=== PATIENT | male | born 1960 | race Two or more races ===

== ENCOUNTER 2020-02-06 15:24 | Inpatient (IN) | payer MEDICARE, OTHER ==
[~2020-02-06] VITALS: Ht 165.1 cm; Wt 64.9 kg
[2020-02-06] VITALS (7 sets, daily range): BP systolic 93–133; BP diastolic 40–94
--- NOTE | 2020-02-06 15:30 | NUR ---
Patient ANTON from dialysis center came in due to low BP. On trach, connected to the monitor and pulse ox. kept comfortable, will continue to monitor accordingly.
[2020-02-06 15:58] LABS: BASOPHILS # (AUTO) 0.2 /CMM (0.0-0.2); BASOPHILS % (AUTO) 1.3 % (0.0-2.0); EOSINOPHILS % (AUTO) 1.9 % (0.0-6.0); HEMATOCRIT 28 % (39-51); LYMPHOCYTES # (AUTO) 1.5 /CMM (0.8-4.8); LYMPHOCYTES % (AUTO) 12.6 % (20.0-44.0); MEAN CORPUSCULAR HGB CONC 32 g/dl (31.0-36.0); MEAN CORPUSCULAR VOLUME 94 fL (80-96); MONOCYTES # (AUTO) 0.9 /CMM (0.1-1.30); MONOCYTES % (AUTO) 7.5 % (2.0-12.0); NEUTROPHILS # (AUTO) 9.2 /CMM (1.8-8.9); NEUTROPHILS % (AUTO) 76.7 % (43.0-81.0); PLATELET COUNT (AUTO) 313 /CMM (150-450); RED BLOOD CELL COUNT(AUTO) 2.96 MIL/uL (4.5-6.0)
[2020-02-06] MEDS ORDERED: IV NS 0.9% 500 ML BAG IV ONE (16:00)
[2020-02-06] MEDS ORDERED: ACID1TAB12 GT (16:04)
[2020-02-06] MEDS ORDERED: HYDR100T27 GT (16:04)
[2020-02-06] MEDS ORDERED: SEVE0.8P3 PO (16:04)
[2020-02-06] MEDS ORDERED: FOLI0.8T2 GT (16:04)
[2020-02-06] MEDS ORDERED: ACET325T53 GT (16:04)
[2020-02-06] MEDS ORDERED: AMLO10TA4 GT (16:04)
[2020-02-06] MEDS ORDERED: ZINC220T4 GT (16:04)
[2020-02-06] MEDS ORDERED: SUCR1TAB GT (16:04)
[2020-02-06] MEDS ORDERED: MINO2.5T GT (16:04)
[2020-02-06] MEDS ORDERED: AMIN887L GT (16:04)
[2020-02-06] MEDS ORDERED: EPOE1VIA12 IJ (16:04)
[2020-02-06] MEDS ORDERED: ONDA4TAB5 PO (16:04)
[2020-02-06] MEDS ORDERED: LOSA50TA39 GT (16:04)
[2020-02-06] MEDS ORDERED: LEVO50TA8 GT (16:04)
[2020-02-06] MEDS ORDERED: SIME80TA15 GT (16:04)
[2020-02-06] MEDS ORDERED: ALPR0.5T GT (16:04)
[2020-02-06] MEDS ORDERED: CHOL100045 GT (16:04)
--- NOTE | 2020-02-06 16:09 | NUR ---
janey at bedside to x-ray
[2020-02-06 16:18] LABS: ALBUMIN 1.7 g/dL (3.4-5.0); BILIRUBIN,DIRECT 0.1 mg/dL (0.0-0.2); BILIRUBIN,TOTAL 0.3 mg/dL (0.2-1.0); CALCIUM, SERUM 9.6 mg/dL (8.5-10.1); CREATININE 4.8 mg/dL (0.6-1.3); TOTAL PROTEIN, SERUM 6.2 g/dL (6.4-8.2)
[2020-02-06 16:41] LABS: POTASSIUM 2.8 mmol/L (3.5-5.1)
[2020-02-06 17:14] LABS: BAND % (MANUAL) 2 % (0.0-5.0); EOSINOPHILS % (MANUAL) 2 % (0-4); LYMPHOCYTES % (MANUAL) 13 % (16-48); MONOCYTES % (MANUAL) 6 % (0-11.0); NEUTROPHILS % (MANUAL) 77 (42-76)
--- NOTE | 2020-02-06 17:54 | NUR ---
CALL LAB FOR PCR COVID SWAB
--- NOTE | 2020-02-06 18:47 | NUR ---
wheeled patient via gurney accompanied by RN and emt in no distress. RN at bedside to assume care.
--- NOTE | 2020-02-06 18:54 | NUR ---
RN NOTE PATIENT ARRIVED FROM ER BY KHURRAM TRANSFERRED TO BED. REPORT TAKEN FROM DELMY TIERNEY. PATIENT IN NO ACUTE DISTRESS. NO SOB NOTED. PATIENT BREATHING IS EVEN AND UNLABORED. PATIENT WITH TRACHEOSTOMY WITH 2L OXYGEN SATURATING >95% SPO2. VITAL SIGNS WNL. PATIENT ON CARDIAC MONITORING READING SINUS RHYTHM HR 69. PATIENT GTUBE PATENT AND INTACT. PATIENT BED ALARM IS ON. PATIENT HOB IS ELEVATED. PATIENT BED IS LOCKED AND IN LOWEST POSITION. CALL LIGHT WITHIN REACH. WILL ENDORSE CARE AND ADMISSION TO PM SHIFT FOR IMANI. Addendum: 02/06/20 at 1934 by SHAKILA RUSSELL RN RN NOTE PATIENT ARRIVED FROM ER BY KHURRAM TRANSFERRED TO BED. REPORT TAKEN FROM DELMY TIERNEY. PATIENT IN NO ACUTE DISTRESS. NO SOB NOTED. PATIENT BREATHING IS EVEN AND UNLABORED. PATIENT WITH TRACHEOSTOMY WITH 2L OXYGEN SATURATING >95% SPO2. VITAL SIGNS WNL. ISOLATION PRECAUTIONS MAINTAINED. PATIENT ON CARDIAC MONITORING READING SINUS RHYTHM HR 69. PATIENT GTUBE PATENT AND INTACT. PATIENT BED ALARM IS ON. PATIENT HOB IS ELEVATED. PATIENT BED IS LOCKED AND IN LOWEST POSITION. CALL LIGHT WITHIN REACH. WILL ENDORSE CARE AND ADMISSION TO PM SHIFT FOR IMANI.
--- NOTE | 2020-02-06 19:05 | NUR ---
FORENSIC BALLISTICS EXPERT NOTE RECEIVED PATIENT IN BED RESTING WITH HOB ELEVATED. AWAKE, ALERT, ORIENTED X3. ABLE TO MAKE NEEDS KNOWN IN [place], ABLE TO UNDERSTAND [place]ITTLE [place]. SPEECH IS CLEAR. ON ISOLATION FOR R/O COVID. BREATHING IS EVEN AND NON-LABORED, NO SOB NOTED AT THIS TIME. ON 2 LITERS O2 VIA TRACH COLLAR. PERRLA. SKIN IS DRY AND WARM TO TOUCH. NOTED DRY SCAB WOUNDS ON LEFT HAND, RED BLISTER ON LEFT HEEL, AND OPEN SKIN ON SACRAL AREA. IV SITE ON LIAM PICC LINE IS CLEAN DRY, AND PATENT, SALINE LOCKED. HD SITE ON LEFT UPPER ARM, BRUIT AND THRILL PRESENT. PEG TUBE IS CLAMPED. PATIENT IS NPO STATUS PER MD ORDER. ABDOMEN IS SOFT AND NON-TENDER, BOWEL SOUNDS ARE PRESENT ON ALL FOUR QUADRANTS. PATIENT IS ANURIC, INCONTINENT OF BOWELS. PATIENT IS NON-AMBULATORY. LOWER EXTREMITIES ARE FLACCID, UPPER EXTREMITIES ARE WNL. IN NO APPARENT DISTRESS NOTED AT THIS TIME. BED IS LOWERED AND LOCKED FOR SAFETY. CALL LIGHT IS WITHIN EASY REACH. WILL CONTINUE TO MONITOR.
--- NOTE | 2020-02-06 19:27 | NUR ---
RN NOTE WENT TO LAB TO COSTUME MAKER PCR COVID TEST. THERE WAS NO LAB ASSISTANCE THE BLOOD BANK TECH STATED TO COME BACK WHEN LAB ASSISTANCE AVAILABLE. VANI FROM LAB WAS IN ICU. INFORMED HIM THAT THERE WAS NOBODY IN LAB TO ASSIST IN GIVING PCR COVID KIT TO OBTAIN COVID SAMPLE. PER VANI HE WILL LET DEPUTY SHERIFF CIVIL DIVISION NURSE KNOW WHEN HE RETURNS TO LAB TO COSTUME MAKER KIT. ENDORSED TO DEPUTY SHERIFF CIVIL DIVISION RN CLARICE PATIENT CARE AND TO OBTAIN COVID KIT FOR LAB SAMPLE.
[2020-02-06] MEDS ORDERED: MAG HYDROX/AL HYDROX/SIMETH 30 ML UDC PO PRN (19:30)
[2020-02-06] MEDS ORDERED: SIMETHICONE 80 MG TAB.CHEW GT PRN (19:30)
[2020-02-06] MEDS ORDERED: HYDROCODONE/APAP 5/325MG TABLET PO PRN (19:30)
[2020-02-06] MEDS ORDERED: Z GUARD REMEDY 2 OZ OINT TP PRN (19:30)
[2020-02-06] MEDS ORDERED: ACETAMINOPHEN 325 MG TABLET PO PRN (19:30)
[2020-02-06] MEDS ORDERED: MAGNESIUM HYDROXIDE 30 ML UDC PO PRN (19:30)
[2020-02-06] MEDS ORDERED: ONDANSETRON HCL/PF 4 MG/2 ML VIAL IVP PRN (19:30)
[2020-02-06] MEDS ORDERED: MAG HYDROX/AL HYDROX/SIMETH 30 ML UDC GT PRN (20:27)
[2020-02-06] MEDS ORDERED: MAGNESIUM HYDROXIDE 30 ML UDC GT PRN (20:27)
--- NOTE | 2020-02-06 21:15 | NUR ---
RISK MANAGEMENT MANAGER NOTE COVID PCR TEST SPECIMEN COLLECTED AND SENT TO LAB.
[2020-02-06] MEDS: SULFAMETHOXAZOLE/TRIMETHOPRIM 20 ML in IV D5W 500 ML IV SCH (21:27)
[2020-02-07] VITALS (31 sets, daily range): BP systolic 89–154; BP diastolic 34–61
[2020-02-07] MEDS ORDERED: IV NS 0.9% 250 ML IV PRN
[2020-02-07 04:04] LABS: BASOPHILS # (AUTO) 0.1 /CMM (0.0-0.2); BASOPHILS % (AUTO) 1.3 % (0.0-2.0); EOSINOPHILS % (AUTO) 2.6 % (0.0-6.0); HEMATOCRIT 27 % (39-51); HEMOGLOBIN 9.1 g/dL (13.5-17.5); LYMPHOCYTES # (AUTO) 1.6 /CMM (0.8-4.8); LYMPHOCYTES % (AUTO) 15.2 % (20.0-44.0); MEAN CORPUSCULAR HGB CONC 33 g/dl (31.0-36.0); MEAN CORPUSCULAR VOLUME 93 fL (80-96); MONOCYTES # (AUTO) 0.9 /CMM (0.1-1.30); MONOCYTES % (AUTO) 8.4 % (2.0-12.0); NEUTROPHILS # (AUTO) 7.5 /CMM (1.8-8.9); NEUTROPHILS % (AUTO) 72.5 % (43.0-81.0); PLATELET COUNT (AUTO) 323 /CMM (150-450); RED BLOOD CELL COUNT(AUTO) 2.93 MIL/uL (4.5-6.0); WHITE BLOOD COUNT (AUTO) 10.3 K/uL (4.3-11.0)
[2020-02-07 04:32] LABS: CALCIUM, SERUM 8.9 mg/dL (8.5-10.1); MAGNESIUM 2.3 mg/dL (1.8-2.4); PHOSPHORUS 4.5 mg/dL (2.5-4.9)
[2020-02-07 04:34] LABS: POTASSIUM 2.7 mmol/L (3.5-5.1)
[2020-02-07 05:14] LABS: THYROID STIMULATING HORMONE 16.574 uIU/mL (0.358-3.74)
[2020-02-07] MEDS: ALPRAZOLAM 0.5 MG TABLET GT PRN (05:56)
--- NOTE | 2020-02-07 06:00 | NUR ---
VIGOUREUX PRINTER NOTE RECEIVED CRITICAL LAB POTASSIUM 2.7. PATIENT IS ON DIALYSIS. RELIGIOUS STUDIES PROFESSOR EDU BOWERS MADE AWARE. NO NEW ORDERS.
--- NOTE | 2020-02-07 06:58 | NUR ---
BOILER OR ENGINE OPERATOR NOTE PATIENT REMAINED STABLE THROUGHOUT THE NIGHT. NO SIGNIFICANT CHANGED NOTED. A&O X3. VITALS WNL. PATIENT IS KEPT CLEAN, DRY, AND COMFORTABLE. REPOSITIONED Q2H. WOUND CARE RENDERED. DUE MED BACTRIM GIVEN AND TOLERATED WELL WITHOUT ADVERSE EFFECTS NOTED. PATIENT REQUESTED XANAX MED FOR ANXIETY, MED GIVEN ORDERED. PATIENT KEPT NPO. ALL NEEDS ATTENDED AND MET. WILL ENDORSE TO AM SHIFT RN FOR CONTINUATION OF CARE.
--- NOTE | 2020-02-07 07:59 | NUR ---
WOUND CARE CONSULT: REVIEWED CHART, NURSING DOCUMENTATION AND PHOTOS WHICH INDICATE WOUNDS AND SCARS,SCABS TO HANDS, SACRUM AND BUTTOCKS, INNER THIGH SKIN ISSUE WELL WOUND TO LEFT HEEL, ALL PRESENT ON ADMISSION. RECOMMEND SURGICAL AND DPM CONSULTS. DR LAFLEUR AND DR NATHAN NOTIFIED OF CONSULT REQUESTS. DISCUSSED SKIN PROTECTION WITH NURSING STAFF. MD IN AGREEMENT WITH PLAN OF CARE. FIRST STEP LOW AIRLOSS MATTRESS IS ON ORDER.
[2020-02-07] MEDS: ZINC SULFATE 220 MG CAPSULE GT SCH (09:30)
[2020-02-07] MEDS: SUCRALFATE 1 G TABLET GT SCH ×2 (09:30→18:57)
[2020-02-07] MEDS: CHOLECALCIFEROL 1,000 UNIT TABLET (VIT D3) GT SCH (09:30)
[2020-02-07] MEDS: LEVOTHYROXINE SODIUM 50 MCG TABLET GT SCH (09:30)
[2020-02-07] MEDS: ACIDOPHILUS/BULGARICUS 1 EACH TAB.CHEW GT SCH (09:30)
[2020-02-07] MEDS: SEVELAMER CARBONATE 800 MG POWD.PACK GT SCH ×3 (09:30→18:57)
[2020-02-07] MEDS: VIT B CMPLX 3/FA/VIT C/BIOTIN 1 TAB TABLET GT SCH (09:30)
[2020-02-07] MEDS: POTASSIUM CHLORIDE 20 MEQ POWDER PACKET NG SCH ×2 (09:31→13:49)
[2020-02-07 09:45] LABS: THYROID STIMULATING HORMONE 17.268 uIU/mL (0.358-3.74)
[2020-02-07] MEDS: PROSOURCE / PROSTAT (PYXIS) 30 ML UDC GT SCH ×2 (10:29→13:49)
[2020-02-07] MEDS: HYDROCODONE/APAP 5/325MG TABLET GT PRN (13:49)
[2020-02-07] MEDS: CLOTRIMAZOLE 1% 15 GM TUBE TP SCH ×2 (13:51→18:58)
[2020-02-07] MEDS: HEPARIN SODIUM, PORCINE 5000 UNITS/1 ML VIAL SQ SCH ×2 (13:51→20:03)
[2020-02-07] MEDS: NEPRO 1,000 ML BOTTLE GT PRN (13:51)
[2020-02-07] MEDS: ACETAMINOPHEN 650 MG/20.3 ML UDC GT PRN (14:34)
--- NOTE | 2020-02-07 19:00 | NUR ---
SALES REPRESENTATIVE UNIFORMS Closing Patient remains A/Ox4, moldovan speaking. No s/s stroke- speech clear, theatrical dresser strength equal, smile even. 2L O2 via trach collar, SPO2 >95%, no SOB. Deep suction via trach required, done x3 by RT. White/luque/thick. Tele monitor attached, sinus rhythm HR 60-70s. BP stable- see vitasigns. GT in place, patent, verified via auscultation. Nepro @20mL/ goal of 40mL/hr. x1 BM, mucus like. Patient does not produce urine. Wound care completed. Turned per protocol. LIAM PICC, KRISTEL AV Shunt. Patient's called from [facility] x2.
[2020-02-07] MEDS ORDERED: ALBUMIN 25% 25 GM in PREMIX 1 EA IV PRN (20:00)
--- NOTE | 2020-02-07 20:45 | NUR ---
RN NOTES HEMODIALYSIS WAS STARTED BY HD NURSE WITH VITALS SIGNS 137/59 HR 65 RR 16 SPO2 100% TEMP 97.8, PT IS AWAKE AND A/O X4 WILL CONT TO MONITOR
[2020-02-07] MEDS: SULFAMETHOXAZOLE/TRIMETHOPRIM 20 ML in IV D5W 500 ML IV SCH (21:44)
[2020-02-08] VITALS (37 sets, daily range): BP systolic 110–172; BP diastolic 21–91
--- NOTE | 2020-02-08 00:19 | NUR ---
RN NOTES HEMODIALYSIS COMPLETED @ 0000 WITH V/S BP 144/59 HR OF 67 RR 16 SPO2 100 TEMP 97.9 OUTPUT VOLUME 1.8L PT IS AWAKE AND A/O X4 NO SIGNIFICANT CHANGES ON CONDITION NOTED WILL CONT TO MONITOR
[2020-02-08] MEDS: HYDROCODONE/APAP 5/325MG TABLET GT PRN ×3 (01:39→21:38)
[2020-02-08 04:37] LABS: BASOPHILS # (AUTO) 0.1 /CMM (0.0-0.2); BASOPHILS % (AUTO) 0.9 % (0.0-2.0); EOSINOPHILS % (AUTO) 1.9 % (0.0-6.0); HEMATOCRIT 28 % (39-51); HEMOGLOBIN 9.3 g/dL (13.5-17.5); LYMPHOCYTES # (AUTO) 1.5 /CMM (0.8-4.8); LYMPHOCYTES % (AUTO) 14.3 % (20.0-44.0); MEAN CORPUSCULAR HGB CONC 33 g/dl (31.0-36.0); MEAN CORPUSCULAR VOLUME 93 fL (80-96); MONOCYTES # (AUTO) 0.8 /CMM (0.1-1.30); MONOCYTES % (AUTO) 7.4 % (2.0-12.0); NEUTROPHILS % (AUTO) 75.5 % (43.0-81.0); PLATELET COUNT (AUTO) 339 /CMM (150-450); RED BLOOD CELL COUNT(AUTO) 3.01 MIL/uL (4.5-6.0); WHITE BLOOD COUNT (AUTO) 10.6 K/uL (4.3-11.0)
[2020-02-08 05:01] LABS: ALBUMIN 1.7 g/dL (3.4-5.0); BILIRUBIN,TOTAL 0.2 mg/dL (0.2-1.0); CALCIUM, SERUM 8.4 mg/dL (8.5-10.1); CREATININE 3.4 mg/dL (0.6-1.3); MAGNESIUM 2.1 mg/dL (1.8-2.4); POTASSIUM 3.3 mmol/L (3.5-5.1); TOTAL PROTEIN, SERUM 6.5 g/dL (6.4-8.2)
--- NOTE | 2020-02-08 06:52 | NUR ---
RN CLOSING NOTES PT ON BED ASLEEP NO SIGN AND SYMPTOMS OF RESPIRATORY DISTRESS, SPO2 98% VIA 2L TRACH MASK HR NO SIGNIFICANT CHANGES ON CONDITION NOTED TELE MONITOR STILL READS SINUS RHYTHM 70'S, ALL NEEDS ATTENDED, SAFETY MEASURE MAINTAINED BED ON LOWEST POSITION AND LOCKED SIDE RAILS UP CALL LIGHT WITHIN REACH WILL ENDORSED TO AM SHIFT NURSE
[2020-02-08] MEDS: CHOLECALCIFEROL 1,000 UNIT TABLET (VIT D3) GT SCH (08:31)
[2020-02-08] MEDS: ZINC SULFATE 220 MG CAPSULE GT SCH (08:31)
[2020-02-08] MEDS: ALPRAZOLAM 0.5 MG TABLET GT PRN (08:31)
[2020-02-08] MEDS: SUCRALFATE 1 G TABLET GT SCH ×2 (08:31→17:40)
[2020-02-08] MEDS: LEVOTHYROXINE SODIUM 50 MCG TABLET GT SCH (08:31)
[2020-02-08] MEDS: HEPARIN SODIUM, PORCINE 5000 UNITS/1 ML VIAL SQ SCH ×2 (08:31→21:22)
[2020-02-08] MEDS: ACIDOPHILUS/BULGARICUS 1 EACH TAB.CHEW GT SCH (08:31)
[2020-02-08] MEDS: SEVELAMER CARBONATE 800 MG POWD.PACK GT SCH ×3 (08:31→17:40)
[2020-02-08] MEDS: VIT B CMPLX 3/FA/VIT C/BIOTIN 1 TAB TABLET GT SCH (08:31)
[2020-02-08] MEDS: CLOTRIMAZOLE 1% 15 GM TUBE TP SCH ×2 (08:33→17:40)
--- NOTE | 2020-02-08 10:15 | NUR ---
This SW spoke with Deborah Rowley ([facility]) . Deborah wanted information regarding this patient and his whereabouts. Per Deborah, she did not know if the patient was at a new hospital or if [facility] partnered with [facility]. This SW informed Deborah that [facility] and [facility] work together. Deborah wanted verification on where the patient was and this SW provided the information of SO and ICU.
--- NOTE | 2020-02-08 16:08 | NUR ---
Dr. Marquez notified of newly appearing L foot 4+ edema. "Diuretics won't work, have to get it out with HD" . no new orders received, SCD pump off L leg, continue to monitor
[2020-02-08] MEDS: NEPRO 1,000 ML BOTTLE GT PRN (17:50)
--- NOTE | 2020-02-08 18:50 | NUR ---
tele status patient (icu room pending covid swab) Patient remains A/Ox4, albanian speaking. No s/s stroke- speech clear, mine boss strength equal, smile even. Facetimed with this evening. 2L O2 via trach collar, SPO2 >95%, no SOB. Deep suction via trach required, completed PRN by RT. Tele monitor attached, sinus rhythm HR 60-70s. BP stable- see vitasigns. GT in place, patent, verified via auscultation. Nepro @40mL/hr. 5mL residual noted @1200. 0 @1600. x1 BM, mucus like. Patient does not produce urine. Wound care completed. Turned per protocol. LIAM PICC, KRISTEL AV Shunt. Xanax given x1 at beginning of shift per patient request. Sylvester given x1 toward end of shift per patient request for 12/31 pain, KRISTEL, chronic, due to invasive line. Call light within reach, HOB >30degrees. L foot 4+ edema (see prior nursing note).
--- NOTE | 2020-02-08 19:05 | NUR ---
RN NOTE RECEIVED PATIENT IN BED RESTING WITH HOB ELEVATED. AWAKE, ALERT, ORIENTED X3. ABLE TO MAKE NEEDS KNOWN IN [place], ABLE TO UNDERSTAND LITTLE [place]. SPEECH IS CLEAR. ON ISOLATION FOR R/O COVID. BREATHING IS EVEN AND NON-LABORED, NO SOB NOTED AT THIS TIME. ON 2 LITERS O2 VIA TRACH COLLAR. SKIN IS DRY AND WARM TO TOUCH. IV SITE ON LIAM PICC LINE IS CLEAN DRY, AND PATENT. HD SITE ON LEFT UPPER ARM, BRUIT AND THRILL PRESENT. ON GT NEPHRO FEEDING RUNNING AT 40 ML/HR. BOWEL SOUNDS ARE PRESENT ON ALL FOUR QUADRANTS. PATIENT IS ANURIC, INCONTINENT OF BOWELS. PATIENT IS NON-AMBULATORY. LOWER EXTREMITIES ARE FLACCID, UPPER EXTREMITIES ARE WNL. IN NO APPARENT DISTRESS NOTED AT THIS TIME. BED IS LOWERED AND LOCKED FOR SAFETY. CALL LIGHT IS WITHIN EASY REACH. WILL CONTINUE TO MONITOR.
[2020-02-08] MEDS: SULFAMETHOXAZOLE/TRIMETHOPRIM 20 ML in IV D5W 500 ML IV SCH (21:23)
[2020-02-09] VITALS: BP 140/36
[2020-02-09 04:00] VITALS: BP 160/53
[2020-02-09 04:51] LABS: BASOPHILS # (AUTO) 0.1 /CMM (0.0-0.2); BASOPHILS % (AUTO) 0.9 % (0.0-2.0); EOSINOPHILS % (AUTO) 2.1 % (0.0-6.0); HEMATOCRIT 26 % (39-51); HEMOGLOBIN 8.4 g/dL (13.5-17.5); LYMPHOCYTES # (AUTO) 1.4 /CMM (0.8-4.8); LYMPHOCYTES % (AUTO) 16.7 % (20.0-44.0); MEAN CORPUSCULAR HGB CONC 33 g/dl (31.0-36.0); MEAN CORPUSCULAR VOLUME 93 fL (80-96); MONOCYTES # (AUTO) 0.6 /CMM (0.1-1.30); MONOCYTES % (AUTO) 7.7 % (2.0-12.0); NEUTROPHILS % (AUTO) 72.6 % (43.0-81.0); PLATELET COUNT (AUTO) 314 /CMM (150-450); RED BLOOD CELL COUNT(AUTO) 2.75 MIL/uL (4.5-6.0); WHITE BLOOD COUNT (AUTO) 8.3 K/uL (4.3-11.0)
[2020-02-09 04:54] LABS: CALCIUM, SERUM 8.7 mg/dL (8.5-10.1); CREATININE 4.2 mg/dL (0.6-1.3); MAGNESIUM 2.3 mg/dL (1.8-2.4); PHOSPHORUS 3.5 mg/dL (2.5-4.9)
[2020-02-09] MEDS: ALPRAZOLAM 0.5 MG TABLET GT PRN (06:20)
[2020-02-09] MEDS: HYDROCODONE/APAP 5/325MG TABLET GT PRN (06:20)
--- NOTE | 2020-02-09 07:24 | NUR ---
RN NOTE PATIENT REMAINED STABLE THROUGHOUT THE NIGHT. NO SIGNIFICANT CHANGES NOTED. ALL NEEDS ATTENDED AND MET. DUE MEDS GIVEN AND TOLERATED WELL. PATIENT REFUSED INTERMITTENT CD STOCKINGS. NOTED PATIENT WITH X2 BM. WOUND CARE RENDERED. ENDORSED TO AM SHIFT RN FOR CONTINUATION OF CARE.
[2020-02-09 08:00] VITALS: BP 140/53
--- NOTE | 2020-02-09 08:00 | NUR ---
ICU/RN/TELE PT IS ON THE BED CHRONIC TRACH ON 2L O2,SAT O2-10%.V/S STABLE,AFEBRILE.NO PAIN REPORTED AT THIS TIME.WAITING FOR THE PCR COVID RESULT.TELE STATUS.ESRD ,ON HD.LEFT UPPER ARM AV SHUNT.PT IS BEDBOUND.SACRAL WOUND COVERED WITH DRESSING.G-TUBE INFUSING WITH NEPRO AT 40 ML/HR.LABS REVIEW.K-3.0. NOTIFIED.NEW ORDERS RECEIVED.CONTINUE MONITORING
[2020-02-09] MEDS: POTASSIUM CHLORIDE 20 MEQ POWDER PACKET NG SCH ×2 (09:20→12:14)
[2020-02-09] MEDS: SUCRALFATE 1 G TABLET GT SCH ×2 (09:20→17:03)
[2020-02-09] MEDS: VIT B CMPLX 3/FA/VIT C/BIOTIN 1 TAB TABLET GT SCH (09:20)
[2020-02-09] MEDS: ZINC SULFATE 220 MG CAPSULE GT SCH (09:20)
[2020-02-09] MEDS: CHOLECALCIFEROL 1,000 UNIT TABLET (VIT D3) GT SCH (09:20)
[2020-02-09] MEDS: ACIDOPHILUS/BULGARICUS 1 EACH TAB.CHEW GT SCH (09:20)
[2020-02-09] MEDS: HEPARIN SODIUM, PORCINE 5000 UNITS/1 ML VIAL SQ SCH ×2 (09:22→20:53)
[2020-02-09] MEDS: CLOTRIMAZOLE 1% 15 GM TUBE TP SCH ×2 (09:23→17:19)
[2020-02-09] MEDS: PROSOURCE / PROSTAT (PYXIS) 30 ML UDC GT SCH (09:23)
--- NOTE | 2020-02-09 09:30 | NUR ---
ICU/RN /TELE DUE MEDS ARE GIVEN ORDERED.REPOSITION FOR COMFORT.
[2020-02-09] MEDS: LEVOTHYROXINE SODIUM 50 MCG TABLET GT SCH (09:34)
[2020-02-09 12:00] VITALS: BP 130/53
[2020-02-09] MEDS: SEVELAMER CARBONATE 800 MG POWD.PACK GT SCH ×3 (12:14→17:03)
--- NOTE | 2020-02-09 14:00 | NUR ---
ICU/RN/TELE. PT IS HAVING HD.HD NURSE AT BEDSIDE.
--- NOTE | 2020-02-09 14:30 | NUR ---
LAWN MOWER NOTES RECEIVED REPORT FROM NIALL VACA FOR CONTINUATION OF CARE. PATIENT RESTING COMFORTABLY IN BED CURRENTLY RECEIVING HD.
[2020-02-09] MEDS ORDERED: EPOETIN ALFA (10,000 UNIT) 10,000 UNIT/ML VIAL SQ SCH (15:00)
[2020-02-09 16:00] VITALS: BP 129/42
[2020-02-09] MEDS: NEPRO 1,000 ML BOTTLE GT PRN (16:47)
--- NOTE | 2020-02-09 17:00 | NUR ---
ICU/CONSTRUCTION EXECUTIVE NOTES PATIENT COMPLETED HD TX, OUTPUT 2800ML. EDDIE TX WELL.
--- NOTE | 2020-02-09 19:15 | NUR ---
RN NOTE RECEIVED PATIENT IN BED RESTING WITH HOB ELEVATED. AWAKE, ALERT, ORIENTED X3. ABLE TO MAKE NEEDS KNOWN IN [place]. SPEECH IS CLEAR. PCR COVID TEST IS STILL PENDING. BREATHING IS EVEN AND NON-LABORED, NO SOB NOTED AT THIS TIME. ON 2 LITERS O2 VIA TRACH COLLAR. IV SITE ON LIAM PICC LINE IS CLEAN DRY, AND PATENT. HD SITE ON LEFT UPPER ARM, BRUIT AND THRILL PRESENT. ON GT NEPHRO FEEDING RUNNING AT 40 ML/HR. INCONTINENT OF BOWELS, BOWEL SOUNDS ARE PRESENT ON ALL FOUR QUADRANTS. PATIENT IS ANURIC. LOWER EXTREMITIES ARE FLACCID, UPPER EXTREMITIES ARE WNL. IN NO APPARENT DISTRESS NOTED AT THIS TIME. +4 EDEMA NOTED ON BLE. PATIENT REFUSED TO APPLY INTERMITTENT CD. BED IS LOWERED AND LOCKED FOR SAFETY. CALL LIGHT IS WITHIN EASY REACH. WILL CONTINUE TO MONITOR.
--- NOTE | 2020-02-09 19:31 | NUR ---
ICU/SUPERVISOR TESTING NOTES PATIENT RESTING COMFORTABLY IN BED. HOB ELEVATED. NO S/S OF RESPIRATORY DISTRESS. ON O2 AT 2L/MIN VIA TRACH MASK EDDIE WELL. SHILEY #8 INTACT. ON TELE MONITORING SR. LIAM PICC LINE INTACT AND PATENT. KRISTEL AV SHUNT WITH DRESSING IN PLACE WITHOUT S/S OF COMPLICATIONS POST HD TX. GT INTACT AND PATENT EDDIE NEPRO AT 40 ML/HR, NO RESIDUAL OBSERVED. PLACEMENT CHECKED. ABLE TO VERBALIZE NEEDS. CALL LIGHT WITHIN REACH. BED IN LOWEST POSITION, LOCKED. BED ALARM ON.
[2020-02-09 20:00] VITALS: BP 146/51
[2020-02-09] MEDS: SULFAMETHOXAZOLE/TRIMETHOPRIM 20 ML in IV D5W 500 ML IV SCH (20:49)
[2020-02-10] VITALS: BP 147/75
[2020-02-10] MEDS: ALPRAZOLAM 0.5 MG TABLET GT PRN ×2 (00:24→15:10)
--- NOTE | 2020-02-10 00:35 | NUR ---
RN NOTE REPORT GIVEN TO MERCEDEZ TIERNEY FROM MED SURG 2 FOR CONTINUATION OF CARE.
--- NOTE | 2020-02-10 00:40 | NUR ---
DOWEL POINTER OPENING NOTES RECEIVED PATIENT FROM ICU NURSE, IN BED, AWAKE, A/O X3, O2 @ 2LPM VIA TRACH COLLAR, UNLABORED BREATHING, NO SIGNS OF RESPIRATORY DISTRESS, G TUBE FEEDING NREPHRO @ 40ML/HR, NO RESIDUE OBSERVED, LIAM PICC LINE TKO, KRISTEL AV SHUNT, LAST HD 02/08 2000ML OUTPUT ENDORSED, SACRAL DTI, LEFT HEEL BLISTER, EDEMA ON BOTH FOOT +4, NO COMPLAINTS OF PAIN, BED IN LOWEST POSITION, SIDE RAILS UP X2, WILL CONTINUE TO MONITOR PATIENT.
[2020-02-10 04:00] VITALS: BP 144/79
[2020-02-10] MEDS: HYDROCODONE/APAP 5/325MG TABLET GT PRN (05:19)
[2020-02-10 05:31] LABS: BASOPHILS # (AUTO) 0.1 /CMM (0.0-0.2); BASOPHILS % (AUTO) 0.6 % (0.0-2.0); EOSINOPHILS % (AUTO) 0.9 % (0.0-6.0); HEMATOCRIT 25 % (39-51); HEMOGLOBIN 8.5 g/dL (13.5-17.5); LYMPHOCYTES # (AUTO) 1.2 /CMM (0.8-4.8); MEAN CORPUSCULAR HGB CONC 34 g/dl (31.0-36.0); MEAN CORPUSCULAR VOLUME 93 fL (80-96); MONOCYTES # (AUTO) 0.6 /CMM (0.1-1.30); MONOCYTES % (AUTO) 6.5 % (2.0-12.0); NEUTROPHILS # (AUTO) 7.5 /CMM (1.8-8.9); PLATELET COUNT (AUTO) 289 /CMM (150-450); RED BLOOD CELL COUNT(AUTO) 2.73 MIL/uL (4.5-6.0); WHITE BLOOD COUNT (AUTO) 9.5 K/uL (4.3-11.0)
[2020-02-10 05:55] LABS: CALCIUM, SERUM 8.9 mg/dL (8.5-10.1); CREATININE 2.9 mg/dL (0.6-1.3); MAGNESIUM 2.2 mg/dL (1.8-2.4); PHOSPHORUS 2.4 mg/dL (2.5-4.9)
--- NOTE | 2020-02-10 06:54 | NUR ---
BEAMER HAND CLOSING NOTES [id number] PATIENT FROM ICU NURSE, IN BED, AWAKE, A/O X3, O2 @ 2LPM VIA TRACH COLLAR, UNLABORED BREATHING, NO SIGNS OF RESPIRATORY DISTRESS, G TUBE FEEDING NREPHRO @ 40ML/HR, NO RESIDUE OBSERVED, LIAM PICC LINE TKO, KRISTEL AV SHUNT, LAST HD 02/08 2000ML OUTPUT ENDORSED, SACRAL DTI, LEFT HEEL BLISTER, EDEMA ON BOTH FOOT +4, NO COMPLAINTS OF PAIN, BED IN LOWEST POSITION, SIDE RAILS UP X2, WILL CONTINUE TO MONITOR PATIENT. Addendum: 02/10/20 at 0659 by MERCEDEZ RODRIGUES RN WRONG ENTRY.
--- NOTE | 2020-02-10 06:55 | NUR ---
STRANNER CLOSING NOTES ENDORSED PATIENT IN BED, AWAKE, A/O X3, O2 @ 2LPM VIA TRACH COLLAR, UNLABORED BREATHING, NO SIGNS OF RESPIRATORY DISTRESS, G TUBE FEEDING NREPHRO @ 40ML/HR, NO RESIDUE OBSERVED, LIAM PICC LINE TKO, NO REDNESS OR INFILTRATION NOTED, KRISTEL AV SHUNT, LAST HD 02/08 2000ML OUTPUT ENDORSED, TURN AND REPOSITION EVERY [address] ON SACRAL AREA, PAIN MED GIVEN, BED IN LOWEST POSITION, SIDE RAILS UP X2 FOR SAFETY. SUCTIONED PATIENT'S TRACH NEEDED OR PER PATIENT'S REQUEST.
[2020-02-10 08:00] VITALS: BP 149/42
--- NOTE | 2020-02-10 08:00 | NUR ---
UNDERCOVER COP OPENING NOTES Received Patient resting in bed. A/O x 3, Cypriot speaking. VS stable with no acute distress. Breathing even and unlabored on 2LPM via Trachea collar. Telemonitor in place and patent reading SR with HR-72. LIAM PICC Line clean, intact, patent and flushing well. KRISTEL AV shunt clean with bruit and thrill noted. Gtube in place and patent with Nephro infusing at 40ml/hr. Safety precautions in place. Bed locked and set to lowest position with side rails x 2 up. All needs rendered at this time. Call light within reach. Will continue to monitor.
[2020-02-10] MEDS ORDERED: POTASSIUM CHLORIDE 20 MEQ TAB.PRT.SR PO SCH (09:00)
[2020-02-10] MEDS: VIT B CMPLX 3/FA/VIT C/BIOTIN 1 TAB TABLET GT SCH (09:15)
[2020-02-10] MEDS: CHOLECALCIFEROL 1,000 UNIT TABLET (VIT D3) GT SCH (09:15)
[2020-02-10] MEDS: LEVOTHYROXINE SODIUM 50 MCG TABLET GT SCH (09:15)
[2020-02-10] MEDS: SUCRALFATE 1 G TABLET GT SCH ×2 (09:15→16:57)
[2020-02-10] MEDS: ACIDOPHILUS/BULGARICUS 1 EACH TAB.CHEW GT SCH (09:15)
[2020-02-10] MEDS: ZINC SULFATE 220 MG CAPSULE GT SCH (09:15)
[2020-02-10] MEDS: HEPARIN SODIUM, PORCINE 5000 UNITS/1 ML VIAL SQ SCH ×2 (09:17→20:02)
[2020-02-10] MEDS: PROSOURCE / PROSTAT (PYXIS) 30 ML UDC GT SCH (09:23)
[2020-02-10] MEDS: CLOTRIMAZOLE 1% 15 GM TUBE TP SCH ×2 (09:23→17:10)
[2020-02-10] MEDS: POTASSIUM CHLORIDE 20 MEQ POWDER PACKET GT SCH ×3 (09:31→11:32)
[2020-02-10] MEDS ORDERED: SULF10VI2 IV (10:49)
[2020-02-10 12:00] VITALS: BP 186/74
[2020-02-10 16:00] VITALS: BP 159/54
--- NOTE | 2020-02-10 16:51 | NUR ---
CHECK TOTALER NOTES Notified Garcia SPECIAL WARFARE OPERATOR, Rapid Covid Test positive. NNO. Awaiting PCR results. Per CM, discharge pended.
--- NOTE | 2020-02-10 19:00 | NUR ---
TECHNICAL RECRUITER OPENING NOTES RECEIVED PATIENT IN BED HEAD OF BED ELEVATED FOR ASPIRATIONS PRECAUTIONS, ON TRACH COLLAR TOLERATING 02 WELL ORDERED, RESPIRATIONS EVEN AND UNLABORED WITH EQUAL RISE AND FALL OF CHEST, DENIES ANY PAIN OR DISCOMFORT, GTUBE INTACT AND PATENT TOLERATING FEEDING WELL , 5CC RESIDUALS, PICC LINE TO LIAM INTACT AND PATENT, NO REDNESS, NO INFILTRATION PRESENT, DRESSING IS C/D/I. KRISTEL SHUNT BRUIT PRESENT, CURRENTLY RECEIVING DIALYSIS. ORIENTED TO STAFF AND CALL LIGHT AND KEPT WITHIN REACH, ALL NEEDS ATTENDED AT THIS TIME, WILL CONTINUE TO MONITOR AND ATTEND TO NEEDS.
--- NOTE | 2020-02-10 19:12 | NUR ---
INSTRUCTOR OF SOCIOLOGY CLOSING NOTES Patient resting in bed. A/O x 3, Georgian speaking. VS stable with no acute distress. Breathing even and unlabored on 2LPM via Trachea collar. Telemonitor in place and patent reading SR with HR-72. LIAM PICC Line clean, intact, patent and flushing well. KRISTEL AV shunt clean with bruit and thrill noted. Gtube in place and patent with Nephro infusing at 40ml/hr. Safety precautions in place. Bed locked and set to lowest position with side rails x 2 up. All needs rendered at this time. Call light within reach. Will endorse plan of care to oncoming shift.
[2020-02-10] MEDS: NEPRO 1,000 ML BOTTLE GT PRN (19:56)
[2020-02-10 20:00] VITALS: BP 184/74
[2020-02-10] MEDS: SULFAMETHOXAZOLE/TRIMETHOPRIM 20 ML in IV D5W 500 ML IV SCH (20:01)
--- NOTE | 2020-02-10 21:30 | NUR ---
e learning designer notes noted patient with elevated bp 184/74,71 made MD erickson aware with new order for x1 clonidine 0.1mg now and losartan 20mg to start in am. patient made aware will give as ordered and continue to monitor.
[2020-02-10] MEDS ORDERED: CLONIDINE HCL 0.1 MG TABLET GT ONE (22:00)
[2020-02-11] VITALS (7 sets, daily range): BP systolic 132–188; BP diastolic 47–67
--- NOTE | 2020-02-11 00:38 | NUR ---
internal investigator notes bp rechecked noted 188/66, 72. pt asymptomatic states he feels fine, hospitalist made aware no new order continue to monitor. pt aware.
[2020-02-11] MEDS: hydrALAZINE HCL 25 MG TABLET PO SCH ×2 (01:22→06:33)
--- NOTE | 2020-02-11 01:30 | NUR ---
AUTOMOTIVE TECHNOLOGY INSTRUCTOR NOTES CALLED TO CLARIFY HYDRALAZINE Q8HRS WITH [facility] PER PHARMACY OKAY TO GIVE SCHEDULED.
[2020-02-11] MEDS: HYDROCODONE/APAP 5/325MG TABLET GT PRN ×2 (03:54→16:08)
--- NOTE | 2020-02-11 03:55 | NUR ---
last turner notes patient complained of pain to left arm 7/10 requested for pain medication norco vs wnl norco prn given,will continue to monitor.
--- NOTE | 2020-02-11 06:29 | NUR ---
COLD ROLLER CLOSING NOTES PATIENT IN BED HEAD OF BED ELEVATED FOR ASPIRATIONS PRECAUTIONS, ON TRACH COLLAR TOLERATING 02 WELL ORDERED, RESPIRATIONS EVEN AND UNLABORED WITH EQUAL RISE AND FALL OF CHEST, DENIES ANY PAIN OR DISCOMFORT, GTUBE INTACT AND PATENT TOLERATING FEEDING WELL , 5CC RESIDUALS, PICC LINE TO LIAM INTACT AND PATENT, NO REDNESS, NO INFILTRATION PRESENT, DRESSING IS C/D/I. KRISTEL SHUNT BRUIT PRESENT, BP MEDICATION WAS EFFECTIVE, CALL LIGHT KEPT WITHIN REACH, ALL NEEDS ATTENDED AT THIS TIME, WILL CONTINUE TO MONITOR AND ATTEND TO NEEDS AND ENDORSE TO NEXT SHIFT.
--- NOTE | 2020-02-11 06:30 | NUR ---
ELECTRIC FREIGHT CAR OPERATOR NOTES ON DELIVERER PHARMACY SR 74
--- NOTE | 2020-02-11 07:40 | NUR ---
RN OPENING NOTE Patient is resting in bed, A/O x3, showing no signs of acute distress or SOB, trach shiley #[address] 2[address] o2 saturating >95%. Patient has no complaints of pain at this time. GTF nepro running 40mls/hour with 5mls residual. Bed is in lowest position, side rails x3 in upright position, call light is within reach, fall safety and aspiration precautions enforced will continue with plan of care.
[2020-02-11] MEDS: ACIDOPHILUS/BULGARICUS 1 EACH TAB.CHEW GT SCH (08:33)
[2020-02-11] MEDS: VIT B CMPLX 3/FA/VIT C/BIOTIN 1 TAB TABLET GT SCH (08:33)
[2020-02-11] MEDS: LEVOTHYROXINE SODIUM 50 MCG TABLET GT SCH (08:33)
[2020-02-11] MEDS: PROSOURCE / PROSTAT (PYXIS) 30 ML UDC GT SCH (08:33)
[2020-02-11] MEDS: ZINC SULFATE 220 MG CAPSULE GT SCH (08:33)
[2020-02-11] MEDS: CHOLECALCIFEROL 1,000 UNIT TABLET (VIT D3) GT SCH (08:33)
[2020-02-11] MEDS: SUCRALFATE 1 G TABLET GT SCH ×2 (08:33→16:08)
[2020-02-11] MEDS: HEPARIN SODIUM, PORCINE 5000 UNITS/1 ML VIAL SQ SCH ×2 (08:38→21:02)
[2020-02-11] MEDS: CLOTRIMAZOLE 1% 15 GM TUBE TP SCH ×2 (08:40→16:12)
[2020-02-11] MEDS ORDERED: LOSARTAN POTASSIUM 25 MG TABLET GT SCH (09:00)
[2020-02-11] MEDS: VALSARTAN 80 MG TABLET PO SCH (09:00)
[2020-02-11] MEDS: ALPRAZOLAM 0.5 MG TABLET GT PRN (09:00)
[2020-02-11] MEDS ORDERED: hydrALAZINE HCL 25 MG TABLET PO SCH (13:00)
[2020-02-11] MEDS ORDERED: hydrALAZINE HCL 50 MG TABLET PO SCH (13:00)
[2020-02-11] MEDS: hydrALAZINE HCL 50 MG TABLET PO SCH ×2 (13:08→21:01)
--- NOTE | 2020-02-11 15:41 | NUR ---
RN NOTE F/U WITH LAB, NO PCR RESULTS YET. THEY WILL CALL ONCE RESULTED.
[2020-02-11] MEDS: NEPRO 1,000 ML BOTTLE GT PRN (16:58)
--- NOTE | 2020-02-11 18:49 | NUR ---
RN CLOSING NOTE Patient is resting in bed, A/O x3, showing no signs of acute distress or SOB, trach shiley #[address] 2L o2 saturating >95%. Inner cannula changed and dressing changed by RT. Patient suctioned PRN. GTF nepro running 40mls/hour with 5mls residual. All patient needs met, all due medications given, patient kept clean and dry throughout shift, wound care completed as ordered. Bed is in lowest position, side rails x3 in upright position, call light is within reach, fall safety and aspiration precautions enforced will endorse to manager shift.
--- NOTE | 2020-02-11 19:30 | NUR ---
TELE/RN OPENING NOTES RECEIVED PATIENT IN BED RESTING. PATIENT IS ALERT AND ORIENTED X 3, LIBYAN SPEAKING. PATIENT STATES NO PAIN AT THIS TIME. NO SIGNS OF SOB OR RESPIRATORY DISTRESS NOTED. PATIENT HAS TRACH SHILEY #[address], 2L OXYGEN TOLERATING WELL. PATIENT HAS RIGHT PICC LINE INTACT AND KRISTEL AV SHUNT IN PLACE. G TUBE IS RUNNING NEPHRO AT 40 ML/HR. NO SIGNS OF DISTRESS NOTED. SAFETY MEASURES ARE IN PLACE, BED IS LOCKED AND PLACED IN THE LOWEST POSITION. CALL LIGHT IS WITHIN REACH. WILL CONTINUE TO MONITOR THROUGH OUT SHIFT.
[2020-02-11] MEDS: SULFAMETHOXAZOLE/TRIMETHOPRIM 20 ML in IV D5W 500 ML IV SCH (21:01)
[2020-02-11] MEDS: ACETAMINOPHEN 650 MG/20.3 ML UDC GT PRN (21:01)
--- NOTE | 2020-02-11 21:01 | NUR ---
TELE/RN NOTES PATIENT WAS COMPLAINING OF HEADACHE. TYLENOL 650 MG VIA G TUBE GIVEN. V/S WITHIN NORMAL LIMITS. WILL CONTINUE TO MONITOR.
--- NOTE | 2020-02-11 23:15 | NUR ---
TELE/RN PATIENT REQUESTING TO BE SUCTIONED. PATIENT SUCTIONED, TOLERATED WELL. WILL CONTINUE TO MONITOR.
[2020-02-12] VITALS: BP 144/49
[2020-02-12 04:00] VITALS: BP 155/66
[2020-02-12] MEDS: hydrALAZINE HCL 50 MG TABLET PO SCH ×3 (06:10→20:31)
--- NOTE | 2020-02-12 06:55 | NUR ---
TELE/RN CLOSING NOTES PATIENT IS IN BED RESTING. PATIENT IS ALERT AND ORIENTED X 3 GHANAIAN SPEAKING. NO SOB OR RESPIRATORY DISTRESS NOTED. TELE READING SR 75. NO DISTRESS NOTED. PATIENT HAS IV ACCESS ON RIGHT UPPER ARM PICC LINE AND KRISTEL AV SHUNT INTACT. G TUBE NO RESIDUAL RUNNING NEPRO 40 ML/HR, FLUSHED DURING SHIFT. ALL PATIENT NEEDS HAVE BEEN MET DURING SHIFT. SAFETY MEASURES ARE IN PLACE BED IS LOCKED AND IN LOW POSITION, CALL LIGHT WITHIN REACH. WILL ENDORSE CARE TO DAY SHIFT.
--- NOTE | 2020-02-12 07:40 | NUR ---
RN OPENING NOTES RECEIVED PATIENT IN BED RESTING. PATIENT IS ALERT AND ORIENTED X 3, TRISTANIAN SPEAKING. PATIENT STATES NO PAIN AT THIS TIME. NO SIGNS OF SOB OR RESPIRATORY DISTRESS NOTED. PATIENT HAS TRACH SHILEY #[address], 2L OXYGEN TOLERATING WELL. PATIENT HAS RIGHT PICC LINE INTACT AND KRISTEL AV SHUNT IN PLACE. G TUBE IS RUNNING NEPHRO AT 40 ML/HR. NO SIGNS OF DISTRESS NOTED. SAFETY MEASURES ARE IN PLACE, BED IS LOCKED AND PLACED IN THE LOWEST POSITION. CALL LIGHT IS WITHIN REACH. WILL CONTINUE TO MONITOR THROUGH OUT SHIFT.
[2020-02-12 08:00] VITALS: BP 149/56
[2020-02-12] MEDS: VIT B CMPLX 3/FA/VIT C/BIOTIN 1 TAB TABLET GT SCH (08:17)
[2020-02-12] MEDS: ZINC SULFATE 220 MG CAPSULE GT SCH (08:17)
[2020-02-12] MEDS: SUCRALFATE 1 G TABLET GT SCH ×2 (08:18→16:25)
[2020-02-12] MEDS: VALSARTAN 80 MG TABLET PO SCH (08:18)
[2020-02-12] MEDS: CHOLECALCIFEROL 1,000 UNIT TABLET (VIT D3) GT SCH (08:18)
[2020-02-12] MEDS: ACIDOPHILUS/BULGARICUS 1 EACH TAB.CHEW GT SCH (08:18)
[2020-02-12] MEDS: LEVOTHYROXINE SODIUM 50 MCG TABLET GT SCH (08:18)
[2020-02-12] MEDS: HEPARIN SODIUM, PORCINE 5000 UNITS/1 ML VIAL SQ SCH ×2 (08:21→20:30)
[2020-02-12 08:36] LABS: BASOPHILS # (AUTO) 0.1 /CMM (0.0-0.2); BASOPHILS % (AUTO) 1.1 % (0.0-2.0); EOSINOPHILS % (AUTO) 0.7 % (0.0-6.0); HEMATOCRIT 26 % (39-51); HEMOGLOBIN 8.7 g/dL (13.5-17.5); LYMPHOCYTES # (AUTO) 1.2 /CMM (0.8-4.8); LYMPHOCYTES % (AUTO) 17.9 % (20.0-44.0); MEAN CORPUSCULAR HGB CONC 34 g/dl (31.0-36.0); MEAN CORPUSCULAR VOLUME 94 fL (80-96); MONOCYTES # (AUTO) 0.5 /CMM (0.1-1.30); MONOCYTES % (AUTO) 7.5 % (2.0-12.0); NEUTROPHILS % (AUTO) 72.8 % (43.0-81.0); PLATELET COUNT (AUTO) 249 /CMM (150-450); RED BLOOD CELL COUNT(AUTO) 2.75 MIL/uL (4.5-6.0); WHITE BLOOD COUNT (AUTO) 6.9 K/uL (4.3-11.0)
[2020-02-12] MEDS: PROSOURCE / PROSTAT (PYXIS) 30 ML UDC GT SCH (08:40)
[2020-02-12] MEDS: CLOTRIMAZOLE 1% 15 GM TUBE TP SCH ×2 (08:41→16:26)
[2020-02-12 09:23] LABS: CALCIUM, SERUM 9.6 mg/dL (8.5-10.1); CREATININE 3.6 mg/dL (0.6-1.3); POTASSIUM 3.2 mmol/L (3.5-5.1)
[2020-02-12] MEDS ORDERED: NIFEdipine XL (30MG) 30 MG TAB PO SCH (11:30)
[2020-02-12 12:00] VITALS: BP 146/51
[2020-02-12] MEDS: SEVELAMER CARBONATE 800 MG POWD.PACK GT SCH ×2 (13:06→17:22)
[2020-02-12] MEDS: DEXAMETHASONE SOD PHOSPHATE 10 MG/ML VIAL IV SCH (15:17)
[2020-02-12 16:00] VITALS: BP 164/65
--- NOTE | 2020-02-12 18:11 | NUR ---
RN CLOSING NOTES PATIENT IS IN BED RESTING. PATIENT IS ALERT AND ORIENTED X 3 COMORAN SPEAKING. NO SOB OR RESPIRATORY DISTRESS NOTED. TELE READING SR 75. NO DISTRESS NOTED. PATIENT HAS IV ACCESS ON RIGHT UPPER ARM PICC LINE AND KRISTEL AV SHUNT INTACT. G TUBE NO RESIDUAL RUNNING NEPRO 40 ML/HR, FLUSHED DURING SHIFT. ALL PATIENT NEEDS HAVE BEEN MET DURING SHIFT. SAFETY MEASURES ARE IN PLACE BED IS LOCKED AND IN LOW POSITION, CALL LIGHT WITHIN REACH. WILL ENDORSE CARE TO PM SHIFT.
--- NOTE | 2020-02-12 19:44 | NUR ---
DAY SPA MANAGER OPENING NOTES PATIENT RESTING IN BED COMFORTABLY; A/OX3, ARMENIAN SPEAKING, BREATHING EVEN AND UNLABORED; TOLERATING 2L VIA SHILEY #8; NO SOB NOTED; TELE MONITOR READS SINUS RHYTHM 78 BPM; R UA PICC LINE INTACT AND PATENT; KRISTEL AV SHUNT PRESENT; S/P HS 02/11, WITH 2L OUT; G TUBE IN PLACE, G TUBE FEEDING RUNNING AT 40ML/HR, WITH LOW RESIDUALS; WILL MONITOR; ISOLATION PRECAUTIONS MAINTAINED; SAFETY PRECAUTIONS IMPLEMENTED; BED LOCKED IN LOW POSITION; SIDE RAILSX2; CALL LIGHT WITHIN REACH; WILL CONT TO MONITOR
[2020-02-12 20:00] VITALS: BP 148/62
--- NOTE | 2020-02-12 20:11 | NUR ---
PROGRAM DIR NOTES SCHEDULED BACTRIM NOT AVAILABLE AT THIS TIME, SPOKE WITH PHARMACY, ED CASE MANAGER WILL DELIVER MED SOON POSSIBLE; WILL CONT TO MONITOR
[2020-02-12] MEDS: HYDROCODONE/APAP 5/325MG TABLET GT PRN (20:31)
--- NOTE | 2020-02-12 20:49 | NUR ---
DELIVERY REP NOTES BACTRIM STILL UNAVAILABLE AT THIS TIME, AWAITING SAMPLE COLLECTOR TO DELIVER MEDICATION
[2020-02-12] MEDS: SULFAMETHOXAZOLE/TRIMETHOPRIM 20 ML in IV D5W 500 ML IV SCH (20:58)
--- NOTE | 2020-02-12 21:37 | NUR ---
PT RECEIVED ON T-MASK @ 2LPM. PT AWAKE/ALERT. SX DONE, SMALL THICK WHITE SECRETIONS NOTED. NO DISTRESS NOTED AT THIS TIME. WILL CONTINUE TO MONITOR. Addendum: 02/12/20 at 2138 by CATHIE SHIRLEY RT Amended: Links added.
[2020-02-13] VITALS: BP 149/72
[2020-02-13] MEDS: NEPRO 1,000 ML BOTTLE GT PRN (01:05)
[2020-02-13 04:00] VITALS: BP 163/78
[2020-02-13] MEDS: hydrALAZINE HCL 50 MG TABLET PO SCH ×3 (05:05→21:21)
[2020-02-13 06:53] LABS: BASOPHILS % (AUTO) 0.5 % (0.0-2.0); HEMATOCRIT 26 % (39-51); HEMOGLOBIN 8.7 g/dL (13.5-17.5); LYMPHOCYTES # (AUTO) 1.2 /CMM (0.8-4.8); LYMPHOCYTES % (AUTO) 16.5 % (20.0-44.0); MEAN CORPUSCULAR HGB CONC 34 g/dl (31.0-36.0); MEAN CORPUSCULAR VOLUME 94 fL (80-96); MONOCYTES # (AUTO) 0.5 /CMM (0.1-1.30); MONOCYTES % (AUTO) 6.7 % (2.0-12.0); NEUTROPHILS # (AUTO) 5.4 /CMM (1.8-8.9); NEUTROPHILS % (AUTO) 76.3 % (43.0-81.0); PLATELET COUNT (AUTO) 241 /CMM (150-450); RED BLOOD CELL COUNT(AUTO) 2.76 MIL/uL (4.5-6.0); WHITE BLOOD COUNT (AUTO) 7.1 K/uL (4.3-11.0)
[2020-02-13 07:13] LABS: CALCIUM, SERUM 9.6 mg/dL (8.5-10.1); CREATININE 3.3 mg/dL (0.6-1.3); POTASSIUM 3.3 mmol/L (3.5-5.1)
--- NOTE | 2020-02-13 07:20 | NUR ---
MS RN RECEIVED ON BED, AWAKE,ALERT,ORIENTED X3,G TUBE FEEDING ON AT 40ML / HOUR TOLERATED WELL.HD PATIENT W/ LEFT UPPER ARM FISTULA,DENIES PAIN AT THIS TIME,ALL NEEDS ATTENDED.
[2020-02-13 08:00] VITALS: BP 128/72
--- NOTE | 2020-02-13 08:00 | NUR ---
MS NIALL DUE MEDS GIVEN VIA G TUBE, TOLERATED WELL.
[2020-02-13] MEDS: CLOTRIMAZOLE 1% 15 GM TUBE TP SCH ×2 (09:00→17:52)
--- NOTE | 2020-02-13 09:30 | NUR ---
MS NIALL WAS SEEN BY DR. DARCY Lance/ ORDERS MADE AND CARRIED OUT.
[2020-02-13] MEDS: POTASSIUM CHLORIDE 20 MEQ TAB.PRT.SR PO SCH ×2 (10:00→11:00)
[2020-02-13] MEDS: CHOLECALCIFEROL 1,000 UNIT TABLET (VIT D3) GT SCH (10:21)
[2020-02-13] MEDS: SEVELAMER CARBONATE 800 MG POWD.PACK GT SCH ×3 (10:21→17:12)
[2020-02-13] MEDS: ZINC SULFATE 220 MG CAPSULE GT SCH (10:22)
[2020-02-13] MEDS: LEVOTHYROXINE SODIUM 50 MCG TABLET GT SCH (10:22)
[2020-02-13] MEDS: DEXAMETHASONE SOD PHOSPHATE 10 MG/ML VIAL IV SCH (10:22)
[2020-02-13] MEDS: VIT B CMPLX 3/FA/VIT C/BIOTIN 1 TAB TABLET GT SCH (10:22)
[2020-02-13] MEDS: ACIDOPHILUS/BULGARICUS 1 EACH TAB.CHEW GT SCH (10:22)
[2020-02-13] MEDS: VALSARTAN 80 MG TABLET PO SCH (10:24)
[2020-02-13] MEDS: HEPARIN SODIUM, PORCINE 5000 UNITS/1 ML VIAL SQ SCH ×2 (10:27→21:22)
--- NOTE | 2020-02-13 11:00 | NUR ---
MS RN WAS SEEN BY MILE Lance/ ORDERS MADE AND CARRIED OUT.
[2020-02-13] MEDS: SUCRALFATE 1 G TABLET GT SCH ×2 (12:09→17:11)
[2020-02-13] MEDS: NIFEdipine XL (30MG) 30 MG TAB PO SCH ×2 (12:10→17:11)
[2020-02-13] MEDS: ISOSORBIDE DINITRATE (20MG) 20 MG TABLET PO SCH ×2 (12:10→17:11)
[2020-02-13] MEDS: ALPRAZOLAM 0.5 MG TABLET GT PRN (14:39)
[2020-02-13 16:00] VITALS: BP 130/78
[2020-02-13] MEDS ORDERED: POTASSIUM CHLORIDE 20 MEQ TAB.PRT.SR PO SCH ×2 (16:00→16:30)
--- NOTE | 2020-02-13 16:00 | NUR ---
MS RN ON BED, NO DISTRESS NOTED.
[2020-02-13] MEDS ORDERED: POTASSIUM CHLORIDE 20 MEQ TAB.PRT.SR PO ONE (16:30)
[2020-02-13] MEDS: PROSOURCE / PROSTAT (PYXIS) 30 ML UDC GT SCH (17:53)
--- NOTE | 2020-02-13 19:15 | NUR ---
RN OPENING NOTES Received patient A/O x4, awake on bed. On T-mask at 2LPM, no respiratory distress noted at this time. Pt denies any discomfort. On tele monitor with NSR noted. Kept on bed clean, dry and comfortable. Call light within easy reach. Will continue to monitor accordingly.
[2020-02-13 20:00] VITALS: BP 118/58
[2020-02-13 20:25] VITALS: BP 118/50
[2020-02-13] MEDS: SULFAMETHOXAZOLE/TRIMETHOPRIM 20 ML in IV D5W 500 ML IV SCH (21:19)
[2020-02-14] VITALS: BP 120/58
[2020-02-14] MEDS: HYDROCODONE/APAP 5/325MG TABLET GT PRN (01:04)
[2020-02-14 01:06] VITALS: BP 120/58
[2020-02-14 04:00] VITALS: BP 151/69
[2020-02-14 04:27] VITALS: BP 151/69
[2020-02-14] MEDS: hydrALAZINE HCL 50 MG TABLET PO SCH ×3 (04:28→20:41)
--- NOTE | 2020-02-14 06:53 | NUR ---
RN CLOSING NOTES Pt on bed. No new complaints made. All nursing needs attended. Due meds given as ordered. NSR on tele monitor. Kept on bed clean, dry and comfortable. Call light within easy reach. Endorsed.
--- NOTE | 2020-02-14 07:20 | NUR ---
MS RN NOTES PATIENT IN BED ALERT ORIENTED X 3. NO ACUTE DISTRESS NOTED. BREATHING UNLABORED. NO SOB NOTED. IV ACCESS PATENT AND INTACT, NO REDNESS, NO BLEEDING, NO SWELLING NOTED. HEAD OF BED ELEVATED. SAFETY MEASURES IN PLACE, CALL LIGHT WITHIN REACH. WILL CONTINUE TO MONITOR ACCORDINGLY.
[2020-02-14 08:00] VITALS: BP 135/53
[2020-02-14] MEDS: SEVELAMER CARBONATE 800 MG POWD.PACK GT SCH ×3 (08:57→18:04)
[2020-02-14 09:37] LABS: BASOPHILS % (AUTO) 0.8 % (0.0-2.0); EOSINOPHILS % (AUTO) 0.1 % (0.0-6.0); HEMATOCRIT 24 % (39-51); LYMPHOCYTES # (AUTO) 1.2 /CMM (0.8-4.8); LYMPHOCYTES % (AUTO) 19.8 % (20.0-44.0); MEAN CORPUSCULAR HGB CONC 33 g/dl (31.0-36.0); MEAN CORPUSCULAR VOLUME 95 fL (80-96); MONOCYTES # (AUTO) 0.5 /CMM (0.1-1.30); NEUTROPHILS # (AUTO) 4.3 /CMM (1.8-8.9); NEUTROPHILS % (AUTO) 70.3 % (43.0-81.0); PLATELET COUNT (AUTO) 240 /CMM (150-450); RED BLOOD CELL COUNT(AUTO) 2.54 MIL/uL (4.5-6.0); WHITE BLOOD COUNT (AUTO) 6.1 K/uL (4.3-11.0)
[2020-02-14] MEDS: VIT B CMPLX 3/FA/VIT C/BIOTIN 1 TAB TABLET GT SCH (09:40)
[2020-02-14] MEDS: ACIDOPHILUS/BULGARICUS 1 EACH TAB.CHEW GT SCH (09:41)
[2020-02-14] MEDS: NIFEdipine XL (30MG) 30 MG TAB PO SCH ×2 (09:41→16:20)
[2020-02-14] MEDS: VALSARTAN 80 MG TABLET PO SCH (09:41)
[2020-02-14] MEDS: ISOSORBIDE DINITRATE (20MG) 20 MG TABLET PO SCH ×2 (09:41→16:21)
[2020-02-14] MEDS: CLOTRIMAZOLE 1% 15 GM TUBE TP SCH ×2 (09:42→16:21)
[2020-02-14] MEDS: SUCRALFATE 1 G TABLET GT SCH ×2 (09:42→16:19)
[2020-02-14] MEDS: ZINC SULFATE 220 MG CAPSULE GT SCH (09:42)
[2020-02-14] MEDS: DEXAMETHASONE SOD PHOSPHATE 10 MG/ML VIAL IV SCH (09:42)
[2020-02-14] MEDS: CHOLECALCIFEROL 1,000 UNIT TABLET (VIT D3) GT SCH (09:42)
[2020-02-14] MEDS: LEVOTHYROXINE SODIUM 50 MCG TABLET GT SCH (09:42)
[2020-02-14] MEDS: PROSOURCE / PROSTAT (PYXIS) 30 ML UDC GT SCH (09:44)
[2020-02-14] MEDS: HEPARIN SODIUM, PORCINE 5000 UNITS/1 ML VIAL SQ SCH (09:52)
[2020-02-14] MEDS: NEPRO 1,000 ML BOTTLE GT PRN (09:55)
[2020-02-14 10:32] LABS: CALCIUM, SERUM 9.5 mg/dL (8.5-10.1); CREATININE 4.1 mg/dL (0.6-1.3); POTASSIUM 3.5 mmol/L (3.5-5.1)
[2020-02-14 10:38] LABS: ALBUMIN 1.8 g/dL (3.4-5.0); BILIRUBIN,TOTAL 0.3 mg/dL (0.2-1.0); MAGNESIUM 2.7 mg/dL (1.8-2.4); PHOSPHORUS 2.8 mg/dL (2.5-4.9); TOTAL PROTEIN, SERUM 6.5 g/dL (6.4-8.2)
--- NOTE | 2020-02-14 12:03 | NUR ---
LINEN ROOM WORKER NOTES PATIENT SEEN AND EVALUATED BY INSIDE BARREL POLISHER MILE BECKHAM MADE AWARE OF PROCALCITONIN 2.10, NO NEW ORDERS MADE AT THIS TIME
--- NOTE | 2020-02-14 12:29 | NUR ---
MS RN NOTES HELD HYDRALAZINE PATIENT TO START DIALYSIS WITH DIALYSIS NURSE WILL.
[2020-02-14] MEDS: THERAHONEY GEL 1.5 OZ TUBE TP SCH (14:15)
--- NOTE | 2020-02-14 15:00 | NUR ---
RESPONDER NOTES PATIENT DIALYSIS DONE DIALYSIS NURSE WILL 2 LITERS OUT, VITAL SIGNS STABLE, NO ACUTE DISTRESS NOTED.
--- NOTE | 2020-02-14 19:00 | NUR ---
MS RN NOTES PATIENT IN BED ALERT ORIENTED X 3 . NO ACUTE DISTRESS NOTED. BREATHING UNLABORED. NO SOB NOTED. IV ACCESS PATENT AND INTACT, NO REDNESS, NO BLEEDING, NO SWELLING NOTED. NEEDS ATTENDED AND ANTICIPATED. HAD OF F[place] SAFETY MEASURES IN PLACE. CALL LIGHT WITHIN REACH. WILL ENDORSE TO NIGHT NURSE FOR CONTINUITY OF CARE.
--- NOTE | 2020-02-14 19:05 | NUR ---
TELE/RN OPENING NOTES: RECEIVED PATIENT IN BED A/O X 3. POLISH SPEAKING. VERBALLY RESPONSIVE AND ABLE TO MAKE NEEDS KNOWN. TRACH NOTED SHILEY #8. PT SUCTIONS HIMSELF ORALLY. TELE READING OF NSR AT THIS TIME WITH HR ON THE 70S. NO ACUTE DISTRESS NOTED. BREATHING UNLABORED. NO SOB NOTED. IV ACCESS ON THE LIAM PICC LINE PATENT AND INTACT, NO REDNESS, NO BLEEDING, NO SWELLING NOTED. SAFETY MEASURES IN PLACE. BED IN LOW, LOCKED POSITION WITH SR UP X2. CALL LIGHT WITHIN REACH. WILL CONTINUE MONITORING ACCORDINGLY.
[2020-02-14 20:00] VITALS: BP 188/87
[2020-02-14] MEDS: SULFAMETHOXAZOLE/TRIMETHOPRIM 20 ML in IV D5W 500 ML IV SCH (20:43)
[2020-02-14] MEDS: ACETAMINOPHEN 650 MG/20.3 ML UDC GT PRN (20:47)
--- NOTE | 2020-02-14 20:47 | NUR ---
TELE/RN NOTES: PT COMPLAINS OF MILD HEADACHE. REQUESTING FOR TYLENOL. VS STABLE. ADMINISTERED TYLENOL 650MG VIA GT. WILL CONTINUE TO MONITOR.
[2020-02-15] VITALS: BP 193/71
[2020-02-15] MEDS ORDERED: CLONIDINE HCL 0.1 MG TABLET PO PRN (00:30)
--- NOTE | 2020-02-15 00:32 | NUR ---
TELE/RN NOTES: PT BP IS ELEVATED 193/71 HR: 76. DR. JON AWARE AND ORDERED CLONIDINE 0.2MG TID PRN. ADMINISTERED CLONIDINE 0.2MG. PT STABLE. NO C/O PAINA T THIS TIME. WILL RECHECK BP FOR CHANGES.
--- NOTE | 2020-02-15 01:32 | NUR ---
TELE/RN NOTES: BP TRENDING DOWN AND IMPROVING. BP NOW 153/79. HR:75. PT IS ON THE BED AND SLEEPING COMFORTABLY. NO C/O PAIN AT THIS TIME. WILL CONTINUE TO MONITOR ACCORDINGLY.
[2020-02-15 04:01] VITALS: BP 150/79
[2020-02-15] MEDS: hydrALAZINE HCL 50 MG TABLET PO SCH ×3 (05:09→22:46)
--- NOTE | 2020-02-15 07:10 | NUR ---
TELE/RN CLOSING NOTES: PATIENT REMAINS IN BED A/O X 3. OCCITAN SPEAKING. NO SIGNIFICANT CHANGES IN CONDITION. TELE READING OF NSR AT THIS TIME WITH ST DEPRESSION PER SALES AND LEASING CONSULTANT, WITH HR ON THE 70S. NO ACUTE DISTRESS NOTED. BREATHING UNLABORED. NO SOB NOTED. IV ACCESS ON THE LIAM PICC LINE PATENT AND INTACT, NO REDNESS, NO BLEEDING, NO SWELLING NOTED. GTUBE FEEDING NEPRO RUNNING AT 40MLS/HR TOLERATED, NO RESIDUALS. SAFETY MEASURES IN PLACE. BED IN LOW, LOCKED POSITION WITH SR UP X2. ALL DUE MEDS GIVEN ORDERED. ALL NURSING NEEDS MET AND RENDERED. CALL LIGHT WITHIN REACH. ENDORSED TO DAY SHIFT FOR IMANI.
--- NOTE | 2020-02-15 07:20 | NUR ---
RN OPENING NOTES PATIENT IN BED RESTING. A/OX3, ABLE TO MAKE NEEDS KNOWN. NOT IN ANY FORM OF DISTRESS. NO SOB, NOTED WITH TRACH, 2LPM O2, SATTING WELL. GTUBE IN PLACE, FEEDING TOLERATING WELL. KEPT PATIENT SAFE AND COMFORTABLE. BED IN LOW/LOCKED POSITION. SIDERAILS UP X 2. CALL LIGHT IN REACH. WILL CONT TO MONITOR ACCORDINGLY.
[2020-02-15 08:00] VITALS: BP 113/60
[2020-02-15 08:10] VITALS: BP 164/64
[2020-02-15] MEDS: CHOLECALCIFEROL 1,000 UNIT TABLET (VIT D3) GT SCH (09:22)
[2020-02-15] MEDS: SUCRALFATE 1 G TABLET GT SCH ×2 (09:22→16:17)
[2020-02-15] MEDS: ACIDOPHILUS/BULGARICUS 1 EACH TAB.CHEW GT SCH (09:23)
[2020-02-15] MEDS: NIFEdipine XL (30MG) 30 MG TAB PO SCH ×2 (09:23→18:47)
[2020-02-15] MEDS: LEVOTHYROXINE SODIUM 50 MCG TABLET GT SCH (09:23)
[2020-02-15] MEDS: ISOSORBIDE DINITRATE (20MG) 20 MG TABLET PO SCH ×2 (09:23→16:23)
[2020-02-15] MEDS: VIT B CMPLX 3/FA/VIT C/BIOTIN 1 TAB TABLET GT SCH (09:24)
[2020-02-15] MEDS: VALSARTAN 80 MG TABLET PO SCH (09:24)
[2020-02-15] MEDS: SEVELAMER CARBONATE 800 MG POWD.PACK GT SCH ×3 (09:30→18:47)
[2020-02-15] MEDS: DEXAMETHASONE SOD PHOSPHATE 10 MG/ML VIAL IV SCH (09:31)
[2020-02-15] MEDS: THERAHONEY GEL 1.5 OZ TUBE TP SCH (09:33)
[2020-02-15] MEDS: PROSOURCE / PROSTAT (PYXIS) 30 ML UDC GT SCH (09:49)
[2020-02-15] MEDS: ZINC SULFATE 220 MG CAPSULE GT SCH (10:10)
[2020-02-15] MEDS: CLOTRIMAZOLE 1% 15 GM TUBE TP SCH ×2 (11:54→18:48)
--- NOTE | 2020-02-15 16:33 | NUR ---
Per Nuzhat Sales NP , patient ok to transfer to [facility].
--- NOTE | 2020-02-15 16:35 | NUR ---
Transferred patient in 320-1. patient in stable condition. Endorsed and bedside report given to NIALL Conde.
--- NOTE | 2020-02-15 17:00 | NUR ---
ms rn receive da transfer patient from second floor,awake,alert,oriented x3,not in any form of distress, respirations even and unlabored, g tube feeding at 40ml/ hour,no sob noted, denies pain at this time, will continue to monitor.
--- NOTE | 2020-02-15 19:00 | NUR ---
ms rn on bed,no distress noted.
[2020-02-15 20:00] VITALS: BP 175/72
--- NOTE | 2020-02-15 21:24 | NUR ---
MS/TELE/RN DURING INITIAL SHIFT ROUNDING AT 1930, PATIENT WAS, AWAKE, ALERT, ORIENTED, COMFORTABLE, NO C/O PAIN NO DISTRESS NOTED, GTUBE FEEDING INFUSING, NO RESIDUAL NOTED, HOB ELEVATED, TRACH TO WALL OXYGEN, REFUSED DVT PUMP. WILL MONITOR.
[2020-02-16] VITALS (7 sets, daily range): BP systolic 134–179; BP diastolic 46–88
--- NOTE | 2020-02-16 00:26 | NUR ---
MS/TELE/RN PATIENT IS SLEEPING AT THIS TIME, APPEAR COMFORTABLE, NO SIGNS OF DISTRESS NOTED, HOB ELEVATED, CALL LIGHT WITHIN REACH.
[2020-02-16] MEDS: ACETAMINOPHEN 650 MG/20.3 ML UDC GT PRN (04:41)
[2020-02-16] MEDS: hydrALAZINE HCL 50 MG TABLET PO SCH ×3 (05:07→21:22)
--- NOTE | 2020-02-16 06:41 | NUR ---
MS/TELE/RN PATIENT IS SLEEPING, APPEAR COMFORTABLE, NO SIGNS OF DISTRESS NOTED, ALL NEEDS ATTENDED AT THIS TIME, WILL CONTINUE TO MONITOR.
[2020-02-16 07:21] LABS: BASOPHILS # (AUTO) 0.1 /CMM (0.0-0.2); BASOPHILS % (AUTO) 1.3 % (0.0-2.0); EOSINOPHILS % (AUTO) 0.3 % (0.0-6.0); HEMATOCRIT 23 % (39-51); HEMOGLOBIN 7.9 g/dL (13.5-17.5); LYMPHOCYTES # (AUTO) 0.9 /CMM (0.8-4.8); LYMPHOCYTES % (AUTO) 15.4 % (20.0-44.0); MEAN CORPUSCULAR HGB CONC 34 g/dl (31.0-36.0); MEAN CORPUSCULAR VOLUME 96 fL (80-96); MONOCYTES # (AUTO) 0.6 /CMM (0.1-1.30); MONOCYTES % (AUTO) 9.5 % (2.0-12.0); NEUTROPHILS # (AUTO) 4.3 /CMM (1.8-8.9); NEUTROPHILS % (AUTO) 73.5 % (43.0-81.0); PLATELET COUNT (AUTO) 240 /CMM (150-450); RED BLOOD CELL COUNT(AUTO) 2.43 MIL/uL (4.5-6.0); WHITE BLOOD COUNT (AUTO) 5.8 K/uL (4.3-11.0)
--- NOTE | 2020-02-16 07:30 | NUR ---
RN OPENING NOTES Patient in bed, A/Ox4, denies pain or discomfort at this time , on 2L of O2 on trach collar, tolerating well, no SOB, resp distress noted, SPO2 98%, Patient is on Telemonitor with SR on 65s readings, L UA fistula noted and PICC line on LIAM, G-tube noted in place no residual noted, auscultated in place, running Nephro feeding at 40cc/hr, tolerating well, all four quadrants sounds are active, no issues with BM reported, Safety measures in place, bed in lowest position, HOB elevated, side rails up, call light in reach, will cont to monitor
[2020-02-16 07:54] LABS: ALBUMIN 1.9 g/dL (3.4-5.0); BILIRUBIN,TOTAL 0.6 mg/dL (0.2-1.0); CALCIUM, SERUM 9.7 mg/dL (8.5-10.1); CREATININE 3.9 mg/dL (0.6-1.3); MAGNESIUM 2.7 mg/dL (1.8-2.4); PHOSPHORUS 3.1 mg/dL (2.5-4.9); TOTAL PROTEIN, SERUM 6.6 g/dL (6.4-8.2)
[2020-02-16] MEDS: SEVELAMER CARBONATE 800 MG POWD.PACK GT SCH ×3 (08:55→18:00)
[2020-02-16] MEDS: VALSARTAN 80 MG TABLET PO SCH (08:56)
[2020-02-16] MEDS: LEVOTHYROXINE SODIUM 50 MCG TABLET GT SCH (08:56)
[2020-02-16] MEDS: SUCRALFATE 1 G TABLET GT SCH ×2 (08:56→16:15)
[2020-02-16] MEDS: CLOTRIMAZOLE 1% 15 GM TUBE TP SCH ×2 (08:57→16:15)
[2020-02-16] MEDS: ACIDOPHILUS/BULGARICUS 1 EACH TAB.CHEW GT SCH (08:57)
[2020-02-16] MEDS: NIFEdipine XL (30MG) 30 MG TAB PO SCH ×2 (08:57→16:17)
[2020-02-16] MEDS: CHOLECALCIFEROL 1,000 UNIT TABLET (VIT D3) GT SCH (08:57)
[2020-02-16] MEDS: ZINC SULFATE 220 MG CAPSULE GT SCH (08:57)
[2020-02-16] MEDS: ISOSORBIDE DINITRATE (20MG) 20 MG TABLET PO SCH ×2 (08:57→16:17)
[2020-02-16] MEDS: VIT B CMPLX 3/FA/VIT C/BIOTIN 1 TAB TABLET GT SCH (08:57)
[2020-02-16] MEDS: THERAHONEY GEL 1.5 OZ TUBE TP SCH (08:58)
[2020-02-16] MEDS: PROSOURCE / PROSTAT (PYXIS) 30 ML UDC GT SCH (09:03)
[2020-02-16] MEDS: POTASSIUM CHLORIDE 20 MEQ TAB.PRT.SR PO SCH ×3 (10:46→11:57)
[2020-02-16] MEDS ORDERED: EPOETIN ALFA (10,000 UNIT) 10,000 UNIT/ML VIAL IV ONE (12:00)
--- NOTE | 2020-02-16 15:28 | NUR ---
Patient Fay Robbins contacted this SW about obtaining a Letter of Admission for immigration on behalf of this patient. Patient's is currently in [place] and could not physically chart picker this letter. This SW emailed the letter to this patient as a PDF to the following email address [email or web address] Patient could not provide a call back number as it is only an international line. This SW provided direct number to reach out to this SW for any additional needs.
--- NOTE | 2020-02-16 16:02 | NUR ---
PATIENT REPORTS ANXIETY WILL ADMINISTER PRN ANTIANXIETY MEDICATION
[2020-02-16] MEDS: ALPRAZOLAM 0.5 MG TABLET GT PRN (16:15)
--- NOTE | 2020-02-16 16:17 | NUR ---
HOLDING BP MEDS DUE COMING DIALYSIS
--- NOTE | 2020-02-16 17:10 | NUR ---
LAURA HARO AT BED SITE
--- NOTE | 2020-02-16 17:10 | NUR ---
DIALYSES NURSE AT BED SITE SITE Addendum: 02/16/20 at 1740 by Татьяна Sanchez RN DISREGARD
--- NOTE | 2020-02-16 18:26 | NUR ---
HOLDING MED PT ON DIALYSES
--- NOTE | 2020-02-16 19:11 | NUR ---
RN CLOSING NOTES Patient remains in bed, undergoing dialyses at this moment, resting comfortably, tolerating well,trach care provided and suctioned, no SOB or distress noted, denies pain or discomfort; comfort need attended, safety measures in place,bed in lowest position, call light in reach, will endorse to PM shift RN for IMANI
--- NOTE | 2020-02-16 19:57 | NUR ---
application support intern: received report from day rn. pt in bed, resting, ongoing hd, a/o x3 irish speaking, trache cool aerosol, shiley #8, fio2 28%. has melissa picc line, on hl. gtube in placed, receiving nepro at 40cc/hr. sinus carolyne 50. safety precautions for fall initiated, call light in reach, will continue monitoring pt.
--- NOTE | 2020-02-16 20:00 | NUR ---
rn notes: informed hd rn elle, about prn albumin order for bp support, per hd rn no need for albumin as bp been stable.
--- NOTE | 2020-02-16 20:30 | NUR ---
RN NOTES: COMPLETED HD, 2L OUT
[2020-02-16] MEDS: NEPRO 1,000 ML BOTTLE GT PRN (21:31)
[2020-02-16] MEDS: HYDROCODONE/APAP 5/325MG TABLET GT PRN (23:40)
--- NOTE | 2020-02-16 23:40 | NUR ---
PRN NORCO: PT C/O 11/30 HEAD ACHE , PRN NORCO ADMINISTERED VIA GTUBE. WILL CONTINUE TO MONITOR AND REASSESS.
[2020-02-17] VITALS (10 sets, daily range): BP systolic 114–181; BP diastolic 45–84
[2020-02-17] MEDS: hydrALAZINE HCL 50 MG TABLET PO SCH ×3 (04:21→21:32)
[2020-02-17] MEDS: HYDROCODONE/APAP 5/325MG TABLET GT PRN ×2 (06:53→21:31)
--- NOTE | 2020-02-17 06:53 | NUR ---
prn norco: pt c/o head ache 11/30 ,prn norco administered to pt at this time.
--- NOTE | 2020-02-17 06:55 | NUR ---
END OF SHIFT REPORT: PT TOLERATED COOL AEROSOL FIO2 28%. SUCTION SET UP SECURED. PT ABLE TO SUCTION HIMSELF (MOUTH/ORALLY). A/O X3 CAPE VERDEAN. PRN NORCO ADMINISTERED FOR HEAD ACHE. GTUBE REMAINS IN PLACED, NEPRO AT 40ML/HR. WOUND CARE PERFORMED, AM CARE PROVIDED. DC PLANNING BACK TO [facility] PER HOSPITALIST. VS REMAINS STABLE, NEEDS ATTENDED, SAFETY PRECAUTIONS FOR FALL REMAINS ENGAGED, CALL LIGHT IN REACH, WILL ENDORSE TO DAY RN FOR CONTINUITY OF CARE.
[2020-02-17 07:09] LABS: BASOPHILS # (AUTO) 0.1 /CMM (0.0-0.2); BASOPHILS % (AUTO) 1.4 % (0.0-2.0); EOSINOPHILS % (AUTO) 0.7 % (0.0-6.0); HEMATOCRIT 22 % (39-51); HEMOGLOBIN 7.4 g/dL (13.5-17.5); LYMPHOCYTES % (AUTO) 17.4 % (20.0-44.0); MEAN CORPUSCULAR HGB CONC 34 g/dl (31.0-36.0); MEAN CORPUSCULAR VOLUME 98 fL (80-96); MONOCYTES # (AUTO) 0.5 /CMM (0.1-1.30); MONOCYTES % (AUTO) 9.8 % (2.0-12.0); NEUTROPHILS # (AUTO) 3.9 /CMM (1.8-8.9); NEUTROPHILS % (AUTO) 70.7 % (43.0-81.0); PLATELET COUNT (AUTO) 222 /CMM (150-450); RED BLOOD CELL COUNT(AUTO) 2.19 MIL/uL (4.5-6.0); WHITE BLOOD COUNT (AUTO) 5.6 K/uL (4.3-11.0)
[2020-02-17 07:58] LABS: CREATININE 2.6 mg/dL (0.6-1.3); POTASSIUM 3.5 mmol/L (3.5-5.1)
[2020-02-17] MEDS: NIFEdipine XL (30MG) 30 MG TAB PO SCH ×2 (08:24→17:11)
[2020-02-17] MEDS: SEVELAMER CARBONATE 800 MG POWD.PACK GT SCH ×3 (08:24→18:04)
[2020-02-17] MEDS: ACIDOPHILUS/BULGARICUS 1 EACH TAB.CHEW GT SCH (08:25)
[2020-02-17] MEDS: CHOLECALCIFEROL 1,000 UNIT TABLET (VIT D3) GT SCH (08:25)
[2020-02-17] MEDS: LEVOTHYROXINE SODIUM 50 MCG TABLET GT SCH (08:25)
[2020-02-17] MEDS: ZINC SULFATE 220 MG CAPSULE GT SCH (08:25)
[2020-02-17] MEDS: VIT B CMPLX 3/FA/VIT C/BIOTIN 1 TAB TABLET GT SCH (08:25)
[2020-02-17] MEDS: VALSARTAN 80 MG TABLET PO SCH (08:25)
[2020-02-17] MEDS: SUCRALFATE 1 G TABLET GT SCH ×2 (08:25→17:11)
[2020-02-17] MEDS: ISOSORBIDE DINITRATE (20MG) 20 MG TABLET PO SCH ×2 (08:25→17:11)
[2020-02-17] MEDS: PROSOURCE / PROSTAT (PYXIS) 30 ML UDC GT SCH (08:27)
[2020-02-17] MEDS: ALPRAZOLAM 0.5 MG TABLET GT PRN (08:58)
[2020-02-17] MEDS: THERAHONEY GEL 1.5 OZ TUBE TP SCH (09:00)
[2020-02-17] MEDS: CLOTRIMAZOLE 1% 15 GM TUBE TP SCH ×2 (11:23→17:12)
--- NOTE | 2020-02-17 11:47 | NUR ---
Received an order for 1 unit of RBC to transfused. Call made to lab for confirmation
--- NOTE | 2020-02-17 15:36 | NUR ---
Still awaiting for RBC's ready
--- NOTE | 2020-02-17 17:04 | NUR ---
Started blood transfusion, patient in stable condition, afebrile and VS within baseline.
--- NOTE | 2020-02-17 17:22 | NUR ---
Patient remains in stable condition with no s/s adv reaction. VS are stable and pt is afebrile.
[2020-02-17] MEDS: ACETAMINOPHEN 650 MG/20.3 ML UDC GT PRN (18:41)
--- NOTE | 2020-02-17 18:48 | NUR ---
Patient cleared for d/c to [facility] . Patient receiving 1 unit of RBC's at this moment. Per Nuzhat LOPEZ repeat H/H after blood transfused, if close Hgb close to 8 , d/c patient back to facility.
--- NOTE | 2020-02-17 18:53 | NUR ---
DIPESH notes : 1709 Called [facility] ambulance rescheduled picket labor union at 10pm. Called [facility] [phone] spoke to Kristen TIERNEY sup agreed to accept patient back today.
--- NOTE | 2020-02-17 18:55 | NUR ---
D/c paperwork is ready. Patient in stable condition. All needs attended. Continue blood transfusion. Will endorse to next shift for IMANI
--- NOTE | 2020-02-17 20:10 | NUR ---
NAV/TELE/RN PATIENT IS AWAKE, ALERT, ORIENTED, COMFORTABLE, C/O PAIN, NO DISTRESS NOTED, TRACH MASK TO 2L O2, GT FEEDING INFUSING, HOB ELEVATED, BLOOD INFUSING. PATIENT WILL BE DISCHARGED TONIGHT POST BLOOD TRANSFUSION. WILL MONITOR.
--- NOTE | 2020-02-17 20:16 | NUR ---
MS/TELE/RN BLOOD TRANSFUSION WAS FINISHED AT 1999, VITAL SIGNS STABLE, AFEBRILE, NO S/S OF BLOOD TRANSFUSION REACTION WAS NOTED, WILL CONTINUE TO MONITOR.
--- NOTE | 2020-02-17 21:30 | NUR ---
MS/TELE/RN PAULO, NURSE BLOOD BANK WORKER OF [facility] CALLED, PER PAULO, THEY DON'T HAVE STAFF TO ADMIT THE PATIENT TO THEIR COVID FLOOR AND HE IS ASKING FOR THE DOCTOR TO HOLD THE DISCHARGE TONIGHT.
[2020-02-17 22:02] LABS: BASOPHILS # (AUTO) 0.1 /CMM (0.0-0.2); BASOPHILS % (AUTO) 1.3 % (0.0-2.0); EOSINOPHILS % (AUTO) 0.3 % (0.0-6.0); HEMATOCRIT 22 % (39-51); HEMOGLOBIN 7.4 g/dL (13.5-17.5); LYMPHOCYTES # (AUTO) 1.1 /CMM (0.8-4.8); LYMPHOCYTES % (AUTO) 14.3 % (20.0-44.0); MEAN CORPUSCULAR HGB CONC 34 g/dl (31.0-36.0); MEAN CORPUSCULAR VOLUME 96 fL (80-96); MONOCYTES # (AUTO) 0.7 /CMM (0.1-1.30); MONOCYTES % (AUTO) 9.1 % (2.0-12.0); NEUTROPHILS # (AUTO) 5.8 /CMM (1.8-8.9); PLATELET COUNT (AUTO) 211 /CMM (150-450); WHITE BLOOD COUNT (AUTO) 7.7 K/uL (4.3-11.0)
--- NOTE | 2020-02-17 22:28 | NUR ---
MS/CHEMO/RN H&H 7.09/12, SAME PREVIOUSLY. [facility] DOES NOT WANT TO ACCEPT THE PATIENT WITH HG <8. CALLED AND SPOKE WITH DR. PHAM WITH AN ORDER TO HOLD THE DISCHARGE TONIGHT. Addendum: 02/17/20 at 2235 by WOJCIECH ANDERSON RN NO FURTHER BLOOD TRANSFUSION ORDER WAS RECEIVED.
--- NOTE | 2020-02-17 23:42 | NUR ---
MS/CHEMO/RN SPOKE TO NIALL BATES TURPENTINE DISTILLER AT [facility], INFORMED HIM THAT THE MD HELD D/C THE HEMOGLOBIN STILL LOW.
--- NOTE | 2020-02-18 00:50 | NUR ---
RN NOTES Assume care of this patient, asleep on bed. No s/sx of discomfort/respiratory distress noted. Will continue to monitor accordingly.
[2020-02-18 04:44] VITALS: BP 189/75
[2020-02-18] MEDS: hydrALAZINE HCL 50 MG TABLET PO SCH ×2 (04:47→12:24)
[2020-02-18] MEDS: HYDROCODONE/APAP 5/325MG TABLET GT PRN (06:06)
--- NOTE | 2020-02-18 06:36 | NUR ---
RN CLOSING NOTES Pt asleep on bed. No new complaints made. All nursing needs attended, due meds given as ordered. Kept on bed clean, dry and comfortable. Endorsed.
[2020-02-18 06:58] LABS: BASOPHILS # (AUTO) 0.1 /CMM (0.0-0.2); BASOPHILS % (AUTO) 1.3 % (0.0-2.0); EOSINOPHILS % (AUTO) 0.7 % (0.0-6.0); HEMATOCRIT 22 % (39-51); HEMOGLOBIN 7.6 g/dL (13.5-17.5); LYMPHOCYTES # (AUTO) 1.1 /CMM (0.8-4.8); MEAN CORPUSCULAR HGB CONC 34 g/dl (31.0-36.0); MEAN CORPUSCULAR VOLUME 95 fL (80-96); MONOCYTES # (AUTO) 0.6 /CMM (0.1-1.30); MONOCYTES % (AUTO) 9.3 % (2.0-12.0); NEUTROPHILS # (AUTO) 4.8 /CMM (1.8-8.9); NEUTROPHILS % (AUTO) 72.7 % (43.0-81.0); PLATELET COUNT (AUTO) 219 /CMM (150-450); RED BLOOD CELL COUNT(AUTO) 2.31 MIL/uL (4.5-6.0); WHITE BLOOD COUNT (AUTO) 6.6 K/uL (4.3-11.0)
[2020-02-18 08:00] VITALS: BP 182/69
--- NOTE | 2020-02-18 08:14 | NUR ---
MS/RN OPENING NOTES RECEIVED PATIENT ON BED. ALERT AND ORIENTED X 4. PATIENT IN NO APPARENT RESPIRATORY DISTRESS NOTED. PATIENT NO COMPLAINED OF PAIN AT THIS TIME. WILL CONTINUE TO MONITOR.
[2020-02-18] MEDS: SEVELAMER CARBONATE 800 MG POWD.PACK GT SCH ×3 (08:29→17:34)
[2020-02-18] MEDS: ZINC SULFATE 220 MG CAPSULE GT SCH (08:29)
[2020-02-18] MEDS: ISOSORBIDE DINITRATE (20MG) 20 MG TABLET PO SCH ×2 (08:51→17:35)
[2020-02-18] MEDS: ACIDOPHILUS/BULGARICUS 1 EACH TAB.CHEW GT SCH (08:51)
[2020-02-18] MEDS: NIFEdipine XL (30MG) 30 MG TAB PO SCH ×2 (08:52→17:34)
[2020-02-18] MEDS: VALSARTAN 80 MG TABLET PO SCH (08:52)
[2020-02-18] MEDS: CHOLECALCIFEROL 1,000 UNIT TABLET (VIT D3) GT SCH (08:52)
[2020-02-18] MEDS: PROSOURCE / PROSTAT (PYXIS) 30 ML UDC GT SCH (08:53)
[2020-02-18] MEDS: VIT B CMPLX 3/FA/VIT C/BIOTIN 1 TAB TABLET GT SCH (08:53)
[2020-02-18] MEDS: CLOTRIMAZOLE 1% 15 GM TUBE TP SCH ×2 (08:53→17:35)
[2020-02-18] MEDS: LEVOTHYROXINE SODIUM 50 MCG TABLET GT SCH (08:53)
[2020-02-18] MEDS: THERAHONEY GEL 1.5 OZ TUBE TP SCH (08:53)
[2020-02-18] MEDS: SUCRALFATE 1 G TABLET GT SCH ×2 (08:54→17:35)
[2020-02-18 09:53] LABS: CALCIUM, SERUM 9.3 mg/dL (8.5-10.1); CREATININE 3.4 mg/dL (0.6-1.3); POTASSIUM 3.8 mmol/L (3.5-5.1)
[2020-02-18] MEDS ORDERED: EPOE1VIA7 IJ (12:00)
[2020-02-18] MEDS ORDERED: PANTOPRAZOLE 40 MG VIAL IV SCH (12:00)
[2020-02-18] MEDS ORDERED: PANT40TA2 PO (12:00)
[2020-02-18 16:15] VITALS: BP 166/72
[2020-02-18 17:35] VITALS: BP 166/72
[2020-02-18] MEDS: ALPRAZOLAM 0.5 MG TABLET GT PRN (17:35)
--- NOTE | 2020-02-18 19:17 | NUR ---
MS/RN NOTES PATIENT IS ALERT AND ORIENTED X4. PATIENT DENIES PAIN AT THIS TIME. PATIENT IN NO RESPIRATORY DISTRESS NOTED. SEEN AND EXAMINED BY MD WITH ORDERS MADE AND CARRIED OUT. ALL DUE MEDICATION WAS GIVEN. PATIENT WAS GIVEN DISCHARGE INSTRUCTIONS AND VERBALIZED UNDERSTANDING. PEG TUBE AND TRACH WAS IN PLACED , DRESSING CLEAN AND DRY. THE PATIENT LEFT THE HOSPITAL IN MEDICALLY STABLE CONDITION AT 1640. PACKAGING OPERATOR BY 2 EMT VIA AMBULANCE.
[2020-02-21] MEDS ORDERED: DEXTROSE 50%-WATER 50 ML DISP.SYRIN IV PRN (18:30)
[2020-02-21] MEDS ORDERED: INSULIN REGULAR, HUMAN 100 UNIT/ML 3 ML VIAL SQ PRN (18:30)
[2020-02-22] MEDS ORDERED: BLOOD SUGAR DIAGNOSTIC 1 EACH STRIP IN SCH
--- NOTE | 2020-02-22 14:26 | NUR ---
This SW received a call from Katherine from patient's previous dialysis center. Per Katherine she wanted information on the patient's new dialysis center. This SW informed Katherine that Case Management team could provide a better update regarding this patient. Katherine informed this SW that the patient wanted a letter regarding his low-income housing, this SW asked for contact information regarding this patient and Katherine was under the impression patient was still admitted at [facility]. This SW informed Katherine that the patient had been discharged and that Case Management could provide those details.
== END 2020-02-18 18:20 | DRG 193 ==
LOC: ER 15:30 → ICU 17:17 → TELE2 02-09 23:33 → ICU 02-09 23:54 → TELE2 02-10 01:45 → TELE 02-15 16:33 → MED 02-17 08:26
PROVIDERS: ADMIT Nurse Practitioner Acute Care; ATTEND Nurse Practitioner Acute Care
PROC: 5A1D70Z Performance of Urinary Filtration, Intermittent, Less than 6 Hours Per Day (ICD-10-PCS; 2020-02-08)
PROC: 30233N1 Transfusion of Nonautologous Red Blood Cells into Peripheral Vein, Percutaneous Approach (ICD-10-PCS; principal; 2020-02-17)
DX: J15.9 Unspecified bacterial pneumonia (principal); N18.6 End stage renal disease; E43 Unspecified severe protein-calorie malnutrition; J96.20 Acute and chronic respiratory failure, unspecified whether with hypoxia or hypercapnia; R65.20 Severe sepsis without septic shock; I13.2 Hypertensive heart and chronic kidney disease with heart failure and with stage 5 chronic kidney disease, or end stage renal disease; I50.32 Chronic diastolic (congestive) heart failure; I16.1 Hypertensive emergency; G61.0 Guillain-Barre syndrome; J98.11 Atelectasis; J90 Pleural effusion, not elsewhere classified; E87.1 Hypo-osmolality and hyponatremia; G62.81 Critical illness polyneuropathy; N17.9 Acute kidney failure, unspecified; J12.89 Other viral pneumonia; R13.10 Dysphagia, unspecified; E11.22 Type 2 diabetes mellitus with diabetic chronic kidney disease; Z79.899 Other long term (current) drug therapy; Z99.2 Dependence on renal dialysis; Z93.1 Gastrostomy status; Z93.0 Tracheostomy status; Y95 Nosocomial condition; Z86.74 Personal history of sudden cardiac arrest; Z87.820 Personal history of traumatic brain injury; Z87.01 Personal history of pneumonia (recurrent); Z83.3 Family history of diabetes mellitus; G40.909 Epilepsy, unspecified, not intractable, without status epilepticus; I25.2 Old myocardial infarction; L30.4 Erythema intertrigo; E11.621 Type 2 diabetes mellitus with foot ulcer; E11.42 Type 2 diabetes mellitus with diabetic polyneuropathy; E03.9 Hypothyroidism, unspecified; E78.5 Hyperlipidemia, unspecified; D63.8 Anemia in other chronic diseases classified elsewhere; E87.6 Hypokalemia; B94.8 Sequelae of other specified infectious and parasitic diseases; L90.5 Scar conditions and fibrosis of skin; L89.156 Pressure-induced deep tissue damage of sacral region; D69.6 Thrombocytopenia, unspecified; L97.529 Non-pressure chronic ulcer of other part of left foot with unspecified severity; N40.0 Benign prostatic hyperplasia without lower urinary tract symptoms; I35.0 Nonrheumatic aortic (valve) stenosis; Z79.82 Long term (current) use of aspirin
CPT/HCPCS: 31720; 36415; 71045-TC; 80048-TC; 80053-TC; 80061-TC; 80076-TC; 82533; 82728-TC; 82962-TC; 83540-TC; 83605-TC; 83735-TC; 84100-TC; 84439-TC; 84443-TC; 84484-TC; 85025-TC; 85730-TC; 86706; 86850-TC; 87040-TC; 87081-TC; 87340; 90935-TC; 93307-TC; 94640-TC; 94762-TC; 94799-TC; 97110-TC; 97530-TC; A4216; A4217; A4623; A6253; A6403; A7526; C9113; G0378; J0885; J1100; J1644; J3490; J7040; J7050; J7060; P9016-BL; P9047; U0003-CS

== ENCOUNTER 2020-08-16 15:30 | Inpatient (IN) | payer MEDICARE, MEDICAID ==
[~2020-08-16] VITALS: Ht 165.1 cm; Wt 63.0 kg
[~2020-08-16 15:30] MED LIST: ACET325T53 GT; ACID1TAB12 GT; ALPR0.5T GT; AMIN887L GT; AMLO10TA4 GT; CHOL100045 GT; EPOE1VIA12 SQ; EPOE1VIA7 IJ; FOLI0.8T2 GT; HYDR100T27 GT; LEVO50TA8 GT; LOSA50TA39 GT; MINO2.5T GT; ONDA4TAB5 PO; PANT40TA2 PO; SEVE0.8P3 PO; SIME80TA15 GT; SUCR1TAB GT; ZINC220T4 GT
[2020-08-16] MEDS: NEPRO 1,000 ML BOTTLE GT PRN (20:00)
--- NOTE | 2020-08-16 20:00 | NUR ---
Male patient 59y/o admitted from [facility] awake,unable to verbalize,patient with tracheostomy on ventilator.GT feeding,Left AV fistula for HD use.Patient with diagnosis of the following chronic respiratory failure, ESRD on HD,GBS,Anemia Encephalopathy AF, Hyperlipidemia.Patient had history of COVID 19 disease last year. BP 146/64,HR 117,Temp 99.0,O2 sats 98%. Patient is full code as ordered.Head to toe assessment completed.Sacral wound and Left heel wound noted ,wound consult and treatment initiated.Dr Ruano notified of the admission with orders and carried out. [place] and notified with the admission and update with patient condition. Patient will have dialysis @ [facility] Wednesday, and Wednesday @ 12:15 pm will be pick up attendant by [facility] ambulance.Kept patient clean and dry and comfortable. Call light within reach. Will continue to monitor.
[2020-08-16 20:04] VITALS: BP 146/64
--- NOTE | 2020-08-16 20:30 | NUR ---
Patient responsible libertarian is Angela Robbins lives in [place],Tel # [phone] if we need to contact notify Nursing supervisor liquid yeast because per Marito we need to use [employer] telephone.
[2020-08-16] MEDS ORDERED: ACETAMINOPHEN 650 MG/20 ML UDC- SA PATIENTS-FEVER ONLY GT PRN (21:00)
[2020-08-16] MEDS: hydrALAZINE HCL 50 MG TABLET GT SCH (21:00)
[2020-08-16] MEDS ORDERED: ALPRAZOLAM 0.5 MG TABLET GT PRN (21:00)
[2020-08-16] MEDS ORDERED: ONDANSETRON 4 MG TAB.RAPDIS GT PRN (21:00)
[2020-08-16] MEDS: PANTOPRAZOLE 40 MG/PACK PACK GT SCH (21:00)
[2020-08-16] MEDS: HYDROGEN PEROXIDE 480 ML BOTTLE TP SCH (21:22)
[2020-08-16] MEDS ORDERED: BISACODYL SUPP (10 MG) 10 MG/SUPP.RECT SUPP.RECT RC PRN (21:30)
[2020-08-16] MEDS ORDERED: ALBUTEROL FS 2.5 MG/0.5 ML VIAL.NEB NEB PRN (21:30)
[2020-08-16] MEDS ORDERED: IPRATROPIUM NEB FS 0.5 MG/2.5 ML AMPUL.NEB NEB PRN (21:30)
[2020-08-17 01:10] VITALS: BP 123/65
[2020-08-17] MEDS: ALBUTEROL FS 2.5 MG/0.5 ML VIAL.NEB NEB SCH ×4 (01:45→19:39)
[2020-08-17] MEDS: IPRATROPIUM NEB FS 0.5 MG/2.5 ML AMPUL.NEB NEB SCH ×4 (01:45→19:39)
[2020-08-17] MEDS: hydrALAZINE HCL 50 MG TABLET GT SCH ×3 (05:00→20:30)
[2020-08-17 05:21] VITALS: BP 146/62
[2020-08-17] MEDS: LEVOTHYROXINE SODIUM 25 MCG TABLET GT SCH (05:39)
--- NOTE | 2020-08-17 06:04 | NUR ---
Spoke to Emily from [facility] to follow up patients medications,she said they working on it and will send and if there's any issues from the insurance they will let us know.
--- NOTE | 2020-08-17 06:06 | NUR ---
Scheduled meds last night and this morning not administer d/t medications is not available awaiting for delivery. Patient stable.
--- NOTE | 2020-08-17 06:11 | NUR ---
Called [facility] ambulance spoke to Kvng and confirmed pick up driver of patient going to [facility] @ 11;15 am with RT.
--- NOTE | 2020-08-17 06:35 | NUR ---
RT PT RECVD NEW ADMIN AT START OF SHIFT. SETTINGS GIVEN AC 18 550 30% +5. PT PLACED ON LTV, VENT PLUGGED INTO RED OUTLET WITH ALARMS ON AND AUDIBLE. JUAN C 8 TRACH PATENT AND SECURED. SPARE TRACH AND AMBU BAG AT BEDSIDE. TRACH CARE DONE AT ADMISSION. GAVIN DONE PRN, SPO2 ABOVE 92% MAINTAINED AND NO RESPIRATORY DISTRESS OBSERVED THROUGHOUT SHIFT.
[2020-08-17 07:50] VITALS: BP 146/65
[2020-08-17] MEDS ORDERED: HYDR-3972 GT (08:14)
[2020-08-17] MEDS ORDERED: ACET325T53 GT (08:14)
[2020-08-17] MEDS ORDERED: TEMA15CA5 GT (08:14)
[2020-08-17] MEDS ORDERED: TUBERCULIN,PURIF.PROT.DERIV. 5 TU/0.1 ML VIAL ID SCH (09:00)
[2020-08-17] MEDS ORDERED: ALPRAZOLAM 0.5 MG TABLET GT PRN (09:00)
[2020-08-17] MEDS: HYDROGEN PEROXIDE 480 ML BOTTLE TP SCH ×2 (09:01→20:36)
[2020-08-17] MEDS: LOSARTAN POTASSIUM 50 MG TABLET GT SCH ×2 (09:42→17:49)
[2020-08-17] MEDS: AMLODIPINE BESYLATE 10 MG TABLET GT SCH (09:43)
[2020-08-17] MEDS: PROSOURCE / PROSTAT (PYXIS) 30 ML UDC GT SCH (09:51)
[2020-08-17] MEDS: ZINC SULFATE 220 MG CAPSULE GT SCH (09:51)
[2020-08-17] MEDS: VIT B CMPLX 3/FA/VIT C/BIOTIN 1 TAB TABLET GT SCH (09:53)
[2020-08-17] MEDS: ACIDOPHILUS/BULGARICUS 1 EACH TAB.CHEW GT SCH ×2 (09:53→17:49)
[2020-08-17] MEDS: PANTOPRAZOLE 40 MG/PACK PACK GT SCH ×2 (09:54→20:30)
--- NOTE | 2020-08-17 10:10 | NUR ---
Received a call from Kvng from [facility] requesting H and P from . Informed Kvng that at this time we do not have an H and P, he said that they will mushroom picker patient today but would like to have H and P before the next mushroom picker schedule. Endorsed to [facility] to fax H&P as soon as it is available.
--- NOTE | 2020-08-17 10:29 | NUR ---
Obtained an order from Dr. Espinoza for routine stool softener, artificial tear and order to dc Epogen. Verified with Laney from [facility] that patient is receiving Mircera 225mcg q 11 days. Order carried out.
[2020-08-17] MEDS: THERAHONEY GEL 1.5 OZ TUBE TP SCH ×2 (10:30→20:30)
[2020-08-17] MEDS: Z GUARD REMEDY 2 OZ OINT TP SCH ×4 (10:30→20:30)
[2020-08-17] MEDS: HYDROGEL DRESSING 90 GM TUBE TP SCH ×2 (10:30→20:30)
[2020-08-17] MEDS: NEOMY SULF/BACITRAC ZN/POLY 15 GM TUBE TP SCH ×2 (10:30→20:29)
[2020-08-17] MEDS: MINERAL OIL/PETROL OINT 396 GM JAR TP SCH (10:30)
--- NOTE | 2020-08-17 10:35 | NUR ---
Resident's called to inquire about the patient's condition. Updated her of patient general condition. Asked if she will give consent for administration of Xanax for his anxiety. She said as long as it is given on PRN basis. According to patient's , everyt anibal she calls, he is sleeping. Through an interpreter for the deaf, explained to that it will only be given when it is necessary to manage his anxiety. agreed, witnessed by two licensed nurses. She also requested to see him virtually. Resident's called and seen patient via Facetime and talk to patient. Resident observed to be moving his R arm attempting to reach to the phone while talking to his . Patient in stable condition. appreciated the time that was able to see her .
[2020-08-17 11:15] VITALS: BP 138/67
--- NOTE | 2020-08-17 11:34 | NUR ---
Pt left for dialysis at [facility] via [facility]. Pt alert, responsive, no distress noted. BP 138/67, HR 87, RR 18, Temp 98.3.
[2020-08-17] MEDS: SUCRALFATE 1 G/10 ML UDC GT SCH ×3 (12:00→21:12)
[2020-08-17] MEDS: POLYVINYL ALCOHOL 15 ML BOTTLE EACHEYE SCH ×3 (12:00→23:10)
--- NOTE | 2020-08-17 12:07 | NUR ---
RT NOTE PT NOT IN ROOM, VENT CHECK NOT DONE DUE TO PT AT DIALYSIS. Addendum: 08/17/20 at 1209 by SHAKILA GREY RT Amended: Links added.
[2020-08-17] MEDS: DOCUSATE SODIUM LIQ 100 MG/10 ML UDC GT SCH ×2 (13:00→17:40)
[2020-08-17 16:50] VITALS: BP 146/72
[2020-08-17] MEDS: HYDROCODONE/APAP 5/325MG TABLET GT PRN (18:13)
[2020-08-17] MEDS: NEPRO 1,000 ML BOTTLE GT PRN (18:38)
[2020-08-17 20:18] VITALS: BP 142/69
--- NOTE | 2020-08-17 21:40 | NUR ---
Rcvd call from pt's - utilized Nauruan speaking staff - Nickolas- updated that pt had dialysis today- and v/s are vicente,no significant changes @ this time, and that pt is currently awake and calm.
[2020-08-18 00:32] VITALS: BP 153/54
[2020-08-18] MEDS: ALBUTEROL FS 2.5 MG/0.5 ML VIAL.NEB NEB SCH ×4 (01:32→18:52)
[2020-08-18] MEDS: IPRATROPIUM NEB FS 0.5 MG/2.5 ML AMPUL.NEB NEB SCH ×4 (01:32→18:52)
[2020-08-18] MEDS: LEVOTHYROXINE SODIUM 25 MCG TABLET GT SCH (05:06)
[2020-08-18] MEDS: POLYVINYL ALCOHOL 15 ML BOTTLE EACHEYE SCH ×3 (05:06→17:29)
[2020-08-18] MEDS: hydrALAZINE HCL 50 MG TABLET GT SCH ×3 (05:06→20:37)
[2020-08-18] MEDS: SUCRALFATE 1 G/10 ML UDC GT SCH ×4 (07:30→21:30)
[2020-08-18] MEDS: HYDROGEN PEROXIDE 480 ML BOTTLE TP SCH ×2 (08:17→21:00)
[2020-08-18 08:58] VITALS: BP 135/69
[2020-08-18] MEDS: LOSARTAN POTASSIUM 50 MG TABLET GT SCH ×2 (09:33→17:29)
[2020-08-18] MEDS: DOCUSATE SODIUM LIQ 100 MG/10 ML UDC GT SCH ×3 (09:33→17:29)
[2020-08-18] MEDS: ACIDOPHILUS/BULGARICUS 1 EACH TAB.CHEW GT SCH ×2 (09:33→17:29)
[2020-08-18] MEDS: ZINC SULFATE 220 MG CAPSULE GT SCH (09:34)
[2020-08-18] MEDS: MINERAL OIL/PETROL OINT 396 GM JAR TP SCH (09:34)
[2020-08-18] MEDS: HYDROGEL DRESSING 90 GM TUBE TP SCH ×2 (09:34→20:39)
[2020-08-18] MEDS: PANTOPRAZOLE 40 MG/PACK PACK GT SCH ×2 (09:34→20:38)
[2020-08-18] MEDS: AMLODIPINE BESYLATE 10 MG TABLET GT SCH (09:34)
[2020-08-18] MEDS: VIT B CMPLX 3/FA/VIT C/BIOTIN 1 TAB TABLET GT SCH (09:34)
[2020-08-18] MEDS: PROSOURCE / PROSTAT (PYXIS) 30 ML UDC GT SCH (09:34)
[2020-08-18] MEDS: NEOMY SULF/BACITRAC ZN/POLY 15 GM TUBE TP SCH ×2 (09:34→20:39)
[2020-08-18] MEDS: THERAHONEY GEL 1.5 OZ TUBE TP SCH ×2 (09:35→20:39)
[2020-08-18] MEDS: Z GUARD REMEDY 2 OZ OINT TP SCH ×4 (09:35→20:39)
[2020-08-18 14:58] VITALS: BP 132/65
--- NOTE | 2020-08-18 15:11 | NUR ---
Daja from [facility] reported MRSA nares for pt, notified Dr. Espinoza of the result.
--- NOTE | 2020-08-18 16:35 | NUR ---
Pt put on contact isolation for MRSA nares, isolation cart in front of room, safety precautions in placed. Per Dr. Espinoza order of Bactroban topical BID x5 days to both nares, order carried out.
[2020-08-18] MEDS: NEPRO 1,000 ML BOTTLE GT PRN (17:28)
[2020-08-18 20:16] VITALS: BP 125/67
[2020-08-19] VITALS: BP 131/71
[2020-08-19] MEDS: POLYVINYL ALCOHOL 15 ML BOTTLE EACHEYE SCH ×5 (00:22→23:30)
[2020-08-19] MEDS: IPRATROPIUM NEB FS 0.5 MG/2.5 ML AMPUL.NEB NEB SCH ×4 (00:31→19:28)
[2020-08-19] MEDS: ALBUTEROL FS 2.5 MG/0.5 ML VIAL.NEB NEB SCH ×4 (00:31→19:28)
[2020-08-19] MEDS: hydrALAZINE HCL 50 MG TABLET GT SCH ×3 (05:30→21:23)
[2020-08-19] MEDS: LEVOTHYROXINE SODIUM 25 MCG TABLET GT SCH (05:31)
[2020-08-19] MEDS: SUCRALFATE 1 G/10 ML UDC GT SCH ×4 (07:30→21:26)
[2020-08-19 07:45] VITALS: BP 149/59
[2020-08-19] MEDS: VIT B CMPLX 3/FA/VIT C/BIOTIN 1 TAB TABLET GT SCH (09:00)
[2020-08-19] MEDS: Z GUARD REMEDY 2 OZ OINT TP SCH ×4 (09:00→21:25)
[2020-08-19] MEDS: NEOMY SULF/BACITRAC ZN/POLY 15 GM TUBE TP SCH ×2 (09:00→21:25)
[2020-08-19] MEDS: HYDROGEL DRESSING 90 GM TUBE TP SCH (09:00)
[2020-08-19] MEDS: THERAHONEY GEL 1.5 OZ TUBE TP SCH ×2 (09:00→21:25)
[2020-08-19] MEDS: LOSARTAN POTASSIUM 50 MG TABLET GT SCH ×2 (09:00→17:00)
[2020-08-19] MEDS: AMLODIPINE BESYLATE 10 MG TABLET GT SCH (09:00)
[2020-08-19] MEDS: PANTOPRAZOLE 40 MG/PACK PACK GT SCH ×2 (09:00→21:24)
[2020-08-19] MEDS: MINERAL OIL/PETROL OINT 396 GM JAR TP SCH (09:00)
[2020-08-19] MEDS: DOCUSATE SODIUM LIQ 100 MG/10 ML UDC GT SCH ×3 (09:00→17:00)
[2020-08-19] MEDS: MUPIROCIN OINT 2% 22 GM TUBE NS SCH ×2 (09:00→17:00)
[2020-08-19] MEDS: PROSOURCE / PROSTAT (PYXIS) 30 ML UDC GT SCH (09:00)
[2020-08-19] MEDS: ACIDOPHILUS/BULGARICUS 1 EACH TAB.CHEW GT SCH ×2 (09:00→17:00)
[2020-08-19] MEDS: ZINC SULFATE 220 MG CAPSULE GT SCH (09:00)
[2020-08-19] MEDS: HYDROGEN PEROXIDE 480 ML BOTTLE TP SCH ×2 (09:05→20:31)
--- NOTE | 2020-08-19 11:31 | NUR ---
WOUND CARE CONSULT: PT PRESENTS WITH LEFT HEEL WOUND, RT HEEL DARK DISCOLORATION/SCAR AND SACRAL UNSTAGEABLE ULCER, PRESENT ON ADMISSION. RECOMMEND SURGICAL AND DPM CONSULTS. DR LAFLEUR AND DR GOMEZ NOTIFIED OF CONSULT REQUESTS. SACRAL ULCER MEASURES 4CM X 3CM X UTD AND IS PINK AND YELLOW IN COLOR WITH SCANT SEROUS DRAINAGE. PT IS INCONTINENT OF STOOL. RECOMMENDATIONS MADE FOR SKIN PROTECTION. CONCUR WITH CURRENT WOUND CARE ORDERS. DEFER TO SURGICAL AND PODIATRY TEAMS FOR WOUND TREATMENT PLAN. PT IS ON FIRST STEP THEODORE ORTIZ MD IN AGREEMENT WITH PLAN OF CARE.
[2020-08-19 12:48] LABS: BASOPHILS # (AUTO) 0.1 /CMM (0.0-0.2); BASOPHILS % (AUTO) 0.8 % (0.0-2.0); EOSINOPHILS % (AUTO) 0.7 % (0.0-6.0); HEMATOCRIT 25 % (39-51); HEMOGLOBIN 8.1 g/dL (13.5-17.5); LYMPHOCYTES # (AUTO) 0.7 /CMM (0.8-4.8); LYMPHOCYTES % (AUTO) 7.4 % (20.0-44.0); MEAN CORPUSCULAR HGB CONC 33 g/dl (31.0-36.0); MEAN CORPUSCULAR VOLUME 83 fL (80-96); MONOCYTES # (AUTO) 0.6 /CMM (0.1-1.30); MONOCYTES % (AUTO) 6.6 % (2.0-12.0); NEUTROPHILS # (AUTO) 7.6 /CMM (1.8-8.9); NEUTROPHILS % (AUTO) 84.5 % (43.0-81.0); PLATELET COUNT (AUTO) 343 /CMM (150-450); RED BLOOD CELL COUNT(AUTO) 2.97 MIL/uL (4.5-6.0)
[2020-08-19 12:54] LABS: CALCIUM, SERUM 9.6 mg/dL (8.5-10.1); CREATININE 2.6 mg/dL (0.6-1.3); POTASSIUM 3.5 mmol/L (3.5-5.1)
[2020-08-19 13:01] LABS: ALBUMIN 1.9 g/dL (3.4-5.0); BILIRUBIN,TOTAL 0.5 mg/dL (0.2-1.0); TOTAL PROTEIN, SERUM 8.6 g/dL (6.4-8.2)
--- NOTE | 2020-08-19 13:05 | NUR ---
Initial Patient Assessment.: SW met with pt. bedside. The pt. is awake, alert but disoriented. Patient did not make eye contact. Pt. is lying in bed fidgeting with tubing. Patient with flat affect. Pt. is non-verbal. Pt. unable to have a meaningful conversation. Pt. unable to make his needs known. Per EMR, the pt. is trach to vent with g-tube feeding and pt. on anti-anxiety medication. The pt.s , Fay Robbins to provide collateral information. SW will monitor the psychosocial needs of the patient and his family and apply appropriate interventions as needed.
[2020-08-19 14:01] VITALS: BP 166/60
--- NOTE | 2020-08-19 14:08 | NUR ---
DIPESH made 3 separate attempts to call the pt.'s , Angela Robbins who resides in [place] using the nursing distribution center supervisor's phone (international call) to complete admission paperwork and gather collateral information. However, no answer. DIPESH left voicemail in Uzbek with call back number. DIPESH informed charge nurseVenus that if Angela calls the nursing station to transfer call to . DIPESH will be available as needed and will follow up accordingly.
--- NOTE | 2020-08-19 16:00 | NUR ---
Code Status: DIPESH received a call back from the pt.'s , Fay Robbins [phone] who is French speaking only. SW translated preferred intensity of care options for Fay. Patient's gave [facility] verbal consent for pt. to remain Full Code: Maximum Treatment & CPR witnessed by Charge Nurse, NIALL Donovan, Olga & RN, Dereje. SW gathered collateral information. Fay refused to provide her address. Per Fay, staff may call the pt.'s cousin, Angela [phone] resides in [place], [place] who can notify Fay to call [facility]. Per Fay, she has charity: [employer] and she may be able to communicate with [facility] easier that way. DIPESH will follow up. Addendum: 08/21/20 at 1118 by ELBERT LANDON During this phone call, Fay also gave verbal consent for pt. to receive Pneumococcal vaccine, Flu Vaccine, and COVID Vaccine.
--- NOTE | 2020-08-19 16:00 | NUR ---
Pt's Fay said pt will remain full code, translations provided by DIPESH Rios, witnessed by charge nurse and RN Olga.
--- NOTE | 2020-08-19 16:05 | NUR ---
Intake Paperwork: SW discussed intake paperwork:(Patient Right's Acknowledgement, Documentation of Preferred Intensity of Care, Conditions of Admission, and Voluntary Prior Express Consent form, and An Important Message from Medicare) with patient's , Fay Robbins over the phone. SW inquired about mailing intake paperwork translated in Maori to Fay for her to complete & sign. Fay stated "to be honest I don't want to give out my address. Other facilities my has been residing at, only asked me to give verbal consent for his stay there." SW provided other option of emailing paperwork with no names of demographic information for HIPAA compliance to Fay and have her sign. However, Fay was not agreeable and declined to sign paperwork in this manner as well. Fay is agreeable that patient reside at [facility]. DIPESH discussed with community relations coordinator and clinical marking room supervisor, Thor. Per Thor, if family is involved and supportive with pt.'s care, there is no need for Ombudsman report as there is no neglect. Family cannot be forced to sign. Noted.
[2020-08-19] MEDS: NEPRO 1,000 ML BOTTLE GT PRN (18:06)
--- NOTE | 2020-08-19 18:10 | NUR ---
Educated staff to observe isolation precautions, wear PPEs and perform proper hand hygiene.
--- NOTE | 2020-08-19 18:22 | NUR ---
Dr Espinoza ordered to check TSH. According to [facility] pharmacist, pt's TSH has been consistently high when he was in the acute hospital. TSH 6.[address] Espinoza. He ordered to increase Levothyroxine from 25 to 50 mcg GT daily and recheck TSH in 3 weeks.
[2020-08-19 19:53] VITALS: BP 130/63
[2020-08-20] VITALS: BP 138/74
[2020-08-20] MEDS: IPRATROPIUM NEB FS 0.5 MG/2.5 ML AMPUL.NEB NEB SCH ×4 (01:44→20:19)
[2020-08-20] MEDS: ALBUTEROL FS 2.5 MG/0.5 ML VIAL.NEB NEB SCH ×4 (01:44→20:19)
[2020-08-20] MEDS: hydrALAZINE HCL 50 MG TABLET GT SCH ×3 (04:37→20:36)
[2020-08-20] MEDS: LEVOTHYROXINE SODIUM 50 MCG TABLET GT SCH (05:02)
[2020-08-20] MEDS: POLYVINYL ALCOHOL 15 ML BOTTLE EACHEYE SCH ×3 (05:02→17:02)
[2020-08-20] MEDS: SUCRALFATE 1 G/10 ML UDC GT SCH ×4 (07:30→21:13)
[2020-08-20 07:51] VITALS: BP 159/52
[2020-08-20] MEDS: VIT B CMPLX 3/FA/VIT C/BIOTIN 1 TAB TABLET GT SCH (08:46)
[2020-08-20] MEDS: LOSARTAN POTASSIUM 50 MG TABLET GT SCH ×2 (08:46→17:01)
[2020-08-20] MEDS: ACIDOPHILUS/BULGARICUS 1 EACH TAB.CHEW GT SCH ×2 (08:46→17:01)
[2020-08-20] MEDS: DOCUSATE SODIUM LIQ 100 MG/10 ML UDC GT SCH ×3 (08:46→17:01)
[2020-08-20] MEDS: MINERAL OIL/PETROL OINT 396 GM JAR TP SCH (08:47)
[2020-08-20] MEDS: ZINC SULFATE 220 MG CAPSULE GT SCH (08:47)
[2020-08-20] MEDS: MUPIROCIN OINT 2% 22 GM TUBE NS SCH ×2 (08:47→17:01)
[2020-08-20] MEDS: AMLODIPINE BESYLATE 10 MG TABLET GT SCH (08:47)
[2020-08-20] MEDS: PANTOPRAZOLE 40 MG/PACK PACK GT SCH ×2 (08:47→20:36)
[2020-08-20] MEDS: PROSOURCE / PROSTAT (PYXIS) 30 ML UDC GT SCH (08:47)
[2020-08-20] MEDS: HYDROGEN PEROXIDE 480 ML BOTTLE TP SCH ×2 (09:10→21:00)
[2020-08-20] MEDS: THERAHONEY GEL 1.5 OZ TUBE TP SCH ×2 (09:54→20:37)
[2020-08-20] MEDS: Z GUARD REMEDY 2 OZ OINT TP SCH ×4 (09:54→20:37)
[2020-08-20] MEDS: NEOMY SULF/BACITRAC ZN/POLY 15 GM TUBE TP SCH ×2 (09:54→20:37)
--- NOTE | 2020-08-20 11:27 | NUR ---
Zoom: DIPESH received call from pt.'s , Fay requesting information about making video calls with the pt. DIPESH instructed Fay how to download Zoom application and provided her with Personal Meeting ID & Passcode. Fay expressed understanding. Fay stated she will have her daughter download and sign in to application. Fay stated she will call another day for Video Call with pt. Noted. corporate coordinator to facilitate video calls as needed.
--- NOTE | 2020-08-20 11:30 | NUR ---
Pt left for dialysis at [facility] today via [facility]. Pt was suctioned trach, and oral, with minimal secretions, no distress noted, ambu bag was taken, no respiratory distress.
--- NOTE | 2020-08-20 12:48 | NUR ---
RT NOTE BREATHING TX NOT ADMINISTERED AT MOMENT DUE TO PT NOT BEING IN FACILITY. PT OUT FOR DIALYSIS. Addendum: 08/20/20 at 1249 by LEONEL JOHANSEN RT Amended: Links added.
[2020-08-20] MEDS ORDERED: EPOETIN ALFA (10,000 UNIT) 10,000 UNIT/ML VIAL SQ SCH (14:00)
--- NOTE | 2020-08-20 16:50 | NUR ---
PATIENT ARRIVED FROM DIALYSIS CENTER, PRE-DIALYSIS WT 63.2 KG, POST-DIALYSIS WT 61.8KG, AVF ON LEFT SIDE, DRESSING INTACT, NO BLEEDING, + BRUIT/TRILL, WAS SUCTIONED UPON ARRIVAL, MINIMAL SECRETIONS, HOB ELEVATED, FEEDING TURNED ON, VITAL SIGNS 141/67, PULSE 73, TEMP 98.8, NO RESPIRATORY DISTRESS, REMAINS ON CONTACT ISOLATION FOR MRSA NARES, ALL PRECAUTIONS TAKEN.
--- NOTE | 2020-08-20 16:54 | NUR ---
Late entry for 08/19/20 Pt's gave consent to Covid-19 and Pneumococcal vaccines. Education about benefits and potential side effects discussed. Consent given. Addendum: 08/22/20 at 1437 by KARLA DENTON RN According to vaccination records from [facility] (pt's previous facility), informed them that pt received the Pneumococcal vaccine on 03/24/18. 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
[2020-08-20] MEDS: ACETAMINOPHEN 650 MG/20 ML UDC- SA PATIENTS-PAIN ONLY GT PRN (17:21)
[2020-08-20 20:27] VITALS: BP 165/62
[2020-08-20] MEDS: NEPRO 1,000 ML BOTTLE GT PRN (23:31)
[2020-08-21] MEDS: POLYVINYL ALCOHOL 15 ML BOTTLE EACHEYE SCH ×5 (00:35→23:29)
[2020-08-21] MEDS: IPRATROPIUM NEB FS 0.5 MG/2.5 ML AMPUL.NEB NEB SCH ×4 (01:18→19:30)
[2020-08-21] MEDS: ALBUTEROL FS 2.5 MG/0.5 ML VIAL.NEB NEB SCH ×4 (01:18→19:30)
[2020-08-21 01:20] VITALS: BP 160/60
[2020-08-21] MEDS: LEVOTHYROXINE SODIUM 50 MCG TABLET GT SCH (05:25)
[2020-08-21] MEDS: hydrALAZINE HCL 50 MG TABLET GT SCH ×3 (05:25→21:27)
[2020-08-21] MEDS: SUCRALFATE 1 G/10 ML UDC GT SCH ×4 (07:30→21:28)
[2020-08-21 07:47] VITALS: BP 157/65
[2020-08-21] MEDS: DOCUSATE SODIUM LIQ 100 MG/10 ML UDC GT SCH ×3 (08:43→17:18)
[2020-08-21] MEDS: AMLODIPINE BESYLATE 10 MG TABLET GT SCH (08:43)
[2020-08-21] MEDS: PANTOPRAZOLE 40 MG/PACK PACK GT SCH ×2 (08:43→21:27)
[2020-08-21] MEDS: ZINC SULFATE 220 MG CAPSULE GT SCH (08:43)
[2020-08-21] MEDS: PROSOURCE / PROSTAT (PYXIS) 30 ML UDC GT SCH (08:43)
[2020-08-21] MEDS: LOSARTAN POTASSIUM 50 MG TABLET GT SCH ×2 (08:43→17:18)
[2020-08-21] MEDS: ACIDOPHILUS/BULGARICUS 1 EACH TAB.CHEW GT SCH ×2 (08:43→17:18)
[2020-08-21] MEDS: VIT B CMPLX 3/FA/VIT C/BIOTIN 1 TAB TABLET GT SCH (08:43)
[2020-08-21] MEDS: MINERAL OIL/PETROL OINT 396 GM JAR TP SCH (08:44)
[2020-08-21] MEDS: Z GUARD REMEDY 2 OZ OINT TP SCH ×4 (08:44→21:28)
[2020-08-21] MEDS: NEOMY SULF/BACITRAC ZN/POLY 15 GM TUBE TP SCH ×2 (08:44→21:27)
[2020-08-21] MEDS: THERAHONEY GEL 1.5 OZ TUBE TP SCH ×2 (08:44→21:28)
[2020-08-21] MEDS: MUPIROCIN OINT 2% 22 GM TUBE NS SCH ×2 (08:44→17:18)
[2020-08-21] MEDS: HYDROGEN PEROXIDE 480 ML BOTTLE TP SCH ×2 (08:50→20:33)
--- NOTE | 2020-08-21 11:18 | NUR ---
DIPESH faxed patient's facesheet, H&P to [facility] FAX: [phone] as they requested, to verify pt. is now a resident at [facility].
[2020-08-21 13:30] VITALS: BP 142/68
--- NOTE | 2020-08-21 18:01 | NUR ---
Obtained an order from Dr. Espinoza to phyllis/marya Christine, patient has not been observed to manifest any anxiety. Order carried out.
[2020-08-21] MEDS: NEPRO 1,000 ML BOTTLE GT PRN (19:24)
[2020-08-21 20:16] VITALS: BP 118/67
[2020-08-22] MEDS: ALBUTEROL FS 2.5 MG/0.5 ML VIAL.NEB NEB SCH ×4 (01:16→20:23)
[2020-08-22] MEDS: IPRATROPIUM NEB FS 0.5 MG/2.5 ML AMPUL.NEB NEB SCH ×4 (01:16→20:23)
[2020-08-22] MEDS: hydrALAZINE HCL 50 MG TABLET GT SCH ×3 (05:44→21:18)
[2020-08-22] MEDS: POLYVINYL ALCOHOL 15 ML BOTTLE EACHEYE SCH ×3 (05:44→17:54)
[2020-08-22] MEDS: LEVOTHYROXINE SODIUM 50 MCG TABLET GT SCH (05:44)
[2020-08-22] MEDS: SUCRALFATE 1 G/10 ML UDC GT SCH ×4 (07:32→21:19)
[2020-08-22] MEDS: HYDROGEN PEROXIDE 480 ML BOTTLE TP SCH ×2 (08:30→21:05)
[2020-08-22] MEDS: DOCUSATE SODIUM LIQ 100 MG/10 ML UDC GT SCH ×3 (09:39→17:53)
[2020-08-22] MEDS: Z GUARD REMEDY 2 OZ OINT TP SCH ×4 (09:40→21:19)
[2020-08-22] MEDS: PANTOPRAZOLE 40 MG/PACK PACK GT SCH ×2 (09:40→21:19)
[2020-08-22] MEDS: MINERAL OIL/PETROL OINT 396 GM JAR TP SCH (09:40)
[2020-08-22] MEDS: ACIDOPHILUS/BULGARICUS 1 EACH TAB.CHEW GT SCH ×2 (09:40→17:54)
[2020-08-22] MEDS: VIT B CMPLX 3/FA/VIT C/BIOTIN 1 TAB TABLET GT SCH (09:40)
[2020-08-22] MEDS: MUPIROCIN OINT 2% 22 GM TUBE NS SCH ×2 (09:40→17:54)
[2020-08-22] MEDS: PROSOURCE / PROSTAT (PYXIS) 30 ML UDC GT SCH (09:40)
[2020-08-22] MEDS: LOSARTAN POTASSIUM 50 MG TABLET GT SCH ×2 (09:40→17:54)
[2020-08-22] MEDS: NEOMY SULF/BACITRAC ZN/POLY 15 GM TUBE TP SCH ×2 (09:40→21:19)
[2020-08-22] MEDS: AMLODIPINE BESYLATE 10 MG TABLET GT SCH (09:40)
[2020-08-22] MEDS: THERAHONEY GEL 1.5 OZ TUBE TP SCH ×2 (09:40→21:19)
[2020-08-22] MEDS: ZINC SULFATE 220 MG CAPSULE GT SCH (09:40)
--- NOTE | 2020-08-22 13:39 | NUR ---
RT NOTE PATIENT NOT IN [facility] DEPT WENT FOR DIALYSIS TREATMENT
[2020-08-22 14:22] VITALS: BP 152/78
[2020-08-22 19:42] VITALS: BP 174/77
[2020-08-22] MEDS: BACI/NEOM/POLY B OINT PKT 1 UDPKT PACKET TP SCH (21:19)
[2020-08-22 23:28] VITALS: BP 153/73
[2020-08-23] MEDS: POLYVINYL ALCOHOL 15 ML BOTTLE EACHEYE SCH ×6 (00:11→23:23)
[2020-08-23] MEDS: IPRATROPIUM NEB FS 0.5 MG/2.5 ML AMPUL.NEB NEB SCH ×4 (01:57→20:02)
[2020-08-23] MEDS: ALBUTEROL FS 2.5 MG/0.5 ML VIAL.NEB NEB SCH ×4 (01:57→20:02)
[2020-08-23] MEDS: NEPRO 1,000 ML BOTTLE GT PRN ×2 (01:57→23:29)
[2020-08-23] MEDS: hydrALAZINE HCL 50 MG TABLET GT SCH ×3 (05:04→21:20)
[2020-08-23] MEDS: LEVOTHYROXINE SODIUM 50 MCG TABLET GT SCH (05:05)
--- NOTE | 2020-08-23 06:51 | NUR ---
Patient did not sleep well last night.Will continue to monitor.Will endorse.
[2020-08-23] MEDS: SUCRALFATE 1 G/10 ML UDC GT SCH ×4 (07:30→21:21)
[2020-08-23 08:13] VITALS: BP 155/42
[2020-08-23] MEDS: HYDROGEN PEROXIDE 480 ML BOTTLE TP SCH ×2 (08:20→21:10)
[2020-08-23] MEDS: MINERAL OIL/PETROL OINT 396 GM JAR TP SCH (09:00)
[2020-08-23] MEDS: NEOMY SULF/BACITRAC ZN/POLY 15 GM TUBE TP SCH ×2 (09:00→21:20)
[2020-08-23] MEDS: BACI/NEOM/POLY B OINT PKT 1 UDPKT PACKET TP SCH ×2 (09:00→21:20)
[2020-08-23] MEDS: Z GUARD REMEDY 2 OZ OINT TP SCH ×4 (09:00→21:20)
[2020-08-23] MEDS: THERAHONEY GEL 1.5 OZ TUBE TP SCH ×2 (09:00→21:20)
[2020-08-23] MEDS: DOCUSATE SODIUM LIQ 100 MG/10 ML UDC GT SCH ×3 (09:15→17:00)
[2020-08-23] MEDS: LOSARTAN POTASSIUM 50 MG TABLET GT SCH ×2 (09:15→17:00)
[2020-08-23] MEDS: PANTOPRAZOLE 40 MG/PACK PACK GT SCH ×2 (09:16→21:20)
[2020-08-23] MEDS: VIT B CMPLX 3/FA/VIT C/BIOTIN 1 TAB TABLET GT SCH (09:16)
[2020-08-23] MEDS: ACIDOPHILUS/BULGARICUS 1 EACH TAB.CHEW GT SCH ×2 (09:16→17:00)
[2020-08-23] MEDS: ZINC SULFATE 220 MG CAPSULE GT SCH (09:16)
[2020-08-23] MEDS: PROSOURCE / PROSTAT (PYXIS) 30 ML UDC GT SCH (09:16)
[2020-08-23] MEDS: MUPIROCIN OINT 2% 22 GM TUBE NS SCH ×2 (09:16→17:00)
[2020-08-23] MEDS: AMLODIPINE BESYLATE 10 MG TABLET GT SCH (09:16)
--- NOTE | 2020-08-23 10:00 | NUR ---
STAFF PSYCHIATRIST for Dr. Nile Clement came with order to obtain consent for serial debridement of the sacral wound. Obtained consent from patient's witnessed by another licensed nurse with court interpreter.
--- NOTE | 2020-08-23 13:49 | NUR ---
Reported to Dr. Gonzalez during IDT that patient is not sleeping well, with order for Melatonin for insomnia. It was also mentioned by family that patient is diabetic, Dr. Gonzalez ordered HbgAIC for Wednesday08/26/20. Ordered carried out.
[2020-08-23 15:25] VITALS: BP 142/73
--- NOTE | 2020-08-23 16:10 | NUR ---
Resident's had virtual visit with resident via FT. Informed Mrs. Enriquez that new order was given by Dr. Gonzalez for his insomnia which is Melatonin and Hgb Aic to check if patient is diabetic. Appreciated the information.
--- NOTE | 2020-08-23 16:26 | NUR ---
INTERDISCIPLINARY PLAN OF CARE CONFERENCE took place today. The patients , Fay Robbins did not participate via phone conference. Dr. Gonzalez and Interdisciplinary team discussed the plan of care in detail. Current orders as well as treatments and medications were reviewed. See other disciplines IDT notes for further details.
[2020-08-23 21:14] VITALS: BP 162/63
[2020-08-23] MEDS: MELATONIN 3 MG TABLET GT SCH (21:21)
[2020-08-23] MEDS: SIMETHICONE SUSP 40 MG/0.6 ML BOTTLE GT PRN (23:29)
[2020-08-24 00:54] VITALS: BP 158/75
[2020-08-24] MEDS: ALBUTEROL FS 2.5 MG/0.5 ML VIAL.NEB NEB SCH ×4 (01:37→20:09)
[2020-08-24] MEDS: IPRATROPIUM NEB FS 0.5 MG/2.5 ML AMPUL.NEB NEB SCH ×4 (01:37→20:09)
[2020-08-24] MEDS: hydrALAZINE HCL 50 MG TABLET GT SCH ×3 (05:15→20:39)
[2020-08-24] MEDS: POLYVINYL ALCOHOL 15 ML BOTTLE EACHEYE SCH ×3 (05:15→18:00)
[2020-08-24] MEDS: LEVOTHYROXINE SODIUM 50 MCG TABLET GT SCH (05:15)
[2020-08-24] MEDS: SUCRALFATE 1 G/10 ML UDC GT SCH ×4 (07:30→20:44)
[2020-08-24 07:49] VITALS: BP 166/60
[2020-08-24] MEDS: HYDROGEN PEROXIDE 480 ML BOTTLE TP SCH ×2 (08:34→20:18)
[2020-08-24] MEDS: DOCUSATE SODIUM LIQ 100 MG/10 ML UDC GT SCH ×3 (08:41→16:56)
[2020-08-24] MEDS: ACIDOPHILUS/BULGARICUS 1 EACH TAB.CHEW GT SCH ×2 (08:42→16:56)
[2020-08-24] MEDS: LOSARTAN POTASSIUM 50 MG TABLET GT SCH ×2 (08:42→16:56)
[2020-08-24] MEDS: AMLODIPINE BESYLATE 10 MG TABLET GT SCH (08:45)
[2020-08-24] MEDS: VIT B CMPLX 3/FA/VIT C/BIOTIN 1 TAB TABLET GT SCH (08:45)
[2020-08-24] MEDS: ZINC SULFATE 220 MG CAPSULE GT SCH (08:47)
[2020-08-24] MEDS: PANTOPRAZOLE 40 MG/PACK PACK GT SCH ×2 (08:47→20:39)
[2020-08-24] MEDS: PROSOURCE / PROSTAT (PYXIS) 30 ML UDC GT SCH (08:47)
[2020-08-24] MEDS: MINERAL OIL/PETROL OINT 396 GM JAR TP SCH (09:47)
[2020-08-24] MEDS: NEOMY SULF/BACITRAC ZN/POLY 15 GM TUBE TP SCH ×2 (09:48→21:00)
[2020-08-24] MEDS: BACI/NEOM/POLY B OINT PKT 1 UDPKT PACKET TP SCH ×2 (09:49→21:00)
[2020-08-24] MEDS: Z GUARD REMEDY 2 OZ OINT TP SCH ×4 (09:49→21:00)
[2020-08-24] MEDS: Z GUARD REMEDY 4 OZ OINT TP SCH (09:50)
[2020-08-24] MEDS: THERAHONEY GEL 1.5 OZ TUBE TP SCH ×2 (09:50→21:00)
--- NOTE | 2020-08-24 11:20 | NUR ---
Seen and examined by Dr. Espinoza, referred patient's blood pressure in which SBP reading are mostly above 160. Dr. Esipnoza reviewed current hypertensive medications with new order to start Labetalol 200 mg. q 12 hours. Spoke with patient's Fay informing her of new order to manage his blood pressure. Information presented through an insurance account assistant.
--- NOTE | 2020-08-24 11:30 | NUR ---
rn notes patient went to dialysis center via ambulance,due meds held at this time.
--- NOTE | 2020-08-24 14:05 | NUR ---
RT NOTE: MED NOT GIVEN PATIENT WENT FOR DIALYSIS TREATMENT.
--- NOTE | 2020-08-24 16:10 | NUR ---
rn notes patient came back from dialysis,due meds given at this time via g tube.
[2020-08-24 16:38] VITALS: BP 162/60
[2020-08-24 19:40] VITALS: BP 151/68
[2020-08-24] MEDS: MELATONIN 3 MG TABLET GT SCH (20:44)
[2020-08-24] MEDS: LABETALOL HCL (100MG) 100 MG TABLET GT SCH (21:00)
[2020-08-25] MEDS: POLYVINYL ALCOHOL 15 ML BOTTLE EACHEYE SCH ×4 (00:59→17:18)
[2020-08-25 01:14] VITALS: BP 152/65
[2020-08-25] MEDS: IPRATROPIUM NEB FS 0.5 MG/2.5 ML AMPUL.NEB NEB SCH ×4 (01:30→19:47)
[2020-08-25] MEDS: ALBUTEROL FS 2.5 MG/0.5 ML VIAL.NEB NEB SCH ×4 (01:30→19:47)
[2020-08-25] MEDS: NEPRO 1,000 ML BOTTLE GT PRN ×2 (01:44→17:49)
[2020-08-25] MEDS: hydrALAZINE HCL 50 MG TABLET GT SCH ×3 (05:21→20:49)
[2020-08-25] MEDS: LEVOTHYROXINE SODIUM 50 MCG TABLET GT SCH (05:22)
[2020-08-25] MEDS: SUCRALFATE 1 G/10 ML UDC GT SCH ×4 (05:22→21:12)
[2020-08-25 07:18] VITALS: BP 187/56
[2020-08-25] MEDS: BACI/NEOM/POLY B OINT PKT 1 UDPKT PACKET TP SCH ×2 (09:00→20:52)
[2020-08-25] MEDS: ACIDOPHILUS/BULGARICUS 1 EACH TAB.CHEW GT SCH ×2 (09:00→17:18)
[2020-08-25] MEDS: LOSARTAN POTASSIUM 50 MG TABLET GT SCH ×2 (09:00→17:18)
[2020-08-25] MEDS: VIT B CMPLX 3/FA/VIT C/BIOTIN 1 TAB TABLET GT SCH (09:00)
[2020-08-25] MEDS: Z GUARD REMEDY 2 OZ OINT TP SCH ×4 (09:00→20:52)
[2020-08-25] MEDS: Z GUARD REMEDY 4 OZ OINT TP SCH (09:00)
[2020-08-25] MEDS: NEOMY SULF/BACITRAC ZN/POLY 15 GM TUBE TP SCH ×2 (09:00→20:52)
[2020-08-25] MEDS: PROSOURCE / PROSTAT (PYXIS) 30 ML UDC GT SCH (09:00)
[2020-08-25] MEDS: MINERAL OIL/PETROL OINT 396 GM JAR TP SCH (09:00)
[2020-08-25] MEDS: DOCUSATE SODIUM LIQ 100 MG/10 ML UDC GT SCH ×3 (09:00→17:18)
[2020-08-25] MEDS: ZINC SULFATE 220 MG CAPSULE GT SCH (09:00)
[2020-08-25] MEDS: LABETALOL HCL (100MG) 100 MG TABLET GT SCH ×2 (09:00→20:52)
[2020-08-25] MEDS: THERAHONEY GEL 1.5 OZ TUBE TP SCH ×2 (09:00→20:52)
[2020-08-25] MEDS: AMLODIPINE BESYLATE 10 MG TABLET GT SCH (09:00)
[2020-08-25] MEDS: HYDROGEN PEROXIDE 480 ML BOTTLE TP SCH ×2 (09:00→20:42)
[2020-08-25] MEDS: PANTOPRAZOLE 40 MG/PACK PACK GT SCH ×2 (09:00→20:51)
--- NOTE | 2020-08-25 13:15 | NUR ---
Video Call: Assisted residents with video call on August 25, 2020 at 11:00 am. Contact info is [phone].
[2020-08-25 13:50] VITALS: BP 132/52
[2020-08-25] MEDS: MELATONIN 3 MG TABLET GT SCH (21:12)
[2020-08-26] MEDS: POLYVINYL ALCOHOL 15 ML BOTTLE EACHEYE SCH ×4 (00:29→17:37)
[2020-08-26] MEDS: ALBUTEROL FS 2.5 MG/0.5 ML VIAL.NEB NEB SCH ×4 (01:41→19:50)
[2020-08-26] MEDS: IPRATROPIUM NEB FS 0.5 MG/2.5 ML AMPUL.NEB NEB SCH ×4 (01:42→19:50)
[2020-08-26] MEDS: hydrALAZINE HCL 50 MG TABLET GT SCH ×3 (05:38→20:36)
[2020-08-26] MEDS: LEVOTHYROXINE SODIUM 50 MCG TABLET GT SCH (05:38)
[2020-08-26] MEDS: SUCRALFATE 1 G/10 ML UDC GT SCH ×4 (07:30→21:11)
[2020-08-26] MEDS: BACI/NEOM/POLY B OINT PKT 1 UDPKT PACKET TP SCH ×2 (09:00→20:38)
[2020-08-26] MEDS: Z GUARD REMEDY 4 OZ OINT TP SCH (09:00)
[2020-08-26] MEDS: Z GUARD REMEDY 2 OZ OINT TP SCH ×4 (09:00→20:38)
[2020-08-26] MEDS: NEOMY SULF/BACITRAC ZN/POLY 15 GM TUBE TP SCH ×2 (09:00→20:38)
[2020-08-26] MEDS: MINERAL OIL/PETROL OINT 396 GM JAR TP SCH (09:00)
[2020-08-26] MEDS: THERAHONEY GEL 1.5 OZ TUBE TP SCH ×2 (09:00→20:38)
[2020-08-26] MEDS: HYDROGEN PEROXIDE 480 ML BOTTLE TP SCH ×2 (09:26→20:23)
[2020-08-26] MEDS: DOCUSATE SODIUM LIQ 100 MG/10 ML UDC GT SCH ×3 (09:35→16:59)
[2020-08-26] MEDS: PANTOPRAZOLE 40 MG/PACK PACK GT SCH ×2 (09:36→20:37)
[2020-08-26] MEDS: AMLODIPINE BESYLATE 10 MG TABLET GT SCH (09:36)
[2020-08-26] MEDS: ACIDOPHILUS/BULGARICUS 1 EACH TAB.CHEW GT SCH ×2 (09:36→16:59)
[2020-08-26] MEDS: LOSARTAN POTASSIUM 50 MG TABLET GT SCH ×2 (09:36→17:37)
[2020-08-26] MEDS: LABETALOL HCL (100MG) 100 MG TABLET GT SCH ×2 (09:36→20:38)
[2020-08-26] MEDS: ZINC SULFATE 220 MG CAPSULE GT SCH (09:36)
[2020-08-26] MEDS: VIT B CMPLX 3/FA/VIT C/BIOTIN 1 TAB TABLET GT SCH (09:36)
[2020-08-26] MEDS: PROSOURCE / PROSTAT (PYXIS) 30 ML UDC GT SCH (09:36)
[2020-08-26 12:25] VITALS: BP 144/67
[2020-08-26] MEDS ORDERED: COVID-19 VACC,MRNA(MODERNA) 100 MCG/0.5 ML IM ONE (13:30)
--- NOTE | 2020-08-26 13:48 | NUR ---
Toma Covid-19 vaccine administered on pt's right deltoid. Provided education to pt. Addendum: 08/27/20 at 1009 by KARLA DENTON RN Franka Covid vaccine Lot # [id number] Expiration date 08/26/20 505 administered to pt.
[2020-08-26 16:38] VITALS: BP 119/62
[2020-08-26] MEDS: NEPRO 1,000 ML BOTTLE GT PRN (16:59)
--- NOTE | 2020-08-26 18:40 | NUR ---
No adverse reaction to Covid-19 vaccine noted. T 99.3 F.
[2020-08-26 20:21] VITALS: BP 145/71
--- NOTE | 2020-08-26 20:30 | NUR ---
RN NOTES S/P Covid-19 vaccine with no A/R noted.
--- NOTE | 2020-08-26 21:00 | NUR ---
Nurses notes: No A/R to Covid vaccine noted, Pt remains afebrile, no s/s of pain and discomfort, no SOB noted, continue to monitor Pt for any s/s of adverse reaction of covid vaccine.
[2020-08-26] MEDS: MELATONIN 3 MG TABLET GT SCH (21:11)
[2020-08-27] VITALS: BP 132/74
[2020-08-27] MEDS: POLYVINYL ALCOHOL 15 ML BOTTLE EACHEYE SCH ×4 (00:34→17:39)
[2020-08-27] MEDS: ALBUTEROL FS 2.5 MG/0.5 ML VIAL.NEB NEB SCH ×4 (02:12→19:24)
[2020-08-27] MEDS: IPRATROPIUM NEB FS 0.5 MG/2.5 ML AMPUL.NEB NEB SCH ×4 (02:12→19:24)
[2020-08-27] MEDS: LEVOTHYROXINE SODIUM 50 MCG TABLET GT SCH (05:40)
[2020-08-27] MEDS: hydrALAZINE HCL 50 MG TABLET GT SCH ×3 (05:40→20:39)
[2020-08-27] MEDS: SUCRALFATE 1 G/10 ML UDC GT SCH ×4 (07:30→21:12)
[2020-08-27 07:58] VITALS: BP 139/59
[2020-08-27] MEDS: NEOMY SULF/BACITRAC ZN/POLY 15 GM TUBE TP SCH ×2 (09:00→20:40)
[2020-08-27] MEDS: MINERAL OIL/PETROL OINT 396 GM JAR TP SCH (09:00)
[2020-08-27] MEDS: Z GUARD REMEDY 4 OZ OINT TP SCH (09:00)
[2020-08-27] MEDS: Z GUARD REMEDY 2 OZ OINT TP SCH ×4 (09:00→20:41)
[2020-08-27] MEDS: HYDROGEN PEROXIDE 480 ML BOTTLE TP SCH ×2 (09:00→20:49)
[2020-08-27] MEDS: THERAHONEY GEL 1.5 OZ TUBE TP SCH ×2 (09:00→20:41)
[2020-08-27] MEDS: DOCUSATE SODIUM LIQ 100 MG/10 ML UDC GT SCH ×3 (09:00→16:59)
[2020-08-27] MEDS: BACI/NEOM/POLY B OINT PKT 1 UDPKT PACKET TP SCH ×2 (09:00→20:41)
[2020-08-27] MEDS: ACIDOPHILUS/BULGARICUS 1 EACH TAB.CHEW GT SCH ×2 (09:01→16:59)
[2020-08-27] MEDS: VIT B CMPLX 3/FA/VIT C/BIOTIN 1 TAB TABLET GT SCH (09:01)
[2020-08-27] MEDS: AMLODIPINE BESYLATE 10 MG TABLET GT SCH (09:01)
[2020-08-27] MEDS: LOSARTAN POTASSIUM 50 MG TABLET GT SCH ×2 (09:01→16:59)
[2020-08-27] MEDS: PANTOPRAZOLE 40 MG/PACK PACK GT SCH ×2 (09:01→20:40)
[2020-08-27] MEDS: PROSOURCE / PROSTAT (PYXIS) 30 ML UDC GT SCH (09:01)
[2020-08-27] MEDS: ZINC SULFATE 220 MG CAPSULE GT SCH (09:02)
[2020-08-27] MEDS: LABETALOL HCL (100MG) 100 MG TABLET GT SCH ×2 (09:02→20:40)
--- NOTE | 2020-08-27 10:10 | NUR ---
Moderna Covid vaccine label comments in e-MAR says Lot # [id number] Mfg Date 03/17/20 BUD 06/14/20, but Moderna Covid vaccine Lot # [id number] with Exp date 08/26/201705 was the one administered to pt yesterday.
--- NOTE | 2020-08-27 10:54 | NUR ---
RT NOTE RECEIVED PT MECHANICALLY VENTILATED VIA CUFFED TRACHEOSTOMY TUBE. CUFF INFLATED. TRACH TUBE MIDLINE AND SECURE. VENTILATOR SETTINGS PRESCRIBED. ALARMS SET PER PROTOCOL AND AUDIBLE. AMBU BAG AND BACK UP TRACH AT BED SIDE. VENT PLUGGED IN TO RED OUTLET. NO DISTRESS NOTED. Addendum: 08/27/20 at 1054 by LEONEL JOHANSEN RT Amended: Links added.
--- NOTE | 2020-08-27 18:55 | NUR ---
No adverse reactions to Covid vaccine noted.
[2020-08-27 20:50] VITALS: BP 121/70
[2020-08-27] MEDS: MELATONIN 3 MG TABLET GT SCH (21:12)
--- NOTE | 2020-08-27 22:21 | NUR ---
RN NOTES S/P Covid-19 vaccine with no A/R noted.
[2020-08-28] VITALS: BP 137/62
[2020-08-28] MEDS: POLYVINYL ALCOHOL 15 ML BOTTLE EACHEYE SCH ×4 (00:24→18:34)
[2020-08-28] MEDS: NEPRO 1,000 ML BOTTLE GT PRN (00:44)
[2020-08-28] MEDS: IPRATROPIUM NEB FS 0.5 MG/2.5 ML AMPUL.NEB NEB SCH ×4 (01:31→19:43)
[2020-08-28] MEDS: ALBUTEROL FS 2.5 MG/0.5 ML VIAL.NEB NEB SCH ×4 (01:31→19:43)
[2020-08-28] MEDS: hydrALAZINE HCL 50 MG TABLET GT SCH ×3 (05:26→21:06)
[2020-08-28] MEDS: LEVOTHYROXINE SODIUM 50 MCG TABLET GT SCH (05:26)
--- NOTE | 2020-08-28 06:16 | NUR ---
No adverse reaction to covid vaccine noted.
[2020-08-28] MEDS: SUCRALFATE 1 G/10 ML UDC GT SCH ×4 (07:30→22:33)
[2020-08-28 08:05] VITALS: BP 176/69
[2020-08-28] MEDS: THERAHONEY GEL 1.5 OZ TUBE TP SCH ×2 (09:00→21:07)
[2020-08-28] MEDS: HYDROGEN PEROXIDE 480 ML BOTTLE TP SCH ×2 (09:05→19:43)
[2020-08-28] MEDS: DOCUSATE SODIUM LIQ 100 MG/10 ML UDC GT SCH ×3 (09:33→17:00)
[2020-08-28] MEDS: ACIDOPHILUS/BULGARICUS 1 EACH TAB.CHEW GT SCH ×2 (09:38→17:00)
[2020-08-28] MEDS: VIT B CMPLX 3/FA/VIT C/BIOTIN 1 TAB TABLET GT SCH (09:38)
[2020-08-28] MEDS: LOSARTAN POTASSIUM 50 MG TABLET GT SCH ×2 (09:38→17:00)
[2020-08-28] MEDS: LABETALOL HCL (100MG) 100 MG TABLET GT SCH ×2 (09:39→21:06)
[2020-08-28] MEDS: BACI/NEOM/POLY B OINT PKT 1 UDPKT PACKET TP SCH ×2 (09:39→21:06)
[2020-08-28] MEDS: ZINC SULFATE 220 MG CAPSULE GT SCH (09:39)
[2020-08-28] MEDS: AMLODIPINE BESYLATE 10 MG TABLET GT SCH (09:39)
[2020-08-28] MEDS: MINERAL OIL/PETROL OINT 396 GM JAR TP SCH (09:39)
[2020-08-28] MEDS: PANTOPRAZOLE 40 MG/PACK PACK GT SCH ×2 (09:39→21:06)
[2020-08-28] MEDS: PROSOURCE / PROSTAT (PYXIS) 30 ML UDC GT SCH (09:39)
[2020-08-28] MEDS: NEOMY SULF/BACITRAC ZN/POLY 15 GM TUBE TP SCH ×2 (09:39→21:06)
[2020-08-28] MEDS: Z GUARD REMEDY 2 OZ OINT TP SCH ×4 (09:40→21:07)
[2020-08-28] MEDS: Z GUARD REMEDY 4 OZ OINT TP SCH (09:40)
[2020-08-28] MEDS: ACETAMINOPHEN 650 MG/20 ML UDC- SA PATIENTS-PAIN ONLY GT PRN (09:57)
--- NOTE | 2020-08-28 13:50 | NUR ---
SW spoke to the pt.'s , Fay Robbins again regarding intake paperwork. Fay stated she does not plan to sign paperwork. SW has offered different options in the past and Fay has not been agreeable. Noted. SW to file paperwork without family's signature as they are refusing to sign.
--- NOTE | 2020-08-28 13:54 | NUR ---
During phone conversation with pt.'s , Fay Robbins, she stated that she would like to know pt.'s prognosis regarding likelihood of pt. speaking, ambulating. SW notified rn intensive care unit of family's request. Dr. Espinoza to be notified.
[2020-08-28 14:59] VITALS: BP 159/54
--- NOTE | 2020-08-28 19:40 | NUR ---
Patient was given covid a9 vaccine 08/26 to his right deltoid, no adverse reactions noted, no redness, no soreness to right deltoid. Patient afebrile. Not in distress. Covid 19 test done tonight per facility protocol once a week. Patient closely monitored.
[2020-08-28 19:43] VITALS: BP 147/71
[2020-08-28] MEDS: MELATONIN 3 MG TABLET GT SCH (22:33)
[2020-08-29] VITALS: BP 129/68
[2020-08-29] MEDS: POLYVINYL ALCOHOL 15 ML BOTTLE EACHEYE SCH ×4 (00:11→17:22)
[2020-08-29] MEDS: NEPRO 1,000 ML BOTTLE GT PRN (00:30)
[2020-08-29] MEDS: IPRATROPIUM NEB FS 0.5 MG/2.5 ML AMPUL.NEB NEB SCH ×4 (01:44→19:51)
[2020-08-29] MEDS: ALBUTEROL FS 2.5 MG/0.5 ML VIAL.NEB NEB SCH ×4 (01:44→19:51)
[2020-08-29] MEDS: LEVOTHYROXINE SODIUM 50 MCG TABLET GT SCH (05:20)
[2020-08-29] MEDS: hydrALAZINE HCL 50 MG TABLET GT SCH ×3 (05:21→21:33)
[2020-08-29] MEDS: ACETAMINOPHEN 650 MG/20 ML UDC- SA PATIENTS-PAIN ONLY GT PRN (05:22)
--- NOTE | 2020-08-29 05:30 | NUR ---
Patient noted with temp of 100.0 Moderna vaccine given on 08/27/20. Will continue to monitor.
[2020-08-29] MEDS: SUCRALFATE 1 G/10 ML UDC GT SCH ×4 (08:00→21:34)
[2020-08-29] MEDS: LABETALOL HCL (100MG) 100 MG TABLET GT SCH ×2 (08:36→21:34)
[2020-08-29] MEDS: AMLODIPINE BESYLATE 10 MG TABLET GT SCH (08:36)
[2020-08-29] MEDS: DOCUSATE SODIUM LIQ 100 MG/10 ML UDC GT SCH ×3 (08:36→17:22)
[2020-08-29] MEDS: ZINC SULFATE 220 MG CAPSULE GT SCH (08:36)
[2020-08-29] MEDS: ACIDOPHILUS/BULGARICUS 1 EACH TAB.CHEW GT SCH ×2 (08:36→17:22)
[2020-08-29] MEDS: PANTOPRAZOLE 40 MG/PACK PACK GT SCH ×2 (08:36→21:33)
[2020-08-29] MEDS: PROSOURCE / PROSTAT (PYXIS) 30 ML UDC GT SCH (08:36)
[2020-08-29] MEDS: VIT B CMPLX 3/FA/VIT C/BIOTIN 1 TAB TABLET GT SCH (08:36)
[2020-08-29] MEDS: LOSARTAN POTASSIUM 50 MG TABLET GT SCH ×2 (08:36→17:22)
[2020-08-29] MEDS: HYDROGEN PEROXIDE 480 ML BOTTLE TP SCH ×2 (08:51→19:51)
[2020-08-29] MEDS: Z GUARD REMEDY 2 OZ OINT TP SCH ×4 (10:00→21:34)
[2020-08-29] MEDS: MINERAL OIL/PETROL OINT 396 GM JAR TP SCH (10:00)
[2020-08-29] MEDS: NEOMY SULF/BACITRAC ZN/POLY 15 GM TUBE TP SCH ×2 (10:00→21:34)
[2020-08-29] MEDS: BACI/NEOM/POLY B OINT PKT 1 UDPKT PACKET TP SCH (10:00)
[2020-08-29 11:41] VITALS: BP 155/81
--- NOTE | 2020-08-29 12:00 | NUR ---
Seen by Dr Anusha Jain. She said left heel diabetic ulcer is already resolved.
--- NOTE | 2020-08-29 12:15 | NUR ---
MDS: SW completed SS portion of Admission MDS assessment. The Pt. is awake, confused, non-communicative. Pt. is trach to vent with G-tube feeding per EMR. The pt.s , Fay Robbins who resides in [place] and is involved in the pt.s care. The pt. to be scheduled for optometry and dental appointments when possible. The pt.s last podiatry visit by Dr. Scott was on 08/22/2020.
--- NOTE | 2020-08-29 14:00 | NUR ---
Seen by CORE INSPECTOR Wendy Gan. Notified her pt had a temp of 100 F, no increased coughing or secretions. Pt received the Covid vaccine on 08/26/20. No new order.
--- NOTE | 2020-08-29 14:05 | NUR ---
Left message for Dr Espinoza that pt's is asking about the prognosis of pt.
--- NOTE | 2020-08-29 16:00 | NUR ---
Seen by GAVINO Nagel this morning. Received order to change sacral wound treatment from oil emollient dressing to Therahoney.
[2020-08-29 20:25] VITALS: BP 123/71
[2020-08-29] MEDS: MELATONIN 3 MG TABLET GT SCH (21:34)
[2020-08-30] VITALS (9 sets, daily range): BP systolic 132–176; BP diastolic 51–72
[2020-08-30] MEDS: POLYVINYL ALCOHOL 15 ML BOTTLE EACHEYE SCH ×4 (00:09→17:49)
[2020-08-30] MEDS: IPRATROPIUM NEB FS 0.5 MG/2.5 ML AMPUL.NEB NEB SCH ×4 (01:41→19:05)
[2020-08-30] MEDS: ALBUTEROL FS 2.5 MG/0.5 ML VIAL.NEB NEB SCH ×4 (01:41→19:05)
[2020-08-30] MEDS: hydrALAZINE HCL 50 MG TABLET GT SCH ×3 (05:33→21:33)
[2020-08-30] MEDS: LEVOTHYROXINE SODIUM 50 MCG TABLET GT SCH (05:33)
[2020-08-30] MEDS: NEPRO 1,000 ML BOTTLE GT PRN (05:58)
--- NOTE | 2020-08-30 06:22 | NUR ---
NO ADVERSE REACTION NOTED ON S/P COVID 19 VACCINE. WILL CONTINUE TO MONITOR.
[2020-08-30] MEDS: SUCRALFATE 1 G/10 ML UDC GT SCH ×4 (07:30→21:34)
[2020-08-30] MEDS: NEOMY SULF/BACITRAC ZN/POLY 15 GM TUBE TP SCH ×2 (09:00→21:34)
[2020-08-30] MEDS: Z GUARD REMEDY 2 OZ OINT TP SCH ×4 (09:00→21:34)
[2020-08-30] MEDS: THERAHONEY GEL 1.5 OZ TUBE TP SCH (09:00)
[2020-08-30] MEDS: Z GUARD REMEDY 4 OZ OINT TP SCH (09:00)
[2020-08-30] MEDS: HYDROGEN PEROXIDE 480 ML BOTTLE TP SCH ×2 (09:08→21:00)
[2020-08-30] MEDS: DOCUSATE SODIUM LIQ 100 MG/10 ML UDC GT SCH ×3 (09:48→17:49)
[2020-08-30] MEDS: ACIDOPHILUS/BULGARICUS 1 EACH TAB.CHEW GT SCH ×2 (09:48→17:49)
[2020-08-30] MEDS: LOSARTAN POTASSIUM 50 MG TABLET GT SCH ×2 (09:48→17:49)
[2020-08-30] MEDS: VIT B CMPLX 3/FA/VIT C/BIOTIN 1 TAB TABLET GT SCH (09:48)
[2020-08-30] MEDS: PROSOURCE / PROSTAT (PYXIS) 30 ML UDC GT SCH (09:49)
[2020-08-30] MEDS: AMLODIPINE BESYLATE 10 MG TABLET GT SCH (09:49)
[2020-08-30] MEDS: PANTOPRAZOLE 40 MG/PACK PACK GT SCH ×2 (09:49→21:33)
[2020-08-30] MEDS: ZINC SULFATE 220 MG CAPSULE GT SCH (09:49)
[2020-08-30] MEDS: LABETALOL HCL (100MG) 100 MG TABLET GT SCH ×2 (09:49→19:30)
[2020-08-30] MEDS: MINERAL OIL/PETROL OINT 396 GM JAR TP SCH (09:49)
--- NOTE | 2020-08-30 12:40 | NUR ---
Facility Update: SW notified pt.s family via [employer] regarding condition in the facility: "No [facility] Sub-Acute residents or employees tested positive for COVID-19 this week. As recommended by [facility], all Sub-Acute residents & healthcare personnel will continue receiving routine testing. [facility] continues to follow infection control protocols and screen our residents and staff daily for symptoms". SW will be available to support families as needed.
--- NOTE | 2020-08-30 14:00 | NUR ---
Seen and examined by Dr. Espinoza. reviewed blood pressure readings for the past week since after Labetalol was initiated. BP remain elevated with SBP reading above 160. Dr. Espinoza increased Labetalol dose to 400mg Q 12, MD also made aware that patient has been having hiccups with new order for Chlorazine. Dr. Espinoza also made aware of 's request to speak with him to discuss patient's prognosis, he said he will call patient's on Wednesday. Endorsed. Patient's HbgAIC 4.0, patient is not diabetic. Dr. Espinoza also made aware of Hbg 5.8, specimen from [facility]. New order to give 1 unit of PRBC and to send stool for OB. Order carried out.
--- NOTE | 2020-08-30 14:20 | NUR ---
Spoke with resident's informing her of all the new orders including blood transfusion because of Hbg 5.8. Patient also gave consent for blood transfusion witnessed by 2 licensed nurses with an glaze wiper. Informed that Dr. Espinoza is aware of her request to speak with MD and will call her on Wednesday. Appreciated the call. Virtual visit done by via [employer].
[2020-08-30] MEDS: ACETAMINOPHEN 650 MG/20 ML UDC- SA PATIENTS-PAIN ONLY GT PRN (17:54)
--- NOTE | 2020-08-30 18:45 | NUR ---
Blood transfusion started, verified by two licensed nurses. no adverse reaction noted.
--- NOTE | 2020-08-30 19:30 | NUR ---
SUB ACUTE RN NOTES BLOOD PRESSURE 176/68,PULSE-78,MEDICATED WITH LABETALOL 400MG/GT BY DIAMOND ORDERED,WILL RE CHECK BP IN AN HOUR.
--- NOTE | 2020-08-30 20:30 | NUR ---
SUB ACUTE RN NOTES BP RE CHECK 161/53,PULSE-76.
--- NOTE | 2020-08-30 22:13 | NUR ---
SUB ACUTE RN NOTES BLOOD TRANSFUSION OF PRBC 1 UNIT COMPLETED,NO ADVERSE REACTION NOTED,VITALS SIGNS STABLE.
[2020-08-30] MEDS: MELATONIN 3 MG TABLET GT SCH (22:27)
[2020-08-31] MEDS: IPRATROPIUM NEB FS 0.5 MG/2.5 ML AMPUL.NEB NEB SCH ×4 (00:36→19:45)
[2020-08-31] MEDS: ALBUTEROL FS 2.5 MG/0.5 ML VIAL.NEB NEB SCH ×4 (00:36→19:45)
[2020-08-31] MEDS: POLYVINYL ALCOHOL 15 ML BOTTLE EACHEYE SCH ×4 (00:59→17:08)
[2020-08-31 01:32] VITALS: BP 135/70
--- NOTE | 2020-08-31 01:40 | NUR ---
SUB ACUTE RN NOTES STOOL FOR OCCULT BLOOD COLLECTED SENT TO LAB.
[2020-08-31] MEDS: chlorproMAZINE HCL 25 MG TABLET GT PRN ×2 (04:30→17:06)
[2020-08-31] MEDS: hydrALAZINE HCL 50 MG TABLET GT SCH ×3 (05:37→20:40)
[2020-08-31] MEDS: LEVOTHYROXINE SODIUM 50 MCG TABLET GT SCH (05:37)
[2020-08-31] MEDS: NEPRO 1,000 ML BOTTLE GT PRN (05:37)
[2020-08-31] MEDS: SUCRALFATE 1 G/10 ML UDC GT SCH ×4 (07:30→21:05)
[2020-08-31 08:09] VITALS: BP 156/37
[2020-08-31] MEDS: AMLODIPINE BESYLATE 10 MG TABLET GT SCH (09:00)
[2020-08-31] MEDS: LABETALOL HCL (100MG) 100 MG TABLET GT SCH ×2 (09:00→20:40)
[2020-08-31] MEDS: LOSARTAN POTASSIUM 50 MG TABLET GT SCH ×2 (09:00→17:07)
[2020-08-31] MEDS: THERAHONEY GEL 1.5 OZ TUBE TP SCH (09:00)
[2020-08-31] MEDS: Z GUARD REMEDY 4 OZ OINT TP SCH (09:00)
[2020-08-31] MEDS: Z GUARD REMEDY 2 OZ OINT TP SCH ×4 (09:00→20:40)
[2020-08-31 09:02] LABS: OCCULT BLOOD STOOL NEGATIVE (NEGATIVE)
[2020-08-31 09:25] VITALS: BP 161/43
[2020-08-31] MEDS: DOCUSATE SODIUM LIQ 100 MG/10 ML UDC GT SCH ×3 (09:33→16:52)
[2020-08-31] MEDS: ZINC SULFATE 220 MG CAPSULE GT SCH (09:34)
[2020-08-31] MEDS: PROSOURCE / PROSTAT (PYXIS) 30 ML UDC GT SCH (09:34)
[2020-08-31] MEDS: ACIDOPHILUS/BULGARICUS 1 EACH TAB.CHEW GT SCH ×2 (09:34→16:53)
[2020-08-31] MEDS: PANTOPRAZOLE 40 MG/PACK PACK GT SCH ×2 (09:34→20:40)
[2020-08-31] MEDS: HYDROGEN PEROXIDE 480 ML BOTTLE TP SCH ×2 (09:49→19:45)
[2020-08-31] MEDS: MINERAL OIL/PETROL OINT 396 GM JAR TP SCH (09:49)
[2020-08-31] MEDS: VIT B CMPLX 3/FA/VIT C/BIOTIN 1 TAB TABLET GT SCH (09:49)
--- NOTE | 2020-08-31 10:05 | NUR ---
Notified Dr. Espinoza that patient's DBP is low taken twice, 157/37 and 161/43. MD said to hold BP meds before dialysis. BP medications due held at this time. Resident's , Fay Hernández called inquiring about patient's condition and updated her of his mental status, BP and result of stool for OB which is negative. Appreciated the information.
[2020-08-31 11:50] VITALS: BP 191/76
--- NOTE | 2020-08-31 12:00 | NUR ---
Spoke with Hemalatha RN at the dialysis center informing her that patient's blood pressure medications were held due to low DBP. She said she was notified by ambulance staff that patient's SBP is ranging above 190. According to Hemalatha, she referred it to Dr. Whatley and said for us to give PRN medication but after explaining to the nurse that all BP medications were held this morning due to low DBP, she understood saying she will accept the patient with that high BP. Ambulance staff was made aware.
[2020-08-31 16:45] VITALS: BP 161/73
[2020-08-31 20:23] VITALS: BP 154/86
[2020-08-31] MEDS: MELATONIN 3 MG TABLET GT SCH (21:05)
--- NOTE | 2020-08-31 21:45 | NUR ---
RN notes Pt's temp is 98.9 F axillary. Cooling measures is applied. Will continue to monitor.
[2020-09-01] MEDS: POLYVINYL ALCOHOL 15 ML BOTTLE EACHEYE SCH ×4 (00:28→17:29)
[2020-09-01] MEDS: HYDROCODONE/APAP 5/325MG TABLET GT PRN (00:47)
[2020-09-01] MEDS: ALBUTEROL FS 2.5 MG/0.5 ML VIAL.NEB NEB SCH ×4 (01:33→19:42)
[2020-09-01] MEDS: IPRATROPIUM NEB FS 0.5 MG/2.5 ML AMPUL.NEB NEB SCH ×4 (01:33→19:42)
[2020-09-01 01:51] VITALS: BP 158/87
[2020-09-01] MEDS: hydrALAZINE HCL 50 MG TABLET GT SCH ×3 (05:23→21:08)
[2020-09-01] MEDS: LEVOTHYROXINE SODIUM 50 MCG TABLET GT SCH (05:23)
[2020-09-01] MEDS: NEPRO 1,000 ML BOTTLE GT PRN (05:26)
[2020-09-01] MEDS: SUCRALFATE 1 G/10 ML UDC GT SCH ×4 (07:30→21:08)
[2020-09-01] MEDS: HYDROGEN PEROXIDE 480 ML BOTTLE TP SCH ×2 (09:00→19:42)
[2020-09-01] MEDS: DOCUSATE SODIUM LIQ 100 MG/10 ML UDC GT SCH ×3 (09:46→17:29)
[2020-09-01] MEDS: VIT B CMPLX 3/FA/VIT C/BIOTIN 1 TAB TABLET GT SCH (09:47)
[2020-09-01] MEDS: ACIDOPHILUS/BULGARICUS 1 EACH TAB.CHEW GT SCH ×2 (09:47→17:29)
[2020-09-01] MEDS: LOSARTAN POTASSIUM 50 MG TABLET GT SCH ×2 (09:47→17:29)
[2020-09-01] MEDS: PROSOURCE / PROSTAT (PYXIS) 30 ML UDC GT SCH (09:47)
[2020-09-01] MEDS: AMLODIPINE BESYLATE 10 MG TABLET GT SCH (09:47)
[2020-09-01] MEDS: PANTOPRAZOLE 40 MG/PACK PACK GT SCH ×2 (09:47→21:08)
[2020-09-01] MEDS: ZINC SULFATE 220 MG CAPSULE GT SCH (09:48)
[2020-09-01] MEDS: LABETALOL HCL (100MG) 100 MG TABLET GT SCH ×2 (09:48→21:08)
[2020-09-01] MEDS: MINERAL OIL/PETROL OINT 396 GM JAR TP SCH (09:51)
[2020-09-01] MEDS: Z GUARD REMEDY 2 OZ OINT TP SCH ×4 (09:51→21:08)
[2020-09-01] MEDS: THERAHONEY GEL 1.5 OZ TUBE TP SCH (09:52)
[2020-09-01] MEDS: Z GUARD REMEDY 4 OZ OINT TP SCH (09:52)
[2020-09-01 13:56] VITALS: BP 176/71
[2020-09-01 13:58] VITALS: BP 140/64
[2020-09-01 20:01] VITALS: BP 160/76
[2020-09-01] MEDS: MELATONIN 3 MG TABLET GT SCH (21:08)
[2020-09-02] MEDS: POLYVINYL ALCOHOL 15 ML BOTTLE EACHEYE SCH ×5 (00:09→23:08)
[2020-09-02 00:52] VITALS: BP 147/78
[2020-09-02] MEDS: ALBUTEROL FS 2.5 MG/0.5 ML VIAL.NEB NEB SCH ×4 (01:41→20:05)
[2020-09-02] MEDS: IPRATROPIUM NEB FS 0.5 MG/2.5 ML AMPUL.NEB NEB SCH ×4 (01:41→20:05)
[2020-09-02] MEDS: hydrALAZINE HCL 50 MG TABLET GT SCH ×3 (05:00→21:18)
[2020-09-02] MEDS: LEVOTHYROXINE SODIUM 50 MCG TABLET GT SCH (06:17)
[2020-09-02] MEDS: SUCRALFATE 1 G/10 ML UDC GT SCH ×4 (07:30→21:18)
[2020-09-02 08:20] VITALS: BP 162/35
[2020-09-02] MEDS: HYDROGEN PEROXIDE 480 ML BOTTLE TP SCH ×2 (08:40→20:49)
[2020-09-02] MEDS: PANTOPRAZOLE 40 MG/PACK PACK GT SCH ×2 (08:56→21:18)
[2020-09-02] MEDS: AMLODIPINE BESYLATE 10 MG TABLET GT SCH (08:56)
[2020-09-02] MEDS: PROSOURCE / PROSTAT (PYXIS) 30 ML UDC GT SCH (08:56)
[2020-09-02] MEDS: LOSARTAN POTASSIUM 50 MG TABLET GT SCH ×2 (08:56→17:35)
[2020-09-02] MEDS: VIT B CMPLX 3/FA/VIT C/BIOTIN 1 TAB TABLET GT SCH (08:56)
[2020-09-02] MEDS: ACIDOPHILUS/BULGARICUS 1 EACH TAB.CHEW GT SCH ×2 (08:56→17:35)
[2020-09-02] MEDS: DOCUSATE SODIUM LIQ 100 MG/10 ML UDC GT SCH ×3 (08:56→17:34)
[2020-09-02] MEDS: ZINC SULFATE 220 MG CAPSULE GT SCH (08:57)
[2020-09-02] MEDS: LABETALOL HCL (100MG) 100 MG TABLET GT SCH ×2 (08:57→21:18)
[2020-09-02] MEDS: THERAHONEY GEL 1.5 OZ TUBE TP SCH (09:00)
[2020-09-02] MEDS: Z GUARD REMEDY 2 OZ OINT TP SCH ×4 (09:00→21:18)
[2020-09-02] MEDS: Z GUARD REMEDY 4 OZ OINT TP SCH (09:00)
[2020-09-02] MEDS: MINERAL OIL/PETROL OINT 396 GM JAR TP SCH (09:00)
[2020-09-02] MEDS: chlorproMAZINE HCL 25 MG TABLET GT PRN (13:08)
--- NOTE | 2020-09-02 16:47 | NUR ---
Received order from JESSICA Gan to check H and H. Pt had blood transfusion on 08/30/20.
[2020-09-02 19:00] LABS: HEMOGLOBIN 6.9 g/dL (13.5-17.5)
--- NOTE | 2020-09-02 19:04 | NUR ---
Notified JESSICA Gan of Hgb 6.9 Hct 21. Also left message for Dr Espinoza.
--- NOTE | 2020-09-02 20:20 | NUR ---
RN NOTES Received order to transfuse one unit of PRBC, noted and carried out. Notified of new order and pt's condition and gave consent to receive transfusion.
[2020-09-02 20:35] VITALS: BP 163/70
[2020-09-02] MEDS: MELATONIN 3 MG TABLET GT SCH (21:18)
[2020-09-02 23:49] VITALS: BP 150/72
[2020-09-03] VITALS (8 sets, daily range): BP systolic 148–167; BP diastolic 53–77
[2020-09-03] MEDS: IPRATROPIUM NEB FS 0.5 MG/2.5 ML AMPUL.NEB NEB SCH ×4 (02:30→20:23)
[2020-09-03] MEDS: ALBUTEROL FS 2.5 MG/0.5 ML VIAL.NEB NEB SCH ×4 (02:30→20:23)
--- NOTE | 2020-09-03 03:01 | NUR ---
RN NOTES Transfusion completed. No A/R noted. B/P 151/72, HR 72, RR 16, T 97.9. Will continue to monitor.
[2020-09-03] MEDS: hydrALAZINE HCL 50 MG TABLET GT SCH ×3 (05:32→21:15)
[2020-09-03] MEDS: LEVOTHYROXINE SODIUM 50 MCG TABLET GT SCH (05:32)
[2020-09-03] MEDS: POLYVINYL ALCOHOL 15 ML BOTTLE EACHEYE SCH ×4 (05:32→23:47)
[2020-09-03 06:26] LABS: HEMOGLOBIN 7.9 g/dL (13.5-17.5)
[2020-09-03] MEDS: SUCRALFATE 1 G/10 ML UDC GT SCH ×4 (07:30→21:15)
[2020-09-03] MEDS: DOCUSATE SODIUM LIQ 100 MG/10 ML UDC GT SCH ×3 (08:32→17:43)
[2020-09-03] MEDS: PANTOPRAZOLE 40 MG/PACK PACK GT SCH ×2 (08:33→21:15)
[2020-09-03] MEDS: LOSARTAN POTASSIUM 50 MG TABLET GT SCH ×2 (08:33→17:55)
[2020-09-03] MEDS: PROSOURCE / PROSTAT (PYXIS) 30 ML UDC GT SCH (08:33)
[2020-09-03] MEDS: VIT B CMPLX 3/FA/VIT C/BIOTIN 1 TAB TABLET GT SCH (08:33)
[2020-09-03] MEDS: ACIDOPHILUS/BULGARICUS 1 EACH TAB.CHEW GT SCH ×2 (08:33→17:43)
[2020-09-03] MEDS: AMLODIPINE BESYLATE 10 MG TABLET GT SCH (08:33)
[2020-09-03] MEDS: ZINC SULFATE 220 MG CAPSULE GT SCH (08:34)
[2020-09-03] MEDS: Z GUARD REMEDY 2 OZ OINT TP SCH ×4 (08:34→21:15)
[2020-09-03] MEDS: MINERAL OIL/PETROL OINT 396 GM JAR TP SCH (08:34)
[2020-09-03] MEDS: LABETALOL HCL (100MG) 100 MG TABLET GT SCH ×2 (08:34→21:15)
[2020-09-03] MEDS: Z GUARD REMEDY 4 OZ OINT TP SCH (08:35)
[2020-09-03] MEDS: THERAHONEY GEL 1.5 OZ TUBE TP SCH (08:35)
--- NOTE | 2020-09-03 08:39 | NUR ---
Norvasc, Labetalol and losartan held per MD order, scheduled dialysis today.
[2020-09-03] MEDS: HYDROGEN PEROXIDE 480 ML BOTTLE TP SCH ×2 (09:00→20:23)
--- NOTE | 2020-09-03 09:00 | NUR ---
Seen by OT. Received order for RNA to perform AAROM/PROM exercises of BUE 5x/wk or as tolerated.
[2020-09-03] MEDS ORDERED: AMLODIPINE BESYLATE 10 MG TABLET GT SCH (10:39)
--- NOTE | 2020-09-03 12:35 | NUR ---
[facility]: DIPESH notified by charge nurse that EMT did not bring vent for pt. and had to return with one. DIPESH called [facility] [phone] and spoke to Kvng to confirm that EMT bring their own vent for the pt. for transportation purposes from now on. Kvng stated he will put a note in to ensure a vent is always provided for transportation.
--- NOTE | 2020-09-03 12:40 | NUR ---
Resident left for dialysis with transport staff. Resident awake, no s/s of distress. Trach secured and midline, on mechanical vent, tolerating well. All emergency equipment taken for transport.
--- NOTE | 2020-09-03 17:15 | NUR ---
Resident came back from dialysis, awake, no s/s of distress. Trach secured and midline, on mechanical vent. Dialysis site on KRISTEL, with pressure dressing, dry and intact. All emergency equipment put back to back of bed. Will continue to monitor.
[2020-09-03] MEDS: MELATONIN 3 MG TABLET GT SCH (21:15)
[2020-09-04 01:51] VITALS: BP 149/78
[2020-09-04] MEDS: ALBUTEROL FS 2.5 MG/0.5 ML VIAL.NEB NEB SCH ×4 (02:04→19:20)
[2020-09-04] MEDS: IPRATROPIUM NEB FS 0.5 MG/2.5 ML AMPUL.NEB NEB SCH ×4 (02:04→19:20)
[2020-09-04] MEDS: hydrALAZINE HCL 50 MG TABLET GT SCH ×3 (05:46→21:25)
[2020-09-04] MEDS: POLYVINYL ALCOHOL 15 ML BOTTLE EACHEYE SCH ×3 (05:47→18:54)
[2020-09-04] MEDS: LEVOTHYROXINE SODIUM 50 MCG TABLET GT SCH (05:47)
[2020-09-04 07:47] VITALS: BP 153/71
[2020-09-04] MEDS: SUCRALFATE 1 G/10 ML UDC GT SCH ×4 (08:20→21:26)
[2020-09-04] MEDS: HYDROGEN PEROXIDE 480 ML BOTTLE TP SCH ×2 (09:03→20:39)
[2020-09-04] MEDS: ACIDOPHILUS/BULGARICUS 1 EACH TAB.CHEW GT SCH ×2 (09:45→17:05)
[2020-09-04] MEDS: DOCUSATE SODIUM LIQ 100 MG/10 ML UDC GT SCH ×3 (09:45→17:05)
[2020-09-04] MEDS: PROSOURCE / PROSTAT (PYXIS) 30 ML UDC GT SCH (09:45)
[2020-09-04] MEDS: MINERAL OIL/PETROL OINT 396 GM JAR TP SCH (09:45)
[2020-09-04] MEDS: ZINC SULFATE 220 MG CAPSULE GT SCH (09:45)
[2020-09-04] MEDS: THERAHONEY GEL 1.5 OZ TUBE TP SCH (09:45)
[2020-09-04] MEDS: Z GUARD REMEDY 2 OZ OINT TP SCH ×4 (09:45→21:26)
[2020-09-04] MEDS: Z GUARD REMEDY 4 OZ OINT TP SCH (09:45)
[2020-09-04] MEDS: PANTOPRAZOLE 40 MG/PACK PACK GT SCH ×2 (09:45→21:25)
[2020-09-04] MEDS: VIT B CMPLX 3/FA/VIT C/BIOTIN 1 TAB TABLET GT SCH (09:58)
[2020-09-04] MEDS: LOSARTAN POTASSIUM 50 MG TABLET GT SCH ×2 (10:43→17:05)
[2020-09-04] MEDS ORDERED: LABETALOL HCL (100MG) 100 MG TABLET GT SCH (10:46)
--- NOTE | 2020-09-04 10:52 | NUR ---
Seen and examined by Dr. Espinoza, reviewed patient's B/P for the past few days. He said that he will order Clonidine patch 0.1 mg. to be given weekly. MD spoke with resident's at great length on the phone per family's request answering her concerns and questions with regards to patient's prognosis. SSD acted as extractor plant operator.
--- NOTE | 2020-09-04 11:53 | NUR ---
Family Invite to IDT: DIPESH emailed the pt.'s , Fay Robbins at [email or web address] inviting them to participate in 08/09/2020 IDT Meeting. DIPESH will follow up accordingly.
[2020-09-04 12:34] VITALS: BP 145/69
[2020-09-04 20:24] VITALS: BP 147/83
[2020-09-04] MEDS: CLONIDINE HCL 0.1MG/24H PTWK 1 EA PATCH TD SCH (21:00)
[2020-09-04] MEDS: MELATONIN 3 MG TABLET GT SCH (21:26)
[2020-09-04] MEDS: LABETALOL HCL (100MG) 100 MG TABLET GT SCH (21:26)
[2020-09-05 00:05] VITALS: BP 133/87
[2020-09-05] MEDS: POLYVINYL ALCOHOL 15 ML BOTTLE EACHEYE SCH ×4 (00:15→18:34)
[2020-09-05] MEDS: NEPRO 1,000 ML BOTTLE GT PRN (00:15)
[2020-09-05] MEDS: ALBUTEROL FS 2.5 MG/0.5 ML VIAL.NEB NEB SCH ×4 (01:32→19:40)
[2020-09-05] MEDS: IPRATROPIUM NEB FS 0.5 MG/2.5 ML AMPUL.NEB NEB SCH ×4 (01:32→19:40)
[2020-09-05] MEDS: LEVOTHYROXINE SODIUM 50 MCG TABLET GT SCH (05:18)
[2020-09-05] MEDS: hydrALAZINE HCL 50 MG TABLET GT SCH ×3 (05:18→21:12)
[2020-09-05 07:59] VITALS: BP 161/75
[2020-09-05] MEDS: HYDROGEN PEROXIDE 480 ML BOTTLE TP SCH ×2 (08:07→20:49)
[2020-09-05] MEDS: PROSOURCE / PROSTAT (PYXIS) 30 ML UDC GT SCH ×2 (08:11→16:57)
[2020-09-05] MEDS: ZINC SULFATE 220 MG CAPSULE GT SCH (08:11)
[2020-09-05] MEDS: SUCRALFATE 1 G/10 ML UDC GT SCH ×4 (08:11→21:12)
[2020-09-05] MEDS: PANTOPRAZOLE 40 MG/PACK PACK GT SCH ×2 (08:11→21:12)
[2020-09-05] MEDS: DOCUSATE SODIUM LIQ 100 MG/10 ML UDC GT SCH ×3 (08:11→16:58)
[2020-09-05] MEDS: VIT B CMPLX 3/FA/VIT C/BIOTIN 1 TAB TABLET GT SCH (08:11)
[2020-09-05] MEDS: ACIDOPHILUS/BULGARICUS 1 EACH TAB.CHEW GT SCH ×2 (08:11→16:58)
[2020-09-05] MEDS: THERAHONEY GEL 1.5 OZ TUBE TP SCH (10:00)
[2020-09-05] MEDS: Z GUARD REMEDY 2 OZ OINT TP SCH ×4 (10:00→21:12)
[2020-09-05] MEDS: MINERAL OIL/PETROL OINT 396 GM JAR TP SCH (10:00)
[2020-09-05] MEDS: Z GUARD REMEDY 4 OZ OINT TP SCH (10:00)
--- NOTE | 2020-09-05 11:33 | NUR ---
Dr Espinoza ordered to change GT feeding rate of Nepro at 50 mL/hr x 20 hours to 60 mL/hr x 18 hours per day, increase Prostat frequency from daily to BID, change GT water flushes to 75 mL q 8 hours, and give Neutraphos 1 packet GT TID as recommended by [facility].
[2020-09-05 12:36] VITALS: BP 166/79
[2020-09-05] MEDS: NEUTRA PHOS 1 POWD.PACKET GT SCH ×2 (13:00→17:21)
--- NOTE | 2020-09-05 14:15 | NUR ---
Clarified Norvasc with Dr Espinoza. Informed him that since BP medications are being held prior to dialysis, pt will not be able to receive Norvasc on dialysis days since it is only given daily at 9am. Dr Espinoza said to give Norvasc after dialysis.
--- NOTE | 2020-09-05 16:10 | NUR ---
Clarified administration times for Labetalol to avoid giving BP medications at the same time.
[2020-09-05] MEDS: LOSARTAN POTASSIUM 50 MG TABLET GT SCH (16:58)
[2020-09-05] MEDS: LABETALOL HCL (100MG) 100 MG TABLET GT SCH (18:31)
[2020-09-05 20:00] VITALS: BP 178/83
[2020-09-05] MEDS: MELATONIN 3 MG TABLET GT SCH (21:12)
[2020-09-05] MEDS: AMLODIPINE BESYLATE 10 MG TABLET GT SCH (21:12)
[2020-09-06] MEDS: POLYVINYL ALCOHOL 15 ML BOTTLE EACHEYE SCH ×4 (00:39→17:47)
[2020-09-06] MEDS: ALBUTEROL FS 2.5 MG/0.5 ML VIAL.NEB NEB SCH ×4 (01:40→19:47)
[2020-09-06] MEDS: IPRATROPIUM NEB FS 0.5 MG/2.5 ML AMPUL.NEB NEB SCH ×4 (01:40→19:47)
[2020-09-06] MEDS: NEPRO 1,000 ML BOTTLE GT PRN (02:30)
[2020-09-06 03:10] VITALS: BP 163/56
[2020-09-06] MEDS: LEVOTHYROXINE SODIUM 50 MCG TABLET GT SCH (05:21)
[2020-09-06] MEDS: hydrALAZINE HCL 50 MG TABLET GT SCH ×3 (05:21→21:13)
[2020-09-06] MEDS: LABETALOL HCL (100MG) 100 MG TABLET GT SCH ×2 (05:21→17:47)
[2020-09-06] MEDS: SUCRALFATE 1 G/10 ML UDC GT SCH ×4 (07:30→21:13)
[2020-09-06] MEDS: HYDROGEN PEROXIDE 480 ML BOTTLE TP SCH ×2 (08:02→21:10)
[2020-09-06 08:05] VITALS: BP 148/60
[2020-09-06] MEDS: NEUTRA PHOS 1 POWD.PACKET GT SCH ×3 (09:21→17:47)
[2020-09-06] MEDS: PROSOURCE / PROSTAT (PYXIS) 30 ML UDC GT SCH ×2 (09:21→17:47)
[2020-09-06] MEDS: MINERAL OIL/PETROL OINT 396 GM JAR TP SCH (09:21)
[2020-09-06] MEDS: Z GUARD REMEDY 2 OZ OINT TP SCH ×4 (09:21→21:13)
[2020-09-06] MEDS: PANTOPRAZOLE 40 MG/PACK PACK GT SCH ×2 (09:21→21:13)
[2020-09-06] MEDS: ACIDOPHILUS/BULGARICUS 1 EACH TAB.CHEW GT SCH ×2 (09:21→17:47)
[2020-09-06] MEDS: THERAHONEY GEL 1.5 OZ TUBE TP SCH (09:21)
[2020-09-06] MEDS: Z GUARD REMEDY 4 OZ OINT TP SCH (09:21)
[2020-09-06] MEDS: VIT B CMPLX 3/FA/VIT C/BIOTIN 1 TAB TABLET GT SCH (09:21)
[2020-09-06] MEDS: DOCUSATE SODIUM LIQ 100 MG/10 ML UDC GT SCH ×3 (09:21→17:47)
[2020-09-06] MEDS: ZINC SULFATE 220 MG CAPSULE GT SCH (09:21)
--- NOTE | 2020-09-06 10:30 | NUR ---
Family Meeting: Per Family's request, meeting was conducted between pt.s , Fay Robbins and Faustino Espinoza MD. SW translated for pt.s who is Colombian speaking only. Pt.s requested patients prognosis, she also asked if pt. is likely to walk again as pt. has History of Guillian Campbell secondary to COVID-19 (per EMR), likelihood of pt. being weaned off the vent or being decannulated. Fay also asked about pt.s elevated platelet count, and elevated blood pressure. Dr. Espinoza addressed all of the familys questions and provided prognosis for pt. Fay became tearful during the conversation, expressed understanding and thanked and DIPESH for addressing her questions. SW normalized Clarisa feelings of sadness, loss & grief. SW will be available to continue providing emotional support to family. No follow up needed at this time. Addendum: 09/06/20 at 1606 by ELBERT LANDON Late Entry for 09/04/2020
[2020-09-06] MEDS: LOSARTAN POTASSIUM 50 MG TABLET GT SCH ×2 (10:51→17:47)
--- NOTE | 2020-09-06 11:53 | NUR ---
Facility Update: DIPESH notified pt.s family via email regarding condition in the facility: "SW Facility Update: No [facility] Sub-Acute residents or employees tested positive for COVID-19 this week. As recommended by [facility] Department of Public Health guidelines, Sub-Acute residents & healthcare personnel will continue receiving routine testing. [facility] continues to follow infection control protocols and screen our residents and staff daily for symptoms". DIPESH also updated families regarding updated visitation guidelines. DIPESH will be available to support families as needed.
--- NOTE | 2020-09-06 13:30 | NUR ---
Obtained an order from Dr. Luna to swab nares for MRSA clearance.
[2020-09-06 15:47] VITALS: BP 177/77
--- NOTE | 2020-09-06 17:30 | NUR ---
Serial debridement on sacral pressure sore done by GAVINO Gama. Small bleeding noted. Dressing applied. Will continue to monitor.
[2020-09-06 20:03] VITALS: BP 166/75
[2020-09-06] MEDS: MELATONIN 3 MG TABLET GT SCH (21:13)
[2020-09-06] MEDS: AMLODIPINE BESYLATE 10 MG TABLET GT SCH (21:13)
[2020-09-07] VITALS: BP 168/63
[2020-09-07] MEDS: POLYVINYL ALCOHOL 15 ML BOTTLE EACHEYE SCH ×4 (00:16→17:03)
[2020-09-07] MEDS: IPRATROPIUM NEB FS 0.5 MG/2.5 ML AMPUL.NEB NEB SCH ×4 (01:32→20:04)
[2020-09-07] MEDS: ALBUTEROL FS 2.5 MG/0.5 ML VIAL.NEB NEB SCH ×4 (01:32→20:04)
[2020-09-07] MEDS: hydrALAZINE HCL 50 MG TABLET GT SCH ×3 (05:00→20:46)
[2020-09-07] MEDS: MUPIROCIN OINT 2% 22 GM TUBE NS SCH ×2 (05:13→10:50)
[2020-09-07] MEDS: LEVOTHYROXINE SODIUM 50 MCG TABLET GT SCH (05:45)
[2020-09-07] MEDS: LABETALOL HCL (100MG) 100 MG TABLET GT SCH ×2 (05:46→18:08)
[2020-09-07 07:35] VITALS: BP 145/63
[2020-09-07] MEDS: SUCRALFATE 1 G/10 ML UDC GT SCH ×4 (07:40→22:38)
[2020-09-07] MEDS: MINERAL OIL/PETROL OINT 396 GM JAR TP SCH (08:39)
[2020-09-07] MEDS: NEUTRA PHOS 1 POWD.PACKET GT SCH ×3 (08:39→17:03)
[2020-09-07] MEDS: VIT B CMPLX 3/FA/VIT C/BIOTIN 1 TAB TABLET GT SCH (08:39)
[2020-09-07] MEDS: PANTOPRAZOLE 40 MG/PACK PACK GT SCH ×2 (08:39→20:46)
[2020-09-07] MEDS: ACIDOPHILUS/BULGARICUS 1 EACH TAB.CHEW GT SCH ×2 (08:39→17:03)
[2020-09-07] MEDS: PROSOURCE / PROSTAT (PYXIS) 30 ML UDC GT SCH ×2 (08:39→17:03)
[2020-09-07] MEDS: DOCUSATE SODIUM LIQ 100 MG/10 ML UDC GT SCH ×3 (08:39→17:03)
[2020-09-07] MEDS: ZINC SULFATE 220 MG CAPSULE GT SCH (08:39)
[2020-09-07] MEDS: HYDROGEN PEROXIDE 480 ML BOTTLE TP SCH ×2 (08:49→21:11)
[2020-09-07] MEDS: Z GUARD REMEDY 2 OZ OINT TP SCH ×4 (09:45→20:46)
[2020-09-07] MEDS: THERAHONEY GEL 1.5 OZ TUBE TP SCH (09:45)
[2020-09-07] MEDS: Z GUARD REMEDY 4 OZ OINT TP SCH (09:45)
--- NOTE | 2020-09-07 15:05 | NUR ---
Resident came back from dialysis, awake, no s/s of distress. Trach secured, on mechanical vent. Dialysis site on KRISTEL, with pressure dressing, dry and intact. All emergency equipment put back to back of bed. Will continue to monitor.
[2020-09-07] MEDS: LOSARTAN POTASSIUM 50 MG TABLET GT SCH (17:03)
--- NOTE | 2020-09-07 17:50 | NUR ---
Noted an order from Nasrin Bagley NP to apply Bactroban on both nostrils. Resident completed Bactroban x 5 days which started upon admission. Clarified the order from contract technical writer Rossana Armstrong, regarding Bactroban. Informed her that specimen was sent yesterday for MRSA clearance and no result at this time yet. She said to ask Nasrin when she rounds tomorrow, she does not know why it was ordered. Endorsed.
[2020-09-07 20:34] VITALS: BP 158/76
[2020-09-07] MEDS: AMLODIPINE BESYLATE 10 MG TABLET GT SCH (20:46)
[2020-09-07] MEDS: MELATONIN 3 MG TABLET GT SCH (22:38)
[2020-09-08] VITALS (11 sets, daily range): BP systolic 134–166; BP diastolic 48–78
[2020-09-08] MEDS: POLYVINYL ALCOHOL 15 ML BOTTLE EACHEYE SCH ×4 (00:15→18:20)
[2020-09-08] MEDS: IPRATROPIUM NEB FS 0.5 MG/2.5 ML AMPUL.NEB NEB SCH ×4 (01:48→18:55)
[2020-09-08] MEDS: ALBUTEROL FS 2.5 MG/0.5 ML VIAL.NEB NEB SCH ×4 (01:48→18:55)
[2020-09-08] MEDS: hydrALAZINE HCL 50 MG TABLET GT SCH ×3 (05:43→21:20)
[2020-09-08] MEDS: LEVOTHYROXINE SODIUM 50 MCG TABLET GT SCH (05:43)
[2020-09-08] MEDS: LABETALOL HCL (100MG) 100 MG TABLET GT SCH ×2 (05:43→18:22)
[2020-09-08 06:27] LABS: BASOPHILS # (AUTO) 0.1 /CMM (0.0-0.2); BASOPHILS % (AUTO) 1.3 % (0.0-2.0); CALCIUM, SERUM 8.8 mg/dL (8.5-10.1); CREATININE 1.6 mg/dL (0.6-1.3); EOSINOPHILS % (AUTO) 2.9 % (0.0-6.0); HEMATOCRIT 21 % (39-51); LYMPHOCYTES # (AUTO) 0.8 /CMM (0.8-4.8); LYMPHOCYTES % (AUTO) 12.5 % (20.0-44.0); MEAN CORPUSCULAR HGB CONC 34 g/dl (31.0-36.0); MEAN CORPUSCULAR VOLUME 83 fL (80-96); MONOCYTES # (AUTO) 0.6 /CMM (0.1-1.30); MONOCYTES % (AUTO) 9.2 % (2.0-12.0); NEUTROPHILS # (AUTO) 4.7 /CMM (1.8-8.9); NEUTROPHILS % (AUTO) 74.1 % (43.0-81.0); PLATELET COUNT (AUTO) 275 /CMM (150-450); RED BLOOD CELL COUNT(AUTO) 2.47 MIL/uL (4.5-6.0); WHITE BLOOD COUNT (AUTO) 6.3 K/uL (4.3-11.0)
[2020-09-08 07:18] LABS: HEMOGLOBIN 6.9 g/dL (13.5-17.5)
--- NOTE | 2020-09-08 07:42 | NUR ---
Relayed CBC result to Dr. Espinoza, Hgb-6.9, Hct- 21, gave order to transfuse 1 unit of PRBC, carried out. Resident awake, no s/s of distress. Stable vital signs.
[2020-09-08] MEDS: SUCRALFATE 1 G/10 ML UDC GT SCH ×4 (08:05→21:20)
[2020-09-08] MEDS: HYDROGEN PEROXIDE 480 ML BOTTLE TP SCH ×2 (09:06→21:52)
[2020-09-08 09:08] LABS: EOSINOPHILS % (MANUAL) 1 % (0-4); LYMPHOCYTES % (MANUAL) 10 % (16-48); MONOCYTES % (MANUAL) 5 % (0-11.0); NEUTROPHILS % (MANUAL) 84 (42-76)
[2020-09-08] MEDS: ZINC SULFATE 220 MG CAPSULE GT SCH (09:29)
[2020-09-08] MEDS: PROSOURCE / PROSTAT (PYXIS) 30 ML UDC GT SCH ×2 (09:29→16:40)
[2020-09-08] MEDS: NEUTRA PHOS 1 POWD.PACKET GT SCH ×3 (09:29→16:40)
[2020-09-08] MEDS: VIT B CMPLX 3/FA/VIT C/BIOTIN 1 TAB TABLET GT SCH (09:29)
[2020-09-08] MEDS: DOCUSATE SODIUM LIQ 100 MG/10 ML UDC GT SCH ×3 (09:29→16:39)
[2020-09-08] MEDS: ACIDOPHILUS/BULGARICUS 1 EACH TAB.CHEW GT SCH ×2 (09:29→16:40)
[2020-09-08] MEDS: PANTOPRAZOLE 40 MG/PACK PACK GT SCH ×2 (09:29→21:20)
[2020-09-08] MEDS: THERAHONEY GEL 1.5 OZ TUBE TP SCH (09:30)
[2020-09-08] MEDS: MINERAL OIL/PETROL OINT 396 GM JAR TP SCH (09:30)
[2020-09-08] MEDS: Z GUARD REMEDY 2 OZ OINT TP SCH ×4 (09:30→21:20)
[2020-09-08] MEDS: Z GUARD REMEDY 4 OZ OINT TP SCH (09:30)
[2020-09-08] MEDS: ACETAMINOPHEN 650 MG/20 ML UDC- SA PATIENTS-PAIN ONLY GT PRN (09:32)
--- NOTE | 2020-09-08 09:50 | NUR ---
Sent BMP result to Dr. Espinoza, K+ 3.0, Sodium- 133, Chloride- 97,no new order given
--- NOTE | 2020-09-08 10:55 | NUR ---
Fay Robbins () gave consent for blood transfusion via video call, translated by Faith Lance CNA.
--- NOTE | 2020-09-08 11:08 | NUR ---
Reviewed BMP result with Dr. Owen, he said he will take care of the abnormal electrolytes during dialysis day. Dr. Espinoza informed. Will continue to monitor.
[2020-09-08] MEDS: LOSARTAN POTASSIUM 50 MG TABLET GT SCH ×2 (11:30→16:40)
--- NOTE | 2020-09-08 12:38 | NUR ---
Peripheral line inserted on RFA, G-20 with good blood return. Checked blood bag with other RN. Started blood transfusion, 1 unit PRBC. Resident awake, no s/s of distress. BP- 150/61, Temp. 98, HR- 72, RR-18. Will continue to monitor.
--- NOTE | 2020-09-08 16:31 | NUR ---
Blood transfusion completed, resident tolerated well. No adverse reaction noted. Afebrile Temp. 98F, BP- 159/55, HR-74, RR-18. No s/s of distress, awake.
--- NOTE | 2020-09-08 18:22 | NUR ---
RT NOTE: @1755-PATIENT'S ALARM FOUND UNPLUGGED. VENT ALARM IS AUDIBLE BUT WALL ALARMS IS NOT WORKING AT THIS TIME. NOTIFIED CHARGE NURSE (SERA). WILL ENDORSE TO INCOMING SHIFT.
[2020-09-08] MEDS: MELATONIN 3 MG TABLET GT SCH (21:20)
[2020-09-08] MEDS: AMLODIPINE BESYLATE 10 MG TABLET GT SCH (21:20)
[2020-09-09] MEDS: ALBUTEROL FS 2.5 MG/0.5 ML VIAL.NEB NEB SCH ×4 (00:31→19:30)
[2020-09-09] MEDS: IPRATROPIUM NEB FS 0.5 MG/2.5 ML AMPUL.NEB NEB SCH ×4 (00:31→19:30)
[2020-09-09] MEDS: POLYVINYL ALCOHOL 15 ML BOTTLE EACHEYE SCH ×4 (00:37→17:28)
[2020-09-09] MEDS: hydrALAZINE HCL 50 MG TABLET GT SCH ×3 (05:00→21:13)
[2020-09-09] MEDS: LABETALOL HCL (100MG) 100 MG TABLET GT SCH ×2 (06:01→17:28)
[2020-09-09] MEDS: LEVOTHYROXINE SODIUM 50 MCG TABLET GT SCH (06:01)
[2020-09-09 07:29] VITALS: BP 157/71
[2020-09-09] MEDS: SUCRALFATE 1 G/10 ML UDC GT SCH ×4 (07:30→21:13)
[2020-09-09] MEDS: HYDROGEN PEROXIDE 480 ML BOTTLE TP SCH ×2 (08:08→21:02)
[2020-09-09] MEDS: ACIDOPHILUS/BULGARICUS 1 EACH TAB.CHEW GT SCH ×2 (09:08→17:28)
[2020-09-09] MEDS: PROSOURCE / PROSTAT (PYXIS) 30 ML UDC GT SCH ×2 (09:08→17:28)
[2020-09-09] MEDS: MINERAL OIL/PETROL OINT 396 GM JAR TP SCH (09:08)
[2020-09-09] MEDS: ZINC SULFATE 220 MG CAPSULE GT SCH (09:08)
[2020-09-09] MEDS: NEUTRA PHOS 1 POWD.PACKET GT SCH ×3 (09:08→17:28)
[2020-09-09] MEDS: DOCUSATE SODIUM LIQ 100 MG/10 ML UDC GT SCH ×3 (09:08→17:00)
[2020-09-09] MEDS: VIT B CMPLX 3/FA/VIT C/BIOTIN 1 TAB TABLET GT SCH (09:08)
[2020-09-09] MEDS: Z GUARD REMEDY 2 OZ OINT TP SCH ×4 (09:08→21:13)
[2020-09-09] MEDS: Z GUARD REMEDY 4 OZ OINT TP SCH (09:08)
[2020-09-09] MEDS: PANTOPRAZOLE 40 MG/PACK PACK GT SCH ×2 (09:08→21:13)
[2020-09-09] MEDS: THERAHONEY GEL 1.5 OZ TUBE TP SCH (09:09)
[2020-09-09] MEDS: LOSARTAN POTASSIUM 50 MG TABLET GT SCH ×2 (10:44→17:28)
--- NOTE | 2020-09-09 11:38 | NUR ---
Relayed TSH result 6.[address] Espinoza. He ordered to increase Levothyroxine from 50 to 75 mcg via GT daily.
[2020-09-09 12:52] VITALS: BP 169/76
--- NOTE | 2020-09-09 14:45 | NUR ---
Notified JESSICA Gan that pt had blood transfusion yesterday. Received order to check H and H.
[2020-09-09 15:08] LABS: HEMOGLOBIN 7.6 g/dL (13.5-17.5)
--- NOTE | 2020-09-09 19:07 | NUR ---
Seen by SUPERVISOR FISHING Wendy Gan. Relayed Hgb 7.6 Hct 23 to her. No new order.
[2020-09-09 20:03] VITALS: BP 154/78
[2020-09-09] MEDS: MELATONIN 3 MG TABLET GT SCH (21:13)
[2020-09-09] MEDS: AMLODIPINE BESYLATE 10 MG TABLET GT SCH (21:13)
[2020-09-10] MEDS: POLYVINYL ALCOHOL 15 ML BOTTLE EACHEYE SCH ×5 (00:14→23:03)
[2020-09-10 02:01] VITALS: BP 149/73
[2020-09-10] MEDS: ALBUTEROL FS 2.5 MG/0.5 ML VIAL.NEB NEB SCH ×4 (02:25→20:12)
[2020-09-10] MEDS: IPRATROPIUM NEB FS 0.5 MG/2.5 ML AMPUL.NEB NEB SCH ×4 (02:25→20:12)
[2020-09-10] MEDS: hydrALAZINE HCL 50 MG TABLET GT SCH ×3 (05:00→21:13)
[2020-09-10] MEDS: LEVOTHYROXINE SODIUM 75 MCG TABLET GT SCH (06:20)
[2020-09-10] MEDS: LABETALOL HCL (100MG) 100 MG TABLET GT SCH ×2 (06:20→17:30)
[2020-09-10 07:35] VITALS: BP 145/66
[2020-09-10] MEDS: SUCRALFATE 1 G/10 ML UDC GT SCH ×4 (08:30→21:19)
[2020-09-10] MEDS: NEUTRA PHOS 1 POWD.PACKET GT SCH ×3 (08:36→17:26)
[2020-09-10] MEDS: DOCUSATE SODIUM LIQ 100 MG/10 ML UDC GT SCH ×3 (08:36→17:25)
[2020-09-10] MEDS: VIT B CMPLX 3/FA/VIT C/BIOTIN 1 TAB TABLET GT SCH (08:36)
[2020-09-10] MEDS: PROSOURCE / PROSTAT (PYXIS) 30 ML UDC GT SCH ×2 (08:36→17:26)
[2020-09-10] MEDS: ZINC SULFATE 220 MG CAPSULE GT SCH (08:36)
[2020-09-10] MEDS: PANTOPRAZOLE 40 MG/PACK PACK GT SCH ×2 (08:36→21:18)
[2020-09-10] MEDS: MINERAL OIL/PETROL OINT 396 GM JAR TP SCH (08:36)
[2020-09-10] MEDS: ACIDOPHILUS/BULGARICUS 1 EACH TAB.CHEW GT SCH ×2 (08:36→17:25)
[2020-09-10] MEDS: Z GUARD REMEDY 2 OZ OINT TP SCH ×4 (08:36→21:19)
[2020-09-10] MEDS: THERAHONEY GEL 1.5 OZ TUBE TP SCH (08:37)
[2020-09-10] MEDS: Z GUARD REMEDY 4 OZ OINT TP SCH (08:37)
[2020-09-10] MEDS: HYDROGEN PEROXIDE 480 ML BOTTLE TP SCH ×2 (08:38→20:13)
[2020-09-10 12:40] VITALS: BP 147/70
[2020-09-10] MEDS: LOSARTAN POTASSIUM 50 MG TABLET GT SCH (17:30)
[2020-09-10 21:00] VITALS: BP 158/77
[2020-09-10] MEDS: AMLODIPINE BESYLATE 10 MG TABLET GT SCH (21:17)
[2020-09-10] MEDS: MELATONIN 3 MG TABLET GT SCH (21:19)
[2020-09-11 00:25] VITALS: BP 155/74
[2020-09-11] MEDS: NEPRO 1,000 ML BOTTLE GT PRN ×2 (01:57→17:45)
[2020-09-11] MEDS: ALBUTEROL FS 2.5 MG/0.5 ML VIAL.NEB NEB SCH ×4 (01:58→19:39)
[2020-09-11] MEDS: IPRATROPIUM NEB FS 0.5 MG/2.5 ML AMPUL.NEB NEB SCH ×4 (01:58→19:39)
[2020-09-11] MEDS: LEVOTHYROXINE SODIUM 75 MCG TABLET GT SCH (05:14)
[2020-09-11] MEDS: POLYVINYL ALCOHOL 15 ML BOTTLE EACHEYE SCH ×4 (05:14→23:52)
[2020-09-11] MEDS: LABETALOL HCL (100MG) 100 MG TABLET GT SCH ×2 (05:15→17:56)
[2020-09-11] MEDS: hydrALAZINE HCL 50 MG TABLET GT SCH ×3 (05:15→21:18)
[2020-09-11] MEDS: SUCRALFATE 1 G/10 ML UDC GT SCH ×4 (07:30→21:18)
[2020-09-11 07:52] VITALS: BP 126/55
[2020-09-11] MEDS: HYDROGEN PEROXIDE 480 ML BOTTLE TP SCH ×2 (08:26→20:18)
[2020-09-11] MEDS: DOCUSATE SODIUM LIQ 100 MG/10 ML UDC GT SCH ×3 (09:00→17:45)
[2020-09-11] MEDS: PANTOPRAZOLE 40 MG/PACK PACK GT SCH ×2 (09:00→21:18)
[2020-09-11] MEDS: VIT B CMPLX 3/FA/VIT C/BIOTIN 1 TAB TABLET GT SCH (09:00)
[2020-09-11] MEDS: NEUTRA PHOS 1 POWD.PACKET GT SCH ×3 (09:00→17:45)
[2020-09-11] MEDS: Z GUARD REMEDY 4 OZ OINT TP SCH (09:00)
[2020-09-11] MEDS: ZINC SULFATE 220 MG CAPSULE GT SCH (09:00)
[2020-09-11] MEDS: Z GUARD REMEDY 2 OZ OINT TP SCH ×4 (09:00→21:18)
[2020-09-11] MEDS: ACIDOPHILUS/BULGARICUS 1 EACH TAB.CHEW GT SCH ×2 (09:00→17:45)
[2020-09-11] MEDS: THERAHONEY GEL 1.5 OZ TUBE TP SCH (09:00)
[2020-09-11] MEDS: MINERAL OIL/PETROL OINT 396 GM JAR TP SCH (09:00)
[2020-09-11] MEDS: LOSARTAN POTASSIUM 50 MG TABLET GT SCH ×2 (09:00→17:49)
[2020-09-11] MEDS: PROSOURCE / PROSTAT (PYXIS) 30 ML UDC GT SCH ×2 (09:00→17:45)
[2020-09-11 13:08] VITALS: BP 120/60
--- NOTE | 2020-09-11 17:11 | NUR ---
Obtained an order for CBC in AM for another follow-up to check Hbg. Order carried out.
[2020-09-11 20:16] VITALS: BP 148/72
[2020-09-11] MEDS: AMLODIPINE BESYLATE 10 MG TABLET GT SCH (21:18)
[2020-09-11] MEDS: CLONIDINE HCL 0.1MG/24H PTWK 1 EA PATCH TD SCH (21:18)
[2020-09-11] MEDS: MELATONIN 3 MG TABLET GT SCH (21:18)
[2020-09-12] VITALS (9 sets, daily range): BP systolic 140–166; BP diastolic 40–70
[2020-09-12] MEDS: IPRATROPIUM NEB FS 0.5 MG/2.5 ML AMPUL.NEB NEB SCH ×4 (01:40→20:28)
[2020-09-12] MEDS: ALBUTEROL FS 2.5 MG/0.5 ML VIAL.NEB NEB SCH ×4 (01:40→20:28)
[2020-09-12] MEDS: POLYVINYL ALCOHOL 15 ML BOTTLE EACHEYE SCH ×3 (05:20→17:15)
[2020-09-12] MEDS: hydrALAZINE HCL 50 MG TABLET GT SCH ×3 (05:20→21:00)
[2020-09-12] MEDS: LEVOTHYROXINE SODIUM 75 MCG TABLET GT SCH (05:20)
[2020-09-12] MEDS: LABETALOL HCL (100MG) 100 MG TABLET GT SCH ×2 (05:52→17:15)
[2020-09-12 06:40] LABS: BASOPHILS # (AUTO) 0.1 /CMM (0.0-0.2); BASOPHILS % (AUTO) 1.2 % (0.0-2.0); EOSINOPHILS % (AUTO) 1.8 % (0.0-6.0); HEMATOCRIT 21 % (39-51); LYMPHOCYTES # (AUTO) 0.9 /CMM (0.8-4.8); LYMPHOCYTES % (AUTO) 13.9 % (20.0-44.0); MEAN CORPUSCULAR HGB CONC 33 g/dl (31.0-36.0); MEAN CORPUSCULAR VOLUME 85 fL (80-96); MONOCYTES # (AUTO) 0.6 /CMM (0.1-1.30); MONOCYTES % (AUTO) 9.2 % (2.0-12.0); NEUTROPHILS % (AUTO) 73.9 % (43.0-81.0); PLATELET COUNT (AUTO) 230 /CMM (150-450); RED BLOOD CELL COUNT(AUTO) 2.43 MIL/uL (4.5-6.0); WHITE BLOOD COUNT (AUTO) 6.7 K/uL (4.3-11.0)
[2020-09-12 07:03] LABS: HEMOGLOBIN 6.9 g/dL (13.5-17.5)
--- NOTE | 2020-09-12 07:07 | NUR ---
Relayed results of Hgb 6.9 and H[address] Espinoza awaiting for reply. Will endorse to oncoming shift.
[2020-09-12] MEDS: SUCRALFATE 1 G/10 ML UDC GT SCH ×4 (08:24→21:00)
[2020-09-12] MEDS: HYDROGEN PEROXIDE 480 ML BOTTLE TP SCH ×2 (08:28→21:10)
[2020-09-12] MEDS: VIT B CMPLX 3/FA/VIT C/BIOTIN 1 TAB TABLET GT SCH (08:34)
[2020-09-12] MEDS: PANTOPRAZOLE 40 MG/PACK PACK GT SCH ×2 (08:34→21:00)
[2020-09-12] MEDS: ACIDOPHILUS/BULGARICUS 1 EACH TAB.CHEW GT SCH ×2 (08:34→17:15)
[2020-09-12] MEDS: DOCUSATE SODIUM LIQ 100 MG/10 ML UDC GT SCH ×3 (08:34→17:15)
[2020-09-12] MEDS: PROSOURCE / PROSTAT (PYXIS) 30 ML UDC GT SCH ×2 (08:34→17:15)
[2020-09-12] MEDS: NEUTRA PHOS 1 POWD.PACKET GT SCH ×3 (08:34→17:15)
[2020-09-12] MEDS: ZINC SULFATE 220 MG CAPSULE GT SCH (08:34)
--- NOTE | 2020-09-12 08:38 | NUR ---
Facility Update: DIPESH notified pt.s family via email regarding conditions in the facility: "SW Facility Update: No [facility] Sub-Acute residents or employees tested positive for COVID-19 this week. As recommended by [facility] Department of Public Health guidelines, Sub-Acute residents & healthcare personnel will continue receiving routine testing. [facility] continues to follow infection control protocols and screen our residents and staff daily for symptoms".
--- NOTE | 2020-09-12 08:43 | NUR ---
Informed Dr Espinoza of Hgb 6.9 Hct 21. He ordered to transfuse 1 unit PRBC and check stool for OB. Informed him pt is going out for dialysis this morning and transfusion might not be done until pt comes back later.
[2020-09-12] MEDS: THERAHONEY GEL 1.5 OZ TUBE TP SCH (10:30)
[2020-09-12] MEDS: MINERAL OIL/PETROL OINT 396 GM JAR TP SCH (10:30)
[2020-09-12] MEDS: Z GUARD REMEDY 2 OZ OINT TP SCH ×4 (10:30→21:00)
[2020-09-12] MEDS: Z GUARD REMEDY 4 OZ OINT TP SCH (10:30)
--- NOTE | 2020-09-12 11:00 | NUR ---
Pt's Fay Robbins gave consent for blood transfusion.
--- NOTE | 2020-09-12 11:30 | NUR ---
Spoke with [facility] RN Jessi. Informed her of Hgb 6.9 Hct 21 today, pt will have 1 unit of PRBC later today.
[2020-09-12 16:58] LABS: OCCULT BLOOD STOOL NEGATIVE (NEGATIVE)
[2020-09-12] MEDS: LOSARTAN POTASSIUM 50 MG TABLET GT SCH (17:15)
--- NOTE | 2020-09-12 18:38 | NUR ---
Started transfusing 1 unit of PRBC. BP 151/47 HR 75 T 98.1 R 18 O2 sat 100%. Pt asleep but easily awoken with verbal and tactile stimuli. No adverse reaction noted at this time.
--- NOTE | 2020-09-12 19:30 | NUR ---
Received patient with ongoing blood transfusion 120ml/hr. Patient is sleeping but easily arousable. Bp 140/50,HR 75,RR 18 Bari 97.1. Will continue to monitor.
[2020-09-12] MEDS: AMLODIPINE BESYLATE 10 MG TABLET GT SCH (21:00)
[2020-09-12] MEDS: MELATONIN 3 MG TABLET GT SCH (21:00)
--- NOTE | 2020-09-12 21:37 | NUR ---
Blood transfusion completed, no adverse reaction noted.Patient awake,vital signs stable. Patient Fay called and updated with patient condition thru turkmen speaking TOBACCO STRIPPER. Will continue to monitor.
[2020-09-13] MEDS: POLYVINYL ALCOHOL 15 ML BOTTLE EACHEYE SCH ×4 (00:06→17:37)
[2020-09-13 01:01] VITALS: BP 160/50
[2020-09-13] MEDS: ALBUTEROL FS 2.5 MG/0.5 ML VIAL.NEB NEB SCH ×4 (02:09→20:22)
[2020-09-13] MEDS: IPRATROPIUM NEB FS 0.5 MG/2.5 ML AMPUL.NEB NEB SCH ×4 (02:09→20:22)
[2020-09-13] MEDS: hydrALAZINE HCL 50 MG TABLET GT SCH ×3 (05:11→21:23)
[2020-09-13] MEDS: LEVOTHYROXINE SODIUM 75 MCG TABLET GT SCH (05:11)
[2020-09-13] MEDS: LABETALOL HCL (100MG) 100 MG TABLET GT SCH ×2 (05:11→17:37)
[2020-09-13] MEDS: SUCRALFATE 1 G/10 ML UDC GT SCH ×4 (07:30→21:23)
[2020-09-13 07:36] VITALS: BP 118/39
[2020-09-13 07:42] LABS: HEMOGLOBIN 8.6 g/dL (13.5-17.5)
[2020-09-13] MEDS: HYDROGEN PEROXIDE 480 ML BOTTLE TP SCH ×2 (09:09→21:15)
[2020-09-13] MEDS: PANTOPRAZOLE 40 MG/PACK PACK GT SCH ×2 (09:54→21:19)
[2020-09-13] MEDS: THERAHONEY GEL 1.5 OZ TUBE TP SCH (09:54)
[2020-09-13] MEDS: PROSOURCE / PROSTAT (PYXIS) 30 ML UDC GT SCH ×2 (09:54→17:36)
[2020-09-13] MEDS: LOSARTAN POTASSIUM 50 MG TABLET GT SCH ×2 (09:54→17:36)
[2020-09-13] MEDS: Z GUARD REMEDY 4 OZ OINT TP SCH (09:54)
[2020-09-13] MEDS: DOCUSATE SODIUM LIQ 100 MG/10 ML UDC GT SCH ×3 (09:54→17:36)
[2020-09-13] MEDS: ACIDOPHILUS/BULGARICUS 1 EACH TAB.CHEW GT SCH ×2 (09:54→17:36)
[2020-09-13] MEDS: VIT B CMPLX 3/FA/VIT C/BIOTIN 1 TAB TABLET GT SCH (09:54)
[2020-09-13] MEDS: NEUTRA PHOS 1 POWD.PACKET GT SCH ×3 (09:54→17:36)
[2020-09-13] MEDS: ZINC SULFATE 220 MG CAPSULE GT SCH (09:54)
[2020-09-13] MEDS: MINERAL OIL/PETROL OINT 396 GM JAR TP SCH (09:55)
[2020-09-13] MEDS: Z GUARD REMEDY 2 OZ OINT TP SCH ×4 (09:55→21:20)
--- NOTE | 2020-09-13 15:03 | NUR ---
Virtual visit done by patient's via [employer], updated of patient's condition and current lab results. Appreciated the info given. MACHINE TAPER Wendy Gan inquired about patient's condition, aware current Hbg result 8.6 with order to repeat CBC in AM. Orders carried out.
[2020-09-13 19:41] VITALS: BP 154/40
[2020-09-13] MEDS: MELATONIN 3 MG TABLET GT SCH (21:23)
[2020-09-13] MEDS: AMLODIPINE BESYLATE 10 MG TABLET GT SCH (21:23)
[2020-09-14] MEDS: POLYVINYL ALCOHOL 15 ML BOTTLE EACHEYE SCH ×4 (00:16→17:34)
[2020-09-14] MEDS: chlorproMAZINE HCL 25 MG TABLET GT PRN (00:16)
[2020-09-14] MEDS: NEPRO 1,000 ML BOTTLE GT PRN (00:19)
[2020-09-14 00:35] VITALS: BP 159/71
[2020-09-14] MEDS: IPRATROPIUM NEB FS 0.5 MG/2.5 ML AMPUL.NEB NEB SCH ×4 (01:48→19:48)
[2020-09-14] MEDS: ALBUTEROL FS 2.5 MG/0.5 ML VIAL.NEB NEB SCH ×4 (01:48→19:48)
[2020-09-14] MEDS: LEVOTHYROXINE SODIUM 75 MCG TABLET GT SCH (05:30)
[2020-09-14] MEDS: hydrALAZINE HCL 50 MG TABLET GT SCH ×3 (05:30→21:24)
[2020-09-14] MEDS: LABETALOL HCL (100MG) 100 MG TABLET GT SCH ×2 (05:30→18:36)
[2020-09-14 07:14] VITALS: BP 148/52
[2020-09-14] MEDS: SUCRALFATE 1 G/10 ML UDC GT SCH ×4 (07:39→22:02)
[2020-09-14] MEDS: ZINC SULFATE 220 MG CAPSULE GT SCH (08:12)
[2020-09-14] MEDS: PROSOURCE / PROSTAT (PYXIS) 30 ML UDC GT SCH ×2 (08:12→17:04)
[2020-09-14] MEDS: PANTOPRAZOLE 40 MG/PACK PACK GT SCH ×2 (08:12→21:25)
[2020-09-14] MEDS: NEUTRA PHOS 1 POWD.PACKET GT SCH ×3 (08:12→17:04)
[2020-09-14] MEDS: ACIDOPHILUS/BULGARICUS 1 EACH TAB.CHEW GT SCH ×2 (08:12→17:04)
[2020-09-14] MEDS: DOCUSATE SODIUM LIQ 100 MG/10 ML UDC GT SCH ×3 (08:12→17:04)
[2020-09-14] MEDS: MINERAL OIL/PETROL OINT 396 GM JAR TP SCH (08:12)
[2020-09-14] MEDS: VIT B CMPLX 3/FA/VIT C/BIOTIN 1 TAB TABLET GT SCH (08:12)
[2020-09-14] MEDS: Z GUARD REMEDY 4 OZ OINT TP SCH (08:13)
[2020-09-14] MEDS: Z GUARD REMEDY 2 OZ OINT TP SCH ×4 (08:13→21:26)
[2020-09-14] MEDS: THERAHONEY GEL 1.5 OZ TUBE TP SCH (08:14)
[2020-09-14] MEDS: HYDROGEN PEROXIDE 480 ML BOTTLE TP SCH ×2 (09:03→21:05)
[2020-09-14] MEDS: LOSARTAN POTASSIUM 50 MG TABLET GT SCH (17:04)
[2020-09-14 20:37] VITALS: BP 171/74
[2020-09-14] MEDS: AMLODIPINE BESYLATE 10 MG TABLET GT SCH (21:25)
[2020-09-14] MEDS: MELATONIN 3 MG TABLET GT SCH (22:02)
[2020-09-15] MEDS: POLYVINYL ALCOHOL 15 ML BOTTLE EACHEYE SCH ×4 (00:13→17:56)
[2020-09-15 00:29] VITALS: BP 161/54
[2020-09-15] MEDS: IPRATROPIUM NEB FS 0.5 MG/2.5 ML AMPUL.NEB NEB SCH ×4 (01:30→19:39)
[2020-09-15] MEDS: ALBUTEROL FS 2.5 MG/0.5 ML VIAL.NEB NEB SCH ×4 (01:30→19:39)
[2020-09-15] MEDS: hydrALAZINE HCL 50 MG TABLET GT SCH ×3 (05:08→20:33)
[2020-09-15] MEDS: LABETALOL HCL (100MG) 100 MG TABLET GT SCH ×2 (05:45→17:57)
[2020-09-15] MEDS: LEVOTHYROXINE SODIUM 75 MCG TABLET GT SCH (05:45)
[2020-09-15] MEDS: SUCRALFATE 1 G/10 ML UDC GT SCH ×4 (07:30→21:08)
[2020-09-15 07:35] VITALS: BP 150/72
[2020-09-15] MEDS: ACIDOPHILUS/BULGARICUS 1 EACH TAB.CHEW GT SCH ×2 (09:00→17:55)
[2020-09-15] MEDS: Z GUARD REMEDY 2 OZ OINT TP SCH ×4 (09:00→20:33)
[2020-09-15] MEDS: NEUTRA PHOS 1 POWD.PACKET GT SCH ×3 (09:00→17:55)
[2020-09-15] MEDS: LOSARTAN POTASSIUM 50 MG TABLET GT SCH ×2 (09:00→17:55)
[2020-09-15] MEDS: Z GUARD REMEDY 4 OZ OINT TP SCH (09:00)
[2020-09-15] MEDS: PANTOPRAZOLE 40 MG/PACK PACK GT SCH ×2 (09:00→20:33)
[2020-09-15] MEDS: ZINC SULFATE 220 MG CAPSULE GT SCH (09:00)
[2020-09-15] MEDS: MINERAL OIL/PETROL OINT 396 GM JAR TP SCH (09:00)
[2020-09-15] MEDS: DOCUSATE SODIUM LIQ 100 MG/10 ML UDC GT SCH ×3 (09:00→17:55)
[2020-09-15] MEDS: THERAHONEY GEL 1.5 OZ TUBE TP SCH (09:00)
[2020-09-15] MEDS: PROSOURCE / PROSTAT (PYXIS) 30 ML UDC GT SCH ×2 (09:00→17:55)
[2020-09-15] MEDS: VIT B CMPLX 3/FA/VIT C/BIOTIN 1 TAB TABLET GT SCH (09:00)
[2020-09-15] MEDS: HYDROGEN PEROXIDE 480 ML BOTTLE TP SCH ×2 (09:05→21:01)
--- NOTE | 2020-09-15 11:00 | NUR ---
RTs (Rohit) changed patients' trach tube today per protocol due this month, patient tolerated procedure well. No bleeding noted.
[2020-09-15 20:15] VITALS: BP 154/72
[2020-09-15] MEDS: AMLODIPINE BESYLATE 10 MG TABLET GT SCH (20:33)
[2020-09-15] MEDS: MELATONIN 3 MG TABLET GT SCH (21:08)
[2020-09-16] MEDS: POLYVINYL ALCOHOL 15 ML BOTTLE EACHEYE SCH ×5 (00:12→23:00)
[2020-09-16] MEDS: IPRATROPIUM NEB FS 0.5 MG/2.5 ML AMPUL.NEB NEB SCH ×4 (01:26→20:12)
[2020-09-16] MEDS: ALBUTEROL FS 2.5 MG/0.5 ML VIAL.NEB NEB SCH ×4 (01:26→20:12)
[2020-09-16] MEDS: hydrALAZINE HCL 50 MG TABLET GT SCH ×3 (05:17→21:30)
[2020-09-16] MEDS: LEVOTHYROXINE SODIUM 75 MCG TABLET GT SCH (05:17)
[2020-09-16] MEDS: LABETALOL HCL (100MG) 100 MG TABLET GT SCH ×2 (05:17→17:46)
[2020-09-16] MEDS: NEPRO 1,000 ML BOTTLE GT PRN (05:18)
[2020-09-16 06:30] LABS: BASOPHILS # (AUTO) 0.1 /CMM (0.0-0.2); BASOPHILS % (AUTO) 0.9 % (0.0-2.0); EOSINOPHILS % (AUTO) 2.2 % (0.0-6.0); HEMATOCRIT 26 % (39-51); HEMOGLOBIN 8.8 g/dL (13.5-17.5); LYMPHOCYTES # (AUTO) 0.7 /CMM (0.8-4.8); LYMPHOCYTES % (AUTO) 10.8 % (20.0-44.0); MEAN CORPUSCULAR HGB CONC 34 g/dl (31.0-36.0); MEAN CORPUSCULAR VOLUME 86 fL (80-96); MONOCYTES # (AUTO) 0.6 /CMM (0.1-1.30); MONOCYTES % (AUTO) 8.9 % (2.0-12.0); NEUTROPHILS # (AUTO) 4.8 /CMM (1.8-8.9); NEUTROPHILS % (AUTO) 77.2 % (43.0-81.0); PLATELET COUNT (AUTO) 200 /CMM (150-450); RED BLOOD CELL COUNT(AUTO) 3.01 MIL/uL (4.5-6.0); WHITE BLOOD COUNT (AUTO) 6.2 K/uL (4.3-11.0)
[2020-09-16 07:24] VITALS: BP 95/24
[2020-09-16] MEDS: SUCRALFATE 1 G/10 ML UDC GT SCH ×4 (07:30→21:30)
[2020-09-16] MEDS: Z GUARD REMEDY 4 OZ OINT TP SCH (09:00)
[2020-09-16] MEDS: NEUTRA PHOS 1 POWD.PACKET GT SCH ×3 (09:00→17:45)
[2020-09-16] MEDS: ZINC SULFATE 220 MG CAPSULE GT SCH (09:00)
[2020-09-16] MEDS: MINERAL OIL/PETROL OINT 396 GM JAR TP SCH (09:00)
[2020-09-16] MEDS: DOCUSATE SODIUM LIQ 100 MG/10 ML UDC GT SCH ×3 (09:00→17:44)
[2020-09-16] MEDS: VIT B CMPLX 3/FA/VIT C/BIOTIN 1 TAB TABLET GT SCH (09:00)
[2020-09-16] MEDS: PANTOPRAZOLE 40 MG/PACK PACK GT SCH ×2 (09:00→21:30)
[2020-09-16] MEDS: PROSOURCE / PROSTAT (PYXIS) 30 ML UDC GT SCH ×2 (09:00→17:45)
[2020-09-16] MEDS: Z GUARD REMEDY 2 OZ OINT TP SCH ×2 (09:00→21:30)
[2020-09-16] MEDS: LOSARTAN POTASSIUM 50 MG TABLET GT SCH ×2 (09:00→17:45)
[2020-09-16] MEDS: ACIDOPHILUS/BULGARICUS 1 EACH TAB.CHEW GT SCH ×2 (09:00→17:45)
[2020-09-16] MEDS: THERAHONEY GEL 1.5 OZ TUBE TP SCH (09:00)
[2020-09-16] MEDS: HYDROGEN PEROXIDE 480 ML BOTTLE TP SCH ×2 (09:15→20:18)
[2020-09-16 12:27] VITALS: BP 157/76
--- NOTE | 2020-09-16 13:58 | NUR ---
Seen by Dr Espinoza. Received order to DC Storone.
[2020-09-16 20:00] VITALS: BP 136/64
[2020-09-16] MEDS: AMLODIPINE BESYLATE 10 MG TABLET GT SCH (21:30)
[2020-09-16] MEDS: MELATONIN 3 MG TABLET GT SCH (21:30)
--- NOTE | 2020-09-16 23:27 | NUR ---
RT NOTE Pt rec'd trached on [facility] vent on AC mode settings as charted. pt shows no signs of resp distress or sob. trach is patent and secured. Sx'd for thick mod amt of shaji yellow secretions. Alarms are set and audible. Ambu bag bedside. Vent plugged into red outlet. will continue to monitor. Addendum: 09/16/20 at 3187 by CHRIS REDDY RT Amended: Links added.
[2020-09-17] VITALS: BP 145/105
[2020-09-17] MEDS: ALBUTEROL FS 2.5 MG/0.5 ML VIAL.NEB NEB SCH ×4 (02:13→20:14)
[2020-09-17] MEDS: IPRATROPIUM NEB FS 0.5 MG/2.5 ML AMPUL.NEB NEB SCH ×4 (02:13→20:14)
[2020-09-17] MEDS: POLYVINYL ALCOHOL 15 ML BOTTLE EACHEYE SCH ×4 (05:32→23:46)
[2020-09-17] MEDS: hydrALAZINE HCL 50 MG TABLET GT SCH ×3 (05:32→21:27)
[2020-09-17] MEDS: NEPRO 1,000 ML BOTTLE GT PRN (05:33)
[2020-09-17] MEDS: LEVOTHYROXINE SODIUM 75 MCG TABLET GT SCH (05:33)
[2020-09-17] MEDS: LABETALOL 200 MG GT SCH ×2 (05:33→18:21)
[2020-09-17 07:19] VITALS: BP 121/66
[2020-09-17] MEDS: SUCRALFATE 1 G/10 ML UDC GT SCH ×4 (07:30→21:28)
[2020-09-17] MEDS: Z GUARD REMEDY 2 OZ OINT TP SCH ×2 (09:00→21:28)
[2020-09-17] MEDS: HYDROGEN PEROXIDE 480 ML BOTTLE TP SCH ×2 (09:00→20:14)
[2020-09-17] MEDS: ACIDOPHILUS/BULGARICUS 1 EACH TAB.CHEW GT SCH ×2 (09:00→17:59)
[2020-09-17] MEDS: PANTOPRAZOLE 40 MG/PACK PACK GT SCH ×2 (09:00→21:28)
[2020-09-17] MEDS: Z GUARD REMEDY 4 OZ OINT TP SCH (09:00)
[2020-09-17] MEDS: PROSOURCE / PROSTAT (PYXIS) 30 ML UDC GT SCH ×2 (09:00→17:59)
[2020-09-17] MEDS: ZINC SULFATE 220 MG CAPSULE GT SCH (09:00)
[2020-09-17] MEDS: THERAHONEY GEL 1.5 OZ TUBE TP SCH (09:00)
[2020-09-17] MEDS: NEUTRA PHOS 1 POWD.PACKET GT SCH ×3 (09:00→17:59)
[2020-09-17] MEDS: VIT B CMPLX 3/FA/VIT C/BIOTIN 1 TAB TABLET GT SCH (09:00)
[2020-09-17] MEDS: MINERAL OIL/PETROL OINT 396 GM JAR TP SCH (09:00)
[2020-09-17] MEDS: DOCUSATE SODIUM LIQ 100 MG/10 ML UDC GT SCH ×3 (09:00→17:58)
[2020-09-17 12:06] VITALS: BP 159/69
[2020-09-17] MEDS: LOSARTAN POTASSIUM 50 MG TABLET GT SCH (17:59)
[2020-09-17 20:22] VITALS: BP 160/74
[2020-09-17] MEDS: MELATONIN 3 MG TABLET GT SCH (21:28)
[2020-09-17] MEDS: AMLODIPINE BESYLATE 10 MG TABLET GT SCH (21:28)
[2020-09-18] VITALS: BP 155/65
[2020-09-18] MEDS: IPRATROPIUM NEB FS 0.5 MG/2.5 ML AMPUL.NEB NEB SCH ×4 (00:48→19:49)
[2020-09-18] MEDS: ALBUTEROL FS 2.5 MG/0.5 ML VIAL.NEB NEB SCH ×4 (00:48→19:49)
[2020-09-18] MEDS: NEPRO 1,000 ML BOTTLE GT PRN ×2 (05:26→23:56)
[2020-09-18] MEDS: hydrALAZINE HCL 50 MG TABLET GT SCH ×3 (05:26→21:44)
[2020-09-18] MEDS: LEVOTHYROXINE SODIUM 75 MCG TABLET GT SCH (05:26)
[2020-09-18] MEDS: LABETALOL 200 MG GT SCH ×2 (05:26→17:53)
[2020-09-18] MEDS: POLYVINYL ALCOHOL 15 ML BOTTLE EACHEYE SCH ×4 (05:26→23:22)
[2020-09-18] MEDS: SUCRALFATE 1 G/10 ML UDC GT SCH ×4 (07:30→21:45)
[2020-09-18 07:37] VITALS: BP 143/68
[2020-09-18] MEDS: HYDROGEN PEROXIDE 480 ML BOTTLE TP SCH ×2 (08:21→19:49)
[2020-09-18] MEDS: VIT B CMPLX 3/FA/VIT C/BIOTIN 1 TAB TABLET GT SCH (09:18)
[2020-09-18] MEDS: DOCUSATE SODIUM LIQ 100 MG/10 ML UDC GT SCH ×3 (09:18→17:53)
[2020-09-18] MEDS: Z GUARD REMEDY 2 OZ OINT TP SCH ×2 (09:18→21:45)
[2020-09-18] MEDS: MINERAL OIL/PETROL OINT 396 GM JAR TP SCH (09:18)
[2020-09-18] MEDS: ZINC SULFATE 220 MG CAPSULE GT SCH (09:18)
[2020-09-18] MEDS: Z GUARD REMEDY 4 OZ OINT TP SCH (09:18)
[2020-09-18] MEDS: NEUTRA PHOS 1 POWD.PACKET GT SCH ×3 (09:18→17:53)
[2020-09-18] MEDS: PANTOPRAZOLE 40 MG/PACK PACK GT SCH ×2 (09:18→21:45)
[2020-09-18] MEDS: THERAHONEY GEL 1.5 OZ TUBE TP SCH (09:18)
[2020-09-18] MEDS: LOSARTAN POTASSIUM 50 MG TABLET GT SCH ×2 (09:18→17:53)
[2020-09-18] MEDS: PROSOURCE / PROSTAT (PYXIS) 30 ML UDC GT SCH ×2 (09:18→17:53)
[2020-09-18] MEDS: ACIDOPHILUS/BULGARICUS 1 EACH TAB.CHEW GT SCH ×2 (09:18→17:53)
[2020-09-18 20:29] VITALS: BP 156/80
[2020-09-18] MEDS: CLONIDINE HCL 0.1MG/24H PTWK 1 EA PATCH TD SCH (20:30)
[2020-09-18] MEDS: AMLODIPINE BESYLATE 10 MG TABLET GT SCH (21:44)
[2020-09-18] MEDS: MELATONIN 3 MG TABLET GT SCH (21:45)
[2020-09-19] MEDS: IPRATROPIUM NEB FS 0.5 MG/2.5 ML AMPUL.NEB NEB SCH ×4 (01:37→19:49)
[2020-09-19] MEDS: ALBUTEROL FS 2.5 MG/0.5 ML VIAL.NEB NEB SCH ×4 (01:37→19:49)
[2020-09-19] MEDS: LABETALOL 200 MG GT SCH ×2 (05:22→17:41)
[2020-09-19] MEDS: hydrALAZINE HCL 50 MG TABLET GT SCH ×3 (05:22→20:58)
[2020-09-19] MEDS: LEVOTHYROXINE SODIUM 75 MCG TABLET GT SCH (05:22)
[2020-09-19] MEDS: POLYVINYL ALCOHOL 15 ML BOTTLE EACHEYE SCH ×4 (05:22→23:44)
[2020-09-19] MEDS: SUCRALFATE 1 G/10 ML UDC GT SCH ×4 (07:30→21:45)
[2020-09-19 07:51] VITALS: BP 150/75
[2020-09-19] MEDS: HYDROGEN PEROXIDE 480 ML BOTTLE TP SCH ×2 (08:34→19:49)
[2020-09-19] MEDS: PANTOPRAZOLE 40 MG/PACK PACK GT SCH ×2 (09:14→20:58)
[2020-09-19] MEDS: VIT B CMPLX 3/FA/VIT C/BIOTIN 1 TAB TABLET GT SCH (09:14)
[2020-09-19] MEDS: NEUTRA PHOS 1 POWD.PACKET GT SCH ×3 (09:14→17:41)
[2020-09-19] MEDS: DOCUSATE SODIUM LIQ 100 MG/10 ML UDC GT SCH ×3 (09:14→17:40)
[2020-09-19] MEDS: PROSOURCE / PROSTAT (PYXIS) 30 ML UDC GT SCH ×2 (09:14→17:41)
[2020-09-19] MEDS: ACIDOPHILUS/BULGARICUS 1 EACH TAB.CHEW GT SCH ×2 (09:14→17:41)
[2020-09-19] MEDS: MINERAL OIL/PETROL OINT 396 GM JAR TP SCH (09:15)
[2020-09-19] MEDS: Z GUARD REMEDY 4 OZ OINT TP SCH (09:15)
[2020-09-19] MEDS: Z GUARD REMEDY 2 OZ OINT TP SCH ×2 (09:15→20:58)
[2020-09-19] MEDS: ZINC SULFATE 220 MG CAPSULE GT SCH (09:15)
[2020-09-19] MEDS: THERAHONEY GEL 1.5 OZ TUBE TP SCH (09:15)
[2020-09-19] MEDS: LOSARTAN POTASSIUM 50 MG TABLET GT SCH (17:41)
--- NOTE | 2020-09-19 18:48 | NUR ---
Seen by JESSICA Gan. She ordered to check CBC on 09/23/20. She said if pt's Hgb is 9, pt may start weaning trials.
[2020-09-19 20:14] VITALS: BP 168/60
[2020-09-19] MEDS: AMLODIPINE BESYLATE 10 MG TABLET GT SCH (20:58)
[2020-09-19] MEDS: MELATONIN 3 MG TABLET GT SCH (21:45)
[2020-09-20 01:19] VITALS: BP 155/74
[2020-09-20] MEDS: IPRATROPIUM NEB FS 0.5 MG/2.5 ML AMPUL.NEB NEB SCH ×4 (01:52→20:06)
[2020-09-20] MEDS: ALBUTEROL FS 2.5 MG/0.5 ML VIAL.NEB NEB SCH ×4 (01:53→20:06)
[2020-09-20] MEDS: hydrALAZINE HCL 50 MG TABLET GT SCH ×3 (05:39→21:13)
[2020-09-20] MEDS: POLYVINYL ALCOHOL 15 ML BOTTLE EACHEYE SCH ×4 (05:39→23:40)
[2020-09-20] MEDS: LABETALOL 200 MG GT SCH ×2 (06:03→17:51)
[2020-09-20] MEDS: LEVOTHYROXINE SODIUM 75 MCG TABLET GT SCH (06:04)
[2020-09-20] MEDS: NEPRO 1,000 ML BOTTLE GT PRN (06:55)
[2020-09-20] MEDS: SUCRALFATE 1 G/10 ML UDC GT SCH ×4 (07:30→21:13)
[2020-09-20 07:50] VITALS: BP 143/61
[2020-09-20] MEDS: HYDROGEN PEROXIDE 480 ML BOTTLE TP SCH ×2 (08:48→21:02)
[2020-09-20] MEDS: DOCUSATE SODIUM LIQ 100 MG/10 ML UDC GT SCH ×2 (09:39→12:44)
[2020-09-20] MEDS: LOSARTAN POTASSIUM 50 MG TABLET GT SCH ×2 (09:40→17:51)
[2020-09-20] MEDS: ACIDOPHILUS/BULGARICUS 1 EACH TAB.CHEW GT SCH ×2 (09:40→17:51)
[2020-09-20] MEDS: PANTOPRAZOLE 40 MG/PACK PACK GT SCH ×2 (09:41→21:13)
[2020-09-20] MEDS: Z GUARD REMEDY 4 OZ OINT TP SCH (09:41)
[2020-09-20] MEDS: PROSOURCE / PROSTAT (PYXIS) 30 ML UDC GT SCH ×2 (09:41→17:51)
[2020-09-20] MEDS: ZINC SULFATE 220 MG CAPSULE GT SCH (09:41)
[2020-09-20] MEDS: Z GUARD REMEDY 2 OZ OINT TP SCH ×2 (09:41→21:13)
[2020-09-20] MEDS: NEUTRA PHOS 1 POWD.PACKET GT SCH ×3 (09:41→17:51)
[2020-09-20] MEDS: MINERAL OIL/PETROL OINT 396 GM JAR TP SCH (09:41)
[2020-09-20] MEDS: VIT B CMPLX 3/FA/VIT C/BIOTIN 1 TAB TABLET GT SCH (09:41)
[2020-09-20] MEDS: THERAHONEY GEL 1.5 OZ TUBE TP SCH (09:42)
--- NOTE | 2020-09-20 11:55 | NUR ---
Seen and examined by Dr. Espinoza, new order given to repeat CBC on Wednesday. CBC already ordered for Wednesday by JESSICA Gan.
--- NOTE | 2020-09-20 13:00 | NUR ---
Dr. Gonzalez made aware that patient's is asking if patient will start weaning. Dr. Gonzalez gave an order for weaning on Wednesday. SIMV 6, PS 15, Peep 5 and ABG 1 hour after vent change. also changed Colace to once a day instead of TID due to bowel movement of 2-4 times per day. Order carried out.
--- NOTE | 2020-09-20 13:46 | NUR ---
Facility Update: DIPESH notified pt.s family via email regarding conditions in the facility: "SW Facility Update: No [facility] Sub-Acute residents or employees tested positive for COVID-19 this week. As recommended by [facility] Department of Public Health guidelines, Sub-Acute residents & healthcare personnel will continue receiving routine testing. [facility] continues to follow infection control protocols and screen our residents and staff daily for symptoms".
[2020-09-20 14:44] VITALS: BP 148/64
[2020-09-20 19:56] VITALS: BP 154/70
[2020-09-20] MEDS: AMLODIPINE BESYLATE 10 MG TABLET GT SCH (21:13)
[2020-09-20] MEDS: MELATONIN 3 MG TABLET GT SCH (21:14)
[2020-09-21 00:06] VITALS: BP 133/64
[2020-09-21] MEDS: ALBUTEROL FS 2.5 MG/0.5 ML VIAL.NEB NEB SCH ×4 (01:32→19:56)
[2020-09-21] MEDS: IPRATROPIUM NEB FS 0.5 MG/2.5 ML AMPUL.NEB NEB SCH ×4 (01:32→19:56)
[2020-09-21] MEDS: hydrALAZINE HCL 50 MG TABLET GT SCH ×3 (05:43→20:43)
[2020-09-21] MEDS: NEPRO 1,000 ML BOTTLE GT PRN (05:43)
[2020-09-21] MEDS: LEVOTHYROXINE SODIUM 75 MCG TABLET GT SCH (05:43)
[2020-09-21] MEDS: POLYVINYL ALCOHOL 15 ML BOTTLE EACHEYE SCH ×3 (05:43→17:14)
[2020-09-21] MEDS: LABETALOL 200 MG GT SCH ×2 (06:02→17:14)
[2020-09-21 08:00] VITALS: BP 119/77
[2020-09-21] MEDS: HYDROGEN PEROXIDE 480 ML BOTTLE TP SCH ×2 (08:06→21:24)
[2020-09-21] MEDS: SUCRALFATE 1 G/10 ML UDC GT SCH ×4 (08:19→21:33)
[2020-09-21] MEDS: THERAHONEY GEL 1.5 OZ TUBE TP SCH (08:22)
[2020-09-21] MEDS: MINERAL OIL/PETROL OINT 396 GM JAR TP SCH (08:22)
[2020-09-21] MEDS: PROSOURCE / PROSTAT (PYXIS) 30 ML UDC GT SCH ×2 (08:22→17:14)
[2020-09-21] MEDS: DOCUSATE SODIUM LIQ 100 MG/10 ML UDC GT SCH (08:22)
[2020-09-21] MEDS: ACIDOPHILUS/BULGARICUS 1 EACH TAB.CHEW GT SCH ×2 (08:22→17:14)
[2020-09-21] MEDS: VIT B CMPLX 3/FA/VIT C/BIOTIN 1 TAB TABLET GT SCH (08:22)
[2020-09-21] MEDS: PANTOPRAZOLE 40 MG/PACK PACK GT SCH ×2 (08:22→20:44)
[2020-09-21] MEDS: Z GUARD REMEDY 4 OZ OINT TP SCH (08:22)
[2020-09-21] MEDS: ZINC SULFATE 220 MG CAPSULE GT SCH (08:22)
[2020-09-21] MEDS: NEUTRA PHOS 1 POWD.PACKET GT SCH ×3 (08:22→17:14)
[2020-09-21] MEDS: Z GUARD REMEDY 2 OZ OINT TP SCH ×2 (08:22→20:44)
[2020-09-21] MEDS: LOSARTAN POTASSIUM 50 MG TABLET GT SCH (17:14)
[2020-09-21] MEDS: AMLODIPINE BESYLATE 10 MG TABLET GT SCH (20:44)
[2020-09-21 20:56] VITALS: BP 153/60
[2020-09-21] MEDS: MELATONIN 3 MG TABLET GT SCH (21:33)
[2020-09-22] MEDS: POLYVINYL ALCOHOL 15 ML BOTTLE EACHEYE SCH ×4 (00:06→17:12)
[2020-09-22] MEDS: ALBUTEROL FS 2.5 MG/0.5 ML VIAL.NEB NEB SCH ×4 (01:38→20:16)
[2020-09-22] MEDS: IPRATROPIUM NEB FS 0.5 MG/2.5 ML AMPUL.NEB NEB SCH ×4 (01:38→20:16)
[2020-09-22] MEDS: LEVOTHYROXINE SODIUM 75 MCG TABLET GT SCH (05:36)
[2020-09-22] MEDS: hydrALAZINE HCL 50 MG TABLET GT SCH ×3 (05:36→21:16)
[2020-09-22] MEDS: LABETALOL 200 MG GT SCH ×2 (05:36→17:11)
[2020-09-22] MEDS: NEPRO 1,000 ML BOTTLE GT PRN (05:37)
[2020-09-22 07:43] VITALS: BP 156/57
[2020-09-22] MEDS: SUCRALFATE 1 G/10 ML UDC GT SCH ×4 (08:09→21:17)
[2020-09-22] MEDS: DOCUSATE SODIUM LIQ 100 MG/10 ML UDC GT SCH (08:14)
[2020-09-22] MEDS: PROSOURCE / PROSTAT (PYXIS) 30 ML UDC GT SCH ×2 (08:15→17:12)
[2020-09-22] MEDS: LOSARTAN POTASSIUM 50 MG TABLET GT SCH ×2 (09:07→17:09)
[2020-09-22] MEDS: ACIDOPHILUS/BULGARICUS 1 EACH TAB.CHEW GT SCH ×2 (09:07→17:14)
[2020-09-22] MEDS: HYDROGEN PEROXIDE 480 ML BOTTLE TP SCH ×2 (09:08→21:00)
[2020-09-22] MEDS: ZINC SULFATE 220 MG CAPSULE GT SCH (09:08)
[2020-09-22] MEDS: VIT B CMPLX 3/FA/VIT C/BIOTIN 1 TAB TABLET GT SCH (09:08)
[2020-09-22] MEDS: THERAHONEY GEL 1.5 OZ TUBE TP SCH (09:08)
[2020-09-22] MEDS: Z GUARD REMEDY 2 OZ OINT TP SCH ×2 (09:08→21:17)
[2020-09-22] MEDS: NEUTRA PHOS 1 POWD.PACKET GT SCH ×3 (09:08→17:13)
[2020-09-22] MEDS: MINERAL OIL/PETROL OINT 396 GM JAR TP SCH (09:08)
[2020-09-22] MEDS: PANTOPRAZOLE 40 MG/PACK PACK GT SCH ×2 (09:08→21:16)
[2020-09-22] MEDS: Z GUARD REMEDY 4 OZ OINT TP SCH (09:08)
[2020-09-22 19:59] VITALS: BP 155/66
[2020-09-22] MEDS: AMLODIPINE BESYLATE 10 MG TABLET GT SCH (21:16)
[2020-09-22] MEDS: MELATONIN 3 MG TABLET GT SCH (21:17)
--- NOTE | 2020-09-22 23:55 | NUR ---
RT NOTE Pt rec'd trached on [facility] vent on AC mode settings as charted. pt shows no signs of resp distress or sob. trach is patent and secured. Sx'd for thick mod amt of shaji yellow secretions. Alarms are set and audible. Ambu bag bedside. Vent plugged into red outlet. will continue to monitor. Addendum: 09/22/20 at 2355 by CHRIS REDDY RT Amended: Links added.
[2020-09-23] MEDS: ALBUTEROL FS 2.5 MG/0.5 ML VIAL.NEB NEB SCH ×4 (01:56→19:59)
[2020-09-23] MEDS: IPRATROPIUM NEB FS 0.5 MG/2.5 ML AMPUL.NEB NEB SCH ×4 (01:56→19:59)
[2020-09-23] MEDS: hydrALAZINE HCL 50 MG TABLET GT SCH ×3 (05:29→21:06)
[2020-09-23] MEDS: POLYVINYL ALCOHOL 15 ML BOTTLE EACHEYE SCH ×5 (05:29→23:09)
[2020-09-23] MEDS: LEVOTHYROXINE SODIUM 75 MCG TABLET GT SCH (05:29)
[2020-09-23] MEDS: LABETALOL 200 MG GT SCH ×2 (05:29→18:20)
[2020-09-23 06:24] LABS: BASOPHILS # (AUTO) 0.1 /CMM (0.0-0.2); BASOPHILS % (AUTO) 0.9 % (0.0-2.0); EOSINOPHILS % (AUTO) 1.6 % (0.0-6.0); HEMATOCRIT 21 % (39-51); HEMOGLOBIN 7.1 g/dL (13.5-17.5); LYMPHOCYTES # (AUTO) 0.7 /CMM (0.8-4.8); MEAN CORPUSCULAR HGB CONC 34 g/dl (31.0-36.0); MEAN CORPUSCULAR VOLUME 88 fL (80-96); MONOCYTES # (AUTO) 0.7 /CMM (0.1-1.30); MONOCYTES % (AUTO) 11.1 % (2.0-12.0); NEUTROPHILS # (AUTO) 5.1 /CMM (1.8-8.9); NEUTROPHILS % (AUTO) 75.4 % (43.0-81.0); PLATELET COUNT (AUTO) 200 /CMM (150-450); RED BLOOD CELL COUNT(AUTO) 2.41 MIL/uL (4.5-6.0); WHITE BLOOD COUNT (AUTO) 6.7 K/uL (4.3-11.0)
[2020-09-23] MEDS: SUCRALFATE 1 G/10 ML UDC GT SCH ×4 (07:30→21:07)
[2020-09-23 07:47] VITALS: BP 150/59
[2020-09-23] MEDS: ZINC SULFATE 220 MG CAPSULE GT SCH (09:00)
[2020-09-23] MEDS: NEUTRA PHOS 1 POWD.PACKET GT SCH ×3 (09:00→17:00)
[2020-09-23] MEDS: ACIDOPHILUS/BULGARICUS 1 EACH TAB.CHEW GT SCH ×2 (09:00→17:00)
[2020-09-23] MEDS: Z GUARD REMEDY 4 OZ OINT TP SCH (09:00)
[2020-09-23] MEDS: PANTOPRAZOLE 40 MG/PACK PACK GT SCH ×2 (09:00→21:06)
[2020-09-23] MEDS: VIT B CMPLX 3/FA/VIT C/BIOTIN 1 TAB TABLET GT SCH (09:00)
[2020-09-23] MEDS: Z GUARD REMEDY 2 OZ OINT TP SCH ×2 (09:00→21:06)
[2020-09-23] MEDS: PROSOURCE / PROSTAT (PYXIS) 30 ML UDC GT SCH ×2 (09:00→17:00)
[2020-09-23] MEDS: THERAHONEY GEL 1.5 OZ TUBE TP SCH (09:00)
[2020-09-23] MEDS: HYDROGEN PEROXIDE 480 ML BOTTLE TP SCH ×2 (09:00→20:00)
[2020-09-23] MEDS: LOSARTAN POTASSIUM 50 MG TABLET GT SCH ×2 (09:00→17:00)
[2020-09-23] MEDS: MINERAL OIL/PETROL OINT 396 GM JAR TP SCH (09:00)
[2020-09-23] MEDS: DOCUSATE SODIUM LIQ 100 MG/10 ML UDC GT SCH (09:00)
[2020-09-23 09:27] LABS: ABG BASE EXCESS -2.1 mmol/L; ABG OXYGEN SATURATION 96.1 % (92.0-98.5); ABG PCO2 35.4 mmHg (35.0-45.0); ABG PH 7.415 (7.350-7.450); ABG PO2 85.5 mmHg (75.0-100.0); AaDO2 86.8 mmHg; COHb 1.1 % (0.5-1.5); MetHb 0.2 % (0.0-1.5); O2Hb 94.9 % (94.0-97.0); SITE, ABG Right Radial
--- NOTE | 2020-09-23 11:58 | NUR ---
Pt was placed on SIMV this morning. He is tolerating it well. Relayed ABG result to Dr Gonzalez and JESSICA Gan. Also relayed CBC result to JESSICA Gan. She ordered CBC for today to see if weaning trials can be initiated. Hgb 7.1. JESSICA Gan said to keep pt on SIMV 7A-2P daily as tolerated. Notified pt's .
[2020-09-23 20:05] VITALS: BP 158/74
[2020-09-23] MEDS: AMLODIPINE BESYLATE 10 MG TABLET GT SCH (21:06)
[2020-09-23] MEDS: MELATONIN 3 MG TABLET GT SCH (21:07)
[2020-09-23] MEDS: NEPRO 1,000 ML BOTTLE GT PRN (23:09)
[2020-09-24] MEDS: ALBUTEROL FS 2.5 MG/0.5 ML VIAL.NEB NEB SCH ×4 (02:04→19:58)
[2020-09-24] MEDS: IPRATROPIUM NEB FS 0.5 MG/2.5 ML AMPUL.NEB NEB SCH ×4 (02:04→19:58)
[2020-09-24] MEDS: LABETALOL 200 MG GT SCH ×2 (05:51→17:20)
[2020-09-24] MEDS: POLYVINYL ALCOHOL 15 ML BOTTLE EACHEYE SCH ×4 (05:51→23:16)
[2020-09-24] MEDS: hydrALAZINE HCL 50 MG TABLET GT SCH ×2 (05:51→12:06)
[2020-09-24] MEDS: LEVOTHYROXINE SODIUM 75 MCG TABLET GT SCH (05:51)
[2020-09-24] MEDS: SUCRALFATE 1 G/10 ML UDC GT SCH ×4 (07:30→21:12)
[2020-09-24] MEDS: HYDROGEN PEROXIDE 480 ML BOTTLE TP SCH ×2 (09:00→19:58)
[2020-09-24] MEDS: NEUTRA PHOS 1 POWD.PACKET GT SCH ×3 (09:22→17:19)
[2020-09-24] MEDS: Z GUARD REMEDY 4 OZ OINT TP SCH (09:22)
[2020-09-24] MEDS: MINERAL OIL/PETROL OINT 396 GM JAR TP SCH (09:22)
[2020-09-24] MEDS: VIT B CMPLX 3/FA/VIT C/BIOTIN 1 TAB TABLET GT SCH (09:22)
[2020-09-24] MEDS: Z GUARD REMEDY 2 OZ OINT TP SCH ×2 (09:22→21:12)
[2020-09-24] MEDS: ACIDOPHILUS/BULGARICUS 1 EACH TAB.CHEW GT SCH ×2 (09:22→17:19)
[2020-09-24] MEDS: ZINC SULFATE 220 MG CAPSULE GT SCH (09:22)
[2020-09-24] MEDS: DOCUSATE SODIUM LIQ 100 MG/10 ML UDC GT SCH (09:22)
[2020-09-24] MEDS: PROSOURCE / PROSTAT (PYXIS) 30 ML UDC GT SCH ×2 (09:22→17:19)
[2020-09-24] MEDS: THERAHONEY GEL 1.5 OZ TUBE TP SCH (09:22)
[2020-09-24] MEDS: PANTOPRAZOLE 40 MG/PACK PACK GT SCH ×2 (09:22→21:12)
[2020-09-24] MEDS: LOSARTAN POTASSIUM 50 MG TABLET GT SCH (17:20)
[2020-09-24 20:00] VITALS: BP 215/126
[2020-09-24] MEDS: HYDRALAZINE 100 MG GT SCH (21:11)
[2020-09-24] MEDS: MELATONIN 3 MG TABLET GT SCH (21:12)
[2020-09-24] MEDS: AMLODIPINE BESYLATE 10 MG TABLET GT SCH (21:12)
[2020-09-25] MEDS: ALBUTEROL FS 2.5 MG/0.5 ML VIAL.NEB NEB SCH ×4 (01:49→19:35)
[2020-09-25] MEDS: IPRATROPIUM NEB FS 0.5 MG/2.5 ML AMPUL.NEB NEB SCH ×4 (01:49→19:35)
[2020-09-25] MEDS: POLYVINYL ALCOHOL 15 ML BOTTLE EACHEYE SCH ×4 (05:27→23:15)
[2020-09-25] MEDS: HYDRALAZINE 100 MG GT SCH ×3 (05:27→20:54)
[2020-09-25] MEDS: LABETALOL 200 MG GT SCH ×2 (05:27→17:05)
[2020-09-25] MEDS: LEVOTHYROXINE SODIUM 75 MCG TABLET GT SCH (05:28)
[2020-09-25] MEDS: SUCRALFATE 1 G/10 ML UDC GT SCH ×4 (07:30→21:00)
[2020-09-25 08:03] VITALS: BP 144/55
[2020-09-25] MEDS: DOCUSATE SODIUM LIQ 100 MG/10 ML UDC GT SCH (08:46)
[2020-09-25] MEDS: ACIDOPHILUS/BULGARICUS 1 EACH TAB.CHEW GT SCH ×2 (08:47→17:04)
[2020-09-25] MEDS: ZINC SULFATE 220 MG CAPSULE GT SCH (08:47)
[2020-09-25] MEDS: LOSARTAN POTASSIUM 50 MG TABLET GT SCH ×2 (08:47→17:04)
[2020-09-25] MEDS: PROSOURCE / PROSTAT (PYXIS) 30 ML UDC GT SCH ×2 (08:47→17:04)
[2020-09-25] MEDS: Z GUARD REMEDY 2 OZ OINT TP SCH ×2 (08:47→20:54)
[2020-09-25] MEDS: THERAHONEY GEL 1.5 OZ TUBE TP SCH (08:47)
[2020-09-25] MEDS: NEUTRA PHOS 1 POWD.PACKET GT SCH ×3 (08:47→17:04)
[2020-09-25] MEDS: MINERAL OIL/PETROL OINT 396 GM JAR TP SCH (08:47)
[2020-09-25] MEDS: VIT B CMPLX 3/FA/VIT C/BIOTIN 1 TAB TABLET GT SCH (08:47)
[2020-09-25] MEDS: PANTOPRAZOLE 40 MG/PACK PACK GT SCH ×2 (08:47→20:54)
[2020-09-25] MEDS: Z GUARD REMEDY 4 OZ OINT TP SCH (08:47)
[2020-09-25] MEDS: HYDROGEN PEROXIDE 480 ML BOTTLE TP SCH ×2 (09:13→19:35)
[2020-09-25] MEDS ORDERED: COVID-19 VACC,MRNA(MODERNA) 100 MCG/0.5 ML IM ONE (10:20)
--- NOTE | 2020-09-25 10:50 | NUR ---
Pt given 2nd dose of Moderna vaccine on the right deltoid. Lot #[id number], exp 05/23/2069. Will continue to monitor for any adverse reactions.
--- NOTE | 2020-09-25 11:47 | NUR ---
Seen and examined by Dr. Espinoza, asked if he would like to have a follow-up Hbg. Dr. Espinoza gave an order for CBC on Wednesday. Patient's made aware of new order.
--- NOTE | 2020-09-25 16:00 | NUR ---
Pt with no adverse reactions to vaccine given. Pt in no acute distress noted. Will continue to monitor and endorse to oncoming nurse
[2020-09-25 20:04] VITALS: BP 151/72
[2020-09-25] MEDS: AMLODIPINE BESYLATE 10 MG TABLET GT SCH (20:54)
[2020-09-25] MEDS: CLONIDINE HCL 0.1MG/24H PTWK 1 EA PATCH TD SCH (20:54)
[2020-09-25] MEDS: MELATONIN 3 MG TABLET GT SCH (21:00)
[2020-09-26] MEDS: NEPRO 1,000 ML BOTTLE GT PRN (00:22)
[2020-09-26] MEDS: IPRATROPIUM NEB FS 0.5 MG/2.5 ML AMPUL.NEB NEB SCH ×5 (01:25→19:38)
[2020-09-26] MEDS: ALBUTEROL FS 2.5 MG/0.5 ML VIAL.NEB NEB SCH ×5 (01:25→19:38)
[2020-09-26] MEDS: POLYVINYL ALCOHOL 15 ML BOTTLE EACHEYE SCH ×4 (05:23→23:49)
[2020-09-26] MEDS: LABETALOL 200 MG GT SCH ×2 (05:23→18:03)
[2020-09-26] MEDS: LEVOTHYROXINE SODIUM 75 MCG TABLET GT SCH (05:23)
[2020-09-26] MEDS: HYDRALAZINE 100 MG GT SCH ×3 (05:23→20:13)
--- NOTE | 2020-09-26 06:58 | NUR ---
Pt with no adverse reactions to vaccine given. Pt in no acute distress noted. Will continue to monitor. Negative Covid 19 test results.
[2020-09-26] MEDS: SUCRALFATE 1 G/10 ML UDC GT SCH ×4 (07:30→21:27)
[2020-09-26] MEDS: HYDROGEN PEROXIDE 480 ML BOTTLE TP SCH ×2 (09:00→19:38)
[2020-09-26] MEDS: DOCUSATE SODIUM LIQ 100 MG/10 ML UDC GT SCH (09:52)
[2020-09-26] MEDS: NEUTRA PHOS 1 POWD.PACKET GT SCH ×3 (09:52→16:43)
[2020-09-26] MEDS: PANTOPRAZOLE 40 MG/PACK PACK GT SCH ×2 (09:52→20:14)
[2020-09-26] MEDS: ZINC SULFATE 220 MG CAPSULE GT SCH (09:52)
[2020-09-26] MEDS: ACIDOPHILUS/BULGARICUS 1 EACH TAB.CHEW GT SCH ×2 (09:52→16:43)
[2020-09-26] MEDS: MINERAL OIL/PETROL OINT 396 GM JAR TP SCH (09:52)
[2020-09-26] MEDS: PROSOURCE / PROSTAT (PYXIS) 30 ML UDC GT SCH ×2 (09:52→16:43)
[2020-09-26] MEDS: VIT B CMPLX 3/FA/VIT C/BIOTIN 1 TAB TABLET GT SCH (09:52)
[2020-09-26] MEDS: THERAHONEY GEL 1.5 OZ TUBE TP SCH (09:53)
[2020-09-26] MEDS: Z GUARD REMEDY 2 OZ OINT TP SCH ×2 (09:53→20:14)
[2020-09-26] MEDS: Z GUARD REMEDY 4 OZ OINT TP SCH (09:53)
[2020-09-26 12:17] VITALS: BP 150/71
[2020-09-26] MEDS: LOSARTAN POTASSIUM 50 MG TABLET GT SCH (16:43)
--- NOTE | 2020-09-26 17:02 | NUR ---
Dr Espinoza ordered to check BMP since pt is on Neutra Phos TID.
--- NOTE | 2020-09-26 19:34 | NUR ---
Pt received Covid vaccine yesterday. No adverse reactions noted this shift.
[2020-09-26 19:38] VITALS: BP 148/67
[2020-09-26] MEDS: AMLODIPINE BESYLATE 10 MG TABLET GT SCH (20:13)
[2020-09-26] MEDS: MELATONIN 3 MG TABLET GT SCH (21:27)
[2020-09-27] MEDS: IPRATROPIUM NEB FS 0.5 MG/2.5 ML AMPUL.NEB NEB SCH ×4 (01:29→19:54)
[2020-09-27] MEDS: ALBUTEROL FS 2.5 MG/0.5 ML VIAL.NEB NEB SCH ×4 (01:29→19:54)
[2020-09-27 01:45] VITALS: BP 136/75
[2020-09-27] MEDS: LEVOTHYROXINE SODIUM 75 MCG TABLET GT SCH (05:19)
[2020-09-27] MEDS: HYDRALAZINE 100 MG GT SCH ×3 (05:19→20:11)
[2020-09-27] MEDS: LABETALOL 200 MG GT SCH ×2 (05:19→17:34)
[2020-09-27] MEDS: POLYVINYL ALCOHOL 15 ML BOTTLE EACHEYE SCH ×4 (05:19→23:39)
[2020-09-27] MEDS: NEPRO 1,000 ML BOTTLE GT PRN ×2 (05:20→23:39)
--- NOTE | 2020-09-27 06:31 | NUR ---
Patient received Covid 19 vaccine 2 days ago. No adverse reactions noted during the shift.
[2020-09-27 06:53] LABS: CALCIUM, SERUM 9.1 mg/dL (8.5-10.1); CREATININE 1.8 mg/dL (0.6-1.3); POTASSIUM 3.3 mmol/L (3.5-5.1)
[2020-09-27] MEDS: SUCRALFATE 1 G/10 ML UDC GT SCH ×4 (07:30→21:14)
[2020-09-27 07:44] VITALS: BP 140/70
[2020-09-27] MEDS: HYDROGEN PEROXIDE 480 ML BOTTLE TP SCH ×2 (08:02→20:36)
--- NOTE | 2020-09-27 08:45 | NUR ---
Seen and examined by Wendy Gan PRINTED CIRCUIT DESIGNER for Dr Gonzalez, gave an order to change duration of weaning SIMV from 7am-2pm to 7am-7pm if Hbg is above 7.5. Endorsed.
--- NOTE | 2020-09-27 09:05 | NUR ---
Reported BMP result to Wendy Gan, no new order given. She suggested to inform [facility] to review lab result since patient's Creat 1.8 and receiving 3x dialysis, will inform [facility].
[2020-09-27] MEDS: ACIDOPHILUS/BULGARICUS 1 EACH TAB.CHEW GT SCH ×2 (09:19→17:29)
[2020-09-27] MEDS: DOCUSATE SODIUM LIQ 100 MG/10 ML UDC GT SCH (09:19)
[2020-09-27] MEDS: LOSARTAN POTASSIUM 50 MG TABLET GT SCH ×2 (09:19→17:29)
[2020-09-27] MEDS: VIT B CMPLX 3/FA/VIT C/BIOTIN 1 TAB TABLET GT SCH (09:20)
[2020-09-27] MEDS: ZINC SULFATE 220 MG CAPSULE GT SCH (09:20)
[2020-09-27] MEDS: Z GUARD REMEDY 4 OZ OINT TP SCH (09:20)
[2020-09-27] MEDS: NEUTRA PHOS 1 POWD.PACKET GT SCH ×3 (09:20→17:29)
[2020-09-27] MEDS: MINERAL OIL/PETROL OINT 396 GM JAR TP SCH (09:20)
[2020-09-27] MEDS: PROSOURCE / PROSTAT (PYXIS) 30 ML UDC GT SCH ×2 (09:20→17:29)
[2020-09-27] MEDS: PANTOPRAZOLE 40 MG/PACK PACK GT SCH ×2 (09:20→20:11)
[2020-09-27] MEDS: Z GUARD REMEDY 2 OZ OINT TP SCH ×2 (09:20→20:11)
[2020-09-27] MEDS: THERAHONEY GEL 1.5 OZ TUBE TP SCH (09:20)
--- NOTE | 2020-09-27 11:09 | NUR ---
Family Invite to IDT: DIPESH emailed the pt.'s , Fay Robbins inviting them to participate in 09/27/20 12:30 pm IDT meeting. DIPESH will follow up accordingly.
--- NOTE | 2020-09-27 11:36 | NUR ---
Seen and examined by Dr. Whatley and made aware of FULLING MILL OPERATOR Wendy Gan's concern that patient receiving dialysis 3x week with creatinine of 1.8. Dr. Whatley said he will review labs and take care of it, meanwhile gave an order for KCL 40 meq due to K+ 3.3. Resident's informed with SSD as tender labor.
[2020-09-27 11:58] VITALS: BP 148/63
[2020-09-27] MEDS ORDERED: POTASSIUM CHLORIDE 20 MEQ POWDER PACKET GT ONE (12:00)
--- NOTE | 2020-09-27 16:01 | NUR ---
INTERDISCIPLINARY PLAN OF CARE CONFERENCE took place today. The patients , Fay Robbins did not participate. Dr. Gonzalez and Interdisciplinary team discussed the plan of care in detail. Current orders as well as treatments and medications were reviewed. See other disciplines IDT notes for further details.
--- NOTE | 2020-09-27 16:17 | NUR ---
Facility Update: notified pt.s family via [employer] text regarding condition in the facility: "SW Facility Update: No [facility] Sub-Acute residents or employees tested positive for COVID-19 this week. As recommended by [facility] Department of Public Health guidelines, Sub-Acute residents & healthcare personnel will continue receiving routine testing. [facility] continues to follow infection control protocols and screen our residents and staff daily for symptoms".
[2020-09-27 19:25] VITALS: BP 155/63
[2020-09-27] MEDS: AMLODIPINE BESYLATE 10 MG TABLET GT SCH (20:11)
[2020-09-27] MEDS: MELATONIN 3 MG TABLET GT SCH (21:14)
[2020-09-28 01:22] VITALS: BP 143/56
[2020-09-28] MEDS: ALBUTEROL FS 2.5 MG/0.5 ML VIAL.NEB NEB SCH ×4 (01:55→19:23)
[2020-09-28] MEDS: IPRATROPIUM NEB FS 0.5 MG/2.5 ML AMPUL.NEB NEB SCH ×4 (01:55→19:23)
[2020-09-28] MEDS: LEVOTHYROXINE SODIUM 75 MCG TABLET GT SCH (05:35)
[2020-09-28] MEDS: POLYVINYL ALCOHOL 15 ML BOTTLE EACHEYE SCH ×4 (05:35→23:59)
[2020-09-28] MEDS: LABETALOL 200 MG GT SCH ×2 (05:35→17:27)
[2020-09-28] MEDS: HYDRALAZINE 100 MG GT SCH ×3 (05:35→20:22)
[2020-09-28] MEDS: SUCRALFATE 1 G/10 ML UDC GT SCH ×4 (07:30→21:11)
[2020-09-28] MEDS: HYDROGEN PEROXIDE 480 ML BOTTLE TP SCH ×2 (08:04→19:23)
[2020-09-28] MEDS: THERAHONEY GEL 1.5 OZ TUBE TP SCH (08:58)
[2020-09-28] MEDS: VIT B CMPLX 3/FA/VIT C/BIOTIN 1 TAB TABLET GT SCH (08:58)
[2020-09-28] MEDS: PANTOPRAZOLE 40 MG/PACK PACK GT SCH ×2 (08:58→20:22)
[2020-09-28] MEDS: PROSOURCE / PROSTAT (PYXIS) 30 ML UDC GT SCH ×2 (08:58→17:26)
[2020-09-28] MEDS: Z GUARD REMEDY 2 OZ OINT TP SCH ×2 (08:58→20:22)
[2020-09-28] MEDS: ZINC SULFATE 220 MG CAPSULE GT SCH (08:58)
[2020-09-28] MEDS: NEUTRA PHOS 1 POWD.PACKET GT SCH ×3 (08:58→17:26)
[2020-09-28] MEDS: Z GUARD REMEDY 4 OZ OINT TP SCH (08:58)
[2020-09-28] MEDS: DOCUSATE SODIUM LIQ 100 MG/10 ML UDC GT SCH (08:58)
[2020-09-28] MEDS: MINERAL OIL/PETROL OINT 396 GM JAR TP SCH (08:58)
[2020-09-28] MEDS: ACIDOPHILUS/BULGARICUS 1 EACH TAB.CHEW GT SCH ×2 (08:58→17:26)
[2020-09-28] MEDS: LOSARTAN POTASSIUM 50 MG TABLET GT SCH (17:26)
--- NOTE | 2020-09-28 18:47 | NUR ---
Pt with no adverse reactions noted. Pt's VSS. Will continue to monitor and endorse to oncoming nurse.
[2020-09-28 18:57] VITALS: BP 119/68
[2020-09-28 20:06] VITALS: BP 165/71
[2020-09-28] MEDS: AMLODIPINE BESYLATE 10 MG TABLET GT SCH (20:22)
[2020-09-28] MEDS: MELATONIN 3 MG TABLET GT SCH (21:11)
[2020-09-29 00:10] VITALS: BP 147/64
[2020-09-29] MEDS: IPRATROPIUM NEB FS 0.5 MG/2.5 ML AMPUL.NEB NEB SCH ×4 (02:09→19:50)
[2020-09-29] MEDS: ALBUTEROL FS 2.5 MG/0.5 ML VIAL.NEB NEB SCH ×4 (02:09→19:50)
[2020-09-29] MEDS: NEPRO 1,000 ML BOTTLE GT PRN (05:04)
[2020-09-29] MEDS: LEVOTHYROXINE SODIUM 75 MCG TABLET GT SCH (05:04)
[2020-09-29] MEDS: LABETALOL 200 MG GT SCH ×2 (05:04→18:24)
[2020-09-29] MEDS: POLYVINYL ALCOHOL 15 ML BOTTLE EACHEYE SCH ×3 (05:04→17:29)
[2020-09-29] MEDS: HYDRALAZINE 100 MG GT SCH ×3 (05:04→20:46)
[2020-09-29] MEDS: SIMETHICONE SUSP 40 MG/0.6 ML BOTTLE GT PRN (05:04)
[2020-09-29] MEDS: SUCRALFATE 1 G/10 ML UDC GT SCH ×4 (07:30→21:54)
[2020-09-29 07:49] VITALS: BP 150/64
[2020-09-29] MEDS: HYDROGEN PEROXIDE 480 ML BOTTLE TP SCH ×2 (08:40→19:50)
[2020-09-29] MEDS: DOCUSATE SODIUM LIQ 100 MG/10 ML UDC GT SCH (09:09)
[2020-09-29] MEDS: ACIDOPHILUS/BULGARICUS 1 EACH TAB.CHEW GT SCH ×2 (09:10→17:29)
[2020-09-29] MEDS: NEUTRA PHOS 1 POWD.PACKET GT SCH ×3 (09:10→17:29)
[2020-09-29] MEDS: ZINC SULFATE 220 MG CAPSULE GT SCH (09:10)
[2020-09-29] MEDS: PANTOPRAZOLE 40 MG/PACK PACK GT SCH ×2 (09:10→20:48)
[2020-09-29] MEDS: PROSOURCE / PROSTAT (PYXIS) 30 ML UDC GT SCH ×2 (09:10→17:29)
[2020-09-29] MEDS: LOSARTAN POTASSIUM 50 MG TABLET GT SCH ×2 (09:10→17:29)
[2020-09-29] MEDS: VIT B CMPLX 3/FA/VIT C/BIOTIN 1 TAB TABLET GT SCH (09:10)
[2020-09-29] MEDS: MINERAL OIL/PETROL OINT 396 GM JAR TP SCH (09:11)
[2020-09-29] MEDS: Z GUARD REMEDY 4 OZ OINT TP SCH (09:11)
[2020-09-29] MEDS: THERAHONEY GEL 1.5 OZ TUBE TP SCH (09:11)
[2020-09-29] MEDS: Z GUARD REMEDY 2 OZ OINT TP SCH ×2 (09:11→20:48)
[2020-09-29] MEDS: AMLODIPINE BESYLATE 10 MG TABLET GT SCH (20:47)
[2020-09-29 20:54] VITALS: BP 141/74
[2020-09-29] MEDS: MELATONIN 3 MG TABLET GT SCH (21:54)
[2020-09-30] MEDS: POLYVINYL ALCOHOL 15 ML BOTTLE EACHEYE SCH ×4 (00:22→17:51)
[2020-09-30] MEDS: IPRATROPIUM NEB FS 0.5 MG/2.5 ML AMPUL.NEB NEB SCH ×4 (01:39→20:18)
[2020-09-30] MEDS: ALBUTEROL FS 2.5 MG/0.5 ML VIAL.NEB NEB SCH ×4 (01:39→20:18)
[2020-09-30] MEDS: NEPRO 1,000 ML BOTTLE GT PRN (03:43)
[2020-09-30] MEDS: HYDRALAZINE 100 MG GT SCH ×3 (05:31→21:00)
[2020-09-30] MEDS: LEVOTHYROXINE SODIUM 75 MCG TABLET GT SCH (05:32)
[2020-09-30] MEDS: LABETALOL 200 MG GT SCH ×2 (05:32→18:11)
[2020-09-30 06:31] LABS: BASOPHILS # (AUTO) 0.1 /CMM (0.0-0.2); EOSINOPHILS % (AUTO) 1.1 % (0.0-6.0); LYMPHOCYTES # (AUTO) 0.9 /CMM (0.8-4.8); LYMPHOCYTES % (AUTO) 10.9 % (20.0-44.0); MEAN CORPUSCULAR HGB CONC 33 g/dl (31.0-36.0); MEAN CORPUSCULAR VOLUME 88 fL (80-96); MONOCYTES # (AUTO) 0.8 /CMM (0.1-1.30); MONOCYTES % (AUTO) 9.2 % (2.0-12.0); NEUTROPHILS # (AUTO) 6.5 /CMM (1.8-8.9); NEUTROPHILS % (AUTO) 77.8 % (43.0-81.0); PLATELET COUNT (AUTO) 208 /CMM (150-450); RED BLOOD CELL COUNT(AUTO) 2.07 MIL/uL (4.5-6.0); WHITE BLOOD COUNT (AUTO) 8.4 K/uL (4.3-11.0)
[2020-09-30 06:42] LABS: HEMATOCRIT 18 % (39-51); HEMOGLOBIN 6.1 g/dL (13.5-17.5)
[2020-09-30 06:56] LABS: PHOSPHORUS 3.8 mg/dL (2.5-4.9)
[2020-09-30 07:06] LABS: THYROID STIMULATING HORMONE 5.192 uIU/mL (0.358-3.74)
[2020-09-30] MEDS: SUCRALFATE 1 G/10 ML UDC GT SCH ×4 (07:30→22:01)
[2020-09-30] MEDS: HYDROGEN PEROXIDE 480 ML BOTTLE TP SCH ×2 (08:05→21:00)
--- NOTE | 2020-09-30 08:45 | NUR ---
Notified Dr Espinoza that pt's Hgb 6.1 Hct 18. He ordered to transfuse 1 unit of PRBC. He said he will see pt today.
[2020-09-30] MEDS: VIT B CMPLX 3/FA/VIT C/BIOTIN 1 TAB TABLET GT SCH (09:00)
[2020-09-30] MEDS: ACIDOPHILUS/BULGARICUS 1 EACH TAB.CHEW GT SCH ×2 (09:00→17:48)
[2020-09-30] MEDS: Z GUARD REMEDY 4 OZ OINT TP SCH (09:00)
[2020-09-30] MEDS: PANTOPRAZOLE 40 MG/PACK PACK GT SCH ×2 (09:00→21:00)
[2020-09-30] MEDS: PROSOURCE / PROSTAT (PYXIS) 30 ML UDC GT SCH ×2 (09:00→17:51)
[2020-09-30] MEDS: NEUTRA PHOS 1 POWD.PACKET GT SCH ×3 (09:00→17:51)
[2020-09-30] MEDS: ZINC SULFATE 220 MG CAPSULE GT SCH (09:00)
[2020-09-30] MEDS: Z GUARD REMEDY 2 OZ OINT TP SCH ×2 (09:00→21:00)
[2020-09-30] MEDS: MINERAL OIL/PETROL OINT 396 GM JAR TP SCH (09:00)
[2020-09-30] MEDS: DOCUSATE SODIUM LIQ 100 MG/10 ML UDC GT SCH (09:00)
[2020-09-30] MEDS: LOSARTAN POTASSIUM 50 MG TABLET GT SCH ×2 (09:00→17:48)
[2020-09-30] MEDS: THERAHONEY GEL 1.5 OZ TUBE TP SCH (09:00)
[2020-09-30 10:04] LABS: IRON, SERUM 33 ug/dl (50-175); TOTAL IRON BINDING CAPACITY 157 ug/dl (250-450)
--- NOTE | 2020-09-30 10:41 | NUR ---
Seen by Dr Espinoza. He ordered to increase Synthroid from 75 to 100 mcg GT daily. He said he will speak with Dr Feliciano (hematology) to follow pt.
[2020-09-30 10:50] LABS: BAND % (MANUAL) 4 % (0.0-5.0); LYMPHOCYTES % (MANUAL) 8 % (16-48); MONOCYTES % (MANUAL) 6 % (0-11.0); NEUTROPHILS % (MANUAL) 82 (42-76)
[2020-09-30 12:17] VITALS: BP 153/68
[2020-09-30 12:53] VITALS: BP 142/59
[2020-09-30 13:14] VITALS: BP 137/61
--- NOTE | 2020-09-30 13:15 | NUR ---
Started transfusing 1 unit PRBC at 1259 via peripheral line G 20 on right hand. Vital signs checked prior to blood transfusion. T 98.7 BP 142/59 P 72 R 18 O2 sat 100%. No adverse reactions noted.
[2020-09-30 14:00] VITALS: BP 135/59
[2020-09-30 16:15] VITALS: BP 143/60
--- NOTE | 2020-09-30 16:15 | NUR ---
Transfused 1 unit of PRBC. Pt tolerated well. No adverse reactions noted.
[2020-09-30 19:44] LABS: HEMOGLOBIN 7.2 g/dL (13.5-17.5)
[2020-09-30 19:56] VITALS: BP 145/64
[2020-09-30] MEDS: AMLODIPINE BESYLATE 10 MG TABLET GT SCH (21:00)
[2020-09-30] MEDS: MELATONIN 3 MG TABLET GT SCH (22:01)
[2020-10-01] MEDS: POLYVINYL ALCOHOL 15 ML BOTTLE EACHEYE SCH ×4 (00:38→17:57)
[2020-10-01] MEDS: IPRATROPIUM NEB FS 0.5 MG/2.5 ML AMPUL.NEB NEB SCH ×4 (01:51→19:44)
[2020-10-01] MEDS: ALBUTEROL FS 2.5 MG/0.5 ML VIAL.NEB NEB SCH ×4 (01:51→19:44)
[2020-10-01 01:53] VITALS: BP 145/63
[2020-10-01] MEDS: LEVOTHYROXINE SODIUM 100 MCG TABLET GT SCH (05:26)
[2020-10-01] MEDS: LABETALOL 200 MG GT SCH ×2 (05:26→18:12)
[2020-10-01] MEDS: HYDRALAZINE 100 MG GT SCH ×3 (05:26→20:40)
[2020-10-01] MEDS: NEPRO 1,000 ML BOTTLE GT PRN (05:44)
[2020-10-01 06:57] LABS: BASOPHILS # (AUTO) 0.1 /CMM (0.0-0.2); BASOPHILS % (AUTO) 0.8 % (0.0-2.0); EOSINOPHILS % (AUTO) 1.6 % (0.0-6.0); HEMATOCRIT 21 % (39-51); HEMOGLOBIN 7.2 g/dL (13.5-17.5); LYMPHOCYTES # (AUTO) 0.7 /CMM (0.8-4.8); LYMPHOCYTES % (AUTO) 8.1 % (20.0-44.0); MEAN CORPUSCULAR HGB CONC 34 g/dl (31.0-36.0); MEAN CORPUSCULAR VOLUME 87 fL (80-96); MONOCYTES # (AUTO) 0.7 /CMM (0.1-1.30); NEUTROPHILS # (AUTO) 6.9 /CMM (1.8-8.9); NEUTROPHILS % (AUTO) 81.5 % (43.0-81.0); PLATELET COUNT (AUTO) 206 /CMM (150-450); RED BLOOD CELL COUNT(AUTO) 2.46 MIL/uL (4.5-6.0); WHITE BLOOD COUNT (AUTO) 8.5 K/uL (4.3-11.0)
[2020-10-01] MEDS: SUCRALFATE 1 G/10 ML UDC GT SCH ×4 (07:30→21:59)
[2020-10-01 08:00] VITALS: BP 150/76
[2020-10-01] MEDS: HYDROGEN PEROXIDE 480 ML BOTTLE TP SCH ×2 (08:05→21:46)
[2020-10-01] MEDS: DOCUSATE SODIUM LIQ 100 MG/10 ML UDC GT SCH (09:00)
[2020-10-01] MEDS: NEUTRA PHOS 1 POWD.PACKET GT SCH ×3 (09:00→17:57)
[2020-10-01] MEDS: PROSOURCE / PROSTAT (PYXIS) 30 ML UDC GT SCH ×2 (09:00→17:57)
[2020-10-01] MEDS: ZINC SULFATE 220 MG CAPSULE GT SCH (09:00)
[2020-10-01] MEDS: Z GUARD REMEDY 4 OZ OINT TP SCH (09:00)
[2020-10-01] MEDS: VIT B CMPLX 3/FA/VIT C/BIOTIN 1 TAB TABLET GT SCH (09:00)
[2020-10-01] MEDS: Z GUARD REMEDY 2 OZ OINT TP SCH ×2 (09:00→20:41)
[2020-10-01] MEDS: ACIDOPHILUS/BULGARICUS 1 EACH TAB.CHEW GT SCH ×2 (09:00→17:57)
[2020-10-01] MEDS: PANTOPRAZOLE 40 MG/PACK PACK GT SCH ×2 (09:00→20:41)
[2020-10-01] MEDS: MINERAL OIL/PETROL OINT 396 GM JAR TP SCH (09:00)
[2020-10-01] MEDS: THERAHONEY GEL 1.5 OZ TUBE TP SCH (09:00)
--- NOTE | 2020-10-01 10:09 | NUR ---
Called [facility] and spoke with Kesha. Asked her if pt is getting any Epogen or Mircera at [facility]. She said pt receives Venofer 100 mg every week and Mircera 225 mcg every other week. Notified Dr Espinoza and JESSICA Gan.
--- NOTE | 2020-10-01 11:05 | NUR ---
JESSICA Gan ordered to do stool OB.
--- NOTE | 2020-10-01 12:05 | NUR ---
Received recommendations from [facility] to DC zinc sulfate to avoid oversupplementation and to decrease Neutra Phos packet from TID to BID based on pt's lab results. Notified Dr Espinoza and he ordered to do the recommendations.
[2020-10-01] MEDS: LOSARTAN POTASSIUM 50 MG TABLET GT SCH (17:56)
[2020-10-01] MEDS: AMLODIPINE BESYLATE 10 MG TABLET GT SCH (20:41)
[2020-10-01 21:12] VITALS: BP 150/72
[2020-10-01] MEDS: MELATONIN 3 MG TABLET GT SCH (21:59)
[2020-10-02] MEDS: POLYVINYL ALCOHOL 15 ML BOTTLE EACHEYE SCH ×4 (00:13→18:44)
[2020-10-02] MEDS: IPRATROPIUM NEB FS 0.5 MG/2.5 ML AMPUL.NEB NEB SCH ×4 (01:25→19:36)
[2020-10-02] MEDS: ALBUTEROL FS 2.5 MG/0.5 ML VIAL.NEB NEB SCH ×4 (01:25→19:36)
[2020-10-02 02:06] VITALS: BP 169/69
[2020-10-02] MEDS: LEVOTHYROXINE SODIUM 100 MCG TABLET GT SCH (05:35)
[2020-10-02] MEDS: HYDRALAZINE 100 MG GT SCH ×3 (05:35→21:02)
[2020-10-02] MEDS: LABETALOL 200 MG GT SCH ×2 (05:35→18:44)
[2020-10-02] MEDS: NEPRO 1,000 ML BOTTLE GT PRN (06:53)
[2020-10-02 07:07] LABS: *SPE A/G RATIO 0.5 (0.7-1.7); *SPE ALBUMIN 2.4 g/dL (2.9-4.4); *SPE ALPHA-1-GLOBULIN 0.4 g/dL (0.0-0.4); *SPE ALPHA-2-GLOBULIN 0.8 g/dL (0.4-1.0); *SPE GLOBULIN, TOTAL 5.1 g/dL (2.2-3.9); *SPE M-SPIKE Not Observed g/dL (Not Observed); *SPEGAMMA GLOBULIN 2.9 g/dL (0.4-1.8)
[2020-10-02] MEDS: SUCRALFATE 1 G/10 ML UDC GT SCH ×4 (07:30→21:26)
[2020-10-02 08:06] LABS: IMMUNOGLOBULIN A, SERUM 369 mg/dL (90-386); IMMUNOGLOBULIN G, SERUM 3090 mg/dL (603-1613); IMMUNOGLOBULIN M, SERUM 100 mg/dL (20-172)
[2020-10-02] MEDS: HYDROGEN PEROXIDE 480 ML BOTTLE TP SCH ×2 (08:55→19:36)
[2020-10-02] MEDS: PANTOPRAZOLE 40 MG/PACK PACK GT SCH ×2 (09:58→21:03)
[2020-10-02] MEDS: PROSOURCE / PROSTAT (PYXIS) 30 ML UDC GT SCH ×2 (09:58→17:34)
[2020-10-02] MEDS: MINERAL OIL/PETROL OINT 396 GM JAR TP SCH (09:58)
[2020-10-02] MEDS: VIT B CMPLX 3/FA/VIT C/BIOTIN 1 TAB TABLET GT SCH (09:58)
[2020-10-02] MEDS: DOCUSATE SODIUM LIQ 100 MG/10 ML UDC GT SCH (09:58)
[2020-10-02] MEDS: NEUTRA PHOS 1 POWD.PACKET GT SCH ×2 (09:58→17:34)
[2020-10-02] MEDS: LOSARTAN POTASSIUM 50 MG TABLET GT SCH ×2 (09:58→17:34)
[2020-10-02] MEDS: ACIDOPHILUS/BULGARICUS 1 EACH TAB.CHEW GT SCH ×2 (09:58→17:34)
[2020-10-02] MEDS: THERAHONEY GEL 1.5 OZ TUBE TP SCH (09:59)
[2020-10-02] MEDS: Z GUARD REMEDY 4 OZ OINT TP SCH (09:59)
[2020-10-02] MEDS: Z GUARD REMEDY 2 OZ OINT TP SCH ×2 (09:59→21:09)
[2020-10-02 20:00] VITALS: BP 164/82
[2020-10-02] MEDS: CLONIDINE HCL 0.1MG/24H PTWK 1 EA PATCH TD SCH (21:00)
[2020-10-02] MEDS: AMLODIPINE BESYLATE 10 MG TABLET GT SCH (21:03)
[2020-10-02] MEDS: MELATONIN 3 MG TABLET GT SCH (21:26)
[2020-10-03] VITALS (7 sets, daily range): BP systolic 138–159; BP diastolic 43–70
[2020-10-03] MEDS: POLYVINYL ALCOHOL 15 ML BOTTLE EACHEYE SCH ×5 (00:17→23:50)
--- NOTE | 2020-10-03 01:00 | NUR ---
STOOL OB Had bowel movement, stool collected and send to lab.
[2020-10-03] MEDS: ALBUTEROL FS 2.5 MG/0.5 ML VIAL.NEB NEB SCH ×4 (01:36→19:47)
[2020-10-03] MEDS: IPRATROPIUM NEB FS 0.5 MG/2.5 ML AMPUL.NEB NEB SCH ×4 (01:36→19:47)
[2020-10-03] MEDS: NEPRO 1,000 ML BOTTLE GT PRN (02:13)
[2020-10-03 05:18] LABS: OCCULT BLOOD STOOL POSITIVE (NEGATIVE)
[2020-10-03] MEDS: HYDRALAZINE 100 MG GT SCH ×3 (05:18→20:56)
[2020-10-03] MEDS: LABETALOL 200 MG GT SCH ×2 (05:18→17:43)
[2020-10-03] MEDS: LEVOTHYROXINE SODIUM 100 MCG TABLET GT SCH (05:19)
--- NOTE | 2020-10-03 06:04 | NUR ---
STOOL OB Stool OB resulted positive, will endorse to oncoming RN.
[2020-10-03] MEDS: HYDROGEN PEROXIDE 480 ML BOTTLE TP SCH ×2 (08:08→19:47)
[2020-10-03] MEDS: MINERAL OIL/PETROL OINT 396 GM JAR TP SCH (08:27)
[2020-10-03] MEDS: ACIDOPHILUS/BULGARICUS 1 EACH TAB.CHEW GT SCH ×2 (08:27→17:43)
[2020-10-03] MEDS: DOCUSATE SODIUM LIQ 100 MG/10 ML UDC GT SCH (08:27)
[2020-10-03] MEDS: PANTOPRAZOLE 40 MG/PACK PACK GT SCH ×2 (08:27→20:57)
[2020-10-03] MEDS: Z GUARD REMEDY 4 OZ OINT TP SCH (08:27)
[2020-10-03] MEDS: Z GUARD REMEDY 2 OZ OINT TP SCH ×2 (08:27→20:57)
[2020-10-03] MEDS: PROSOURCE / PROSTAT (PYXIS) 30 ML UDC GT SCH ×2 (08:27→17:43)
[2020-10-03] MEDS: NEUTRA PHOS 1 POWD.PACKET GT SCH ×2 (08:27→17:43)
[2020-10-03] MEDS: VIT B CMPLX 3/FA/VIT C/BIOTIN 1 TAB TABLET GT SCH (08:27)
[2020-10-03] MEDS: SUCRALFATE 1 G/10 ML UDC GT SCH ×4 (08:27→21:09)
[2020-10-03] MEDS: THERAHONEY GEL 1.5 OZ TUBE TP SCH (08:28)
--- NOTE | 2020-10-03 11:00 | NUR ---
Left message for Dr Espinoza that stool OB is positive. Pt currently on Protonix 40 mg q 12 hours. Seen by JESSICA Gan. Also informed her of positive stool OB.
--- NOTE | 2020-10-03 12:27 | NUR ---
Left message for Dr Mccall (GI) to see pt for positive stool OB.
--- NOTE | 2020-10-03 12:53 | NUR ---
Dr Mccall said he will see pt.
--- NOTE | 2020-10-03 15:51 | NUR ---
Asked Dr Gonzalez if pt may be given the Pneumococcal vaccine. He said to give Pneumococcal vaccine 23 after completion of the Covid-19 vaccine.
--- NOTE | 2020-10-03 16:44 | NUR ---
Seen by Dr Mccall. Pt on Protonix 40 mg GT q 12 hours. He said to take a picture of the pt's stool so he can see it. No new order at this time.
[2020-10-03] MEDS: LOSARTAN POTASSIUM 50 MG TABLET GT SCH (17:43)
[2020-10-03 19:42] LABS: BASOPHILS # (AUTO) 0.1 /CMM (0.0-0.2); EOSINOPHILS % (AUTO) 0.9 % (0.0-6.0); NEUTROPHILS # (AUTO) 5.1 /CMM (1.8-8.9); RED BLOOD CELL COUNT(AUTO) 2.29 MIL/uL (4.5-6.0); WHITE BLOOD COUNT (AUTO) 6.5 K/uL (4.3-11.0)
[2020-10-03 19:46] LABS: BASOPHILS % (AUTO) 1.3 % (0.0-2.0); LYMPHOCYTES # (AUTO) 0.6 /CMM (0.8-4.8); LYMPHOCYTES % (AUTO) 8.6 % (20.0-44.0); MEAN CORPUSCULAR HGB CONC 33 g/dl (31.0-36.0); MEAN CORPUSCULAR VOLUME 86 fL (80-96); MONOCYTES # (AUTO) 0.7 /CMM (0.1-1.30); MONOCYTES % (AUTO) 11.3 % (2.0-12.0); NEUTROPHILS % (AUTO) 77.9 % (43.0-81.0); PLATELET COUNT (AUTO) 226 /CMM (150-450)
[2020-10-03 19:49] LABS: HEMATOCRIT 20 % (39-51); HEMOGLOBIN 6.5 g/dL (13.5-17.5)
--- NOTE | 2020-10-03 20:20 | NUR ---
Patient Hgb 6.5 Hct 20 notified and order to transfuse PRBC 1 unit,Type and screen.Obtained consent. Fay ()given consent for blood transfusion via medicare biller Geovanna Espinoza CNA and witnessed by 2 licensed nurse.
[2020-10-03 20:36] LABS: BAND % (MANUAL) 3 % (0.0-5.0); EOSINOPHILS % (MANUAL) 4 % (0-4); LYMPHOCYTES % (MANUAL) 12 % (16-48); MONOCYTES % (MANUAL) 5 % (0-11.0); NEUTROPHILS % (MANUAL) 76 (42-76)
[2020-10-03] MEDS: AMLODIPINE BESYLATE 10 MG TABLET GT SCH (20:56)
[2020-10-03] MEDS: MELATONIN 3 MG TABLET GT SCH (21:09)
--- NOTE | 2020-10-03 21:33 | NUR ---
Started blood transfusion right upper arm peripheral line #20 .Bp 140/47,Temp 98.3 RR 18 O2 sats 100%. Will monitor closely.
--- NOTE | 2020-10-03 21:52 | NUR ---
Patient sleeping vital signs stable. No adverse reactions noted.Will continue to monitor.
[2020-10-04 00:05] VITALS: BP 154/51
--- NOTE | 2020-10-04 00:19 | NUR ---
Blood transfusion completed. Bp 154/51 HR 79 Temp 98.1 RR 18. Patient awake and stable no adverse reaction noted at this time. Will monitor.
[2020-10-04] MEDS: IPRATROPIUM NEB FS 0.5 MG/2.5 ML AMPUL.NEB NEB SCH ×4 (01:33→20:11)
[2020-10-04] MEDS: ALBUTEROL FS 2.5 MG/0.5 ML VIAL.NEB NEB SCH ×4 (01:33→20:11)
[2020-10-04] MEDS: LEVOTHYROXINE SODIUM 100 MCG TABLET GT SCH (05:20)
[2020-10-04] MEDS: HYDRALAZINE 100 MG GT SCH ×3 (05:20→20:25)
[2020-10-04] MEDS: POLYVINYL ALCOHOL 15 ML BOTTLE EACHEYE SCH ×4 (05:20→23:13)
[2020-10-04] MEDS: NEPRO 1,000 ML BOTTLE GT PRN (05:20)
[2020-10-04] MEDS: LABETALOL 200 MG GT SCH ×2 (05:20→18:12)
[2020-10-04] MEDS: SIMETHICONE SUSP 40 MG/0.6 ML BOTTLE GT PRN (05:20)
[2020-10-04] MEDS: SUCRALFATE 1 G/10 ML UDC GT SCH ×4 (07:30→21:22)
[2020-10-04 08:00] VITALS: BP 132/88
[2020-10-04] MEDS: HYDROGEN PEROXIDE 480 ML BOTTLE TP SCH ×2 (08:42→20:11)
[2020-10-04] MEDS: DOCUSATE SODIUM LIQ 100 MG/10 ML UDC GT SCH (09:19)
[2020-10-04] MEDS: ACIDOPHILUS/BULGARICUS 1 EACH TAB.CHEW GT SCH ×2 (09:20→17:00)
[2020-10-04] MEDS: LOSARTAN POTASSIUM 50 MG TABLET GT SCH ×2 (09:20→17:00)
[2020-10-04] MEDS: NEUTRA PHOS 1 POWD.PACKET GT SCH ×2 (09:22→17:00)
[2020-10-04] MEDS: PROSOURCE / PROSTAT (PYXIS) 30 ML UDC GT SCH ×2 (09:22→17:00)
[2020-10-04] MEDS: PANTOPRAZOLE 40 MG/PACK PACK GT SCH ×2 (09:22→20:25)
[2020-10-04] MEDS: VIT B CMPLX 3/FA/VIT C/BIOTIN 1 TAB TABLET GT SCH (09:22)
--- NOTE | 2020-10-04 09:22 | NUR ---
Facility Update: DIPESH notified pt.'s family that : "No [facility] residents or employees tested positive for COVID-19 this week. As recommended by [facility], all Sub-Acute residents & healthcare personnel will continue receiving routine testing. [facility] continues to follow infection control protocols and screen our residents and staff daily for symptoms" via email.
[2020-10-04] MEDS: Z GUARD REMEDY 2 OZ OINT TP SCH ×2 (09:23→20:25)
[2020-10-04] MEDS: MINERAL OIL/PETROL OINT 396 GM JAR TP SCH (09:23)
[2020-10-04] MEDS: Z GUARD REMEDY 4 OZ OINT TP SCH (09:24)
[2020-10-04] MEDS: THERAHONEY GEL 1.5 OZ TUBE TP SCH (09:24)
[2020-10-04 12:24] VITALS: BP 132/88
[2020-10-04 19:42] VITALS: BP 142/78
[2020-10-04] MEDS: AMLODIPINE BESYLATE 10 MG TABLET GT SCH (20:25)
[2020-10-04] MEDS: MELATONIN 3 MG TABLET GT SCH (21:22)
[2020-10-05 01:01] VITALS: BP 139/57
[2020-10-05] MEDS: ALBUTEROL FS 2.5 MG/0.5 ML VIAL.NEB NEB SCH ×4 (02:05→20:25)
[2020-10-05] MEDS: IPRATROPIUM NEB FS 0.5 MG/2.5 ML AMPUL.NEB NEB SCH ×4 (02:05→20:25)
[2020-10-05] MEDS: HYDRALAZINE 100 MG GT SCH ×3 (05:30→20:57)
[2020-10-05] MEDS: NEPRO 1,000 ML BOTTLE GT PRN (05:30)
[2020-10-05] MEDS: LEVOTHYROXINE SODIUM 100 MCG TABLET GT SCH (05:30)
[2020-10-05] MEDS: LABETALOL 200 MG GT SCH ×2 (05:30→17:51)
[2020-10-05] MEDS: POLYVINYL ALCOHOL 15 ML BOTTLE EACHEYE SCH ×3 (05:30→17:50)
[2020-10-05 06:40] LABS: BASOPHILS # (AUTO) 0.1 /CMM (0.0-0.2); BASOPHILS % (AUTO) 1.1 % (0.0-2.0); EOSINOPHILS % (AUTO) 1.3 % (0.0-6.0); HEMATOCRIT 24 % (39-51); HEMOGLOBIN 7.9 g/dL (13.5-17.5); LYMPHOCYTES # (AUTO) 0.6 /CMM (0.8-4.8); LYMPHOCYTES % (AUTO) 8.4 % (20.0-44.0); MEAN CORPUSCULAR HGB CONC 33 g/dl (31.0-36.0); MEAN CORPUSCULAR VOLUME 87 fL (80-96); MONOCYTES # (AUTO) 0.7 /CMM (0.1-1.30); MONOCYTES % (AUTO) 9.1 % (2.0-12.0); NEUTROPHILS # (AUTO) 6.1 /CMM (1.8-8.9); NEUTROPHILS % (AUTO) 80.1 % (43.0-81.0); PLATELET COUNT (AUTO) 235 /CMM (150-450); RED BLOOD CELL COUNT(AUTO) 2.75 MIL/uL (4.5-6.0); WHITE BLOOD COUNT (AUTO) 7.6 K/uL (4.3-11.0)
[2020-10-05] MEDS: SUCRALFATE 1 G/10 ML UDC GT SCH ×4 (07:30→21:08)
[2020-10-05 07:43] VITALS: BP 166/74
[2020-10-05] MEDS: HYDROGEN PEROXIDE 480 ML BOTTLE TP SCH ×2 (08:17→21:15)
[2020-10-05] MEDS: DOCUSATE SODIUM LIQ 100 MG/10 ML UDC GT SCH (08:33)
[2020-10-05] MEDS: ACIDOPHILUS/BULGARICUS 1 EACH TAB.CHEW GT SCH ×2 (08:33→16:18)
[2020-10-05] MEDS: VIT B CMPLX 3/FA/VIT C/BIOTIN 1 TAB TABLET GT SCH (08:34)
[2020-10-05] MEDS: PROSOURCE / PROSTAT (PYXIS) 30 ML UDC GT SCH ×2 (08:35→16:18)
[2020-10-05] MEDS: PANTOPRAZOLE 40 MG/PACK PACK GT SCH ×2 (08:35→20:58)
[2020-10-05] MEDS: NEUTRA PHOS 1 POWD.PACKET GT SCH ×2 (08:36→16:18)
[2020-10-05] MEDS: MINERAL OIL/PETROL OINT 396 GM JAR TP SCH (08:36)
[2020-10-05] MEDS: Z GUARD REMEDY 4 OZ OINT TP SCH (09:00)
[2020-10-05] MEDS: Z GUARD REMEDY 2 OZ OINT TP SCH ×2 (09:00→20:58)
[2020-10-05] MEDS: THERAHONEY GEL 1.5 OZ TUBE TP SCH (09:00)
[2020-10-05] MEDS: HYDROGEL DRESSING 90 GM TUBE TP SCH ×2 (09:00→20:58)
[2020-10-05] MEDS: LOSARTAN POTASSIUM 50 MG TABLET GT SCH (17:48)
[2020-10-05 20:42] VITALS: BP 129/57
[2020-10-05] MEDS: AMLODIPINE BESYLATE 10 MG TABLET GT SCH (20:58)
[2020-10-05] MEDS: TRIAMCINOLONE ACETONIDE 0.1% CR 15 GM TUBE TP SCH (20:58)
[2020-10-05] MEDS: MELATONIN 3 MG TABLET GT SCH (21:08)
[2020-10-06] MEDS: POLYVINYL ALCOHOL 15 ML BOTTLE EACHEYE SCH ×4 (00:43→18:22)
[2020-10-06] MEDS: ALBUTEROL FS 2.5 MG/0.5 ML VIAL.NEB NEB SCH ×4 (02:01→20:37)
[2020-10-06] MEDS: IPRATROPIUM NEB FS 0.5 MG/2.5 ML AMPUL.NEB NEB SCH ×4 (02:01→20:37)
[2020-10-06] MEDS: LABETALOL 200 MG GT SCH ×2 (05:45→18:22)
[2020-10-06] MEDS: HYDRALAZINE 100 MG GT SCH ×3 (05:45→20:44)
[2020-10-06] MEDS: LEVOTHYROXINE SODIUM 100 MCG TABLET GT SCH (05:46)
[2020-10-06] MEDS: NEPRO 1,000 ML BOTTLE GT PRN (06:35)
[2020-10-06 07:45] VITALS: BP 144/37
[2020-10-06] MEDS: SUCRALFATE 1 G/10 ML UDC GT SCH ×4 (08:24→21:18)
[2020-10-06] MEDS: HYDROGEN PEROXIDE 480 ML BOTTLE TP SCH ×2 (08:54→20:38)
[2020-10-06] MEDS: TRIAMCINOLONE ACETONIDE 0.1% CR 15 GM TUBE TP SCH ×2 (09:00→20:45)
[2020-10-06] MEDS: HYDROGEL DRESSING 90 GM TUBE TP SCH ×2 (09:00→20:45)
[2020-10-06] MEDS: NEUTRA PHOS 1 POWD.PACKET GT SCH ×2 (09:25→17:23)
[2020-10-06] MEDS: DOCUSATE SODIUM LIQ 100 MG/10 ML UDC GT SCH (09:25)
[2020-10-06] MEDS: PANTOPRAZOLE 40 MG/PACK PACK GT SCH ×2 (09:25→20:45)
[2020-10-06] MEDS: MINERAL OIL/PETROL OINT 396 GM JAR TP SCH (09:25)
[2020-10-06] MEDS: LOSARTAN POTASSIUM 50 MG TABLET GT SCH ×2 (09:25→17:22)
[2020-10-06] MEDS: ACIDOPHILUS/BULGARICUS 1 EACH TAB.CHEW GT SCH ×2 (09:25→17:23)
[2020-10-06] MEDS: PROSOURCE / PROSTAT (PYXIS) 30 ML UDC GT SCH ×2 (09:25→17:23)
[2020-10-06] MEDS: VIT B CMPLX 3/FA/VIT C/BIOTIN 1 TAB TABLET GT SCH (09:25)
[2020-10-06] MEDS: Z GUARD REMEDY 2 OZ OINT TP SCH ×2 (09:26→20:46)
[2020-10-06] MEDS: THERAHONEY GEL 1.5 OZ TUBE TP SCH (09:26)
[2020-10-06] MEDS: Z GUARD REMEDY 4 OZ OINT TP SCH (09:26)
[2020-10-06 20:28] VITALS: BP 140/50
[2020-10-06] MEDS: AMLODIPINE BESYLATE 10 MG TABLET GT SCH (20:44)
[2020-10-06] MEDS: MELATONIN 3 MG TABLET GT SCH (21:18)
[2020-10-07] MEDS: POLYVINYL ALCOHOL 15 ML BOTTLE EACHEYE SCH ×4 (00:36→17:53)
[2020-10-07 01:33] VITALS: BP 138/50
[2020-10-07] MEDS: ALBUTEROL FS 2.5 MG/0.5 ML VIAL.NEB NEB SCH ×4 (02:18→20:50)
[2020-10-07] MEDS: IPRATROPIUM NEB FS 0.5 MG/2.5 ML AMPUL.NEB NEB SCH ×4 (02:18→20:50)
[2020-10-07] MEDS: HYDRALAZINE 100 MG GT SCH ×3 (05:33→20:48)
[2020-10-07] MEDS: LABETALOL 200 MG GT SCH ×2 (05:33→17:53)
[2020-10-07] MEDS: LEVOTHYROXINE SODIUM 100 MCG TABLET GT SCH (05:34)
[2020-10-07] MEDS: NEPRO 1,000 ML BOTTLE GT PRN (05:35)
[2020-10-07 07:22] VITALS: BP 136/50
[2020-10-07] MEDS: SUCRALFATE 1 G/10 ML UDC GT SCH ×4 (07:30→21:08)
[2020-10-07] MEDS: HYDROGEN PEROXIDE 480 ML BOTTLE TP SCH ×2 (08:17→20:51)
[2020-10-07] MEDS: LOSARTAN POTASSIUM 50 MG TABLET GT SCH ×2 (09:33→17:52)
[2020-10-07] MEDS: NEUTRA PHOS 1 POWD.PACKET GT SCH ×2 (09:33→17:52)
[2020-10-07] MEDS: ACIDOPHILUS/BULGARICUS 1 EACH TAB.CHEW GT SCH ×2 (09:33→17:52)
[2020-10-07] MEDS: PROSOURCE / PROSTAT (PYXIS) 30 ML UDC GT SCH ×2 (09:33→17:52)
[2020-10-07] MEDS: PANTOPRAZOLE 40 MG/PACK PACK GT SCH ×2 (09:33→20:49)
[2020-10-07] MEDS: VIT B CMPLX 3/FA/VIT C/BIOTIN 1 TAB TABLET GT SCH (09:33)
[2020-10-07] MEDS: DOCUSATE SODIUM LIQ 100 MG/10 ML UDC GT SCH (09:33)
[2020-10-07] MEDS: Z GUARD REMEDY 2 OZ OINT TP SCH ×2 (09:34→20:50)
[2020-10-07] MEDS: Z GUARD REMEDY 4 OZ OINT TP SCH (09:34)
[2020-10-07] MEDS: MINERAL OIL/PETROL OINT 396 GM JAR TP SCH (09:34)
[2020-10-07] MEDS: THERAHONEY GEL 1.5 OZ TUBE TP SCH (09:34)
[2020-10-07] MEDS: TRIAMCINOLONE ACETONIDE 0.1% CR 15 GM TUBE TP SCH ×2 (09:34→20:50)
[2020-10-07] MEDS: HYDROGEL DRESSING 90 GM TUBE TP SCH ×2 (09:34→20:50)
[2020-10-07 13:40] VITALS: BP 162/63
[2020-10-07 20:40] VITALS: BP 146/70
[2020-10-07] MEDS: AMLODIPINE BESYLATE 10 MG TABLET GT SCH (20:49)
[2020-10-07] MEDS: MELATONIN 3 MG TABLET GT SCH (21:08)
[2020-10-08] MEDS: POLYVINYL ALCOHOL 15 ML BOTTLE EACHEYE SCH ×5 (00:50→23:56)
[2020-10-08] MEDS: ALBUTEROL FS 2.5 MG/0.5 ML VIAL.NEB NEB SCH ×4 (02:00→20:38)
[2020-10-08] MEDS: IPRATROPIUM NEB FS 0.5 MG/2.5 ML AMPUL.NEB NEB SCH ×4 (02:00→20:38)
[2020-10-08] MEDS: LEVOTHYROXINE SODIUM 100 MCG TABLET GT SCH (05:35)
[2020-10-08] MEDS: LABETALOL 200 MG GT SCH ×2 (05:35→18:09)
[2020-10-08] MEDS: HYDRALAZINE 100 MG GT SCH ×3 (05:35→21:32)
[2020-10-08] MEDS: NEPRO 1,000 ML BOTTLE GT PRN (05:36)
[2020-10-08 07:03] LABS: BASOPHILS # (AUTO) 0.1 /CMM (0.0-0.2); BASOPHILS % (AUTO) 0.8 % (0.0-2.0); EOSINOPHILS % (AUTO) 1.7 % (0.0-6.0); HEMATOCRIT 25 % (39-51); HEMOGLOBIN 8.2 g/dL (13.5-17.5); LYMPHOCYTES # (AUTO) 0.7 /CMM (0.8-4.8); LYMPHOCYTES % (AUTO) 9.9 % (20.0-44.0); MEAN CORPUSCULAR HGB CONC 33 g/dl (31.0-36.0); MEAN CORPUSCULAR VOLUME 88 fL (80-96); MONOCYTES # (AUTO) 0.6 /CMM (0.1-1.30); MONOCYTES % (AUTO) 8.4 % (2.0-12.0); NEUTROPHILS # (AUTO) 5.2 /CMM (1.8-8.9); NEUTROPHILS % (AUTO) 79.2 % (43.0-81.0); PLATELET COUNT (AUTO) 241 /CMM (150-450); RED BLOOD CELL COUNT(AUTO) 2.82 MIL/uL (4.5-6.0); WHITE BLOOD COUNT (AUTO) 6.5 K/uL (4.3-11.0)
[2020-10-08 07:17] VITALS: BP 156/55
[2020-10-08] MEDS: SUCRALFATE 1 G/10 ML UDC GT SCH ×4 (07:30→21:32)
[2020-10-08] MEDS: ACIDOPHILUS/BULGARICUS 1 EACH TAB.CHEW GT SCH ×2 (09:00→17:00)
[2020-10-08] MEDS: Z GUARD REMEDY 4 OZ OINT TP SCH (09:00)
[2020-10-08] MEDS: PROSOURCE / PROSTAT (PYXIS) 30 ML UDC GT SCH ×2 (09:00→17:00)
[2020-10-08] MEDS: Z GUARD REMEDY 2 OZ OINT TP SCH ×2 (09:00→21:32)
[2020-10-08] MEDS: TRIAMCINOLONE ACETONIDE 0.1% CR 15 GM TUBE TP SCH ×2 (09:00→21:32)
[2020-10-08] MEDS: THERAHONEY GEL 1.5 OZ TUBE TP SCH (09:00)
[2020-10-08] MEDS: NEUTRA PHOS 1 POWD.PACKET GT SCH ×2 (09:00→17:00)
[2020-10-08] MEDS: PANTOPRAZOLE 40 MG/PACK PACK GT SCH ×2 (09:00→21:32)
[2020-10-08] MEDS: HYDROGEL DRESSING 90 GM TUBE TP SCH ×2 (09:00→21:32)
[2020-10-08] MEDS: VIT B CMPLX 3/FA/VIT C/BIOTIN 1 TAB TABLET GT SCH (09:00)
[2020-10-08] MEDS: DOCUSATE SODIUM LIQ 100 MG/10 ML UDC GT SCH (09:00)
[2020-10-08] MEDS: MINERAL OIL/PETROL OINT 396 GM JAR TP SCH (09:00)
[2020-10-08] MEDS: HYDROGEN PEROXIDE 480 ML BOTTLE TP SCH ×2 (09:16→21:00)
--- NOTE | 2020-10-08 09:30 | NUR ---
Seen and examined by Dr. Gonzalez relayed cbc results, hgb 8.2 prior level 6.5 with improvement at this time no new orders.
--- NOTE | 2020-10-08 12:27 | NUR ---
Received a new order per Dr. Espinoza to d/c contact isolation for Covid precautions and d/c droplet precautions, patient fully vaccinated for Covid-19 (Moderna x 2), and Sars-Cov-2 RNA is negative (10/07/20) order carried out and responsible alliance party made aware.
[2020-10-08 13:42] VITALS: BP 165/81
[2020-10-08] MEDS: LOSARTAN POTASSIUM 50 MG TABLET GT SCH (17:00)
[2020-10-08 19:55] VITALS: BP 114/65
[2020-10-08] MEDS: MELATONIN 3 MG TABLET GT SCH (21:32)
[2020-10-08] MEDS: AMLODIPINE BESYLATE 10 MG TABLET GT SCH (21:32)
[2020-10-09 01:01] VITALS: BP 146/57
[2020-10-09] MEDS: IPRATROPIUM NEB FS 0.5 MG/2.5 ML AMPUL.NEB NEB SCH ×4 (01:57→19:57)
[2020-10-09] MEDS: ALBUTEROL FS 2.5 MG/0.5 ML VIAL.NEB NEB SCH ×4 (01:57→19:57)
[2020-10-09] MEDS: POLYVINYL ALCOHOL 15 ML BOTTLE EACHEYE SCH ×4 (05:21→23:56)
[2020-10-09] MEDS: LEVOTHYROXINE SODIUM 100 MCG TABLET GT SCH (05:21)
[2020-10-09] MEDS: LABETALOL 200 MG GT SCH ×2 (05:21→18:03)
[2020-10-09] MEDS: HYDRALAZINE 100 MG GT SCH ×3 (05:21→21:14)
[2020-10-09] MEDS: SUCRALFATE 1 G/10 ML UDC GT SCH ×4 (07:30→21:16)
[2020-10-09 07:51] VITALS: BP 141/90
[2020-10-09] MEDS: HYDROGEN PEROXIDE 480 ML BOTTLE TP SCH ×2 (08:13→19:57)
[2020-10-09] MEDS: LOSARTAN POTASSIUM 50 MG TABLET GT SCH ×2 (09:28→17:46)
[2020-10-09] MEDS: VIT B CMPLX 3/FA/VIT C/BIOTIN 1 TAB TABLET GT SCH (09:28)
[2020-10-09] MEDS: ACIDOPHILUS/BULGARICUS 1 EACH TAB.CHEW GT SCH ×2 (09:28→17:46)
[2020-10-09] MEDS: DOCUSATE SODIUM LIQ 100 MG/10 ML UDC GT SCH (09:28)
[2020-10-09] MEDS: PROSOURCE / PROSTAT (PYXIS) 30 ML UDC GT SCH ×2 (09:29→17:00)
[2020-10-09] MEDS: MINERAL OIL/PETROL OINT 396 GM JAR TP SCH (09:33)
[2020-10-09] MEDS: PANTOPRAZOLE 40 MG/PACK PACK GT SCH ×2 (09:33→21:15)
[2020-10-09] MEDS: TRIAMCINOLONE ACETONIDE 0.1% CR 15 GM TUBE TP SCH ×2 (09:33→21:15)
[2020-10-09] MEDS: Z GUARD REMEDY 2 OZ OINT TP SCH ×2 (09:48→21:16)
[2020-10-09] MEDS: HYDROGEL DRESSING 90 GM TUBE TP SCH ×2 (09:48→21:16)
[2020-10-09] MEDS: Z GUARD REMEDY 4 OZ OINT TP SCH (09:48)
[2020-10-09] MEDS: THERAHONEY GEL 1.5 OZ TUBE TP SCH (09:48)
[2020-10-09] MEDS: NEUTRA PHOS 1 POWD.PACKET GT SCH ×2 (09:49→17:00)
--- NOTE | 2020-10-09 11:55 | NUR ---
Family Invite to IDT: DIPESH emailed the pt.'s , Fay Robbins inviting them to participate in 10/11/2020 IDT Meeting. DIPESH will follow up accordingly.
[2020-10-09] MEDS: NEPRO 1,000 ML BOTTLE GT PRN (12:21)
[2020-10-09 19:57] VITALS: BP 160/75
[2020-10-09] MEDS: CLONIDINE HCL 0.1MG/24H PTWK 1 EA PATCH TD SCH (19:58)
[2020-10-09] MEDS: AMLODIPINE BESYLATE 10 MG TABLET GT SCH (21:15)
[2020-10-09] MEDS: MELATONIN 3 MG TABLET GT SCH (21:16)
[2020-10-10] VITALS: BP 159/62
[2020-10-10] MEDS: ALBUTEROL FS 2.5 MG/0.5 ML VIAL.NEB NEB SCH ×4 (01:36→19:30)
[2020-10-10] MEDS: IPRATROPIUM NEB FS 0.5 MG/2.5 ML AMPUL.NEB NEB SCH ×4 (01:36→19:30)
[2020-10-10] MEDS: HYDRALAZINE 100 MG GT SCH ×3 (05:31→21:21)
[2020-10-10] MEDS: LABETALOL 200 MG GT SCH ×2 (05:31→18:27)
[2020-10-10] MEDS: POLYVINYL ALCOHOL 15 ML BOTTLE EACHEYE SCH ×4 (05:31→23:15)
[2020-10-10] MEDS: LEVOTHYROXINE SODIUM 100 MCG TABLET GT SCH (05:31)
[2020-10-10 07:07] VITALS: BP 138/38
[2020-10-10] MEDS: SUCRALFATE 1 G/10 ML UDC GT SCH ×4 (07:30→21:21)
[2020-10-10] MEDS: HYDROGEN PEROXIDE 480 ML BOTTLE TP SCH ×2 (08:20→20:37)
[2020-10-10] MEDS: VIT B CMPLX 3/FA/VIT C/BIOTIN 1 TAB TABLET GT SCH (09:22)
[2020-10-10] MEDS: PROSOURCE / PROSTAT (PYXIS) 30 ML UDC GT SCH ×2 (09:22→17:12)
[2020-10-10] MEDS: MINERAL OIL/PETROL OINT 396 GM JAR TP SCH (09:22)
[2020-10-10] MEDS: DOCUSATE SODIUM LIQ 100 MG/10 ML UDC GT SCH (09:22)
[2020-10-10] MEDS: NEUTRA PHOS 1 POWD.PACKET GT SCH ×2 (09:22→17:12)
[2020-10-10] MEDS: PANTOPRAZOLE 40 MG/PACK PACK GT SCH ×2 (09:22→21:21)
[2020-10-10] MEDS: ACIDOPHILUS/BULGARICUS 1 EACH TAB.CHEW GT SCH ×2 (09:22→17:05)
[2020-10-10] MEDS: Z GUARD REMEDY 4 OZ OINT TP SCH (09:23)
[2020-10-10] MEDS: Z GUARD REMEDY 2 OZ OINT TP SCH ×2 (09:23→21:21)
[2020-10-10] MEDS: THERAHONEY GEL 1.5 OZ TUBE TP SCH ×2 (09:23→14:00)
[2020-10-10] MEDS: TRIAMCINOLONE ACETONIDE 0.1% CR 15 GM TUBE TP SCH ×2 (09:23→21:21)
[2020-10-10] MEDS: HYDROGEL DRESSING 90 GM TUBE TP SCH (09:23)
[2020-10-10 12:45] VITALS: BP 146/79
[2020-10-10] MEDS ORDERED: HYDROGEN PEROXIDE 480 ML BOTTLE TP PRN (15:30)
[2020-10-10] MEDS: LOSARTAN POTASSIUM 50 MG TABLET GT SCH (17:05)
[2020-10-10] MEDS: NEPRO 1,000 ML BOTTLE GT PRN (17:12)
[2020-10-10 19:41] VITALS: BP 154/61
[2020-10-10] MEDS: AMLODIPINE BESYLATE 10 MG TABLET GT SCH (21:21)
[2020-10-10] MEDS: MELATONIN 3 MG TABLET GT SCH (21:21)
[2020-10-11] VITALS: BP 134/51
[2020-10-11] MEDS: IPRATROPIUM NEB FS 0.5 MG/2.5 ML AMPUL.NEB NEB SCH ×4 (01:32→20:25)
[2020-10-11] MEDS: ALBUTEROL FS 2.5 MG/0.5 ML VIAL.NEB NEB SCH ×4 (01:32→20:25)
[2020-10-11] MEDS: LEVOTHYROXINE SODIUM 100 MCG TABLET GT SCH (05:41)
[2020-10-11] MEDS: LABETALOL 200 MG GT SCH ×2 (05:41→17:14)
[2020-10-11] MEDS: POLYVINYL ALCOHOL 15 ML BOTTLE EACHEYE SCH ×4 (05:41→23:21)
[2020-10-11] MEDS: HYDRALAZINE 100 MG GT SCH ×3 (05:41→21:07)
[2020-10-11 07:16] VITALS: BP 136/56
[2020-10-11] MEDS: SUCRALFATE 1 G/10 ML UDC GT SCH ×4 (07:30→21:08)
[2020-10-11] MEDS: HYDROGEN PEROXIDE 480 ML BOTTLE TP SCH ×2 (08:17→21:23)
[2020-10-11] MEDS ORDERED: THERAHONEY GEL 1.5 OZ TUBE TP SCH (09:00)
[2020-10-11] MEDS: NEUTRA PHOS 1 POWD.PACKET GT SCH ×2 (09:29→17:13)
[2020-10-11] MEDS: VIT B CMPLX 3/FA/VIT C/BIOTIN 1 TAB TABLET GT SCH (09:29)
[2020-10-11] MEDS: ACIDOPHILUS/BULGARICUS 1 EACH TAB.CHEW GT SCH ×2 (09:29→17:13)
[2020-10-11] MEDS: PROSOURCE / PROSTAT (PYXIS) 30 ML UDC GT SCH ×2 (09:30→17:13)
[2020-10-11] MEDS: TRIAMCINOLONE ACETONIDE 0.1% CR 15 GM TUBE TP SCH ×2 (09:30→21:08)
[2020-10-11] MEDS: Z GUARD REMEDY 4 OZ OINT TP SCH (09:30)
[2020-10-11] MEDS: PANTOPRAZOLE 40 MG/PACK PACK GT SCH ×2 (09:30→21:08)
[2020-10-11] MEDS: Z GUARD REMEDY 2 OZ OINT TP SCH ×2 (09:30→21:08)
[2020-10-11] MEDS: THERAHONEY GEL 1.5 OZ TUBE TP SCH ×2 (09:30→09:31)
[2020-10-11] MEDS: DOCUSATE SODIUM LIQ 100 MG/10 ML UDC GT SCH (09:30)
[2020-10-11] MEDS: LOSARTAN POTASSIUM 50 MG TABLET GT SCH ×2 (09:30→17:13)
[2020-10-11] MEDS: MINERAL OIL/PETROL OINT 396 GM JAR TP SCH (09:30)
--- NOTE | 2020-10-11 14:00 | NUR ---
During IDT it was mentioned that patient was not on SIMV setting due to low Hgb level. Dr. Gonzalez ordered to wean him off again on Wednesday placing him on SIMV 6, PS 15, PS +5, Fi02 30% if Hbg > 7.5, and repeat CBC on Wednesday.
[2020-10-11] MEDS: NEPRO 1,000 ML BOTTLE GT PRN (14:48)
--- NOTE | 2020-10-11 15:00 | NUR ---
GAVINO Chacon evaluated current wound treatment in the sacral area with order to DC treatment in the sacral periwound and bilateral groin redness and changed it to Lotrisone. Order carried out.
[2020-10-11 19:21] VITALS: BP 149/57
[2020-10-11] MEDS: MELATONIN 3 MG TABLET GT SCH (21:08)
[2020-10-11] MEDS: AMLODIPINE BESYLATE 10 MG TABLET GT SCH (21:08)
[2020-10-11] MEDS: CLOTRIMAZOLE/BETAMETASONE DIPROPIONATE 15 GM TUBE TP SCH (21:08)
[2020-10-12 00:30] VITALS: BP 131/64
[2020-10-12] MEDS: ALBUTEROL FS 2.5 MG/0.5 ML VIAL.NEB NEB SCH ×4 (01:55→19:51)
[2020-10-12] MEDS: IPRATROPIUM NEB FS 0.5 MG/2.5 ML AMPUL.NEB NEB SCH ×4 (01:55→19:51)
[2020-10-12] MEDS: POLYVINYL ALCOHOL 15 ML BOTTLE EACHEYE SCH ×4 (05:13→23:38)
[2020-10-12] MEDS: HYDRALAZINE 100 MG GT SCH ×3 (05:13→20:23)
[2020-10-12] MEDS: LEVOTHYROXINE SODIUM 100 MCG TABLET GT SCH (05:13)
[2020-10-12] MEDS: LABETALOL 200 MG GT SCH ×2 (05:13→17:04)
[2020-10-12] MEDS: NEPRO 1,000 ML BOTTLE GT PRN (05:14)
[2020-10-12 06:52] LABS: BASOPHILS # (AUTO) 0.1 /CMM (0.0-0.2); BASOPHILS % (AUTO) 0.7 % (0.0-2.0); EOSINOPHILS % (AUTO) 0.2 % (0.0-6.0); HEMATOCRIT 22 % (39-51); HEMOGLOBIN 7.3 g/dL (13.5-17.5); LYMPHOCYTES # (AUTO) 0.6 /CMM (0.8-4.8); MEAN CORPUSCULAR HGB CONC 33 g/dl (31.0-36.0); MEAN CORPUSCULAR VOLUME 92 fL (80-96); MONOCYTES # (AUTO) 0.6 /CMM (0.1-1.30); MONOCYTES % (AUTO) 7.3 % (2.0-12.0); NEUTROPHILS % (AUTO) 84.8 % (43.0-81.0); PLATELET COUNT (AUTO) 215 /CMM (150-450); RED BLOOD CELL COUNT(AUTO) 2.43 MIL/uL (4.5-6.0); WHITE BLOOD COUNT (AUTO) 8.2 K/uL (4.3-11.0)
[2020-10-12 07:11] VITALS: BP 156/67
[2020-10-12] MEDS: SUCRALFATE 1 G/10 ML UDC GT SCH ×4 (07:30→21:06)
[2020-10-12] MEDS: HYDROGEN PEROXIDE 480 ML BOTTLE TP SCH ×2 (08:22→19:51)
[2020-10-12] MEDS: PROSOURCE / PROSTAT (PYXIS) 30 ML UDC GT SCH ×2 (08:55→17:03)
[2020-10-12] MEDS: ACIDOPHILUS/BULGARICUS 1 EACH TAB.CHEW GT SCH ×2 (08:55→17:03)
[2020-10-12] MEDS: PANTOPRAZOLE 40 MG/PACK PACK GT SCH ×2 (08:55→20:23)
[2020-10-12] MEDS: MINERAL OIL/PETROL OINT 396 GM JAR TP SCH (08:55)
[2020-10-12] MEDS: VIT B CMPLX 3/FA/VIT C/BIOTIN 1 TAB TABLET GT SCH (08:55)
[2020-10-12] MEDS: DOCUSATE SODIUM LIQ 100 MG/10 ML UDC GT SCH (08:55)
[2020-10-12] MEDS: NEUTRA PHOS 1 POWD.PACKET GT SCH ×2 (08:55→17:04)
[2020-10-12] MEDS: Z GUARD REMEDY 2 OZ OINT TP SCH ×2 (08:56→20:23)
[2020-10-12] MEDS: TRIAMCINOLONE ACETONIDE 0.1% CR 15 GM TUBE TP SCH ×2 (09:00→20:23)
[2020-10-12] MEDS: THERAHONEY GEL 1.5 OZ TUBE TP SCH ×2 (09:00)
[2020-10-12] MEDS: CLOTRIMAZOLE/BETAMETASONE DIPROPIONATE 15 GM TUBE TP SCH ×3 (09:00→20:23)
--- NOTE | 2020-10-12 09:35 | NUR ---
CBC result relayed to Dr. Gonzalez. HBG 7.3, Hct 22, ordered to repeat CBC on Wednesday.
[2020-10-12 11:50] VITALS: BP 156/69
[2020-10-12] MEDS: LOSARTAN POTASSIUM 50 MG TABLET GT SCH (17:03)
[2020-10-12 19:21] VITALS: BP 150/69
[2020-10-12] MEDS: AMLODIPINE BESYLATE 10 MG TABLET GT SCH (20:23)
[2020-10-12] MEDS: MELATONIN 3 MG TABLET GT SCH (21:06)
[2020-10-13 00:14] VITALS: BP 150/58
[2020-10-13] MEDS: ALBUTEROL FS 2.5 MG/0.5 ML VIAL.NEB NEB SCH ×4 (01:52→19:51)
[2020-10-13] MEDS: IPRATROPIUM NEB FS 0.5 MG/2.5 ML AMPUL.NEB NEB SCH ×4 (01:52→19:51)
[2020-10-13] MEDS: LABETALOL 200 MG GT SCH ×2 (05:48→17:06)
[2020-10-13] MEDS: POLYVINYL ALCOHOL 15 ML BOTTLE EACHEYE SCH ×3 (05:48→17:06)
[2020-10-13] MEDS: HYDRALAZINE 100 MG GT SCH ×3 (05:48→20:06)
[2020-10-13] MEDS: LEVOTHYROXINE SODIUM 100 MCG TABLET GT SCH (05:48)
[2020-10-13] MEDS: NEPRO 1,000 ML BOTTLE GT PRN (05:49)
[2020-10-13 07:33] VITALS: BP 158/66
[2020-10-13] MEDS: SUCRALFATE 1 G/10 ML UDC GT SCH ×4 (07:59→21:24)
[2020-10-13] MEDS: VIT B CMPLX 3/FA/VIT C/BIOTIN 1 TAB TABLET GT SCH (08:00)
[2020-10-13] MEDS: NEUTRA PHOS 1 POWD.PACKET GT SCH ×2 (08:00→17:05)
[2020-10-13] MEDS: MINERAL OIL/PETROL OINT 396 GM JAR TP SCH (08:00)
[2020-10-13] MEDS: PROSOURCE / PROSTAT (PYXIS) 30 ML UDC GT SCH ×2 (08:00→17:05)
[2020-10-13] MEDS: TRIAMCINOLONE ACETONIDE 0.1% CR 15 GM TUBE TP SCH ×2 (08:00→20:08)
[2020-10-13] MEDS: LOSARTAN POTASSIUM 50 MG TABLET GT SCH ×2 (08:00→17:05)
[2020-10-13] MEDS: CLOTRIMAZOLE/BETAMETASONE DIPROPIONATE 15 GM TUBE TP SCH ×3 (08:00→20:08)
[2020-10-13] MEDS: DOCUSATE SODIUM LIQ 100 MG/10 ML UDC GT SCH (08:00)
[2020-10-13] MEDS: PANTOPRAZOLE 40 MG/PACK PACK GT SCH ×2 (08:00→20:08)
[2020-10-13] MEDS: ACIDOPHILUS/BULGARICUS 1 EACH TAB.CHEW GT SCH ×2 (08:00→17:05)
[2020-10-13] MEDS: Z GUARD REMEDY 2 OZ OINT TP SCH ×2 (08:01→20:08)
[2020-10-13] MEDS: THERAHONEY GEL 1.5 OZ TUBE TP SCH ×2 (08:01)
[2020-10-13] MEDS: HYDROGEN PEROXIDE 480 ML BOTTLE TP SCH ×2 (09:00→19:51)
[2020-10-13] MEDS: AMLODIPINE BESYLATE 10 MG TABLET GT SCH (20:07)
[2020-10-13 20:31] VITALS: BP 158/92
[2020-10-13] MEDS: MELATONIN 3 MG TABLET GT SCH (21:24)
[2020-10-14] VITALS (7 sets, daily range): BP systolic 138–156; BP diastolic 56–75
[2020-10-14] MEDS: POLYVINYL ALCOHOL 15 ML BOTTLE EACHEYE SCH ×4 (00:40→17:34)
[2020-10-14] MEDS: NEPRO 1,000 ML BOTTLE GT PRN (01:13)
[2020-10-14] MEDS: ALBUTEROL FS 2.5 MG/0.5 ML VIAL.NEB NEB SCH ×4 (01:46→20:09)
[2020-10-14] MEDS: IPRATROPIUM NEB FS 0.5 MG/2.5 ML AMPUL.NEB NEB SCH ×4 (01:46→20:09)
[2020-10-14] MEDS: HYDRALAZINE 100 MG GT SCH ×3 (05:10→20:12)
[2020-10-14] MEDS: LABETALOL 200 MG GT SCH ×2 (05:11→17:34)
[2020-10-14] MEDS: LEVOTHYROXINE SODIUM 100 MCG TABLET GT SCH (05:11)
[2020-10-14 07:19] LABS: BASOPHILS # (AUTO) 0.1 /CMM (0.0-0.2); BASOPHILS % (AUTO) 0.8 % (0.0-2.0); EOSINOPHILS % (AUTO) 0.2 % (0.0-6.0); HEMATOCRIT 21 % (39-51); LYMPHOCYTES # (AUTO) 0.7 /CMM (0.8-4.8); LYMPHOCYTES % (AUTO) 8.7 % (20.0-44.0); MEAN CORPUSCULAR HGB CONC 33 g/dl (31.0-36.0); MEAN CORPUSCULAR VOLUME 89 fL (80-96); MONOCYTES # (AUTO) 0.8 /CMM (0.1-1.30); MONOCYTES % (AUTO) 10.3 % (2.0-12.0); NEUTROPHILS # (AUTO) 6.5 /CMM (1.8-8.9); PLATELET COUNT (AUTO) 208 /CMM (150-450); RED BLOOD CELL COUNT(AUTO) 2.35 MIL/uL (4.5-6.0); WHITE BLOOD COUNT (AUTO) 8.2 K/uL (4.3-11.0)
[2020-10-14] MEDS: SUCRALFATE 1 G/10 ML UDC GT SCH ×4 (07:30→21:27)
[2020-10-14] MEDS: HYDROGEN PEROXIDE 480 ML BOTTLE TP SCH ×2 (08:00→20:13)
--- NOTE | 2020-10-14 08:09 | NUR ---
Left message for Dr Espinoza regarding Hgb 7.0 Hct 21.
--- NOTE | 2020-10-14 08:35 | NUR ---
Dr Espinoza ordered to have GI see pt and to transfuse 1 unit of PRBC. Informed Dr Espinoza that GI Dr Mccall saw pt on 10/03/20 for positive stool OB and he wrote to give Protonix 40 mg IV daily in his notes. Pt on Protonix 40 mg GT q [address] hours[address] Pro[address]ix with Dr Espinoza. He said to keep pt on Protonix 40 mg GT q 12 hours.
[2020-10-14] MEDS: Z GUARD REMEDY 2 OZ OINT TP SCH ×2 (09:00→20:13)
[2020-10-14] MEDS: THERAHONEY GEL 1.5 OZ TUBE TP SCH ×2 (09:00)
[2020-10-14] MEDS: MINERAL OIL/PETROL OINT 396 GM JAR TP SCH (09:00)
[2020-10-14] MEDS: CLOTRIMAZOLE/BETAMETASONE DIPROPIONATE 15 GM TUBE TP SCH ×3 (09:00→20:13)
[2020-10-14] MEDS: TRIAMCINOLONE ACETONIDE 0.1% CR 15 GM TUBE TP SCH ×2 (09:00→20:13)
[2020-10-14] MEDS: LOSARTAN POTASSIUM 50 MG TABLET GT SCH ×2 (09:24→17:34)
[2020-10-14] MEDS: NEUTRA PHOS 1 POWD.PACKET GT SCH ×2 (09:24→17:34)
[2020-10-14] MEDS: DOCUSATE SODIUM LIQ 100 MG/10 ML UDC GT SCH (09:24)
[2020-10-14] MEDS: ACIDOPHILUS/BULGARICUS 1 EACH TAB.CHEW GT SCH ×2 (09:24→17:34)
[2020-10-14] MEDS: VIT B CMPLX 3/FA/VIT C/BIOTIN 1 TAB TABLET GT SCH (09:24)
[2020-10-14] MEDS: PROSOURCE / PROSTAT (PYXIS) 30 ML UDC GT SCH ×2 (09:25→17:34)
[2020-10-14] MEDS: PANTOPRAZOLE 40 MG/PACK PACK GT SCH ×2 (09:25→20:13)
[2020-10-14 11:19] LABS: BAND % (MANUAL) 2 % (0.0-5.0); EOSINOPHILS % (MANUAL) 2 % (0-4); LYMPHOCYTES % (MANUAL) 10 % (16-48); MONOCYTES % (MANUAL) 10 % (0-11.0); NEUTROPHILS % (MANUAL) 76 (42-76)
--- NOTE | 2020-10-14 13:52 | NUR ---
Transfusing 1 unit of PRBC via peripheral line G20 on pt's right hand. Pt tolerating transfusion well. No adverse reactions noted.
--- NOTE | 2020-10-14 16:55 | NUR ---
Transfused 1 unit of PRBC. Pt tolerated well. Pt alert and responsive, able to respond by nodding head. No adverse reactions noted.
[2020-10-14] MEDS: AMLODIPINE BESYLATE 10 MG TABLET GT SCH (20:13)
[2020-10-14] MEDS: MELATONIN 3 MG TABLET GT SCH (21:27)
[2020-10-15] MEDS: POLYVINYL ALCOHOL 15 ML BOTTLE EACHEYE SCH ×5 (00:36→23:55)
[2020-10-15] MEDS: IPRATROPIUM NEB FS 0.5 MG/2.5 ML AMPUL.NEB NEB SCH ×4 (02:12→20:11)
[2020-10-15] MEDS: ALBUTEROL FS 2.5 MG/0.5 ML VIAL.NEB NEB SCH ×4 (02:12→20:11)
[2020-10-15] MEDS: LABETALOL 200 MG GT SCH ×2 (05:08→18:15)
[2020-10-15] MEDS: LEVOTHYROXINE SODIUM 100 MCG TABLET GT SCH (05:08)
[2020-10-15] MEDS: HYDRALAZINE 100 MG GT SCH ×3 (05:08→20:02)
[2020-10-15] MEDS: NEPRO 1,000 ML BOTTLE GT PRN (05:08)
[2020-10-15 07:05] LABS: BASOPHILS # (AUTO) 0.1 /CMM (0.0-0.2); BASOPHILS % (AUTO) 0.8 % (0.0-2.0); EOSINOPHILS % (AUTO) 0.5 % (0.0-6.0); HEMATOCRIT 24 % (39-51); HEMOGLOBIN 7.9 g/dL (13.5-17.5); LYMPHOCYTES # (AUTO) 0.7 /CMM (0.8-4.8); LYMPHOCYTES % (AUTO) 9.5 % (20.0-44.0); MEAN CORPUSCULAR HGB CONC 33 g/dl (31.0-36.0); MEAN CORPUSCULAR VOLUME 88 fL (80-96); MONOCYTES # (AUTO) 0.7 /CMM (0.1-1.30); NEUTROPHILS # (AUTO) 5.9 /CMM (1.8-8.9); NEUTROPHILS % (AUTO) 80.2 % (43.0-81.0); PLATELET COUNT (AUTO) 225 /CMM (150-450); RED BLOOD CELL COUNT(AUTO) 2.69 MIL/uL (4.5-6.0); WHITE BLOOD COUNT (AUTO) 7.4 K/uL (4.3-11.0)
[2020-10-15] MEDS: HYDROGEN PEROXIDE 480 ML BOTTLE TP SCH ×2 (08:07→20:11)
[2020-10-15] MEDS: NEUTRA PHOS 1 POWD.PACKET GT SCH ×2 (08:10→17:00)
[2020-10-15] MEDS: PROSOURCE / PROSTAT (PYXIS) 30 ML UDC GT SCH ×2 (08:10→17:00)
[2020-10-15] MEDS: DOCUSATE SODIUM LIQ 100 MG/10 ML UDC GT SCH (08:10)
[2020-10-15] MEDS: VIT B CMPLX 3/FA/VIT C/BIOTIN 1 TAB TABLET GT SCH (08:10)
[2020-10-15] MEDS: PANTOPRAZOLE 40 MG/PACK PACK GT SCH ×2 (08:10→20:04)
[2020-10-15] MEDS: SUCRALFATE 1 G/10 ML UDC GT SCH ×4 (08:10→21:01)
[2020-10-15] MEDS: ACIDOPHILUS/BULGARICUS 1 EACH TAB.CHEW GT SCH ×2 (08:10→17:00)
[2020-10-15] MEDS: MINERAL OIL/PETROL OINT 396 GM JAR TP SCH (09:34)
[2020-10-15] MEDS: TRIAMCINOLONE ACETONIDE 0.1% CR 15 GM TUBE TP SCH ×2 (09:34→20:04)
[2020-10-15] MEDS: THERAHONEY GEL 1.5 OZ TUBE TP SCH ×2 (09:34)
[2020-10-15] MEDS: Z GUARD REMEDY 2 OZ OINT TP SCH ×2 (09:34→20:04)
[2020-10-15] MEDS: CLOTRIMAZOLE/BETAMETASONE DIPROPIONATE 15 GM TUBE TP SCH ×3 (09:34→20:04)
--- NOTE | 2020-10-15 09:52 | NUR ---
Seen by Dr Gonzalez. Pt was not placed on SIMV yesterday due to low Hgb 7.0. Hgb 7.9 today but pt will be going out for hemodialysis. Dr Gonzalez said to place pt on SIMV tomorrow.
[2020-10-15 11:33] VITALS: BP 150/44
[2020-10-15] MEDS: LOSARTAN POTASSIUM 50 MG TABLET GT SCH (17:00)
[2020-10-15 19:38] VITALS: BP 165/81
[2020-10-15] MEDS: AMLODIPINE BESYLATE 10 MG TABLET GT SCH (20:02)
[2020-10-15] MEDS: MELATONIN 3 MG TABLET GT SCH (21:01)
[2020-10-16 00:26] VITALS: BP 162/98
[2020-10-16] MEDS: IPRATROPIUM NEB FS 0.5 MG/2.5 ML AMPUL.NEB NEB SCH ×4 (01:43→19:53)
[2020-10-16] MEDS: ALBUTEROL FS 2.5 MG/0.5 ML VIAL.NEB NEB SCH ×4 (01:43→19:53)
[2020-10-16] MEDS: HYDRALAZINE 100 MG GT SCH ×3 (05:02→21:37)
[2020-10-16] MEDS: LABETALOL 200 MG GT SCH ×2 (05:02→17:15)
[2020-10-16] MEDS: POLYVINYL ALCOHOL 15 ML BOTTLE EACHEYE SCH ×3 (05:02→17:15)
[2020-10-16] MEDS: LEVOTHYROXINE SODIUM 100 MCG TABLET GT SCH (05:02)
[2020-10-16] MEDS: SUCRALFATE 1 G/10 ML UDC GT SCH ×4 (07:30→21:39)
--- NOTE | 2020-10-16 07:41 | NUR ---
RT NOTE: PATIENT RECEIVED TRACHED ON AC MODE AND CHANGED TO SIMV 6, PS=15, FI02 30%, PEEP= +5 PER MD ORDER. PATIENT TOLERATING WELL. NURSE NOTIFIED.
[2020-10-16 08:23] VITALS: BP 160/70
[2020-10-16] MEDS: HYDROGEN PEROXIDE 480 ML BOTTLE TP SCH ×2 (09:02→19:53)
[2020-10-16] MEDS: DOCUSATE SODIUM LIQ 100 MG/10 ML UDC GT SCH (09:23)
[2020-10-16] MEDS: VIT B CMPLX 3/FA/VIT C/BIOTIN 1 TAB TABLET GT SCH (09:26)
[2020-10-16] MEDS: PROSOURCE / PROSTAT (PYXIS) 30 ML UDC GT SCH ×2 (09:26→17:15)
[2020-10-16] MEDS: NEUTRA PHOS 1 POWD.PACKET GT SCH ×2 (09:26→17:15)
[2020-10-16] MEDS: PANTOPRAZOLE 40 MG/PACK PACK GT SCH ×2 (09:26→21:38)
[2020-10-16] MEDS: LOSARTAN POTASSIUM 50 MG TABLET GT SCH ×2 (09:26→17:15)
[2020-10-16] MEDS: ACIDOPHILUS/BULGARICUS 1 EACH TAB.CHEW GT SCH ×2 (09:26→17:15)
[2020-10-16] MEDS: MINERAL OIL/PETROL OINT 396 GM JAR TP SCH (09:27)
[2020-10-16] MEDS: TRIAMCINOLONE ACETONIDE 0.1% CR 15 GM TUBE TP SCH ×2 (09:28→21:38)
[2020-10-16] MEDS: CLOTRIMAZOLE/BETAMETASONE DIPROPIONATE 15 GM TUBE TP SCH ×3 (09:29→21:39)
[2020-10-16] MEDS: Z GUARD REMEDY 2 OZ OINT TP SCH ×2 (09:29→21:39)
[2020-10-16] MEDS: THERAHONEY GEL 1.5 OZ TUBE TP SCH ×2 (09:29)
[2020-10-16] MEDS: NEPRO 1,000 ML BOTTLE GT PRN (12:32)
[2020-10-16 19:48] VITALS: BP 155/71
[2020-10-16] MEDS: CLONIDINE HCL 0.1MG/24H PTWK 1 EA PATCH TD SCH (20:30)
[2020-10-16] MEDS: AMLODIPINE BESYLATE 10 MG TABLET GT SCH (21:38)
[2020-10-16] MEDS: MELATONIN 3 MG TABLET GT SCH (21:39)
[2020-10-17] MEDS: POLYVINYL ALCOHOL 15 ML BOTTLE EACHEYE SCH ×5 (00:19→23:47)
[2020-10-17] MEDS: IPRATROPIUM NEB FS 0.5 MG/2.5 ML AMPUL.NEB NEB SCH ×4 (01:40→19:39)
[2020-10-17] MEDS: ALBUTEROL FS 2.5 MG/0.5 ML VIAL.NEB NEB SCH ×4 (01:40→19:39)
[2020-10-17] MEDS: HYDRALAZINE 100 MG GT SCH ×3 (05:12→21:38)
[2020-10-17] MEDS: LEVOTHYROXINE SODIUM 100 MCG TABLET GT SCH (05:13)
[2020-10-17] MEDS: LABETALOL 200 MG GT SCH ×2 (05:38→18:31)
--- NOTE | 2020-10-17 07:40 | NUR ---
RT NOTE: PATIENT RECEIVED TRACHED AND CHANGED TO SIMV 6, PS=15, FI02 30%, PEEP= +5 AT THIS TIME PER MD ORDER. PATIENT TOLERATING WELL. NURSE (JACK)NOTIFIED. ALARMS SET AND AUDIBLE. AMBU BAG AT [facility].
[2020-10-17 08:00] VITALS: BP 152/66
[2020-10-17] MEDS: SUCRALFATE 1 G/10 ML UDC GT SCH ×4 (08:19→21:40)
[2020-10-17] MEDS: ACIDOPHILUS/BULGARICUS 1 EACH TAB.CHEW GT SCH ×2 (08:19→17:00)
[2020-10-17] MEDS: VIT B CMPLX 3/FA/VIT C/BIOTIN 1 TAB TABLET GT SCH (08:19)
[2020-10-17] MEDS: DOCUSATE SODIUM LIQ 100 MG/10 ML UDC GT SCH (08:19)
[2020-10-17] MEDS: PROSOURCE / PROSTAT (PYXIS) 30 ML UDC GT SCH ×2 (08:20→17:00)
[2020-10-17] MEDS: NEUTRA PHOS 1 POWD.PACKET GT SCH ×2 (08:20→17:00)
[2020-10-17] MEDS: PANTOPRAZOLE 40 MG/PACK PACK GT SCH ×2 (08:20→21:40)
[2020-10-17] MEDS: TRIAMCINOLONE ACETONIDE 0.1% CR 15 GM TUBE TP SCH ×2 (08:25→21:40)
[2020-10-17] MEDS: MINERAL OIL/PETROL OINT 396 GM JAR TP SCH (08:25)
[2020-10-17] MEDS: CLOTRIMAZOLE/BETAMETASONE DIPROPIONATE 15 GM TUBE TP SCH ×3 (08:26→21:40)
[2020-10-17] MEDS: Z GUARD REMEDY 2 OZ OINT TP SCH ×2 (08:26→21:40)
[2020-10-17] MEDS: THERAHONEY GEL 1.5 OZ TUBE TP SCH ×2 (08:27)
[2020-10-17] MEDS: HYDROGEN PEROXIDE 480 ML BOTTLE TP SCH ×2 (08:35→19:39)
--- NOTE | 2020-10-17 16:14 | NUR ---
RT NOTE: PATIENT REMAINS ON SIMV TOLERATING WELL. IC65=313%. RESPIRATIONS ARE EVEN AND UNLABORED.
[2020-10-17] MEDS: LOSARTAN POTASSIUM 50 MG TABLET GT SCH (17:00)
[2020-10-17] MEDS: NEPRO 1,000 ML BOTTLE GT PRN (18:34)
[2020-10-17 19:26] VITALS: BP 159/73
[2020-10-17] MEDS: MELATONIN 3 MG TABLET GT SCH (21:40)
[2020-10-17] MEDS: AMLODIPINE BESYLATE 10 MG TABLET GT SCH (21:40)
[2020-10-18 00:27] VITALS: BP 165/60
[2020-10-18] MEDS: IPRATROPIUM NEB FS 0.5 MG/2.5 ML AMPUL.NEB NEB SCH ×4 (01:22→19:50)
[2020-10-18] MEDS: ALBUTEROL FS 2.5 MG/0.5 ML VIAL.NEB NEB SCH ×4 (01:22→19:50)
[2020-10-18] MEDS: HYDRALAZINE 100 MG GT SCH ×3 (05:30→21:24)
[2020-10-18] MEDS: POLYVINYL ALCOHOL 15 ML BOTTLE EACHEYE SCH ×3 (06:01→18:13)
[2020-10-18] MEDS: LABETALOL 200 MG GT SCH ×2 (06:01→18:13)
[2020-10-18] MEDS: LEVOTHYROXINE SODIUM 100 MCG TABLET GT SCH (06:01)
[2020-10-18] MEDS: SUCRALFATE 1 G/10 ML UDC GT SCH ×4 (07:30→21:24)
[2020-10-18 07:45] VITALS: BP 158/60
[2020-10-18] MEDS: HYDROGEN PEROXIDE 480 ML BOTTLE TP SCH ×2 (08:10→20:23)
[2020-10-18] MEDS: ACIDOPHILUS/BULGARICUS 1 EACH TAB.CHEW GT SCH ×2 (09:03→17:00)
[2020-10-18] MEDS: LOSARTAN POTASSIUM 50 MG TABLET GT SCH ×2 (09:03→17:00)
[2020-10-18] MEDS: VIT B CMPLX 3/FA/VIT C/BIOTIN 1 TAB TABLET GT SCH (09:03)
[2020-10-18] MEDS: DOCUSATE SODIUM LIQ 100 MG/10 ML UDC GT SCH (09:03)
[2020-10-18] MEDS: PANTOPRAZOLE 40 MG/PACK PACK GT SCH ×2 (09:03→21:24)
[2020-10-18] MEDS: PROSOURCE / PROSTAT (PYXIS) 30 ML UDC GT SCH ×2 (09:03→17:00)
[2020-10-18] MEDS: NEUTRA PHOS 1 POWD.PACKET GT SCH ×2 (09:03→17:00)
[2020-10-18] MEDS: MINERAL OIL/PETROL OINT 396 GM JAR TP SCH (09:04)
[2020-10-18] MEDS: TRIAMCINOLONE ACETONIDE 0.1% CR 15 GM TUBE TP SCH ×2 (09:07→21:24)
[2020-10-18] MEDS: Z GUARD REMEDY 2 OZ OINT TP SCH ×2 (09:07→21:24)
[2020-10-18] MEDS: CLOTRIMAZOLE/BETAMETASONE DIPROPIONATE 15 GM TUBE TP SCH ×3 (09:07→21:24)
[2020-10-18] MEDS: THERAHONEY GEL 1.5 OZ TUBE TP SCH ×2 (09:08)
[2020-10-18] MEDS: NEPRO 1,000 ML BOTTLE GT PRN (18:14)
[2020-10-18 19:26] VITALS: BP 161/73
[2020-10-18] MEDS: AMLODIPINE BESYLATE 10 MG TABLET GT SCH (21:24)
[2020-10-18] MEDS: MELATONIN 3 MG TABLET GT SCH (21:24)
--- NOTE | 2020-10-18 22:15 | NUR ---
MAXILLOFACIAL PROSTHODONTIST NOTE: Peripheral IV line on right forearm pulled out by patient, with slight bleeding noted. Compression applied, effective. No sign of distress, discomfort noted.
[2020-10-19 00:18] VITALS: BP 160/50
[2020-10-19] MEDS: POLYVINYL ALCOHOL 15 ML BOTTLE EACHEYE SCH ×4 (00:48→17:08)
[2020-10-19] MEDS: ALBUTEROL FS 2.5 MG/0.5 ML VIAL.NEB NEB SCH ×4 (02:19→20:40)
[2020-10-19] MEDS: IPRATROPIUM NEB FS 0.5 MG/2.5 ML AMPUL.NEB NEB SCH ×4 (02:19→20:40)
--- NOTE | 2020-10-19 03:33 | NUR ---
PATIENT RECEIVED ON TRACH TO VENT ON WEANING PROTOCOL WITH SETTINGS OF SIMV 6, 550, 30%, +5, PS 15. SUCTIONED FOR MINIMAL, THIN, WHITE SECRETIONS. GIVEN IN-LINE TREATMENTS WITH NO ADVERSE REACTIONS. AMBU BAG AT BEDSIDE. VENT ALARM AUDIBLE AND VISIBLE. TRACH CARE DONE. VENT PLUGGED INTO RED OUTLET. Addendum: 10/19/20 at 0334 by GOLDY PARIKH RT Amended: Links added.
[2020-10-19] MEDS: LEVOTHYROXINE SODIUM 100 MCG TABLET GT SCH (05:43)
[2020-10-19] MEDS: LABETALOL 200 MG GT SCH ×2 (05:43→17:08)
[2020-10-19] MEDS: HYDRALAZINE 100 MG GT SCH ×3 (05:43→20:36)
[2020-10-19] MEDS: SUCRALFATE 1 G/10 ML UDC GT SCH ×4 (07:30→21:23)
[2020-10-19 07:54] VITALS: BP 151/40
[2020-10-19] MEDS: HYDROGEN PEROXIDE 480 ML BOTTLE TP SCH ×2 (08:28→21:35)
[2020-10-19] MEDS: NEUTRA PHOS 1 POWD.PACKET GT SCH ×2 (09:12→17:08)
[2020-10-19] MEDS: PROSOURCE / PROSTAT (PYXIS) 30 ML UDC GT SCH ×2 (09:12→17:08)
[2020-10-19] MEDS: MINERAL OIL/PETROL OINT 396 GM JAR TP SCH (09:12)
[2020-10-19] MEDS: CLOTRIMAZOLE/BETAMETASONE DIPROPIONATE 15 GM TUBE TP SCH ×3 (09:12→20:43)
[2020-10-19] MEDS: TRIAMCINOLONE ACETONIDE 0.1% CR 15 GM TUBE TP SCH (09:12)
[2020-10-19] MEDS: PANTOPRAZOLE 40 MG/PACK PACK GT SCH ×2 (09:12→20:39)
[2020-10-19] MEDS: ACIDOPHILUS/BULGARICUS 1 EACH TAB.CHEW GT SCH ×2 (09:12→17:08)
[2020-10-19] MEDS: VIT B CMPLX 3/FA/VIT C/BIOTIN 1 TAB TABLET GT SCH (09:12)
[2020-10-19] MEDS: DOCUSATE SODIUM LIQ 100 MG/10 ML UDC GT SCH (09:12)
[2020-10-19] MEDS: Z GUARD REMEDY 2 OZ OINT TP SCH ×2 (09:13→20:44)
[2020-10-19] MEDS: THERAHONEY GEL 1.5 OZ TUBE TP SCH ×2 (09:13)
[2020-10-19] MEDS: LOSARTAN POTASSIUM 50 MG TABLET GT SCH (17:08)
[2020-10-19 20:13] VITALS: BP 149/76
[2020-10-19] MEDS: AMLODIPINE BESYLATE 10 MG TABLET GT SCH (20:37)
[2020-10-19] MEDS: MELATONIN 3 MG TABLET GT SCH (21:23)
[2020-10-20] MEDS: POLYVINYL ALCOHOL 15 ML BOTTLE EACHEYE SCH ×4 (00:31→17:35)
[2020-10-20] MEDS: NEPRO 1,000 ML BOTTLE GT PRN ×2 (00:36→18:37)
[2020-10-20] MEDS: IPRATROPIUM NEB FS 0.5 MG/2.5 ML AMPUL.NEB NEB SCH ×4 (01:13→20:00)
[2020-10-20] MEDS: ALBUTEROL FS 2.5 MG/0.5 ML VIAL.NEB NEB SCH ×4 (01:13→20:00)
[2020-10-20] MEDS: HYDRALAZINE 100 MG GT SCH ×3 (04:43→21:18)
[2020-10-20] MEDS: LEVOTHYROXINE SODIUM 100 MCG TABLET GT SCH (05:36)
[2020-10-20] MEDS: LABETALOL 200 MG GT SCH ×2 (06:16→17:35)
[2020-10-20] MEDS: SUCRALFATE 1 G/10 ML UDC GT SCH ×4 (07:30→21:19)
[2020-10-20 07:39] VITALS: BP 156/72
[2020-10-20] MEDS: HYDROGEN PEROXIDE 480 ML BOTTLE TP SCH ×2 (08:15→23:09)
[2020-10-20] MEDS: DOCUSATE SODIUM LIQ 100 MG/10 ML UDC GT SCH (08:59)
[2020-10-20] MEDS: LOSARTAN POTASSIUM 50 MG TABLET GT SCH ×2 (09:00→17:34)
[2020-10-20] MEDS: Z GUARD REMEDY 2 OZ OINT TP SCH ×2 (09:00→21:18)
[2020-10-20] MEDS: MINERAL OIL/PETROL OINT 396 GM JAR TP SCH (09:00)
[2020-10-20] MEDS: PANTOPRAZOLE 40 MG/PACK PACK GT SCH ×2 (09:00→21:18)
[2020-10-20] MEDS: PROSOURCE / PROSTAT (PYXIS) 30 ML UDC GT SCH ×2 (09:00→17:35)
[2020-10-20] MEDS: VIT B CMPLX 3/FA/VIT C/BIOTIN 1 TAB TABLET GT SCH (09:00)
[2020-10-20] MEDS: THERAHONEY GEL 1.5 OZ TUBE TP SCH ×2 (09:00)
[2020-10-20] MEDS: NEUTRA PHOS 1 POWD.PACKET GT SCH ×2 (09:00→17:34)
[2020-10-20] MEDS: ACIDOPHILUS/BULGARICUS 1 EACH TAB.CHEW GT SCH ×2 (09:00→17:34)
[2020-10-20] MEDS: CLOTRIMAZOLE/BETAMETASONE DIPROPIONATE 15 GM TUBE TP SCH ×3 (09:00→21:18)
[2020-10-20 14:04] VITALS: BP 154/67
[2020-10-20 20:00] VITALS: BP 182/94
[2020-10-20] MEDS: AMLODIPINE BESYLATE 10 MG TABLET GT SCH (21:18)
[2020-10-20] MEDS: MELATONIN 3 MG TABLET GT SCH (21:19)
[2020-10-21] MEDS: POLYVINYL ALCOHOL 15 ML BOTTLE EACHEYE SCH ×4 (00:13→18:12)
[2020-10-21] MEDS: ALBUTEROL FS 2.5 MG/0.5 ML VIAL.NEB NEB SCH ×4 (01:36→20:00)
[2020-10-21] MEDS: IPRATROPIUM NEB FS 0.5 MG/2.5 ML AMPUL.NEB NEB SCH ×4 (01:36→20:00)
[2020-10-21] MEDS: HYDRALAZINE 100 MG GT SCH ×3 (05:00→21:31)
[2020-10-21] MEDS: LEVOTHYROXINE SODIUM 100 MCG TABLET GT SCH (06:17)
[2020-10-21] MEDS: LABETALOL 200 MG GT SCH ×2 (06:17→18:12)
[2020-10-21] MEDS: SUCRALFATE 1 G/10 ML UDC GT SCH ×4 (07:30→21:31)
[2020-10-21 07:47] VITALS: BP 143/52
[2020-10-21] MEDS: HYDROGEN PEROXIDE 480 ML BOTTLE TP SCH ×2 (09:19→21:14)
[2020-10-21] MEDS: DOCUSATE SODIUM LIQ 100 MG/10 ML UDC GT SCH (09:21)
[2020-10-21] MEDS: ACIDOPHILUS/BULGARICUS 1 EACH TAB.CHEW GT SCH ×2 (09:28→17:00)
[2020-10-21] MEDS: VIT B CMPLX 3/FA/VIT C/BIOTIN 1 TAB TABLET GT SCH (09:28)
[2020-10-21] MEDS: LOSARTAN POTASSIUM 50 MG TABLET GT SCH ×2 (09:28→17:00)
[2020-10-21] MEDS: PROSOURCE / PROSTAT (PYXIS) 30 ML UDC GT SCH ×2 (09:29→17:00)
[2020-10-21] MEDS: NEUTRA PHOS 1 POWD.PACKET GT SCH ×2 (09:29→17:00)
[2020-10-21] MEDS: THERAHONEY GEL 1.5 OZ TUBE TP SCH ×2 (09:31)
[2020-10-21] MEDS: PANTOPRAZOLE 40 MG/PACK PACK GT SCH ×2 (09:31→21:31)
[2020-10-21] MEDS: CLOTRIMAZOLE/BETAMETASONE DIPROPIONATE 15 GM TUBE TP SCH ×3 (09:31→21:31)
[2020-10-21] MEDS: Z GUARD REMEDY 2 OZ OINT TP SCH ×2 (09:31→21:31)
[2020-10-21] MEDS: MINERAL OIL/PETROL OINT 396 GM JAR TP SCH (09:31)
--- NOTE | 2020-10-21 09:40 | NUR ---
Facility Update: SW notified family via [employer] Text that " No [facility] residents or employees tested positive for COVID-19 this week. As recommended by [facility], all Sub-Acute residents & healthcare personnel will continue receiving routine testing. [facility] continues to follow infection control protocols and screen our residents and staff daily for symptoms. Patient Visitation will now be allowed 3 times within 7 days of negative COVID Test. We will update you when [facility] of Public Health changes their regulations." Late entry for 10/15/2020
--- NOTE | 2020-10-21 12:20 | NUR ---
Seen by FLOOR SURFACER Wendy Gan via Zoom video call. Received order to place pt on SIMV 4 PS 15 FiO2 30% PEEP +5 from 7A to 7P daily as tolerated starting tomorrow, then do ABG. Notified pt's . DEV Thorne translated in Kyrgyz.
[2020-10-21] MEDS: NEPRO 1,000 ML BOTTLE GT PRN (13:42)
[2020-10-21 13:58] VITALS: BP 139/67
[2020-10-21 20:09] VITALS: BP 150/63
[2020-10-21] MEDS: AMLODIPINE BESYLATE 10 MG TABLET GT SCH (21:31)
[2020-10-21] MEDS: MELATONIN 3 MG TABLET GT SCH (21:32)
[2020-10-22] MEDS: POLYVINYL ALCOHOL 15 ML BOTTLE EACHEYE SCH ×4 (00:03→17:34)
[2020-10-22] MEDS: IPRATROPIUM NEB FS 0.5 MG/2.5 ML AMPUL.NEB NEB SCH ×4 (01:36→19:55)
[2020-10-22] MEDS: ALBUTEROL FS 2.5 MG/0.5 ML VIAL.NEB NEB SCH ×4 (01:36→19:55)
[2020-10-22 01:51] VITALS: BP 152/60
[2020-10-22] MEDS: LABETALOL 200 MG GT SCH ×2 (05:11→17:34)
[2020-10-22] MEDS: LEVOTHYROXINE SODIUM 100 MCG TABLET GT SCH (05:11)
[2020-10-22] MEDS: HYDRALAZINE 100 MG GT SCH ×3 (05:11→20:20)
[2020-10-22 07:46] VITALS: BP 132/45
[2020-10-22] MEDS: DOCUSATE SODIUM LIQ 100 MG/10 ML UDC GT SCH (08:08)
[2020-10-22] MEDS: PROSOURCE / PROSTAT (PYXIS) 30 ML UDC GT SCH ×2 (08:08→16:40)
[2020-10-22] MEDS: VIT B CMPLX 3/FA/VIT C/BIOTIN 1 TAB TABLET GT SCH (08:08)
[2020-10-22] MEDS: ACIDOPHILUS/BULGARICUS 1 EACH TAB.CHEW GT SCH ×2 (08:08→16:40)
[2020-10-22] MEDS: PANTOPRAZOLE 40 MG/PACK PACK GT SCH ×2 (08:08→20:20)
[2020-10-22] MEDS: SUCRALFATE 1 G/10 ML UDC GT SCH ×4 (08:08→21:25)
[2020-10-22] MEDS: Z GUARD REMEDY 2 OZ OINT TP SCH ×2 (08:08→20:21)
[2020-10-22] MEDS: NEUTRA PHOS 1 POWD.PACKET GT SCH ×2 (08:08→16:40)
[2020-10-22] MEDS: CLOTRIMAZOLE/BETAMETASONE DIPROPIONATE 15 GM TUBE TP SCH ×3 (08:08→20:21)
[2020-10-22] MEDS: MINERAL OIL/PETROL OINT 396 GM JAR TP SCH (08:08)
[2020-10-22] MEDS: THERAHONEY GEL 1.5 OZ TUBE TP SCH ×2 (08:09)
[2020-10-22] MEDS: HYDROGEN PEROXIDE 480 ML BOTTLE TP SCH ×2 (08:21→20:06)
[2020-10-22 10:31] LABS: ABG BASE EXCESS -0.7 mmol/L; ABG OXYGEN SATURATION 98.7 % (92.0-98.5); ABG PCO2 41.4 mmHg (35.0-45.0); ABG PH 7.386 (7.350-7.450); AaDO2 36.3 mmHg; COHb 0.9 % (0.5-1.5); MetHb 0.5 % (0.0-1.5); O2Hb 97.3 % (94.0-97.0); SITE, ABG Left Radial; VENT MODE, BG SIMV 4 550 PS 15 30% +5
--- NOTE | 2020-10-22 10:45 | NUR ---
Pt was placed on SIMV 4 by RT Vidal this morning and pt is tolerating it well. ABG result relayed to Dr Gonzalez and JESSICA Gan. No new order.
--- NOTE | 2020-10-22 12:00 | NUR ---
Pt's called. Informed her that ventilator setting was changed for weaning, translated by BRENTON Oneill.
[2020-10-22] MEDS: LOSARTAN POTASSIUM 50 MG TABLET GT SCH (16:40)
[2020-10-22] MEDS: NEPRO 1,000 ML BOTTLE GT PRN (18:12)
[2020-10-22 19:25] VITALS: BP 147/57
--- NOTE | 2020-10-22 19:55 | NUR ---
RT NOTE PT PLACED ON AC MODE PER MD NOC ORDER. NO DISTRESS NOTED. PT TOLERATING WELL. Addendum: 10/23/20 at 0528 by CATHIE SHIRLEY RT Amended: Links added.
[2020-10-22] MEDS: AMLODIPINE BESYLATE 10 MG TABLET GT SCH (20:20)
--- NOTE | 2020-10-22 20:30 | NUR ---
RN NOTES NOTED WITH BODY TEMP. 100.3, COOLING MEASURES PROVIDED. PER MORNING NURSE, PATIENT JUST CAME BACK FROM DIALYSIS. RECHECK AFTER 1HR WITH 99.6, WILL CONTINUE TO MONITOR.
[2020-10-22] MEDS: MELATONIN 3 MG TABLET GT SCH (21:25)
[2020-10-23] MEDS: POLYVINYL ALCOHOL 15 ML BOTTLE EACHEYE SCH ×5 (00:08→23:52)
[2020-10-23 00:21] VITALS: BP 158/58
[2020-10-23] MEDS: ALBUTEROL FS 2.5 MG/0.5 ML VIAL.NEB NEB SCH ×4 (01:38→19:30)
[2020-10-23] MEDS: IPRATROPIUM NEB FS 0.5 MG/2.5 ML AMPUL.NEB NEB SCH ×4 (01:38→19:30)
[2020-10-23] MEDS: HYDRALAZINE 100 MG GT SCH ×3 (05:01→21:20)
[2020-10-23] MEDS: LABETALOL 200 MG GT SCH ×2 (05:02→18:39)
[2020-10-23] MEDS: LEVOTHYROXINE SODIUM 100 MCG TABLET GT SCH (05:02)
[2020-10-23] MEDS: SUCRALFATE 1 G/10 ML UDC GT SCH ×4 (07:30→21:21)
[2020-10-23 07:33] VITALS: BP 149/55
[2020-10-23] MEDS: LOSARTAN POTASSIUM 50 MG TABLET GT SCH ×2 (08:38→17:00)
[2020-10-23] MEDS: DOCUSATE SODIUM LIQ 100 MG/10 ML UDC GT SCH (08:38)
[2020-10-23] MEDS: ACIDOPHILUS/BULGARICUS 1 EACH TAB.CHEW GT SCH ×2 (08:38→17:00)
[2020-10-23] MEDS: PANTOPRAZOLE 40 MG/PACK PACK GT SCH ×2 (08:38→21:21)
[2020-10-23] MEDS: VIT B CMPLX 3/FA/VIT C/BIOTIN 1 TAB TABLET GT SCH (08:38)
[2020-10-23] MEDS: NEUTRA PHOS 1 POWD.PACKET GT SCH ×2 (08:38→17:00)
[2020-10-23] MEDS: PROSOURCE / PROSTAT (PYXIS) 30 ML UDC GT SCH ×2 (08:38→17:00)
[2020-10-23] MEDS: MINERAL OIL/PETROL OINT 396 GM JAR TP SCH (08:43)
[2020-10-23] MEDS: CLOTRIMAZOLE/BETAMETASONE DIPROPIONATE 15 GM TUBE TP SCH ×3 (08:46→21:21)
[2020-10-23] MEDS: THERAHONEY GEL 1.5 OZ TUBE TP SCH ×2 (08:47)
[2020-10-23] MEDS: Z GUARD REMEDY 2 OZ OINT TP SCH ×2 (08:47→21:21)
[2020-10-23] MEDS: HYDROGEN PEROXIDE 480 ML BOTTLE TP SCH ×2 (09:00→19:30)
[2020-10-23 12:00] VITALS: BP 138/61
[2020-10-23 20:09] VITALS: BP 157/68
[2020-10-23] MEDS: CLONIDINE HCL 0.1MG/24H PTWK 1 EA PATCH TD SCH (21:20)
[2020-10-23] MEDS: AMLODIPINE BESYLATE 10 MG TABLET GT SCH (21:21)
[2020-10-23] MEDS: MELATONIN 3 MG TABLET GT SCH (21:21)
[2020-10-24] MEDS: ALBUTEROL FS 2.5 MG/0.5 ML VIAL.NEB NEB SCH ×4 (01:59→19:40)
[2020-10-24] MEDS: IPRATROPIUM NEB FS 0.5 MG/2.5 ML AMPUL.NEB NEB SCH ×4 (01:59→19:40)
[2020-10-24] MEDS: LEVOTHYROXINE SODIUM 100 MCG TABLET GT SCH (05:33)
[2020-10-24] MEDS: POLYVINYL ALCOHOL 15 ML BOTTLE EACHEYE SCH ×4 (05:33→23:40)
[2020-10-24] MEDS: HYDRALAZINE 100 MG GT SCH ×3 (05:33→20:35)
[2020-10-24] MEDS: LABETALOL 200 MG GT SCH ×2 (05:33→17:43)
[2020-10-24 07:40] VITALS: BP 148/65
[2020-10-24] MEDS: SUCRALFATE 1 G/10 ML UDC GT SCH ×4 (07:51→21:04)
[2020-10-24] MEDS: HYDROGEN PEROXIDE 480 ML BOTTLE TP SCH ×2 (08:06→19:40)
[2020-10-24] MEDS: Z GUARD REMEDY 2 OZ OINT TP SCH ×2 (09:03→20:38)
[2020-10-24] MEDS: ACIDOPHILUS/BULGARICUS 1 EACH TAB.CHEW GT SCH ×2 (09:03→17:42)
[2020-10-24] MEDS: VIT B CMPLX 3/FA/VIT C/BIOTIN 1 TAB TABLET GT SCH (09:03)
[2020-10-24] MEDS: NEUTRA PHOS 1 POWD.PACKET GT SCH ×2 (09:03→17:42)
[2020-10-24] MEDS: PANTOPRAZOLE 40 MG/PACK PACK GT SCH ×2 (09:03→20:35)
[2020-10-24] MEDS: DOCUSATE SODIUM LIQ 100 MG/10 ML UDC GT SCH (09:03)
[2020-10-24] MEDS: THERAHONEY GEL 1.5 OZ TUBE TP SCH ×2 (09:03)
[2020-10-24] MEDS: CLOTRIMAZOLE/BETAMETASONE DIPROPIONATE 15 GM TUBE TP SCH ×3 (09:03→20:38)
[2020-10-24] MEDS: MINERAL OIL/PETROL OINT 396 GM JAR TP SCH (09:03)
[2020-10-24] MEDS: PROSOURCE / PROSTAT (PYXIS) 30 ML UDC GT SCH ×2 (09:03→17:42)
[2020-10-24 12:10] VITALS: BP 138/65
[2020-10-24] MEDS: NEPRO 1,000 ML BOTTLE GT PRN (16:30)
[2020-10-24] MEDS: LOSARTAN POTASSIUM 50 MG TABLET GT SCH (17:41)
[2020-10-24 19:48] VITALS: BP 134/45
[2020-10-24] MEDS: AMLODIPINE BESYLATE 10 MG TABLET GT SCH (20:35)
[2020-10-24] MEDS: MELATONIN 3 MG TABLET GT SCH (21:04)
[2020-10-25] MEDS: IPRATROPIUM NEB FS 0.5 MG/2.5 ML AMPUL.NEB NEB SCH ×4 (01:48→19:30)
[2020-10-25] MEDS: ALBUTEROL FS 2.5 MG/0.5 ML VIAL.NEB NEB SCH ×4 (01:48→19:30)
[2020-10-25 01:50] VITALS: BP 128/55
[2020-10-25] MEDS: LABETALOL 200 MG GT SCH ×2 (05:41→17:49)
[2020-10-25] MEDS: HYDRALAZINE 100 MG GT SCH ×3 (05:41→20:19)
[2020-10-25] MEDS: LEVOTHYROXINE SODIUM 100 MCG TABLET GT SCH (05:41)
[2020-10-25] MEDS: POLYVINYL ALCOHOL 15 ML BOTTLE EACHEYE SCH ×4 (05:41→23:22)
[2020-10-25 07:12] LABS: BASOPHILS % (AUTO) 0.6 % (0.0-2.0); EOSINOPHILS % (AUTO) 0.6 % (0.0-6.0); HEMATOCRIT 23 % (39-51); HEMOGLOBIN 7.8 g/dL (13.5-17.5); LYMPHOCYTES # (AUTO) 0.5 /CMM (0.8-4.8); MEAN CORPUSCULAR HGB CONC 33 g/dl (31.0-36.0); MEAN CORPUSCULAR VOLUME 91 fL (80-96); MONOCYTES # (AUTO) 0.8 /CMM (0.1-1.30); MONOCYTES % (AUTO) 11.5 % (2.0-12.0); NEUTROPHILS # (AUTO) 5.4 /CMM (1.8-8.9); NEUTROPHILS % (AUTO) 80.3 % (43.0-81.0); PLATELET COUNT (AUTO) 194 /CMM (150-450); RED BLOOD CELL COUNT(AUTO) 2.59 MIL/uL (4.5-6.0); WHITE BLOOD COUNT (AUTO) 6.8 K/uL (4.3-11.0)
[2020-10-25] MEDS: SUCRALFATE 1 G/10 ML UDC GT SCH ×4 (07:30→21:09)
[2020-10-25 07:39] LABS: CALCIUM, SERUM 9.2 mg/dL (8.5-10.1); CREATININE 1.9 mg/dL (0.6-1.3); POTASSIUM 3.3 mmol/L (3.5-5.1)
[2020-10-25 07:47] VITALS: BP 138/44
[2020-10-25] MEDS: HYDROGEN PEROXIDE 480 ML BOTTLE TP SCH ×2 (08:31→20:30)
--- NOTE | 2020-10-25 08:58 | NUR ---
Facility Update: DIPESH notified family via email that "No [facility] residents or employees tested positive for COVID-19 this week. As recommended by [facility], all Sub-Acute residents & healthcare personnel will continue receiving routine testing. [facility] continues to follow infection control protocols and screen our residents and staff daily for symptoms.Patient Visitation are now be allowed 3 times within 7 days of negative COVID Test. We will update you when [facility] of Public Health changes their regulations."
[2020-10-25] MEDS: MINERAL OIL/PETROL OINT 396 GM JAR TP SCH (09:00)
[2020-10-25] MEDS: CLOTRIMAZOLE/BETAMETASONE DIPROPIONATE 15 GM TUBE TP SCH ×3 (09:00→20:19)
[2020-10-25] MEDS: THERAHONEY GEL 1.5 OZ TUBE TP SCH ×2 (09:00)
[2020-10-25] MEDS: Z GUARD REMEDY 2 OZ OINT TP SCH ×2 (09:00→20:19)
[2020-10-25] MEDS: ACIDOPHILUS/BULGARICUS 1 EACH TAB.CHEW GT SCH ×2 (09:23→17:49)
[2020-10-25] MEDS: VIT B CMPLX 3/FA/VIT C/BIOTIN 1 TAB TABLET GT SCH (09:23)
[2020-10-25] MEDS: PANTOPRAZOLE 40 MG/PACK PACK GT SCH ×2 (09:23→20:19)
[2020-10-25] MEDS: DOCUSATE SODIUM LIQ 100 MG/10 ML UDC GT SCH (09:23)
[2020-10-25] MEDS: LOSARTAN POTASSIUM 50 MG TABLET GT SCH ×2 (09:23→17:49)
[2020-10-25] MEDS: PROSOURCE / PROSTAT (PYXIS) 30 ML UDC GT SCH ×2 (09:23→17:49)
[2020-10-25] MEDS: NEUTRA PHOS 1 POWD.PACKET GT SCH ×2 (09:23→17:49)
[2020-10-25] MEDS: NEPRO 1,000 ML BOTTLE GT PRN (11:00)
[2020-10-25 13:29] VITALS: BP 136/62
--- NOTE | 2020-10-25 14:46 | NUR ---
Family Visit on 10/27/2020: DIPESH received call from pt.'s , Molly Robbins regarding family visit. SW went over current visitation guidelines outlined by [facility] and [facility]. Molly stated the family visiting will include: herself, MOLLY ROBBINS and adult children: TITA ROBBINS , CELIA ROBBINS, SARA WINSTON JENNIFER ROBBINS & GRANDSON : LEONEL ONTIVEROSCO REZA (4 YEARS OLD). SW notified Molly that child will not be allowed to to visit. Family expresse understanding. Per Molly all parties received COVID testing 2 days ago and they will bring their printed test results to show prio to visit. SW educated Molly and family regarding hand hygiene, wearing mask at all times, 6 feet distance and no physical touch when visiting as family is not vaccinated. Family expressed understanding and is agreeable. electronic coils supervisor, charge nurse made aware of this visit. Family anticipated to visit on 10/27/20 10 am or 11 am. 2 people for 30 minutes at a time will be allowed to see pt. Family is agreeable.
--- NOTE | 2020-10-25 15:27 | NUR ---
Seen and examined by Dr. Espinoza. Informed MD that PAD MAKING MACHINE OPERATOR for Alesha Silverman ordered Heparin 5000 units Q 12 hours since patient's Hbg has been steady and no GI bleeding noted. Dr. Espinoza said it is OK. No other order given.
[2020-10-25 19:19] VITALS: BP 154/73
[2020-10-25] MEDS: AMLODIPINE BESYLATE 10 MG TABLET GT SCH (20:19)
[2020-10-25] MEDS: HEPARIN SODIUM, PORCINE 5000 UNITS/1 ML VIAL SQ SCH (21:00)
[2020-10-25] MEDS: MELATONIN 3 MG TABLET GT SCH (21:09)
[2020-10-26 00:15] VITALS: BP 122/80
[2020-10-26] MEDS: ALBUTEROL FS 2.5 MG/0.5 ML VIAL.NEB NEB SCH ×4 (01:48→19:41)
[2020-10-26] MEDS: IPRATROPIUM NEB FS 0.5 MG/2.5 ML AMPUL.NEB NEB SCH ×4 (01:48→19:41)
[2020-10-26] MEDS: POLYVINYL ALCOHOL 15 ML BOTTLE EACHEYE SCH ×3 (05:27→17:44)
[2020-10-26] MEDS: HYDRALAZINE 100 MG GT SCH ×3 (05:27→20:44)
[2020-10-26] MEDS: LABETALOL 200 MG GT SCH ×2 (05:28→17:45)
[2020-10-26] MEDS: LEVOTHYROXINE SODIUM 100 MCG TABLET GT SCH (05:28)
[2020-10-26 06:38] LABS: HEMOGLOBIN 8.6 g/dL (13.5-17.5)
[2020-10-26 07:22] VITALS: BP 144/74
[2020-10-26] MEDS: SUCRALFATE 1 G/10 ML UDC GT SCH ×4 (08:20→22:12)
[2020-10-26] MEDS: VIT B CMPLX 3/FA/VIT C/BIOTIN 1 TAB TABLET GT SCH (08:36)
[2020-10-26] MEDS: PANTOPRAZOLE 40 MG/PACK PACK GT SCH ×2 (08:36→20:45)
[2020-10-26] MEDS: DOCUSATE SODIUM LIQ 100 MG/10 ML UDC GT SCH (08:36)
[2020-10-26] MEDS: PROSOURCE / PROSTAT (PYXIS) 30 ML UDC GT SCH ×2 (08:36→17:44)
[2020-10-26] MEDS: ACIDOPHILUS/BULGARICUS 1 EACH TAB.CHEW GT SCH ×2 (08:36→17:44)
[2020-10-26] MEDS: NEUTRA PHOS 1 POWD.PACKET GT SCH ×2 (08:38→17:44)
[2020-10-26] MEDS: HYDROGEN PEROXIDE 480 ML BOTTLE TP SCH ×2 (09:06→19:41)
[2020-10-26] MEDS: Z GUARD REMEDY 2 OZ OINT TP SCH ×2 (09:15→20:47)
[2020-10-26] MEDS: THERAHONEY GEL 1.5 OZ TUBE TP SCH ×2 (09:15)
[2020-10-26] MEDS: CLOTRIMAZOLE/BETAMETASONE DIPROPIONATE 15 GM TUBE TP SCH ×3 (09:15→20:46)
[2020-10-26] MEDS: MINERAL OIL/PETROL OINT 396 GM JAR TP SCH (09:15)
[2020-10-26] MEDS: HEPARIN SODIUM, PORCINE 5000 UNITS/1 ML VIAL SQ SCH ×2 (09:15→20:46)
--- NOTE | 2020-10-26 11:28 | NUR ---
Resident left for dialysis with transport staff. Resident awake, no s/s of distress. Trach secured, on mechanical vent, tolerating well. All emergency equipment taken for transport.
[2020-10-26 12:33] VITALS: BP 168/94
[2020-10-26] MEDS: LOSARTAN POTASSIUM 50 MG TABLET GT SCH (17:44)
[2020-10-26] MEDS: NEPRO 1,000 ML BOTTLE GT PRN (18:10)
[2020-10-26 19:24] VITALS: BP 162/66
[2020-10-26] MEDS: AMLODIPINE BESYLATE 10 MG TABLET GT SCH (20:45)
[2020-10-26] MEDS: MELATONIN 3 MG TABLET GT SCH (22:12)
[2020-10-27] MEDS: POLYVINYL ALCOHOL 15 ML BOTTLE EACHEYE SCH ×5 (00:09→23:44)
[2020-10-27 00:17] VITALS: BP 145/57
[2020-10-27] MEDS: ALBUTEROL FS 2.5 MG/0.5 ML VIAL.NEB NEB SCH ×4 (00:53→19:52)
[2020-10-27] MEDS: IPRATROPIUM NEB FS 0.5 MG/2.5 ML AMPUL.NEB NEB SCH ×4 (00:53→19:52)
[2020-10-27] MEDS: HYDRALAZINE 100 MG GT SCH ×3 (04:54→21:36)
[2020-10-27] MEDS: LABETALOL 200 MG GT SCH ×2 (05:26→17:59)
[2020-10-27] MEDS: LEVOTHYROXINE SODIUM 100 MCG TABLET GT SCH (05:26)
[2020-10-27 07:22] VITALS: BP 160/62
[2020-10-27] MEDS: SUCRALFATE 1 G/10 ML UDC GT SCH ×4 (07:30→21:36)
[2020-10-27] MEDS: DOCUSATE SODIUM LIQ 100 MG/10 ML UDC GT SCH (08:47)
[2020-10-27] MEDS: PROSOURCE / PROSTAT (PYXIS) 30 ML UDC GT SCH ×2 (08:48→17:58)
[2020-10-27] MEDS: VIT B CMPLX 3/FA/VIT C/BIOTIN 1 TAB TABLET GT SCH (08:48)
[2020-10-27] MEDS: NEUTRA PHOS 1 POWD.PACKET GT SCH ×2 (08:48→17:58)
[2020-10-27] MEDS: PANTOPRAZOLE 40 MG/PACK PACK GT SCH ×2 (08:48→21:36)
[2020-10-27] MEDS: ACIDOPHILUS/BULGARICUS 1 EACH TAB.CHEW GT SCH ×2 (08:48→17:58)
[2020-10-27] MEDS: LOSARTAN POTASSIUM 50 MG TABLET GT SCH ×2 (08:48→17:55)
[2020-10-27] MEDS: CLOTRIMAZOLE/BETAMETASONE DIPROPIONATE 15 GM TUBE TP SCH ×3 (08:49→21:36)
[2020-10-27] MEDS: HEPARIN SODIUM, PORCINE 5000 UNITS/1 ML VIAL SQ SCH ×2 (08:49→21:36)
[2020-10-27] MEDS: Z GUARD REMEDY 2 OZ OINT TP SCH ×2 (08:49→21:36)
[2020-10-27] MEDS: THERAHONEY GEL 1.5 OZ TUBE TP SCH ×2 (08:49→08:50)
[2020-10-27] MEDS: MINERAL OIL/PETROL OINT 396 GM JAR TP SCH (08:49)
[2020-10-27] MEDS: HYDROGEN PEROXIDE 480 ML BOTTLE TP SCH ×2 (09:07→19:52)
[2020-10-27 12:13] VITALS: BP 148/64
--- NOTE | 2020-10-27 14:10 | NUR ---
Resident's , daughter and son personally visited patient. Covid-19 screening done, negative for sign and symptoms of Covid-19 with negative Covid-19 test with the last 72 days. Hand hygiene practiced by visitors and kept their distance from patient per protocol. Patient's , daughter and son all became very emotional upon seeing patient in person for the first time after more one year due to Covid-19 lockdown. Patient's expressed appreciation to the staff for the care provided.
[2020-10-27] MEDS: NEPRO 1,000 ML BOTTLE GT PRN (14:58)
[2020-10-27 20:06] VITALS: BP 150/70
[2020-10-27] MEDS: MELATONIN 3 MG TABLET GT SCH (21:36)
[2020-10-27] MEDS: AMLODIPINE BESYLATE 10 MG TABLET GT SCH (21:36)
[2020-10-28] MEDS: ALBUTEROL FS 2.5 MG/0.5 ML VIAL.NEB NEB SCH ×4 (01:53→20:28)
[2020-10-28] MEDS: IPRATROPIUM NEB FS 0.5 MG/2.5 ML AMPUL.NEB NEB SCH ×4 (01:53→20:28)
[2020-10-28] MEDS: LABETALOL 200 MG GT SCH ×2 (05:47→18:12)
[2020-10-28] MEDS: HYDRALAZINE 100 MG GT SCH ×3 (05:47→21:20)
[2020-10-28] MEDS: LEVOTHYROXINE SODIUM 100 MCG TABLET GT SCH (05:47)
[2020-10-28] MEDS: POLYVINYL ALCOHOL 15 ML BOTTLE EACHEYE SCH ×4 (05:47→23:08)
[2020-10-28] MEDS: SUCRALFATE 1 G/10 ML UDC GT SCH ×4 (07:30→21:21)
[2020-10-28 08:00] VITALS: BP 152/74
[2020-10-28] MEDS: ACIDOPHILUS/BULGARICUS 1 EACH TAB.CHEW GT SCH ×2 (08:44→16:52)
[2020-10-28] MEDS: DOCUSATE SODIUM LIQ 100 MG/10 ML UDC GT SCH (08:44)
[2020-10-28] MEDS: LOSARTAN POTASSIUM 50 MG TABLET GT SCH ×2 (08:44→16:52)
[2020-10-28] MEDS: NEUTRA PHOS 1 POWD.PACKET GT SCH ×2 (08:45→16:53)
[2020-10-28] MEDS: PANTOPRAZOLE 40 MG/PACK PACK GT SCH ×2 (08:45→21:20)
[2020-10-28] MEDS: VIT B CMPLX 3/FA/VIT C/BIOTIN 1 TAB TABLET GT SCH (08:45)
[2020-10-28] MEDS: PROSOURCE / PROSTAT (PYXIS) 30 ML UDC GT SCH ×2 (08:45→16:53)
[2020-10-28] MEDS: MINERAL OIL/PETROL OINT 396 GM JAR TP SCH (08:46)
[2020-10-28] MEDS: HEPARIN SODIUM, PORCINE 5000 UNITS/1 ML VIAL SQ SCH ×2 (08:46→21:21)
[2020-10-28] MEDS: Z GUARD REMEDY 2 OZ OINT TP SCH ×2 (08:47→21:21)
[2020-10-28] MEDS: CLOTRIMAZOLE/BETAMETASONE DIPROPIONATE 15 GM TUBE TP SCH ×3 (08:47→21:21)
[2020-10-28] MEDS: THERAHONEY GEL 1.5 OZ TUBE TP SCH ×2 (08:47)
[2020-10-28] MEDS: HYDROGEN PEROXIDE 480 ML BOTTLE TP SCH ×2 (09:21→20:28)
--- NOTE | 2020-10-28 11:38 | NUR ---
Received order to DC SCD since pt is now on Heparin for DVT prophylaxis.
[2020-10-28 12:00] VITALS: BP 165/74
[2020-10-28] MEDS: NEPRO 1,000 ML BOTTLE GT PRN (16:48)
--- NOTE | 2020-10-28 18:22 | NUR ---
Seen by BULK LOADER Wendy Gan. She ordered to place pt on CPAP tomorrow then do ABG. Informed her that pt will go to hemodialysis tomorrow. She said to place pt on CPAP when he comes back from hemodialysis.
[2020-10-28 20:28] VITALS: BP 146/69
[2020-10-28] MEDS: AMLODIPINE BESYLATE 10 MG TABLET GT SCH (21:20)
[2020-10-28] MEDS: MELATONIN 3 MG TABLET GT SCH (21:21)
[2020-10-29] MEDS: IPRATROPIUM NEB FS 0.5 MG/2.5 ML AMPUL.NEB NEB SCH ×4 (02:21→20:09)
[2020-10-29] MEDS: ALBUTEROL FS 2.5 MG/0.5 ML VIAL.NEB NEB SCH ×4 (02:21→20:09)
[2020-10-29] MEDS: LABETALOL 200 MG GT SCH ×2 (05:22→17:01)
[2020-10-29] MEDS: HYDRALAZINE 100 MG GT SCH ×3 (05:22→21:36)
[2020-10-29] MEDS: POLYVINYL ALCOHOL 15 ML BOTTLE EACHEYE SCH ×4 (05:22→23:36)
[2020-10-29] MEDS: LEVOTHYROXINE SODIUM 100 MCG TABLET GT SCH (05:22)
[2020-10-29 06:46] LABS: BASOPHILS % (AUTO) 1.3 % (0.0-2.0); EOSINOPHILS % (AUTO) 1.6 % (0.0-6.0); HEMATOCRIT 23 % (39-51); HEMOGLOBIN 7.6 g/dL (13.5-17.5); LYMPHOCYTES # (AUTO) 0.5 /CMM (0.8-4.8); LYMPHOCYTES % (AUTO) 7.6 % (20.0-44.0); MEAN CORPUSCULAR HGB CONC 33 g/dl (31.0-36.0); MEAN CORPUSCULAR VOLUME 90 fL (80-96); MONOCYTES # (AUTO) 0.6 /CMM (0.1-1.30); MONOCYTES % (AUTO) 8.6 % (2.0-12.0); NEUTROPHILS # (AUTO) 5.5 /CMM (1.8-8.9); NEUTROPHILS % (AUTO) 80.9 % (43.0-81.0); PLATELET COUNT (AUTO) 229 /CMM (150-450); RED BLOOD CELL COUNT(AUTO) 2.56 MIL/uL (4.5-6.0); WHITE BLOOD COUNT (AUTO) 6.8 K/uL (4.3-11.0)
[2020-10-29 06:47] LABS: BASOPHILS # (AUTO) 0.1 /CMM (0.0-0.2)
[2020-10-29 07:31] VITALS: BP 126/59
[2020-10-29] MEDS: HYDROGEN PEROXIDE 480 ML BOTTLE TP SCH ×2 (08:05→21:33)
[2020-10-29] MEDS: PROSOURCE / PROSTAT (PYXIS) 30 ML UDC GT SCH ×2 (08:15→16:41)
[2020-10-29] MEDS: SUCRALFATE 1 G/10 ML UDC GT SCH ×4 (08:15→21:36)
[2020-10-29] MEDS: ACIDOPHILUS/BULGARICUS 1 EACH TAB.CHEW GT SCH ×2 (08:15→16:41)
[2020-10-29] MEDS: DOCUSATE SODIUM LIQ 100 MG/10 ML UDC GT SCH (08:15)
[2020-10-29] MEDS: NEUTRA PHOS 1 POWD.PACKET GT SCH ×2 (08:15→16:42)
[2020-10-29] MEDS: VIT B CMPLX 3/FA/VIT C/BIOTIN 1 TAB TABLET GT SCH (08:15)
[2020-10-29] MEDS: PANTOPRAZOLE 40 MG/PACK PACK GT SCH ×2 (08:16→21:36)
[2020-10-29] MEDS: Z GUARD REMEDY 2 OZ OINT TP SCH ×2 (08:16→21:36)
[2020-10-29] MEDS: MINERAL OIL/PETROL OINT 396 GM JAR TP SCH (08:16)
[2020-10-29] MEDS: THERAHONEY GEL 1.5 OZ TUBE TP SCH ×2 (08:16)
[2020-10-29] MEDS: CLOTRIMAZOLE/BETAMETASONE DIPROPIONATE 15 GM TUBE TP SCH ×3 (08:16→21:36)
[2020-10-29] MEDS: HEPARIN SODIUM, PORCINE 5000 UNITS/1 ML VIAL SQ SCH ×2 (08:18→21:36)
[2020-10-29 11:38] VITALS: BP 164/74
--- NOTE | 2020-10-29 12:10 | NUR ---
RN notes Held BP medication due to hemodialysis.
--- NOTE | 2020-10-29 15:00 | NUR ---
Notified Dr Espinoza of Hgb 7.6 Hct 23. No new order.
[2020-10-29] MEDS: LOSARTAN POTASSIUM 50 MG TABLET GT SCH (16:45)
[2020-10-29] MEDS: NEPRO 1,000 ML BOTTLE GT PRN (16:46)
[2020-10-29 19:18] VITALS: BP 145/59
[2020-10-29] MEDS: AMLODIPINE BESYLATE 10 MG TABLET GT SCH (21:36)
[2020-10-29] MEDS: MELATONIN 3 MG TABLET GT SCH (21:36)
[2020-10-30 00:01] VITALS: BP 136/53
[2020-10-30] MEDS: ALBUTEROL FS 2.5 MG/0.5 ML VIAL.NEB NEB SCH ×4 (01:55→19:41)
[2020-10-30] MEDS: IPRATROPIUM NEB FS 0.5 MG/2.5 ML AMPUL.NEB NEB SCH ×4 (01:55→19:41)
[2020-10-30] MEDS: HYDRALAZINE 100 MG GT SCH ×3 (05:00→21:32)
[2020-10-30] MEDS: LEVOTHYROXINE SODIUM 100 MCG TABLET GT SCH (06:07)
[2020-10-30] MEDS: LABETALOL 200 MG GT SCH ×2 (06:07→17:03)
[2020-10-30] MEDS: POLYVINYL ALCOHOL 15 ML BOTTLE EACHEYE SCH ×4 (06:07→23:47)
[2020-10-30 08:00] VITALS: BP 114/68
--- NOTE | 2020-10-30 08:11 | NUR ---
RT PLACED PT ON CPAP PER MD ORDERS. TOLERATING WELL AT THIS TIME. NO SIGNS OF DISTRESS NOTED AT THIS TIME. WILL CONTINUE TO MONITOR THE PATIENT FOR ANY CHANGE OF CONDITION. Addendum: 10/30/20 at 1108 by ECTOR OZUNA RT Amended: Links added.
[2020-10-30] MEDS: DOCUSATE SODIUM LIQ 100 MG/10 ML UDC GT SCH (08:18)
[2020-10-30] MEDS: LOSARTAN POTASSIUM 50 MG TABLET GT SCH ×2 (08:19→17:01)
[2020-10-30] MEDS: ACIDOPHILUS/BULGARICUS 1 EACH TAB.CHEW GT SCH ×2 (08:20→17:04)
[2020-10-30] MEDS: SUCRALFATE 1 G/10 ML UDC GT SCH ×4 (08:20→21:32)
[2020-10-30] MEDS: PROSOURCE / PROSTAT (PYXIS) 30 ML UDC GT SCH ×2 (08:22→17:04)
--- NOTE | 2020-10-30 08:24 | NUR ---
Family Invite to IDT: DIPESH emailed the pt.'s , Fay Robbins inviting them to participate in 11/01/2020 IDT Meeting. DIPESH will follow up accordingly.
[2020-10-30] MEDS: HYDROGEN PEROXIDE 480 ML BOTTLE TP SCH ×2 (08:26→19:41)
[2020-10-30] MEDS: PANTOPRAZOLE 40 MG/PACK PACK GT SCH ×2 (08:37→21:32)
[2020-10-30] MEDS: VIT B CMPLX 3/FA/VIT C/BIOTIN 1 TAB TABLET GT SCH (08:38)
[2020-10-30] MEDS: NEUTRA PHOS 1 POWD.PACKET GT SCH ×2 (08:38→17:07)
[2020-10-30] MEDS: CLOTRIMAZOLE/BETAMETASONE DIPROPIONATE 15 GM TUBE TP SCH ×3 (08:45→21:32)
[2020-10-30] MEDS: THERAHONEY GEL 1.5 OZ TUBE TP SCH ×2 (08:45)
[2020-10-30] MEDS: Z GUARD REMEDY 2 OZ OINT TP SCH ×2 (08:45→21:32)
[2020-10-30] MEDS: MINERAL OIL/PETROL OINT 396 GM JAR TP SCH (08:45)
[2020-10-30] MEDS: HEPARIN SODIUM, PORCINE 5000 UNITS/1 ML VIAL SQ SCH (09:00)
--- NOTE | 2020-10-30 09:00 | NUR ---
NOTES HEPARIN NOT GIVEN, H/H TRENDING DOWN 7.11/13.
[2020-10-30 10:25] LABS: ABG BASE EXCESS -1.9 mmol/L; ABG OXYGEN SATURATION 97.8 % (92.0-98.5); ABG PCO2 39.3 mmHg (35.0-45.0); ABG PH 7.384 (7.350-7.450); ABG PO2 103.5 mmHg (75.0-100.0); AaDO2 64.2 mmHg; MetHb 0.9 % (0.0-1.5); O2Hb 95.9 % (94.0-97.0); SITE, ABG Right Brachial
--- NOTE | 2020-10-30 10:30 | NUR ---
RT ABG DONE PER MD ORDERS. CRISTIAN TIERNEY NOTIFIED AND AWARE. RN NOTIFIED DR. TAVERAS. PT REMAINS STABLE AT THIS TIME. WILL CONTINUE TO MONITOR CLOSELY.
--- NOTE | 2020-10-30 11:00 | NUR ---
Relayed to Dr. Carlos COBB results, continue same orders.
--- NOTE | 2020-10-30 12:30 | NUR ---
JESSICA Casas came, made her aware patients' hgb - 7.6, hct - 23 done yesterday, Heparin 5000 sq not given yet, She stated to hold heparin at this time and she will order Hgb and Hct today and jonna. Patient has no active bleeding at this time. Closely monitored.
[2020-10-30] MEDS: NEPRO 1,000 ML BOTTLE GT PRN (12:41)
[2020-10-30 13:50] VITALS: BP 130/70
[2020-10-30 14:15] LABS: HEMOGLOBIN 7.4 g/dL (13.5-17.5)
--- NOTE | 2020-10-30 16:28 | NUR ---
Results of H and H available in Epic, Hgb 7.4, Hct 22, no active bleeding noted at this time. Patient tolerating Cpap at this time, no respiratory distress. Patient closely monitored.
--- NOTE | 2020-10-30 17:50 | NUR ---
JESSICA Casas called with new order to hold heparin 5000 sq q 12 hours tonight and until jonna, she will order labs for jonna (H and H, BMP). She stated will see if lab results are ok if heparin could be resume. New orders fax[facility] to [facility]. Noted and carried out.
[2020-10-30 20:11] VITALS: BP 154/75
[2020-10-30] MEDS: CLONIDINE HCL 0.1MG/24H PTWK 1 EA PATCH TD SCH (21:27)
[2020-10-30] MEDS: AMLODIPINE BESYLATE 10 MG TABLET GT SCH (21:32)
[2020-10-30] MEDS: MELATONIN 3 MG TABLET GT SCH (21:32)
[2020-10-31 00:30] VITALS: BP 158/91
[2020-10-31] MEDS: ALBUTEROL FS 2.5 MG/0.5 ML VIAL.NEB NEB SCH ×4 (01:51→19:38)
[2020-10-31] MEDS: IPRATROPIUM NEB FS 0.5 MG/2.5 ML AMPUL.NEB NEB SCH ×4 (01:51→19:38)
[2020-10-31] MEDS: HYDRALAZINE 100 MG GT SCH ×3 (05:34→20:39)
[2020-10-31] MEDS: LABETALOL 200 MG GT SCH ×2 (05:35→17:07)
[2020-10-31] MEDS: LEVOTHYROXINE SODIUM 100 MCG TABLET GT SCH (05:35)
[2020-10-31] MEDS: POLYVINYL ALCOHOL 15 ML BOTTLE EACHEYE SCH ×4 (05:35→23:25)
[2020-10-31 06:26] LABS: HEMOGLOBIN 7.2 g/dL (13.5-17.5)
[2020-10-31 07:05] LABS: CREATININE 2.4 mg/dL (0.6-1.3); POTASSIUM 3.7 mmol/L (3.5-5.1)
[2020-10-31 07:16] VITALS: BP 143/65
[2020-10-31] MEDS: SUCRALFATE 1 G/10 ML UDC GT SCH ×4 (07:30→21:09)
[2020-10-31] MEDS: HYDROGEN PEROXIDE 480 ML BOTTLE TP SCH ×2 (08:08→19:38)
[2020-10-31] MEDS: CLOTRIMAZOLE/BETAMETASONE DIPROPIONATE 15 GM TUBE TP SCH ×3 (09:22→20:40)
[2020-10-31] MEDS: THERAHONEY GEL 1.5 OZ TUBE TP SCH ×2 (09:22)
[2020-10-31] MEDS: MINERAL OIL/PETROL OINT 396 GM JAR TP SCH (09:22)
[2020-10-31] MEDS: ACIDOPHILUS/BULGARICUS 1 EACH TAB.CHEW GT SCH ×2 (09:22→17:07)
[2020-10-31] MEDS: VIT B CMPLX 3/FA/VIT C/BIOTIN 1 TAB TABLET GT SCH (09:22)
[2020-10-31] MEDS: NEUTRA PHOS 1 POWD.PACKET GT SCH ×2 (09:22→17:07)
[2020-10-31] MEDS: DOCUSATE SODIUM LIQ 100 MG/10 ML UDC GT SCH (09:22)
[2020-10-31] MEDS: PANTOPRAZOLE 40 MG/PACK PACK GT SCH ×2 (09:22→20:39)
[2020-10-31] MEDS: Z GUARD REMEDY 2 OZ OINT TP SCH ×2 (09:22→20:40)
[2020-10-31] MEDS: PROSOURCE / PROSTAT (PYXIS) 30 ML UDC GT SCH ×2 (09:22→17:07)
--- NOTE | 2020-10-31 11:31 | NUR ---
RT NOTE PT PLACED BACK ON AC MODE FOR TRANSPORT TO DIALYSIS. NO SOB NOTED. PT IS STABLE AT THIS TIME. Addendum: 10/31/20 at 1134 by SYL JOSE RT Amended: Links added.
--- NOTE | 2020-10-31 11:55 | NUR ---
Relayed Hgb 7.[address] Espinoza. No new order.
[2020-10-31 13:50] VITALS: BP 135/72
[2020-10-31] MEDS: NEPRO 1,000 ML BOTTLE GT PRN (16:40)
[2020-10-31] MEDS: LOSARTAN POTASSIUM 50 MG TABLET GT SCH (17:07)
--- NOTE | 2020-10-31 18:37 | NUR ---
Pt was placed on CPAP this morning and he has been tolerating it well. No respiratory distress noted. INSPECTOR PACKAGER Wendy Gan aware. No new order.
[2020-10-31 19:21] VITALS: BP 145/68
[2020-10-31] MEDS: AMLODIPINE BESYLATE 10 MG TABLET GT SCH (20:39)
[2020-10-31] MEDS: MELATONIN 3 MG TABLET GT SCH (21:09)
[2020-11-01 00:19] VITALS: BP 146/57
[2020-11-01] MEDS: IPRATROPIUM NEB FS 0.5 MG/2.5 ML AMPUL.NEB NEB SCH ×4 (01:36→19:48)
[2020-11-01] MEDS: ALBUTEROL FS 2.5 MG/0.5 ML VIAL.NEB NEB SCH ×4 (01:36→19:48)
[2020-11-01] MEDS: HYDRALAZINE 100 MG GT SCH ×3 (05:26→21:42)
[2020-11-01] MEDS: POLYVINYL ALCOHOL 15 ML BOTTLE EACHEYE SCH ×4 (05:27→23:33)
[2020-11-01] MEDS: LEVOTHYROXINE SODIUM 100 MCG TABLET GT SCH (05:27)
[2020-11-01] MEDS: LABETALOL 200 MG GT SCH ×2 (05:27→17:29)
[2020-11-01] MEDS: SUCRALFATE 1 G/10 ML UDC GT SCH ×4 (07:30→21:43)
[2020-11-01 07:31] VITALS: BP 139/93
[2020-11-01] MEDS: HYDROGEN PEROXIDE 480 ML BOTTLE TP SCH ×2 (09:09→20:36)
[2020-11-01] MEDS: MINERAL OIL/PETROL OINT 396 GM JAR TP SCH (09:53)
[2020-11-01] MEDS: DOCUSATE SODIUM LIQ 100 MG/10 ML UDC GT SCH (09:53)
[2020-11-01] MEDS: NEUTRA PHOS 1 POWD.PACKET GT SCH (09:53)
[2020-11-01] MEDS: PANTOPRAZOLE 40 MG/PACK PACK GT SCH ×2 (09:53→21:43)
[2020-11-01] MEDS: VIT B CMPLX 3/FA/VIT C/BIOTIN 1 TAB TABLET GT SCH (09:53)
[2020-11-01] MEDS: ACIDOPHILUS/BULGARICUS 1 EACH TAB.CHEW GT SCH ×2 (09:53→17:29)
[2020-11-01] MEDS: LOSARTAN POTASSIUM 50 MG TABLET GT SCH ×2 (09:53→17:29)
[2020-11-01] MEDS: PROSOURCE / PROSTAT (PYXIS) 30 ML UDC GT SCH ×2 (09:53→17:29)
[2020-11-01] MEDS: Z GUARD REMEDY 2 OZ OINT TP SCH ×2 (09:54→21:43)
[2020-11-01] MEDS: CLOTRIMAZOLE/BETAMETASONE DIPROPIONATE 15 GM TUBE TP SCH ×3 (09:54→21:43)
[2020-11-01] MEDS: THERAHONEY GEL 1.5 OZ TUBE TP SCH ×2 (09:55)
[2020-11-01] MEDS: NEPRO 1,000 ML BOTTLE GT PRN (12:40)
--- NOTE | 2020-11-01 14:21 | NUR ---
INTERDISCIPLINARY PLAN OF CARE CONFERENCE took place today. The patients , Fay Robbins did not participate. Dr. Gonzalez and Interdisciplinary team discussed the plan of care in detail. Current orders as well as treatments and medications were reviewed. Dr. Gonzalez ordered for the pt. to be placed on cool aerosol on 11/04/2020 See other disciplines IDT notes for further details.
--- NOTE | 2020-11-01 14:52 | NUR ---
During IDT, Dr. Gonzalez reviewed current vent setting, gave an order to place patient on cool aerosol on Wednesday, ABG after [address] Gonzalez also agreed with US renal addiction nurse's recommendation to decrease Neutraphos to once a day due to elevated Phos level. Orders carried out.
--- NOTE | 2020-11-01 14:56 | NUR ---
Facility Update: SW notified family via email that, "No [facility] Sub-Acute residents or employees tested positive for COVID-19 this week. [facility] continues to test Sub-Acute residents & healthcare personnel as recommended by [facility]. [facility] continues to follow infection control protocols and screen our residents and staff daily for symptoms".
[2020-11-01 19:20] VITALS: BP 159/70
[2020-11-01] MEDS: AMLODIPINE BESYLATE 10 MG TABLET GT SCH (21:43)
[2020-11-01] MEDS: MELATONIN 3 MG TABLET GT SCH (21:43)
[2020-11-01] MEDS: HYDROCODONE/APAP 5/325MG TABLET GT PRN (23:34)
[2020-11-02 00:34] VITALS: BP 132/84
[2020-11-02] MEDS: ALBUTEROL FS 2.5 MG/0.5 ML VIAL.NEB NEB SCH ×4 (01:38→19:47)
[2020-11-02] MEDS: IPRATROPIUM NEB FS 0.5 MG/2.5 ML AMPUL.NEB NEB SCH ×4 (01:38→19:47)
[2020-11-02] MEDS: HYDRALAZINE 100 MG GT SCH ×3 (05:44→21:15)
[2020-11-02] MEDS: LEVOTHYROXINE SODIUM 100 MCG TABLET GT SCH (05:44)
[2020-11-02] MEDS: POLYVINYL ALCOHOL 15 ML BOTTLE EACHEYE SCH ×3 (05:44→17:39)
[2020-11-02] MEDS: NEPRO 1,000 ML BOTTLE GT PRN (05:44)
[2020-11-02] MEDS: LABETALOL 200 MG GT SCH ×2 (05:44→17:39)
[2020-11-02 07:25] VITALS: BP 179/53
[2020-11-02] MEDS: SUCRALFATE 1 G/10 ML UDC GT SCH ×4 (07:54→21:15)
[2020-11-02] MEDS: HYDROGEN PEROXIDE 480 ML BOTTLE TP SCH ×2 (08:44→21:15)
[2020-11-02] MEDS: PANTOPRAZOLE 40 MG/PACK PACK GT SCH ×2 (08:53→21:15)
[2020-11-02] MEDS: PROSOURCE / PROSTAT (PYXIS) 30 ML UDC GT SCH ×2 (08:53→17:39)
[2020-11-02] MEDS: DOCUSATE SODIUM LIQ 100 MG/10 ML UDC GT SCH (08:53)
[2020-11-02] MEDS: NEUTRA PHOS 1 POWD.PACKET GT SCH (08:53)
[2020-11-02] MEDS: ACIDOPHILUS/BULGARICUS 1 EACH TAB.CHEW GT SCH ×2 (08:53→17:39)
[2020-11-02] MEDS: VIT B CMPLX 3/FA/VIT C/BIOTIN 1 TAB TABLET GT SCH (08:53)
[2020-11-02] MEDS: CLOTRIMAZOLE/BETAMETASONE DIPROPIONATE 15 GM TUBE TP SCH ×3 (10:00→21:15)
[2020-11-02] MEDS: Z GUARD REMEDY 2 OZ OINT TP SCH ×2 (10:00→21:15)
[2020-11-02] MEDS: THERAHONEY GEL 1.5 OZ TUBE TP SCH ×2 (10:00)
[2020-11-02] MEDS: MINERAL OIL/PETROL OINT 396 GM JAR TP SCH (10:00)
[2020-11-02] MEDS: LOSARTAN POTASSIUM 50 MG TABLET GT SCH (17:39)
[2020-11-02 20:13] VITALS: BP 140/65
[2020-11-02] MEDS: MELATONIN 3 MG TABLET GT SCH (21:15)
[2020-11-02] MEDS: AMLODIPINE BESYLATE 10 MG TABLET GT SCH (21:15)
[2020-11-03] MEDS: POLYVINYL ALCOHOL 15 ML BOTTLE EACHEYE SCH ×4 (00:01→17:32)
[2020-11-03] MEDS: IPRATROPIUM NEB FS 0.5 MG/2.5 ML AMPUL.NEB NEB SCH ×4 (01:25→19:48)
[2020-11-03] MEDS: ALBUTEROL FS 2.5 MG/0.5 ML VIAL.NEB NEB SCH ×4 (01:25→19:48)
[2020-11-03] MEDS: HYDRALAZINE 100 MG GT SCH ×3 (05:36→21:10)
[2020-11-03] MEDS: LEVOTHYROXINE SODIUM 100 MCG TABLET GT SCH (05:37)
[2020-11-03] MEDS: LABETALOL 200 MG GT SCH ×2 (05:37→17:32)
[2020-11-03 06:22] VITALS: BP 142/68
[2020-11-03] MEDS: SUCRALFATE 1 G/10 ML UDC GT SCH ×4 (07:30→21:11)
[2020-11-03] MEDS: PANTOPRAZOLE 40 MG/PACK PACK GT SCH ×2 (08:38→21:10)
[2020-11-03] MEDS: MINERAL OIL/PETROL OINT 396 GM JAR TP SCH (08:38)
[2020-11-03] MEDS: NEUTRA PHOS 1 POWD.PACKET GT SCH (08:38)
[2020-11-03] MEDS: PROSOURCE / PROSTAT (PYXIS) 30 ML UDC GT SCH ×2 (08:38→17:32)
[2020-11-03] MEDS: DOCUSATE SODIUM LIQ 100 MG/10 ML UDC GT SCH (08:38)
[2020-11-03] MEDS: VIT B CMPLX 3/FA/VIT C/BIOTIN 1 TAB TABLET GT SCH (08:38)
[2020-11-03] MEDS: ACIDOPHILUS/BULGARICUS 1 EACH TAB.CHEW GT SCH ×2 (08:38→17:32)
[2020-11-03] MEDS: LOSARTAN POTASSIUM 50 MG TABLET GT SCH ×2 (08:38→17:32)
[2020-11-03] MEDS: CLOTRIMAZOLE/BETAMETASONE DIPROPIONATE 15 GM TUBE TP SCH ×3 (08:39→21:10)
[2020-11-03] MEDS: Z GUARD REMEDY 2 OZ OINT TP SCH ×2 (08:39→21:11)
[2020-11-03] MEDS: THERAHONEY GEL 1.5 OZ TUBE TP SCH ×2 (08:39)
[2020-11-03] MEDS: HYDROGEN PEROXIDE 480 ML BOTTLE TP SCH ×2 (09:22→23:13)
[2020-11-03 20:21] VITALS: BP 137/66
[2020-11-03] MEDS: AMLODIPINE BESYLATE 10 MG TABLET GT SCH (21:10)
[2020-11-03] MEDS: MELATONIN 3 MG TABLET GT SCH (21:11)
[2020-11-04] MEDS: POLYVINYL ALCOHOL 15 ML BOTTLE EACHEYE SCH ×4 (00:22→18:12)
[2020-11-04] MEDS: ALBUTEROL FS 2.5 MG/0.5 ML VIAL.NEB NEB SCH ×4 (01:10→19:50)
[2020-11-04] MEDS: IPRATROPIUM NEB FS 0.5 MG/2.5 ML AMPUL.NEB NEB SCH ×4 (01:10→19:49)
[2020-11-04] MEDS: HYDRALAZINE 100 MG GT SCH ×3 (05:00→21:13)
[2020-11-04] MEDS: LEVOTHYROXINE SODIUM 100 MCG TABLET GT SCH (06:10)
[2020-11-04] MEDS: LABETALOL 200 MG GT SCH ×2 (06:10→18:24)
[2020-11-04] MEDS: SUCRALFATE 1 G/10 ML UDC GT SCH ×4 (07:30→21:13)
[2020-11-04] MEDS: HYDROGEN PEROXIDE 480 ML BOTTLE TP SCH ×2 (08:46→20:17)
[2020-11-04] MEDS: DOCUSATE SODIUM LIQ 100 MG/10 ML UDC GT SCH (08:52)
[2020-11-04] MEDS: LOSARTAN POTASSIUM 50 MG TABLET GT SCH ×2 (08:52→17:23)
[2020-11-04] MEDS: NEUTRA PHOS 1 POWD.PACKET GT SCH (08:54)
[2020-11-04] MEDS: PANTOPRAZOLE 40 MG/PACK PACK GT SCH ×2 (08:54→21:13)
[2020-11-04] MEDS: ACIDOPHILUS/BULGARICUS 1 EACH TAB.CHEW GT SCH ×2 (08:54→17:23)
[2020-11-04] MEDS: PROSOURCE / PROSTAT (PYXIS) 30 ML UDC GT SCH ×2 (08:54→17:23)
[2020-11-04] MEDS: VIT B CMPLX 3/FA/VIT C/BIOTIN 1 TAB TABLET GT SCH (08:54)
[2020-11-04] MEDS: THERAHONEY GEL 1.5 OZ TUBE TP SCH ×2 (08:55)
[2020-11-04] MEDS: Z GUARD REMEDY 2 OZ OINT TP SCH ×2 (08:55→21:13)
[2020-11-04] MEDS: CLOTRIMAZOLE/BETAMETASONE DIPROPIONATE 15 GM TUBE TP SCH ×3 (08:55→21:13)
[2020-11-04] MEDS: MINERAL OIL/PETROL OINT 396 GM JAR TP SCH (08:55)
[2020-11-04 10:37] LABS: ABG BASE EXCESS -0.7 mmol/L; ABG OXYGEN SATURATION 97.1 % (92.0-98.5); ABG PCO2 36.3 mmHg (35.0-45.0); AaDO2 63.8 mmHg; COHb 1.2 % (0.5-1.5); MetHb 0.7 % (0.0-1.5); O2Hb 95.3 % (94.0-97.0); SITE, ABG Right Radial; VENT MODE, BG 28% NC
--- NOTE | 2020-11-04 11:03 | NUR ---
Pt was placed by RT Bundy on cool aerosol as ordered. ABG result relayed to Dr Gonzalez. Dr Gonzalez said to keep on cool aerosol as tolerated. Addendum: 11/04/20 at 1106 by KARLA DENTON RN Pt tolerating cool aerosol well. No respiratory distress noted.
[2020-11-04 13:17] VITALS: BP 132/39
[2020-11-04 13:21] VITALS: BP 126/50
[2020-11-04] MEDS: NEPRO 1,000 ML BOTTLE GT PRN (17:12)
[2020-11-04 19:40] VITALS: BP 123/55
--- NOTE | 2020-11-04 20:05 | NUR ---
RN NOTES Received pt in bed asleep and in stable condition on C/A FiO2 28%, tolerating well. O2sat 99-100%. Pt appears to be comfortable at this time. Will continue to monitor.
[2020-11-04] MEDS: MELATONIN 3 MG TABLET GT SCH (21:13)
[2020-11-04] MEDS: AMLODIPINE BESYLATE 10 MG TABLET GT SCH (21:13)
[2020-11-05] MEDS: POLYVINYL ALCOHOL 15 ML BOTTLE EACHEYE SCH ×5 (00:06→23:45)
[2020-11-05 00:22] VITALS: BP 134/68
[2020-11-05] MEDS: ALBUTEROL FS 2.5 MG/0.5 ML VIAL.NEB NEB SCH ×4 (01:57→20:25)
[2020-11-05] MEDS: IPRATROPIUM NEB FS 0.5 MG/2.5 ML AMPUL.NEB NEB SCH ×4 (01:57→20:25)
[2020-11-05] MEDS: HYDRALAZINE 100 MG GT SCH ×3 (05:00→21:22)
[2020-11-05] MEDS: LEVOTHYROXINE SODIUM 100 MCG TABLET GT SCH (06:21)
[2020-11-05] MEDS: LABETALOL 200 MG GT SCH ×2 (06:21→17:44)
[2020-11-05] MEDS: SUCRALFATE 1 G/10 ML UDC GT SCH ×4 (07:30→21:22)
[2020-11-05] MEDS: HYDROGEN PEROXIDE 480 ML BOTTLE TP SCH ×2 (09:00→20:36)
[2020-11-05] MEDS: ACIDOPHILUS/BULGARICUS 1 EACH TAB.CHEW GT SCH ×2 (09:03→17:43)
[2020-11-05] MEDS: DOCUSATE SODIUM LIQ 100 MG/10 ML UDC GT SCH (09:03)
[2020-11-05] MEDS: VIT B CMPLX 3/FA/VIT C/BIOTIN 1 TAB TABLET GT SCH (09:04)
[2020-11-05] MEDS: MINERAL OIL/PETROL OINT 396 GM JAR TP SCH (09:04)
[2020-11-05] MEDS: NEUTRA PHOS 1 POWD.PACKET GT SCH (09:04)
[2020-11-05] MEDS: CLOTRIMAZOLE/BETAMETASONE DIPROPIONATE 15 GM TUBE TP SCH ×3 (09:04→21:22)
[2020-11-05] MEDS: PROSOURCE / PROSTAT (PYXIS) 30 ML UDC GT SCH ×2 (09:04→17:43)
[2020-11-05] MEDS: PANTOPRAZOLE 40 MG/PACK PACK GT SCH ×2 (09:04→21:22)
[2020-11-05] MEDS: THERAHONEY GEL 1.5 OZ TUBE TP SCH ×2 (09:05)
[2020-11-05] MEDS: Z GUARD REMEDY 2 OZ OINT TP SCH ×2 (09:05→21:22)
[2020-11-05 11:28] VITALS: BP 126/40
--- NOTE | 2020-11-05 11:57 | NUR ---
Pt was seen by Dr Gonzalez this morning. Notified him that pt has been tolerating cool aerosol since yesterday morning and throughout the night. He said to continue cool aerosol as tolerated. Pt's called and informed her.
[2020-11-05] MEDS: NEPRO 1,000 ML BOTTLE GT PRN (16:42)
[2020-11-05] MEDS: LOSARTAN POTASSIUM 50 MG TABLET GT SCH (17:43)
[2020-11-05 19:25] VITALS: BP 144/76
[2020-11-05] MEDS: AMLODIPINE BESYLATE 10 MG TABLET GT SCH (21:22)
[2020-11-05] MEDS: MELATONIN 3 MG TABLET GT SCH (21:22)
[2020-11-06] MEDS: IPRATROPIUM NEB FS 0.5 MG/2.5 ML AMPUL.NEB NEB SCH ×4 (01:44→19:55)
[2020-11-06] MEDS: ALBUTEROL FS 2.5 MG/0.5 ML VIAL.NEB NEB SCH ×4 (01:44→19:55)
[2020-11-06 02:04] VITALS: BP 134/59
[2020-11-06] MEDS: HYDRALAZINE 100 MG GT SCH ×3 (05:00→21:02)
[2020-11-06] MEDS: POLYVINYL ALCOHOL 15 ML BOTTLE EACHEYE SCH ×3 (06:08→18:08)
[2020-11-06] MEDS: LABETALOL 200 MG GT SCH ×2 (06:08→18:08)
[2020-11-06] MEDS: LEVOTHYROXINE SODIUM 100 MCG TABLET GT SCH (06:08)
[2020-11-06] MEDS: SUCRALFATE 1 G/10 ML UDC GT SCH ×4 (07:30→21:02)
[2020-11-06 07:43] VITALS: BP 115/58
[2020-11-06] MEDS: HYDROGEN PEROXIDE 480 ML BOTTLE TP SCH ×2 (07:58→20:22)
[2020-11-06] MEDS: DOCUSATE SODIUM LIQ 100 MG/10 ML UDC GT SCH (09:25)
[2020-11-06] MEDS: LOSARTAN POTASSIUM 50 MG TABLET GT SCH ×2 (09:26→17:00)
[2020-11-06] MEDS: PANTOPRAZOLE 40 MG/PACK PACK GT SCH ×2 (09:26→21:02)
[2020-11-06] MEDS: NEUTRA PHOS 1 POWD.PACKET GT SCH (09:26)
[2020-11-06] MEDS: PROSOURCE / PROSTAT (PYXIS) 30 ML UDC GT SCH ×2 (09:26→17:00)
[2020-11-06] MEDS: ACIDOPHILUS/BULGARICUS 1 EACH TAB.CHEW GT SCH ×2 (09:26→17:00)
[2020-11-06] MEDS: MINERAL OIL/PETROL OINT 396 GM JAR TP SCH (09:26)
[2020-11-06] MEDS: VIT B CMPLX 3/FA/VIT C/BIOTIN 1 TAB TABLET GT SCH (09:26)
[2020-11-06] MEDS: THERAHONEY GEL 1.5 OZ TUBE TP SCH ×2 (09:27)
[2020-11-06] MEDS: CLOTRIMAZOLE/BETAMETASONE DIPROPIONATE 15 GM TUBE TP SCH ×3 (09:27→21:02)
[2020-11-06] MEDS: Z GUARD REMEDY 2 OZ OINT TP SCH ×2 (09:27→21:02)
[2020-11-06 12:06] VITALS: BP 116/61
--- NOTE | 2020-11-06 13:42 | NUR ---
Family Invite to IDT: DIPESH emailed the pt.'s , Fay Robbins inviting them to participate in 11/08/2020 IDT Meeting. DIPESH will follow up accordingly.
[2020-11-06] MEDS: NEPRO 1,000 ML BOTTLE GT PRN (19:15)
[2020-11-06 20:18] VITALS: BP 152/74
[2020-11-06] MEDS: CLONIDINE HCL 0.1MG/24H PTWK 1 EA PATCH TD SCH (20:58)
[2020-11-06] MEDS: AMLODIPINE BESYLATE 10 MG TABLET GT SCH (21:02)
[2020-11-06] MEDS: MELATONIN 3 MG TABLET GT SCH (21:02)
[2020-11-07] VITALS (8 sets, daily range): BP systolic 120–162; BP diastolic 49–80
[2020-11-07] MEDS: POLYVINYL ALCOHOL 15 ML BOTTLE EACHEYE SCH ×4 (00:15→17:26)
[2020-11-07] MEDS: ALBUTEROL FS 2.5 MG/0.5 ML VIAL.NEB NEB SCH ×4 (01:33→19:48)
[2020-11-07] MEDS: IPRATROPIUM NEB FS 0.5 MG/2.5 ML AMPUL.NEB NEB SCH ×4 (01:33→19:48)
[2020-11-07] MEDS: LABETALOL 200 MG GT SCH ×2 (05:21→17:50)
[2020-11-07] MEDS: HYDRALAZINE 100 MG GT SCH ×3 (05:21→21:22)
[2020-11-07] MEDS: LEVOTHYROXINE SODIUM 100 MCG TABLET GT SCH (05:22)
[2020-11-07 07:49] LABS: BASOPHILS # (AUTO) 0.1 /CMM (0.0-0.2); BASOPHILS % (AUTO) 0.7 % (0.0-2.0); LYMPHOCYTES # (AUTO) 0.5 /CMM (0.8-4.8); LYMPHOCYTES % (AUTO) 5.7 % (20.0-44.0); MEAN CORPUSCULAR HGB CONC 33 g/dl (31.0-36.0); MEAN CORPUSCULAR VOLUME 92 fL (80-96); MONOCYTES # (AUTO) 0.6 /CMM (0.1-1.30); MONOCYTES % (AUTO) 6.7 % (2.0-12.0); NEUTROPHILS % (AUTO) 85.9 % (43.0-81.0); PLATELET COUNT (AUTO) 239 /CMM (150-450); WHITE BLOOD COUNT (AUTO) 9.4 K/uL (4.3-11.0)
[2020-11-07 07:58] LABS: RED BLOOD CELL COUNT(AUTO) 1.96 MIL/uL (4.5-6.0)
[2020-11-07 07:59] LABS: HEMATOCRIT 18 % (39-51)
[2020-11-07] MEDS: SUCRALFATE 1 G/10 ML UDC GT SCH ×4 (08:01→21:22)
--- NOTE | 2020-11-07 08:15 | NUR ---
Notified Dr Espinoza that pt's Hgb 6.0 Hct 18. He ordered to transfuse 1 unit of PRBC. Informed him that pt will be picked up for hemodialysis at 1130am. He said it is fine to do blood transfusion after hemodialysis.
[2020-11-07] MEDS: HYDROGEN PEROXIDE 480 ML BOTTLE TP SCH ×2 (08:23→19:48)
[2020-11-07] MEDS: DOCUSATE SODIUM LIQ 100 MG/10 ML UDC GT SCH (09:14)
[2020-11-07] MEDS: VIT B CMPLX 3/FA/VIT C/BIOTIN 1 TAB TABLET GT SCH (09:15)
[2020-11-07] MEDS: PROSOURCE / PROSTAT (PYXIS) 30 ML UDC GT SCH ×2 (09:15→17:26)
[2020-11-07] MEDS: NEUTRA PHOS 1 POWD.PACKET GT SCH (09:15)
[2020-11-07] MEDS: MINERAL OIL/PETROL OINT 396 GM JAR TP SCH (09:15)
[2020-11-07] MEDS: ACIDOPHILUS/BULGARICUS 1 EACH TAB.CHEW GT SCH ×2 (09:15→17:26)
[2020-11-07] MEDS: PANTOPRAZOLE 40 MG/PACK PACK GT SCH ×2 (09:15→21:22)
[2020-11-07] MEDS: CLOTRIMAZOLE/BETAMETASONE DIPROPIONATE 15 GM TUBE TP SCH ×3 (10:00→21:22)
[2020-11-07] MEDS: Z GUARD REMEDY 2 OZ OINT TP SCH ×2 (10:00→21:22)
[2020-11-07 10:10] LABS: EOSINOPHILS % (MANUAL) 1 % (0-4); LYMPHOCYTES % (MANUAL) 5 % (16-48); MONOCYTES % (MANUAL) 6 % (0-11.0); NEUTROPHILS % (MANUAL) 88 (42-76)
[2020-11-07] MEDS: LOSARTAN POTASSIUM 50 MG TABLET GT SCH (17:50)
--- NOTE | 2020-11-07 18:10 | NUR ---
Started transfusing 1 unit of PRBC. Pt has a peripheral line on the right hand, G 20. BP 120/80 HR 80 R 16 T 98.9 F.
--- NOTE | 2020-11-07 18:25 | NUR ---
No adverse reactions to blood transfusion noted. Pt appears comfortable. He has his eyes closed but can easily be awoken from sleep with verbal and tactile stimuli.
--- NOTE | 2020-11-07 19:30 | NUR ---
Patient with ongoing blood transfusion,patient vitals stable, sleeping, arousable to tactile stimuli. Will continue to monitor.
--- NOTE | 2020-11-07 21:03 | NUR ---
Blood transfusion completed.No adverse reactions noted. Vital signs stable. will continue to monitor.
[2020-11-07] MEDS: MELATONIN 3 MG TABLET GT SCH (21:22)
[2020-11-07] MEDS: AMLODIPINE BESYLATE 10 MG TABLET GT SCH (21:22)
[2020-11-08 00:18] VITALS: BP 160/47
[2020-11-08] MEDS: POLYVINYL ALCOHOL 15 ML BOTTLE EACHEYE SCH ×4 (00:20→17:41)
[2020-11-08] MEDS: ALBUTEROL FS 2.5 MG/0.5 ML VIAL.NEB NEB SCH ×4 (01:33→20:14)
[2020-11-08] MEDS: IPRATROPIUM NEB FS 0.5 MG/2.5 ML AMPUL.NEB NEB SCH ×4 (01:33→20:14)
[2020-11-08] MEDS: LABETALOL 200 MG GT SCH ×2 (05:34→17:42)
[2020-11-08] MEDS: HYDRALAZINE 100 MG GT SCH ×3 (05:34→21:08)
[2020-11-08] MEDS: LEVOTHYROXINE SODIUM 100 MCG TABLET GT SCH (05:34)
[2020-11-08] MEDS: NEPRO 1,000 ML BOTTLE GT PRN (05:34)
[2020-11-08 07:01] LABS: BASOPHILS # (AUTO) 0.1 /CMM (0.0-0.2); BASOPHILS % (AUTO) 1.3 % (0.0-2.0); EOSINOPHILS % (AUTO) 1.8 % (0.0-6.0); HEMATOCRIT 22 % (39-51); HEMOGLOBIN 7.4 g/dL (13.5-17.5); LYMPHOCYTES # (AUTO) 0.5 /CMM (0.8-4.8); MEAN CORPUSCULAR HGB CONC 34 g/dl (31.0-36.0); MEAN CORPUSCULAR VOLUME 91 fL (80-96); MONOCYTES # (AUTO) 0.6 /CMM (0.1-1.30); MONOCYTES % (AUTO) 10.1 % (2.0-12.0); NEUTROPHILS # (AUTO) 4.9 /CMM (1.8-8.9); NEUTROPHILS % (AUTO) 78.8 % (43.0-81.0); PLATELET COUNT (AUTO) 247 /CMM (150-450); RED BLOOD CELL COUNT(AUTO) 2.43 MIL/uL (4.5-6.0); WHITE BLOOD COUNT (AUTO) 6.3 K/uL (4.3-11.0)
[2020-11-08] MEDS: SUCRALFATE 1 G/10 ML UDC GT SCH ×4 (07:30→21:10)
[2020-11-08 07:32] VITALS: BP 116/59
[2020-11-08] MEDS: VIT B CMPLX 3/FA/VIT C/BIOTIN 1 TAB TABLET GT SCH (08:56)
[2020-11-08] MEDS: PANTOPRAZOLE 40 MG/PACK PACK GT SCH ×2 (08:56→21:09)
[2020-11-08] MEDS: LOSARTAN POTASSIUM 50 MG TABLET GT SCH ×2 (08:56→17:41)
[2020-11-08] MEDS: PROSOURCE / PROSTAT (PYXIS) 30 ML UDC GT SCH ×2 (08:56→17:41)
[2020-11-08] MEDS: ACIDOPHILUS/BULGARICUS 1 EACH TAB.CHEW GT SCH ×2 (08:56→17:41)
[2020-11-08] MEDS: DOCUSATE SODIUM LIQ 100 MG/10 ML UDC GT SCH (08:56)
[2020-11-08] MEDS: NEUTRA PHOS 1 POWD.PACKET GT SCH (08:56)
[2020-11-08] MEDS: CLOTRIMAZOLE/BETAMETASONE DIPROPIONATE 15 GM TUBE TP SCH ×3 (09:00→21:09)
[2020-11-08] MEDS: Z GUARD REMEDY 2 OZ OINT TP SCH (09:00)
[2020-11-08] MEDS: MINERAL OIL/PETROL OINT 396 GM JAR TP SCH (09:00)
[2020-11-08] MEDS: THERAHONEY GEL 1.5 OZ TUBE TP SCH (09:00)
[2020-11-08] MEDS: HYDROGEN PEROXIDE 480 ML BOTTLE TP SCH ×2 (09:00→20:14)
--- NOTE | 2020-11-08 11:36 | NUR ---
Conference call with resident's and SSD. Informed patient's Fay, of current lab result from which Hbg level is up from 6.0 to 7.4 after 1 unit of PRBC was given. also informed that Doppler was done to r/o DVT in the lower extremities result is negative. Updated of wound condition. appreciated the call. Will do Facetime call with family tomorrow for patient's birthday.
--- NOTE | 2020-11-08 12:09 | NUR ---
Facility Update: DIPESH notified family via email that, "DIPESH Facility Update: No [facility] Sub-Acute residents or employees tested positive for COVID-19 this week. [facility] continues to test Sub-Acute residents & healthcare personnel as recommended by [facility]. [facility] continues to follow infection control protocols and screen our residents and staff daily for symptoms".
[2020-11-08 14:56] VITALS: BP 120/64
--- NOTE | 2020-11-08 15:30 | NUR ---
Received a a faxed message from Renal indicating an order to perform a stat Hbg due to a Hbg result of 5.5 drawn at dialysis center on 11/07/20. Spoke with Lala Buckner RN informing that patient received 1 unit of PRBC yesterday after dialysis and repeated Hgb level this morning; 7.4 result. Appreciated the call.
[2020-11-08 20:00] VITALS: BP 136/65
--- NOTE | 2020-11-08 20:53 | NUR ---
received order from Dr Gonzalez for TSH ,T4 on 11/11/20 order noted and carried out.
[2020-11-08] MEDS: Z GUARD REMEDY 4 OZ OINT TP SCH (21:09)
[2020-11-08] MEDS: AMLODIPINE BESYLATE 10 MG TABLET GT SCH (21:09)
[2020-11-08] MEDS: MELATONIN 3 MG TABLET GT SCH (21:10)
[2020-11-09 01:00] VITALS: BP 165/77
[2020-11-09] MEDS: ALBUTEROL FS 2.5 MG/0.5 ML VIAL.NEB NEB SCH ×4 (02:16→19:40)
[2020-11-09] MEDS: IPRATROPIUM NEB FS 0.5 MG/2.5 ML AMPUL.NEB NEB SCH ×4 (02:16→19:40)
[2020-11-09] MEDS: HYDRALAZINE 100 MG GT SCH ×3 (05:53→21:36)
[2020-11-09] MEDS: LABETALOL 200 MG GT SCH ×2 (05:54→17:07)
[2020-11-09] MEDS: NEPRO 1,000 ML BOTTLE GT PRN (05:54)
[2020-11-09] MEDS: LEVOTHYROXINE SODIUM 100 MCG TABLET GT SCH (05:54)
[2020-11-09] MEDS: POLYVINYL ALCOHOL 15 ML BOTTLE EACHEYE SCH ×4 (05:54→17:07)
[2020-11-09 07:36] VITALS: BP 127/57
[2020-11-09] MEDS: SUCRALFATE 1 G/10 ML UDC GT SCH ×4 (08:26→21:36)
[2020-11-09] MEDS: HYDROGEN PEROXIDE 480 ML BOTTLE TP SCH ×2 (08:26→19:40)
[2020-11-09] MEDS: THERAHONEY GEL 1.5 OZ TUBE TP SCH (08:27)
[2020-11-09] MEDS: PANTOPRAZOLE 40 MG/PACK PACK GT SCH ×2 (08:27→21:36)
[2020-11-09] MEDS: CLOTRIMAZOLE/BETAMETASONE DIPROPIONATE 15 GM TUBE TP SCH ×3 (08:27→21:36)
[2020-11-09] MEDS: Z GUARD REMEDY 4 OZ OINT TP SCH ×2 (08:27→21:36)
[2020-11-09] MEDS: DOCUSATE SODIUM LIQ 100 MG/10 ML UDC GT SCH (08:27)
[2020-11-09] MEDS: PROSOURCE / PROSTAT (PYXIS) 30 ML UDC GT SCH ×2 (08:27→17:07)
[2020-11-09] MEDS: NEUTRA PHOS 1 POWD.PACKET GT SCH (08:27)
[2020-11-09] MEDS: ACIDOPHILUS/BULGARICUS 1 EACH TAB.CHEW GT SCH ×2 (08:27→17:07)
[2020-11-09] MEDS: VIT B CMPLX 3/FA/VIT C/BIOTIN 1 TAB TABLET GT SCH (08:27)
[2020-11-09] MEDS: MINERAL OIL/PETROL OINT 396 GM JAR TP SCH (08:27)
--- NOTE | 2020-11-09 11:48 | NUR ---
Resident left for dialysis with transport staff. Resident awake, no s/s of distress. Trach secured, on cool aerosol, tolerating well. All emergency equipment taken for transport.
--- NOTE | 2020-11-09 16:32 | NUR ---
Resident came back from dialysis, awake, no s/s of distress. Trach secured and midline, on cool aerosol. Dialysis site on KRISTEL, with pressure dressing, dry and intact. All emergency equipment put back to back of bed. Will continue to monitor.
[2020-11-09] MEDS: LOSARTAN POTASSIUM 50 MG TABLET GT SCH (17:07)
[2020-11-09 18:44] VITALS: BP 151/52
[2020-11-09 21:02] VITALS: BP 143/69
[2020-11-09] MEDS: AMLODIPINE BESYLATE 10 MG TABLET GT SCH (21:36)
[2020-11-09] MEDS: MELATONIN 3 MG TABLET GT SCH (21:36)
[2020-11-10] MEDS: POLYVINYL ALCOHOL 15 ML BOTTLE EACHEYE SCH ×4 (00:04→18:30)
[2020-11-10 00:27] VITALS: BP 134/75
[2020-11-10] MEDS: ALBUTEROL FS 2.5 MG/0.5 ML VIAL.NEB NEB SCH ×4 (01:51→19:23)
[2020-11-10] MEDS: IPRATROPIUM NEB FS 0.5 MG/2.5 ML AMPUL.NEB NEB SCH ×4 (01:51→19:23)
[2020-11-10] MEDS: LEVOTHYROXINE SODIUM 100 MCG TABLET GT SCH (05:29)
[2020-11-10] MEDS: HYDRALAZINE 100 MG GT SCH ×3 (05:29→20:27)
[2020-11-10] MEDS: NEPRO 1,000 ML BOTTLE GT PRN (05:29)
[2020-11-10] MEDS: LABETALOL 200 MG GT SCH ×2 (05:29→18:30)
[2020-11-10] MEDS: SUCRALFATE 1 G/10 ML UDC GT SCH ×4 (07:30→21:24)
[2020-11-10 08:09] VITALS: BP 117/50
[2020-11-10] MEDS: LOSARTAN POTASSIUM 50 MG TABLET GT SCH ×2 (09:20→17:00)
[2020-11-10] MEDS: ACIDOPHILUS/BULGARICUS 1 EACH TAB.CHEW GT SCH ×2 (09:20→17:00)
[2020-11-10] MEDS: DOCUSATE SODIUM LIQ 100 MG/10 ML UDC GT SCH (09:20)
[2020-11-10] MEDS: VIT B CMPLX 3/FA/VIT C/BIOTIN 1 TAB TABLET GT SCH (09:20)
[2020-11-10] MEDS: MINERAL OIL/PETROL OINT 396 GM JAR TP SCH (09:21)
[2020-11-10] MEDS: Z GUARD REMEDY 4 OZ OINT TP SCH ×2 (09:21→20:27)
[2020-11-10] MEDS: PROSOURCE / PROSTAT (PYXIS) 30 ML UDC GT SCH ×2 (09:21→17:00)
[2020-11-10] MEDS: THERAHONEY GEL 1.5 OZ TUBE TP SCH (09:21)
[2020-11-10] MEDS: CLOTRIMAZOLE/BETAMETASONE DIPROPIONATE 15 GM TUBE TP SCH ×2 (09:21)
[2020-11-10] MEDS: NEUTRA PHOS 1 POWD.PACKET GT SCH (09:21)
[2020-11-10] MEDS: PANTOPRAZOLE 40 MG/PACK PACK GT SCH ×2 (09:21→20:27)
[2020-11-10] MEDS: HYDROGEN PEROXIDE 480 ML BOTTLE TP SCH ×2 (09:51→19:23)
[2020-11-10 20:02] VITALS: BP 140/58
[2020-11-10 20:23] VITALS: BP 102/68
[2020-11-10] MEDS: AMLODIPINE BESYLATE 10 MG TABLET GT SCH (20:27)
[2020-11-10] MEDS: MELATONIN 3 MG TABLET GT SCH (21:24)
[2020-11-11] MEDS: POLYVINYL ALCOHOL 15 ML BOTTLE EACHEYE SCH ×4 (00:08→17:23)
[2020-11-11] MEDS: IPRATROPIUM NEB FS 0.5 MG/2.5 ML AMPUL.NEB NEB SCH ×4 (01:43→19:54)
[2020-11-11] MEDS: ALBUTEROL FS 2.5 MG/0.5 ML VIAL.NEB NEB SCH ×4 (01:43→19:54)
[2020-11-11] MEDS: LEVOTHYROXINE SODIUM 100 MCG TABLET GT SCH (05:31)
[2020-11-11] MEDS: HYDRALAZINE 100 MG GT SCH ×3 (05:31→20:20)
[2020-11-11] MEDS: LABETALOL 200 MG GT SCH ×2 (05:31→18:40)
[2020-11-11 07:17] LABS: T4 (THYROXINE) 5.4 ug/dL (4.7-13.3); THYROID STIMULATING HORMONE 4.478 uIU/mL (0.358-3.74)
[2020-11-11 07:45] VITALS: BP 115/49
[2020-11-11] MEDS: SUCRALFATE 1 G/10 ML UDC GT SCH ×4 (08:21→21:10)
[2020-11-11] MEDS: PANTOPRAZOLE 40 MG/PACK PACK GT SCH ×2 (08:22→20:21)
[2020-11-11] MEDS: NEUTRA PHOS 1 POWD.PACKET GT SCH (08:22)
[2020-11-11] MEDS: LOSARTAN POTASSIUM 50 MG TABLET GT SCH ×2 (08:22→17:23)
[2020-11-11] MEDS: ACIDOPHILUS/BULGARICUS 1 EACH TAB.CHEW GT SCH ×2 (08:22→17:23)
[2020-11-11] MEDS: DOCUSATE SODIUM LIQ 100 MG/10 ML UDC GT SCH (08:22)
[2020-11-11] MEDS: VIT B CMPLX 3/FA/VIT C/BIOTIN 1 TAB TABLET GT SCH (08:22)
[2020-11-11] MEDS: PROSOURCE / PROSTAT (PYXIS) 30 ML UDC GT SCH ×2 (08:22→17:23)
[2020-11-11] MEDS: THERAHONEY GEL 1.5 OZ TUBE TP SCH (08:23)
[2020-11-11] MEDS: Z GUARD REMEDY 4 OZ OINT TP SCH ×2 (08:23→20:21)
[2020-11-11] MEDS: MINERAL OIL/PETROL OINT 396 GM JAR TP SCH (08:23)
[2020-11-11] MEDS: HYDROGEN PEROXIDE 480 ML BOTTLE TP SCH ×2 (08:29→21:01)
[2020-11-11] MEDS: CLOTRIMAZOLE/BETAMETASONE DIPROPIONATE 15 GM TUBE TP SCH (09:00)
[2020-11-11] MEDS: NEPRO 1,000 ML BOTTLE GT PRN (12:07)
--- NOTE | 2020-11-11 14:00 | NUR ---
Informed MANAGER BRANCH Wendy Gan that TSH 4.478, pt on Levothyroxine 100 mcg GT daily. She said she will see pt later today and will discuss it.
[2020-11-11 14:04] VITALS: BP 132/40
--- NOTE | 2020-11-11 18:00 | NUR ---
Seen by LINE REPAIRER TOWER Wendy Gan. She ordered to repeat TSH next week. Informed her that pt's is asking if pt can eat by mouth. She ordered ST evaluation.
[2020-11-11 20:08] VITALS: BP 131/37
[2020-11-11] MEDS: AMLODIPINE BESYLATE 10 MG TABLET GT SCH (20:21)
[2020-11-11] MEDS: MELATONIN 3 MG TABLET GT SCH (21:10)
[2020-11-12] MEDS: POLYVINYL ALCOHOL 15 ML BOTTLE EACHEYE SCH ×4 (00:15→17:54)
[2020-11-12] MEDS: ALBUTEROL FS 2.5 MG/0.5 ML VIAL.NEB NEB SCH ×4 (01:33→20:12)
[2020-11-12] MEDS: IPRATROPIUM NEB FS 0.5 MG/2.5 ML AMPUL.NEB NEB SCH ×4 (01:33→20:12)
[2020-11-12] MEDS: NEPRO 1,000 ML BOTTLE GT PRN (04:15)
[2020-11-12] MEDS: LEVOTHYROXINE SODIUM 100 MCG TABLET GT SCH (05:12)
[2020-11-12] MEDS: HYDRALAZINE 100 MG GT SCH ×3 (05:12→20:25)
[2020-11-12] MEDS: LABETALOL 200 MG GT SCH ×2 (05:12→17:54)
[2020-11-12 06:55] LABS: BASOPHILS # (AUTO) 0.1 /CMM (0.0-0.2); BASOPHILS % (AUTO) 0.7 % (0.0-2.0); EOSINOPHILS % (AUTO) 1.9 % (0.0-6.0); HEMATOCRIT 24 % (39-51); HEMOGLOBIN 7.9 g/dL (13.5-17.5); LYMPHOCYTES # (AUTO) 0.6 /CMM (0.8-4.8); LYMPHOCYTES % (AUTO) 6.3 % (20.0-44.0); MEAN CORPUSCULAR HGB CONC 33 g/dl (31.0-36.0); MEAN CORPUSCULAR VOLUME 94 fL (80-96); MONOCYTES # (AUTO) 0.7 /CMM (0.1-1.30); MONOCYTES % (AUTO) 6.9 % (2.0-12.0); NEUTROPHILS # (AUTO) 8.3 /CMM (1.8-8.9); NEUTROPHILS % (AUTO) 84.2 % (43.0-81.0); PLATELET COUNT (AUTO) 335 /CMM (150-450); RED BLOOD CELL COUNT(AUTO) 2.53 MIL/uL (4.5-6.0); WHITE BLOOD COUNT (AUTO) 9.9 K/uL (4.3-11.0)
[2020-11-12] MEDS: SUCRALFATE 1 G/10 ML UDC GT SCH ×4 (07:30→21:14)
[2020-11-12 08:01] VITALS: BP 109/57
[2020-11-12] MEDS: HYDROGEN PEROXIDE 480 ML BOTTLE TP SCH ×2 (08:01→20:12)
[2020-11-12 08:10] LABS: FERRITIN 1782 ng/mL (8-388)
[2020-11-12] MEDS: MINERAL OIL/PETROL OINT 396 GM JAR TP SCH (08:40)
[2020-11-12] MEDS: CLOTRIMAZOLE/BETAMETASONE DIPROPIONATE 15 GM TUBE TP SCH (08:40)
[2020-11-12] MEDS: PROSOURCE / PROSTAT (PYXIS) 30 ML UDC GT SCH ×2 (08:40→17:53)
[2020-11-12] MEDS: Z GUARD REMEDY 4 OZ OINT TP SCH ×2 (08:40→20:26)
[2020-11-12] MEDS: NEUTRA PHOS 1 POWD.PACKET GT SCH (08:40)
[2020-11-12] MEDS: DOCUSATE SODIUM LIQ 100 MG/10 ML UDC GT SCH (08:40)
[2020-11-12] MEDS: VIT B CMPLX 3/FA/VIT C/BIOTIN 1 TAB TABLET GT SCH (08:40)
[2020-11-12] MEDS: ACIDOPHILUS/BULGARICUS 1 EACH TAB.CHEW GT SCH ×2 (08:40→17:53)
[2020-11-12] MEDS: PANTOPRAZOLE 40 MG/PACK PACK GT SCH ×2 (08:40→20:25)
[2020-11-12] MEDS: THERAHONEY GEL 1.5 OZ TUBE TP SCH (08:41)
[2020-11-12 08:54] LABS: IRON, SERUM 63 ug/dl (50-175); TOTAL IRON BINDING CAPACITY 219 ug/dl (250-450)
[2020-11-12] MEDS: LOSARTAN POTASSIUM 50 MG TABLET GT SCH (17:53)
[2020-11-12 18:44] VITALS: BP 112/63
[2020-11-12 20:02] VITALS: BP 116/57
[2020-11-12] MEDS: AMLODIPINE BESYLATE 10 MG TABLET GT SCH (20:25)
[2020-11-12] MEDS: MELATONIN 3 MG TABLET GT SCH (21:14)
[2020-11-13] MEDS: POLYVINYL ALCOHOL 15 ML BOTTLE EACHEYE SCH ×4 (00:17→17:34)
[2020-11-13] MEDS: ALBUTEROL FS 2.5 MG/0.5 ML VIAL.NEB NEB SCH ×4 (02:02→19:58)
[2020-11-13] MEDS: IPRATROPIUM NEB FS 0.5 MG/2.5 ML AMPUL.NEB NEB SCH ×4 (02:02→19:58)
[2020-11-13 02:16] VITALS: BP 120/62
[2020-11-13] MEDS: LABETALOL 200 MG GT SCH ×2 (05:08→17:35)
[2020-11-13] MEDS: HYDRALAZINE 100 MG GT SCH ×3 (05:08→21:26)
[2020-11-13] MEDS: LEVOTHYROXINE SODIUM 100 MCG TABLET GT SCH (05:08)
[2020-11-13] MEDS: SUCRALFATE 1 G/10 ML UDC GT SCH ×4 (07:30→21:27)
[2020-11-13 07:45] VITALS: BP 116/50
[2020-11-13] MEDS: HYDROGEN PEROXIDE 480 ML BOTTLE TP SCH ×2 (08:33→19:58)
[2020-11-13] MEDS: VIT B CMPLX 3/FA/VIT C/BIOTIN 1 TAB TABLET GT SCH (09:00)
[2020-11-13] MEDS: THERAHONEY GEL 1.5 OZ TUBE TP SCH (09:00)
[2020-11-13] MEDS: PROSOURCE / PROSTAT (PYXIS) 30 ML UDC GT SCH ×2 (09:00→17:34)
[2020-11-13] MEDS: ACIDOPHILUS/BULGARICUS 1 EACH TAB.CHEW GT SCH ×2 (09:00→17:33)
[2020-11-13] MEDS: LOSARTAN POTASSIUM 50 MG TABLET GT SCH ×2 (09:00→17:33)
[2020-11-13] MEDS: CLOTRIMAZOLE/BETAMETASONE DIPROPIONATE 15 GM TUBE TP SCH (09:00)
[2020-11-13] MEDS: DOCUSATE SODIUM LIQ 100 MG/10 ML UDC GT SCH (09:00)
[2020-11-13] MEDS: Z GUARD REMEDY 4 OZ OINT TP SCH ×2 (09:00→21:27)
[2020-11-13] MEDS: PANTOPRAZOLE 40 MG/PACK PACK GT SCH ×2 (09:00→21:27)
[2020-11-13] MEDS: MINERAL OIL/PETROL OINT 396 GM JAR TP SCH (09:00)
[2020-11-13] MEDS: NEUTRA PHOS 1 POWD.PACKET GT SCH (09:00)
[2020-11-13] MEDS: NEPRO 1,000 ML BOTTLE GT PRN (09:57)
[2020-11-13 16:41] VITALS: BP 120/52
[2020-11-13 20:02] VITALS: BP 141/75
[2020-11-13] MEDS: CLONIDINE HCL 0.1MG/24H PTWK 1 EA PATCH TD SCH (20:52)
[2020-11-13] MEDS: AMLODIPINE BESYLATE 10 MG TABLET GT SCH (21:27)
[2020-11-13] MEDS: MELATONIN 3 MG TABLET GT SCH (21:27)
[2020-11-14] MEDS: POLYVINYL ALCOHOL 15 ML BOTTLE EACHEYE SCH ×4 (00:07→16:55)
[2020-11-14 00:15] VITALS: BP 134/57
--- NOTE | 2020-11-14 01:30 | NUR ---
Tracheal bleeding noted during suctioning.Cool lavage with saline when suctioning. No respiratory distress noted. Will monitir.
[2020-11-14] MEDS: IPRATROPIUM NEB FS 0.5 MG/2.5 ML AMPUL.NEB NEB SCH ×4 (01:58→19:43)
[2020-11-14] MEDS: ALBUTEROL FS 2.5 MG/0.5 ML VIAL.NEB NEB SCH ×4 (01:58→19:43)
[2020-11-14] MEDS: HYDRALAZINE 100 MG GT SCH ×3 (05:44→21:00)
[2020-11-14] MEDS: LEVOTHYROXINE SODIUM 100 MCG TABLET GT SCH (05:44)
[2020-11-14] MEDS: LABETALOL 200 MG GT SCH ×2 (05:44→16:56)
[2020-11-14] MEDS: ACETAMINOPHEN 650 MG/20 ML UDC- SA PATIENTS-PAIN ONLY GT PRN (05:59)
[2020-11-14 07:17] VITALS: BP 127/62
[2020-11-14] MEDS: SUCRALFATE 1 G/10 ML UDC GT SCH ×4 (07:30→21:14)
[2020-11-14] MEDS: HYDROGEN PEROXIDE 480 ML BOTTLE TP SCH ×2 (08:17→19:43)
[2020-11-14] MEDS: DOCUSATE SODIUM LIQ 100 MG/10 ML UDC GT SCH (08:46)
[2020-11-14] MEDS: NEUTRA PHOS 1 POWD.PACKET GT SCH (08:47)
[2020-11-14] MEDS: VIT B CMPLX 3/FA/VIT C/BIOTIN 1 TAB TABLET GT SCH (08:47)
[2020-11-14] MEDS: ACIDOPHILUS/BULGARICUS 1 EACH TAB.CHEW GT SCH ×2 (08:47→16:53)
[2020-11-14] MEDS: PANTOPRAZOLE 40 MG/PACK PACK GT SCH ×2 (08:48→21:14)
[2020-11-14] MEDS: PROSOURCE / PROSTAT (PYXIS) 30 ML UDC GT SCH ×2 (08:48→16:54)
[2020-11-14] MEDS: CLOTRIMAZOLE/BETAMETASONE DIPROPIONATE 15 GM TUBE TP SCH (09:00)
[2020-11-14] MEDS: THERAHONEY GEL 1.5 OZ TUBE TP SCH (09:00)
[2020-11-14] MEDS: MINERAL OIL/PETROL OINT 396 GM JAR TP SCH (09:00)
[2020-11-14] MEDS: Z GUARD REMEDY 4 OZ OINT TP SCH ×2 (09:00→21:14)
[2020-11-14 12:02] VITALS: BP 101/50
[2020-11-14] MEDS: LOSARTAN POTASSIUM 50 MG TABLET GT SCH (16:53)
[2020-11-14] MEDS: NEPRO 1,000 ML BOTTLE GT PRN (18:03)
[2020-11-14 19:14] VITALS: BP 111/61
--- NOTE | 2020-11-14 19:30 | NUR ---
Patient noted with WOB,tachypneic,O2 sats 95% HR 84,looks uncomfortable.currently on cool aerosol 28% Fi02.Notified RT to place back patient to vent with previous settings AC18 TV 550 Peep +5 Fl02 30%. Left message to JESSICA Gan that patient back on vent.Will continue to monitor.
--- NOTE | 2020-11-14 19:49 | NUR ---
PATIENT PLACED ON [facility] VENT AC 18 550 30% +5 AT THIS TIME DUE TO PATIENT LOOKING UNCOMFORTABLE AND TACHYPNEIC. PT IS COMFORTABLE AT THIS TIME. CHARGE NURSE ABRAHAM ARMENTA. WILL CONT TO MONITOR PT. Addendum: 11/14/20 at 1950 by SHANE COOPER RT Amended: Links added.
--- NOTE | 2020-11-14 20:27 | NUR ---
Patient breathing improved,calm and comfortable at this time. RR 18,O2 sats 100%,HR 76.Will continue to monitor.
[2020-11-14] MEDS: AMLODIPINE BESYLATE 10 MG TABLET GT SCH (21:00)
[2020-11-14] MEDS: MELATONIN 3 MG TABLET GT SCH (21:14)
[2020-11-14 23:47] VITALS: BP 123/62
[2020-11-15] MEDS: POLYVINYL ALCOHOL 15 ML BOTTLE EACHEYE SCH ×5 (00:06→23:48)
[2020-11-15] MEDS: IPRATROPIUM NEB FS 0.5 MG/2.5 ML AMPUL.NEB NEB SCH ×4 (01:27→19:58)
[2020-11-15] MEDS: ALBUTEROL FS 2.5 MG/0.5 ML VIAL.NEB NEB SCH ×4 (01:27→19:58)
[2020-11-15] MEDS: LABETALOL 200 MG GT SCH ×2 (05:15→18:00)
[2020-11-15] MEDS: LEVOTHYROXINE SODIUM 100 MCG TABLET GT SCH (05:15)
[2020-11-15] MEDS: HYDRALAZINE 100 MG GT SCH ×3 (05:15→21:00)
--- NOTE | 2020-11-15 06:29 | NUR ---
Patient with low grade temp of 99.5 and increased in secretions. Remains on ventilator O2 sats 100%,no distress. Will continue to monitor.
[2020-11-15 07:20] VITALS: BP 112/41
[2020-11-15] MEDS: SUCRALFATE 1 G/10 ML UDC GT SCH ×4 (07:48→22:02)
[2020-11-15] MEDS: VIT B CMPLX 3/FA/VIT C/BIOTIN 1 TAB TABLET GT SCH (08:06)
[2020-11-15] MEDS: PANTOPRAZOLE 40 MG/PACK PACK GT SCH ×2 (08:06→22:00)
[2020-11-15] MEDS: ACIDOPHILUS/BULGARICUS 1 EACH TAB.CHEW GT SCH ×2 (08:06→16:55)
[2020-11-15] MEDS: NEUTRA PHOS 1 POWD.PACKET GT SCH (08:06)
[2020-11-15] MEDS: PROSOURCE / PROSTAT (PYXIS) 30 ML UDC GT SCH ×2 (08:06→16:44)
[2020-11-15] MEDS: DOCUSATE SODIUM LIQ 100 MG/10 ML UDC GT SCH (08:06)
[2020-11-15] MEDS: LOSARTAN POTASSIUM 50 MG TABLET GT SCH ×2 (08:07→16:55)
[2020-11-15] MEDS: MINERAL OIL/PETROL OINT 396 GM JAR TP SCH (09:08)
[2020-11-15] MEDS: Z GUARD REMEDY 4 OZ OINT TP SCH ×2 (09:10→21:00)
[2020-11-15] MEDS: CLOTRIMAZOLE/BETAMETASONE DIPROPIONATE 15 GM TUBE TP SCH (09:10)
[2020-11-15] MEDS: THERAHONEY GEL 1.5 OZ TUBE TP SCH (09:10)
[2020-11-15] MEDS: HYDROGEN PEROXIDE 480 ML BOTTLE TP SCH ×2 (09:51→20:37)
--- NOTE | 2020-11-15 11:00 | NUR ---
Notified Dr. Gonzalez resident with episode of increase WOB and placed back to vent. This morning attempted to put patient back to cool aerosol but unable to tolerate after 2.5 hours and placed back to AC. Dr. Gonzalez said to leave patient on AC. Resident's notified of change in vent setting.
--- NOTE | 2020-11-15 11:11 | NUR ---
Facility Update: DIPESH notified family via email that, "DIPESH Facility Update: No [facility] Sub-Acute residents or employees tested positive for COVID-19 this week. [facility] continues to test Sub-Acute residents & healthcare personnel as recommended by [facility]. [facility] continues to follow infection control protocols and screen our residents and staff daily for symptoms".
[2020-11-15] MEDS: NEPRO 1,000 ML BOTTLE GT PRN (13:37)
--- NOTE | 2020-11-15 18:00 | NUR ---
PT NOTED WITH DECREASED BLOOD PRESSURE OF 94/46, HR 76, RR 18, T 98.9, SPO2 100. ALL EVENING BLOOD PRESSURE MEDICATIONS HELD. RAUDEL CHARGE NURSE AWARE. WILL CONTINUE WITH PLAN OF CARE
[2020-11-15 18:28] VITALS: BP 127/62
--- NOTE | 2020-11-15 18:50 | NUR ---
PT NOTED WITH DECREASE BLOOD PRESSURE. VITAL SIGNS READING, BP 87/44, HR 78, RR 18, T 99.1, SPO2 100%. RAUDEL, CHARGE NURSE AWARE. DR DONOHUE MADE AWARE BY RAUDEL CHARGE NURSE. AWAITING ORDERS. WILL CONTINUE WITH PLAN OF CARE
--- NOTE | 2020-11-15 18:55 | NUR ---
Left a message to Dr. Espinoza regarding patient's low B/P 87/44. Meanwhile place patient in Trendelenburg position, held feeding while awaiting for MD's orders, endorsed to incoming shift.
--- NOTE | 2020-11-15 19:52 | NUR ---
Notified Dr. Gonzalez with patient blood pressure lowest 71/44 and highest 84/46,HR 76,O2 sats 100%. Patient awake,no distress. With new order to give NS 500 ml IV bolus x1 and BC x 2. Will carry out orders.Will continue to monitor.
[2020-11-15 19:53] VITALS: BP 84/45
[2020-11-15] MEDS ORDERED: IV NS 0.9% 500 ML IV ONE (20:00)
--- NOTE | 2020-11-15 20:15 | NUR ---
Bolus completed NS 500 ml bolus. BP 103/55 HR 79. Sleeping but arousable to tactile stimuli. Will continue to monitor.
--- NOTE | 2020-11-15 20:46 | NUR ---
made aware of latest BP 122/56 HR 76. He said if still low transfer patient to acute and call admitting for orders. Will continue to monitor patient.
[2020-11-15] MEDS: AMLODIPINE BESYLATE 10 MG TABLET GT SCH (21:00)
[2020-11-15] MEDS: MELATONIN 3 MG TABLET GT SCH (22:02)
--- NOTE | 2020-11-15 22:03 | NUR ---
RN NOTES: -UPON ENDORSEMENT PATIENT HAD A LOW BP-84/40, CN/RN MADE DOCTOR AWARE, PLACED IN TRENDELENBERG POSITION, BOLUS 500CC OF NORMAL SALINE WAS GIVEN, BP IMPROVE --103/55. -KEPT ON CLOSE WATCH. -LATEST BP-110/64 IL-75 SPO2-100%, ANTIHYPERTENSIVE MEDICATION NOT GIVEN, CN/RN AWARE. ON CLOSE MONITORING.
[2020-11-15] MEDS: ACETAMINOPHEN 650 MG/20 ML UDC- SA PATIENTS-PAIN ONLY GT PRN (23:18)
--- NOTE | 2020-11-15 23:22 | NUR ---
RN NOTES: NOTED WITH FACIAL GRIMACE DURING SUCTIONING,PRN PAIN MEDICATION GIVEN, PLACED IN COMFORTABLE POSITION, NON PHARMACOLOGIC INTERVENTION RENDERED.
--- NOTE | 2020-11-15 23:40 | NUR ---
RN NOTES: -MORNING CARE DONE, NO BM,CHANGE AND REPOSITIONED, SUCTIONING DONE. -LATEST BP-108/56 [place]-75 SPO2-100%
--- NOTE | 2020-11-16 | NUR ---
RN NOTES: -AT AROUND 0000 --KEPT ON CLOSE WATCH, PATIENT IS ASLEEP, NO SIGN OF SOB, NO FACIAL GRIMACE. -BP-93/40 [place]- 74 SPO2-100% -AT 0135-- FREQUENT ROUNDS DONE, PATIENT IS ASLEEP, BP-85/45, RN/CM AWARE -RN/CM SAW CHECK THE PATIENT, SUCTIONING DONE.
[2020-11-16] MEDS: IPRATROPIUM NEB FS 0.5 MG/2.5 ML AMPUL.NEB NEB SCH (00:47)
[2020-11-16] MEDS: ALBUTEROL FS 2.5 MG/0.5 ML VIAL.NEB NEB SCH (00:47)
[2020-11-16 01:12] VITALS: BP 93/40
--- NOTE | 2020-11-16 02:00 | NUR ---
RN NOTES: AT 0145-- CHECK THE PATIENT, NOTICED HIS BREATHING CHANGE, UNRESPONSIVE AND PALE LOOKING,WEAK PULSE. -CALLED RN/CN,IMMEDIATELY SHE CAME AND RE-ASSESSED PATIENT, UNRESPONSIVE TO CALL, TOUCH AND PAIN, SUCTIONING DONE, HE HAS A LOT OF SALIVA/SECRETION COMING OUT OF HIS MOUTH, UNABLE TO OBTAIN VITAL SIGN AT 0150RN/CN INSTRUCT TO CALL RAPID RESPONSE. --RAPID RESPONSE TEAM(RT STAFF AND ICU/CN) CAME IN AND ASSESSED THE PATIENT 0156-NO PULSE, UNABLE TO OBTAIN V/S ADVANCE TO CODE BLUE--CPR WAS-- STARTED 0157-1st EPINEPHRINE given 0157-SODIUM BICARBONATE GIVEN 0200-2nd EPINEPHRINE GIVEN 0202-PULSE CHECK- NO PULSE 0203-3rd EPINEPHRINE GIVEN 0204-PULSE CHECK- NO PULSE 0206-4th EPINEPHRINE GIVEN 0206-PULSE CHECK - NO PULSE -CONTINUE CPR 0208-PULSE CHECK - NO PULSE 0208- DR.NEHA TRIPATHI/ER DECLARED TIME OF
--- NOTE | 2020-11-16 02:19 | NUR ---
PATIENT FOUND UNRESPONSIVE BY RN, STARTED RAPID RESPONSE. WHEN NO PULSE WAS DETECTED, CODE BLUE WAS ACTIVATED AND BEGAN CPR AT 0156. DESPITE [employer] EFFORTS, NO ROSC WAS DETECTED AND Brea PRONOUNCED THE PATIENT AT 020. Addendum: 11/16/20 at 022 by GOLDY PARIKH RT Amended: Links added. Addendum: 11/16/20 at 024 by GOLDY PARIKH RT [place] PRONOUNCED THE PATIENT AT 8.
--- NOTE | 2020-11-16 02:50 | NUR ---
Notified [facility] regarding patient .Spoke to Alexandra all needed information provided.Case # [id number]
--- NOTE | 2020-11-16 03:35 | NUR ---
Around 0335AM body transported to [facility] with body tag and bag tag on.
--- NOTE | 2020-11-16 03:44 | NUR ---
RN NOTES: AT P804-LIL CALLED [facility] [employer] [facility], LEFT MESSAGE AT 0205- [id number] [id number] CALLED BACK, SHE WAS NOTIFIED AT 0214- FROM [place] CALLED BACK, WITH THE HELP OF GORGE TEST ENGINE OPERATOR, IT WAS EXPLAINED TO HER WHAT HAPPENED AND PATIENT AT 0208 AT 0240-HIS SON LEONEL CALLED, WITH THE HELP OF TAMIKA TEST ENGINE OPERATOR, SON WAS NOTIFIED. AT 0245-POST MORTEM DONE, NAME TAG PLACED ON PATIENT TOE,BODY BAG AND BELONGINGS
--- NOTE | 2020-11-16 04:04 | NUR ---
Will notify primary physician patient @ 0208 am.
[2020-11-16] MEDS ORDERED: CALCIUM CHLORIDE 1,000 MG/10 ML DISP.SYRIN IV ONE (04:12)
[2020-11-16] MEDS ORDERED: EPINEPHRINE (1:10,000) SYRINGE 1 MG/10 ML DISP.SYRIN IVP ONE (06:48)
[2020-11-16] MEDS ORDERED: SODIUM BICARBONATE SYR 50 MEQ/50 ML DISP.SYRIN IV ONE (06:48)
--- NOTE | 2020-11-18 11:29 | NUR ---
Confirmed with Dr Espinoza that he is aware that pt on 11/16/20.
== END 2020-11-16 04:13 | DRG 166 ==
LOC: SA 19:46
PROVIDERS: ADMIT Internal Medicine; ATTEND Internal Medicine
PROC: 5A1955Z Respiratory Ventilation, Greater than 96 Consecutive Hours (ICD-10-PCS; principal; 2020-08-16)
PROC: 5A1D70Z Performance of Urinary Filtration, Intermittent, Less than 6 Hours Per Day (ICD-10-PCS; 2020-08-21)
PROC: 0JB70ZZ Excision of Back Subcutaneous Tissue and Fascia, Open Approach (ICD-10-PCS; 2020-08-29)
PROC: 30233N1 Transfusion of Nonautologous Red Blood Cells into Peripheral Vein, Percutaneous Approach (ICD-10-PCS; 2020-08-30)
PROC: 0JB70ZZ Excision of Back Subcutaneous Tissue and Fascia, Open Approach (ICD-10-PCS; 2020-09-06)
PROC: 0JB70ZZ Excision of Back Subcutaneous Tissue and Fascia, Open Approach (ICD-10-PCS; 2020-09-12)
PROC: 0JB70ZZ Excision of Back Subcutaneous Tissue and Fascia, Open Approach (ICD-10-PCS; 2020-09-20)
PROC: 0JB70ZZ Excision of Back Subcutaneous Tissue and Fascia, Open Approach (ICD-10-PCS; 2020-10-04)
PROC: 0JBP0ZZ Excision of Left Lower Leg Subcutaneous Tissue and Fascia, Open Approach (ICD-10-PCS; 2020-10-25)
PROC: 0JB70ZZ Excision of Back Subcutaneous Tissue and Fascia, Open Approach (ICD-10-PCS; 2020-11-15)
PROC: 5A2204Z Restoration of Cardiac Rhythm, Single (ICD-10-PCS; 2020-11-16)
DX: J96.11 Chronic respiratory failure with hypoxia (principal); L89.153 Pressure ulcer of sacral region, stage 3; I50.33 Acute on chronic diastolic (congestive) heart failure; N18.6 End stage renal disease; E43 Unspecified severe protein-calorie malnutrition; R53.2 Functional quadriplegia; I21.A1 Myocardial infarction type 2; D68.59 Other primary thrombophilia; I13.2 Hypertensive heart and chronic kidney disease with heart failure and with stage 5 chronic kidney disease, or end stage renal disease; L02.416 Cutaneous abscess of left lower limb; L97.429 Non-pressure chronic ulcer of left heel and midfoot with unspecified severity; Z99.11 Dependence on respirator [ventilator] status; P39.9 Infection specific to the perinatal period, unspecified; E11.9 Type 2 diabetes mellitus without complications; D64.9 Anemia, unspecified; Z20.822 Contact with and (suspected) exposure to COVID-19; F09 Unspecified mental disorder due to known physiological condition; D63.8 Anemia in other chronic diseases classified elsewhere; Z86.74 Personal history of sudden cardiac arrest; Z87.440 Personal history of urinary (tract) infections; Z79.899 Other long term (current) drug therapy; I48.91 Unspecified atrial fibrillation; I25.2 Old myocardial infarction; N40.0 Benign prostatic hyperplasia without lower urinary tract symptoms; E03.9 Hypothyroidism, unspecified; E11.22 Type 2 diabetes mellitus with diabetic chronic kidney disease; E11.40 Type 2 diabetes mellitus with diabetic neuropathy, unspecified; E11.621 Type 2 diabetes mellitus with foot ulcer; E11.622 Type 2 diabetes mellitus with other skin ulcer; E78.5 Hyperlipidemia, unspecified; I25.10 Atherosclerotic heart disease of native coronary artery without angina pectoris; R13.10 Dysphagia, unspecified; Z83.3 Family history of diabetes mellitus; Z87.11 Personal history of peptic ulcer disease; Z86.69 Personal history of other diseases of the nervous system and sense organs; Z86.73 Personal history of transient ischemic attack (TIA), and cerebral infarction without residual deficits; Z93.1 Gastrostomy status; Z93.0 Tracheostomy status; M62.562 Muscle wasting and atrophy, not elsewhere classified, left lower leg; M62.561 Muscle wasting and atrophy, not elsewhere classified, right lower leg; L60.3 Nail dystrophy; B96.1 Klebsiella pneumoniae [K. pneumoniae] as the cause of diseases classified elsewhere; B96.4 Proteus (mirabilis) (morganii) as the cause of diseases classified elsewhere; B95.2 Enterococcus as the cause of diseases classified elsewhere; B95.62 Methicillin resistant Staphylococcus aureus infection as the cause of diseases classified elsewhere; B36.9 Superficial mycosis, unspecified; Z99.2 Dependence on renal dialysis; D47.2 Monoclonal gammopathy
CPT/HCPCS: 31720; 36415; 36600; 80048-TC; 80053-TC; 82272-TC; 82607-TC; 82728-TC; 82784; 82803-TC; 82962-TC; 83540-TC; 84100-TC; 84155; 84165; 84436-TC; 84443-TC; 85025-TC; 85027-TC; 86334; 86580-TC; 86850-TC; 87040-TC; 87081-TC; 92521; 92526; 92950-TC; 93970-TC; 94002; 94002-TC; 94003-TC; 94640-TC; 94664-TC; 94760-TC; 94762-TC; 94799-TC; 97110-TC; 97112-TC; 97530-TC; A4217; A4623; A6248; A6253; A7526; J0171; J1644; J3490; L8501; P9016; Q0161; U0003